=== PATIENT | female | born 1935 | race Caucasian/White ===

== ENCOUNTER 2017-10-12 09:51 | Emergency (ER) | payer MEDICARE ==
[2017-10-12 09:59] VITALS: O2SAT 95
--- NOTE | 2017-10-12 10:13 | ERPHSYRPT ---
- History of Present Illness Time Seen by Provider: 10/12/17 10:10 Source: patient Exam Limitations: no limitations Patient Subjective Stated Complaint: has been having kneck and back pain for some time but its gotten worse recently. Triage Nursing Assessment: patient alert and orientedx3, able to ambulate , gait is steady, lung sounds clear, pulses equal bialteral radius, skin warm dry and intact. Physician History: mild lower back and neck pain for one day, no injury, pt refused pain med, ache pain, nonrad, pt is ambulatory, hx htn and pacer Timing/Duration: today Quality: aching Back Pain Location: C-spine, lumbar spine Allergies/Adverse Reactions: Penicillins Allergy (Severe, Verified 10/04/14 05:16) Hives Home Medications: Atenolol 25 mg PO DAILY 10/04/14 [History] Estradiol 1 mg [Estrace 1 mg] 0.5 mg PO DAILY 10/04/14 [History] Ferrous Sulfate 5 gm MC DAILY 10/04/14 [History] Hydrochlorothiazide 25 mg [hydroDIURIL 25 MG] 25 mg PO DAILY 10/04/14 [ History] Lisinopril 40 mg PO DAILY 10/04/14 [History] Magnesium Oxide 400 mg [Mag-Ox 400] 400 mg PO DAILY 10/04/14 [History] PANTOPRAZOLE 40 mg Tablet [Protonix 40MG Tablet] 40 mg PO BID 10/04/14 [ History] Simvastatin 40 mg [Zocor 40 mg] 20 mg PO DAILY 10/04/14 [History] Verapamil HCl 80 mg [Calan 80 mg] 80 mg PO BID 10/04/14 [History] Spironolactone 10 mg PO DAILY 10/12/17 [History] Hx Tetanus, Diphtheria Vaccination/Date Given: Yes Hx Influenza Vaccination/Date Given: Yes Hx Pneumococcal Vaccination/Date Given: Yes Immunizations Up to Date: Yes - Review of Systems Constitutional: No Symptoms Eyes: No Symptoms Ears, Nose, & Throat: No Symptoms Respiratory: No Symptoms Cardiac: No Symptoms Abdominal/Gastrointestinal: No Symptoms Musculoskeletal: Back Pain, Neck Pain Skin: No Symptoms Neurological: No Dizziness, No Focal Weakness, No Headache, No Lethargy Psychological: No Symptoms - Past Medical History Pertinent Past Medical History: Yes Neurological History: No Pertinent History ENT History: Cataracts, Other Cardiac History: Arrhythmia, Hypertension Respiratory History: CHF Endocrine Medical History: No Pertinent History Musculoskeletal History: No Pertinent History GI Medical History: Ulcer History: No Pertinent History Psycho-Social History: No Pertinent History Female Reproductive Disorders: No Pertinent History Other Medical History: ANEMIA - Past Surgical History Past Surgical History: Yes Neuro Surgical History: No Pertinent History Cardiac: Pacemaker Respiratory: No Pertinent History Genitourinary: No Pertinent History Musculoskeletal: Orthopedic Surgery Female Surgical History: Hysterectomy Other Surgical History: Inner ear sx - Social History Smoking Status: Former smoker Exposure to second hand smoke: No Drug Use: none Patient Lives Alone: No - Female History Hx Now: No - Nursing Vital Signs Nursing Vital Signs: Initial Vital Signs Temperature 97.5 F 10/12/17 09:51 Pulse Rate 72 10/12/17 09:51 Respiratory Rate 20 10/12/17 09:51 Blood Pressure 135/82 10/12/17 09:51 O2 Sat by Pulse Oximetry 95 10/12/17 09:51 Pain Scale Pain Intensity [] 9 Pain Intensity 3 - Physical Exam General Appearance: no apparent distress Eye Exam: PERRL/EOMI Ears, Nose, Throat Exam: normal ENT inspection Neck Exam: other (tender paracervical, nontender midline) Respiratory Exam: normal breath sounds Cardiovascular Exam: regular rate/rhythm Gastrointestinal Exam: soft, No tenderness Back Exam: No vertebral tenderness Extremity Exam: normal inspection Neurologic Exam: alert, oriented x 3, cooperative Skin Exam: normal color SpO2 Interpretation: normal SpO2: 95 Oxygen Delivery: Room Air - Course Nursing assessment & vital signs reviewed: Yes - CT Exams Cervical Spine CT Interpretation: Discussed w/radiologist, Other (degen dis, no fx) Lumbar Spine CT Interpretation: Discussed w/radiologist (degen dis, no fx) Lab/Rad Data: Laboratory Result Diagrams 10/12/17 10:20 10/12/17 10:20 Laboratory Results 10/12/17 10/12/17 10/12/17 Range/Units 10:20 10:20 10:20 WBC (4.0-10.5) K/mm3 RBC (4.1-5.4) M/mm3 Hgb (12.0-16.0) gm/dl Hct (35-47) % MCV (78-100) fl MCH (26-32) pg MCHC (32-36) g/dl RDW (11.5-14.0) % Plt Count (150-450) K/mm3 MPV (6-9.5) fl Gran % (36.0-66.0) % Lymphocytes % (24.0-44.0) % Monocytes % (0.0-12.0) % Eosinophils % (0.00-5.0) % Basophils % (0.0-0.4) % Basophils # (0-0.4) INR 1.59 (0.8-3.0) Sodium 141 (136-145) mEq/L Potassium 4.3 (3.5-5.1) mEq/L Chloride 103 (98-107) mEq/L Carbon Dioxide 27.6 (21-32) mEq/L Anion Gap 14.3 (5-15) MEQ/L BUN 24 H (9-20) mg/dL Creatinine 1.41 H (0.55-1.30) mg/dl Estimated GFR 38 ML/MIN Glucose 114 H (70-110) MG/DL Calcium 9.5 (8.5-10.1) mg/dL Total Bilirubin 0.40 (0.2-1.0) mg/dL AST 18 (15-37) U/L ALT 22 (12-78) U/L Alkaline Phosphatase 77 (46-116) U/L Troponin I < 0.017 (0.000-0.056) ng/ml Serum Total Protein 7.6 (6.4-8.2) gm/dL Albumin 3.7 (3.4-5.0) g/dL 10/12/ Range/Units 10:20 WBC 7.6 (4.0-10.5) K/mm3 RBC 3.91 L (4.1-5.4) M/mm3 Hgb 11.9 L (12.0-16.0) gm/dl Hct 38.3 (35-47) % MCV 98.0 (78-100) fl MCH 30.4 (26-32) pg MCHC 31.1 L (32-36) g/dl RDW 14.9 H (11.5-14.0) % Plt Count 234 (150-450) K/mm3 MPV 10.3 H (6-9.5) fl Gran % 67.2 H (36.0-66.0) % Lymphocytes % 17.9 L (24.0-44.0) % Monocytes % 11.9 (0.0-12.0) % Eosinophils % 2.2 (0.00-5.0) % Basophils % 0.8 (0.0-0.4) % Basophils # 0.06 (0-0.4) INR (0.8-3.0) Sodium (136-145) mEq/L Potassium (3.5-5.1) mEq/L Chloride (98-107) mEq/L Carbon Dioxide (21-32) mEq/L Anion Gap (5-15) MEQ/L BUN (9-20) mg/dL Creatinine (0.55-1.30) mg/dl Estimated GFR ML/MIN Glucose (70-110) MG/DL Calcium (8.5-10.1) mg/dL Total Bilirubin (0.2-1.0) mg/dL AST (15-37) U/L ALT (12-78) U/L Alkaline Phosphatase (46-116) U/L Troponin I (0.000-0.056) ng/ml Serum Total Protein (6.4-8.2) gm/dL Albumin (3.4-5.0) g/dL - Progress Progress: unchanged Progress Note: 10/12/17 12:16 ice and tylenol, see your doctor, return if worse Discussed with : Delvin Will see patient in: office Counseled pt/family regarding: lab results, diagnosis, need for follow-up, rad results - Departure Time of Disposition: 12:17 Departure Disposition: Home Clinical Impression: Back pain Qualifiers: Back pain location: low back pain Chronicity: chronic Back pain laterality: unspecified Sciatica presence: without sciatica Qualified Code(s): M54.5 - Low back pain Condition: Stable Critical Care Time: No Referrals: CHERYL GARIBAY [Primary Care Provider] - Instructions: Low Back Pain
[2017-10-12 10:34] LABS: BASOPHIL % 0.8 % (0.0-0.4); Eosinophil % 2.2 % (0.00-5.0); Granulocytes % 67.2 % (36.0-66.0); Lymphocytes % 17.9 % (24.0-44.0); Mean Corpuscular Hemoglobin 30.4 pg (26-32); Mean Platelet Volume 10.3 fl (6-9.5); Monocytes % 11.9 % (0.0-12.0); Platelet Count 234 K/mm3 (150-450); Red Blood Count 3.91 M/mm3 (4.1-5.4); Red Cell Distribution Width 14.9 % (11.5-14.0); White Blood Count 7.6 K/mm3 (4.0-10.5)
[2017-10-12 10:40] LABS: INR 1.59 (0.8-3.0); PROTIME 17.8 SECONDS (9.95-12.35)
[2017-10-12 10:44] LABS: ALBUMIN 3.7 g/dL (3.4-5.0); ANION GAP 14.3 MEQ/L (5-15); BILIRUBIN,TOTAL 0.4 mg/dL (0.2-1.0); Carbon Dioxide 27.6 mEq/L (21-32); Potassium 4.3 mEq/L (3.5-5.1); Total Protein 7.6 gm/dL (6.4-8.2)
[2017-10-12 11:49] VITALS: BP 124/61; PULSE 56
--- NOTE | 2017-10-12 16:26 | XRAY ---
Indication: Neck and back pain. Comparison: May 01, 2017. Portable chest remains clear again with left-sided pacemaker. Heart is not enlarged for AP portable technique. Bony thorax intact. No new/acute findings. Impression: Stable nonacute chest.
--- NOTE | 2017-10-12 16:30 | XRAY ---
Indication: Neck pain. No known injury. Multiple contiguous axial images obtained through the cervical spine. Sagittal and coronal reformatted images obtained. Comparison: None Several images are slightly degraded by motion artifact. No acute fracture, suspicious bony lesions, or spinal canal stenosis. Mild C5-C6 degenerative endplate spurring and mild/moderate multilevel bilateral degenerative facet hypertrophy. Sagittal and coronal reformatted images demonstrate cervical lordotic straightening, positional versus paraspinal spasm. Minimal C5-C6 disc space narrowing. No acute compression fracture, subluxation, or jumped facet. Normal-appearing craniocervical junction. Visualized noncontrasted soft tissues demonstrate moderate carotid calcifications bilaterally. Base of the brain and lung apices unremarkable. Impression: 1. Cervical lordotic straightening, positional versus paraspinal spasm. Negative acute fracture/subluxation. 2. Multilevel degenerative changes. Comment: Preliminary interpretation was made by [facility]. No discrepancy. CTDI 96.78
--- NOTE | 2017-10-12 16:32 | XRAY ---
Indication: Back pain. No known injury. Multiple contiguous axial images obtained through the lumbar spine. Sagittal and coronal reformatted images obtained. Comparison: None Axial images negative for acute fracture or suspicious bony lesions. Minimal broad-based L3-L5 disc bulge. There is bilateral L5 spondylolysis with 15 mm spondylolisthesis and subsequent bilateral foraminal stenosis. Also L5-S1 disc space loss. Visualized noncontrasted soft tissues demonstrates atrophic right kidney and mild aortoiliac calcifications. Impression: 1. Bilateral L5 spondylolysis with grade 2 spondylolisthesis. Subsequent bilateral foraminal stenosis. 2. Mild L3-L5 broad-based disc bulge. Comment: Preliminary interpretation was made by [facility]. No discrepancy. CTDI 74.21
== END 2017-10-12 12:31 | disposition home or self-care (01) ==
LOC: ED 09:51
DX: M54.5 Low back pain (principal); G89.29 Other chronic pain; M54.2 Cervicalgia; I10 Essential (primary) hypertension; I50.9 Heart failure, unspecified; D64.9 Anemia, unspecified; Z79.899 Other long term (current) drug therapy
CPT/HCPCS: 36000; 36415; 71010; 72125; 72131; 80053; 84484; 85025; 85610; 93005; 93041; 99283; 99284

== ENCOUNTER 2018-01-17 08:54 | Emergency (ER) | payer MEDICARE ==
[2018-01-17] MEDS ORDERED: MORPHINE SULFATE 2 MG INJ IM ONE (09:13)
--- NOTE | 2018-01-17 09:17 | ERPHSYRPT ---
- History of Present Illness Time Seen by Provider: 01/17/18 09:10 Source: patient Exam Limitations: no limitations Patient Subjective Stated Complaint: pt co low back pain x2 months; states pain intermittent but recently causing difficulty breathing; seen by family dr but states pain is not getting any better. Triage Nursing Assessment: pt ambulated to room per self with minimal assist; skin p, w, d; pain with palpation above left posterior ribs; denies any other pain; no other distress noted. Physician History: 83 y/o female comes to the ER with a 2 month history of right sided upper back pain. Pt describes the pain as sharp, constant, 8/10, with radiation to chest and not relieved on tramadol. Pt admits to now having difficulty breathing from the pain. Pt denies any injury to the back. Pt was seen in Sep of last year and had negative x rays. Timing/Duration: week(s) Method of Injury: unknown Quality: sharp Back Pain Location: T-spine, paraspinous muscles Severity of Pain-Max: severe Severity of Pain-Current: severe Modifying Factors: Improves With: nothing Allergies/Adverse Reactions: Penicillins Allergy (Severe, Verified 10/04/14 05:16) Hives Home Medications: Atenolol 25 mg PO DAILY 10/04/14 [History] Estradiol 1 mg [Estrace 1 mg] 0.5 mg PO DAILY 10/04/14 [History] Ferrous Sulfate 5 gm MC DAILY 10/04/14 [History] Hydrochlorothiazide 25 mg [hydroDIURIL 25 MG] 25 mg PO DAILY 10/04/14 [ History] Lisinopril 40 mg PO DAILY 10/04/14 [History] Magnesium Oxide 400 mg [Mag-Ox 400] 400 mg PO DAILY 10/04/14 [History] PANTOPRAZOLE 40 mg Tablet [Protonix 40MG Tablet] 40 mg PO BID 10/04/14 [ History] Simvastatin 40 mg [Zocor 40 mg] 20 mg PO DAILY 10/04/14 [History] Verapamil HCl 80 mg [Calan 80 mg] 80 mg PO BID 10/04/14 [History] Spironolactone 10 mg PO DAILY 10/12/17 [History] Tramadol HCl [Ultram 50 mg Tablet] 50 mg DAILY PRN PRN 01/17/18 [History] Hx Tetanus, Diphtheria Vaccination/Date Given: No Hx Influenza Vaccination/Date Given: Yes Hx Pneumococcal Vaccination/Date Given: Yes (2012) Immunizations Up to Date: No - Review of Systems Constitutional: No Fever, No Chills Eyes: No Symptoms Ears, Nose, & Throat: No Symptoms Respiratory: No Cough, No Dyspnea Cardiac: Chest Pain, No Edema, No Syncope Abdominal/Gastrointestinal: No Abdominal Pain, No Nausea, No Vomiting, No Diarrhea Genitourinary Symptoms: No Dysuria, No Frequency, No Urinary Retention Musculoskeletal: Back Pain, No Neck Pain Skin: No Rash Neurological: No Dizziness, No Focal Weakness, No Sensory Changes Psychological: No Symptoms Endocrine: No Symptoms All Other Systems: Reviewed and Negative - Past Medical History Pertinent Past Medical History: Yes Neurological History: No Pertinent History ENT History: Cataracts, Other Cardiac History: Arrhythmia, Hypertension Respiratory History: CHF Endocrine Medical History: No Pertinent History Musculoskeletal History: No Pertinent History GI Medical History: Ulcer History: No Pertinent History Psycho-Social History: No Pertinent History Female Reproductive Disorders: No Pertinent History Other Medical History: ANEMIA - Past Surgical History Past Surgical History: Yes Neuro Surgical History: No Pertinent History Cardiac: Pacemaker Respiratory: No Pertinent History Genitourinary: No Pertinent History Musculoskeletal: Orthopedic Surgery Female Surgical History: Hysterectomy Other Surgical History: Inner ear sx - Social History Smoking Status: Former smoker Exposure to second hand smoke: No Drug Use: none Patient Lives Alone: No - Female History Hx Last Menstrual Period: hysterectomy - Nursing Vital Signs Nursing Vital Signs: Initial Vital Signs Temperature 97.5 F 01/17/18 09:13 Pulse Rate 62 01/17/18 09:13 Respiratory Rate 16 01/17/18 09:13 Blood Pressure 157/75 01/17/18 09:13 O2 Sat by Pulse Oximetry 96 01/17/18 09:13 Pain Scale Pain Intensity 6 - Physical Exam General Appearance: no apparent distress, alert Eye Exam: PERRL/EOMI, eyes nml inspection Neck Exam: normal inspection, non-tender, supple, full range of motion, No meningismus, No midline tenderness Respiratory Exam: normal breath sounds, lungs clear, No respiratory distress Cardiovascular Exam: regular rate/rhythm, normal heart sounds Gastrointestinal Exam: soft, No tenderness, No mass Back Exam: point tenderness, No CVA tenderness Extremity Exam: normal inspection, normal range of motion, No calf tenderness, No pedal edema Neurologic Exam: alert, oriented x 3, 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, 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, normal mood/affect, nml station & gait, sensation nml, No motor deficits Skin Exam: normal color, warm, dry, No rash - Course Nursing assessment & vital signs reviewed: Yes Ordered Tests: Active Orders 24 hr Category Date Time Status CHEST WITHOUT CONTRAST [CT] Stat Exams 01/17/18 09:12 Completed RECONSTRUCTION [CT] Stat Exams 01/17/18 09:13 Completed CBC W DIFF Stat Lab 01/17/18 09:39 Completed CMP Stat Lab 01/17/18 09:39 Completed Medication Summary Discontinued Medications Generic Name Dose Route Start Last Admin Trade Name Rin PRN Reason Stop Dose Admin Morphine Sulfate 2 mg 01/17/18 09:13 01/17/18 09:36 Morphine Sulfate 2 Mg Inj IM 01/17/18 09:14 2 mg STAT ONE Administration Morphine Sulfate Confirm 01/17/18 09:33 Morphine Sulfate 2 Mg Inj Administered 01/17/18 09:34 Dose 2 mg .ROUTE .[employer] ONE Lab/Rad Data: Laboratory Result Diagrams 01/17/18 09:39 01/17/18 09:39 Laboratory Results 01/17/18 01/17/18 Range/Units 09:39 09:39 WBC 9.7 (4.0-10.5) K/mm3 RBC 4.41 (4.1-5.4) M/mm3 Hgb 13.5 (12.0-16.0) gm/dl Hct 42.5 (35-47) % MCV 96.4 (78-100) fl MCH 30.6 (26-32) pg MCHC 31.8 L (32-36) g/dl RDW 14.9 H (11.5-14.0) % Plt Count 275 (150-450) K/mm3 MPV 9.9 H (6-9.5) fl Gran % 73.5 H (36.0-66.0) % Lymphocytes % 12.3 L (24.0-44.0) % Monocytes % 11.4 (0.0-12.0) % Eosinophils % 2.2 (0.00-5.0) % Basophils % 0.6 (0.0-0.4) % Basophils # 0.06 (0-0.4) Sodium 138 (136-145) mEq/L Potassium 3.7 (3.5-5.1) mEq/L Chloride 100 (98-107) mEq/L Carbon Dioxide 27.2 (21-32) mEq/L Anion Gap 14.8 (5-15) MEQ/L BUN 13 (9-20) mg/dL Creatinine 1.17 (0.55-1.30) mg/dl Estimated GFR 47 ML/MIN Glucose 117 H (70-110) MG/DL Calcium 9.5 (8.5-10.1) mg/dL Total Bilirubin 0.50 (0.2-1.0) mg/dL AST 18 (15-37) U/L ALT 19 (12-78) U/L Alkaline Phosphatase 95 (46-116) U/L Serum Total Protein 7.7 (6.4-8.2) gm/dL Albumin 3.7 (3.4-5.0) g/dL - Progress Progress: improved Progress Note: 01/17/18 10:20 The patient feels better after receiving morphine 2mg IM X 1 dose. The labs are within normal limits. The CT thoracic spine shows a burst compression fracture at T9. As per neurosurgery, patient will F/U as an outpatient. The patient will be d/c home on [place] for pain. 01/17/18 11:51 - Departure Time of Disposition: 12:15 Departure Disposition: Home Clinical Impression: Compression fracture Condition: Stable Critical Care Time: No Referrals: CHERYL GARIBAY [Primary Care Provider] - Instructions: Vertebral Compression Fracture (DC) Additional Instructions: Follow up with your primary care doctor in the next couple of days for evaluation with a spine surgeon for kyphoplasty for a T9 compression fracture Prescriptions: Hydrocodone Bit/Acetaminophen [[place] 5-325 Tablet] 1 each PO QID #14 tablet MDD 4
[2018-01-17] MEDS ORDERED: MORPHINE SULFATE 2 MG INJ ONE (09:33)
[2018-01-17 09:42] LABS: BASOPHIL % 0.6 % (0.0-0.4); Basophil (Absolute #) 0.06 (0-0.4); Eosinophil % 2.2 % (0.00-5.0); Eosinophil (Absolute #) 0.21 (0-0.5); Granulocytes % 73.5 % (36.0-66.0); Hematocrit 42.5 % (35-47); Hemoglobin 13.5 gm/dl (12.0-16.0); Lymphocyte (Absolute #) 1.19 (1.0-4.6); Lymphocytes % 12.3 % (24.0-44.0); Mean Cell Volume 96.4 fl (78-100); Mean Corpuscular Hemoglobin 30.6 pg (26-32); Mean Corpuscular Hgb Concent. 31.8 g/dl (32-36); Mean Platelet Volume 9.9 fl (6-9.5); Monocytes % 11.4 % (0.0-12.0); Platelet Count 275 K/mm3 (150-450); Red Blood Count 4.41 M/mm3 (4.1-5.4); Red Cell Distribution Width 14.9 % (11.5-14.0); White Blood Count 9.7 K/mm3 (4.0-10.5)
[2018-01-17 10:06] LABS: ALBUMIN 3.7 g/dL (3.4-5.0); ANION GAP 14.8 MEQ/L (5-15); BILIRUBIN,TOTAL 0.5 mg/dL (0.2-1.0); Calcium 9.5 mg/dL (8.5-10.1); Carbon Dioxide 27.2 mEq/L (21-32); Creatinine 1 1.17 mg/dl (0.55-1.30); Potassium 3.7 mEq/L (3.5-5.1); Total Protein 7.7 gm/dL (6.4-8.2)
--- NOTE | 2018-01-17 11:21 | XRAY ---
Exam: CT of the chest without IV contrast from 01/17/2018. CTDI: 13.67 Comparison: Two-view chest from 12/11/2017. Indication: Mid right-sided back pain for 2 weeks, hurt while moving furniture around. Technique: Non-IV contrast axial images were obtained through the chest. Reconstructed coronal and sagittal images were created and reviewed. Findings: There is mild cardiomegaly. Both moderate left ventricular and left atrial enlargement is seen. A left-sided cardiac pacemaker is noted with a single transverse lead emanating from it and extending to the apex of the right ventricle. No pericardial effusion is seen. Moderate atherosclerotic vascular calcification is seen within the thoracic aorta. There is mild dilation seen near the junction of the distal ascending aorta and proximal aortic arch, which measures a maximum of 3.5 cm in diameter on axial image #20. No other significant thoracic aortic dilation is seen. The main pulmonary arteries are mildly prominent, measuring 2.8 cm in diameter on the right on axial image #26 and 3.0 cm in diameter within the left main pulmonary artery segment on axial image #23. These measurements are borderline enlarged. Mild coronary artery vascular calcification overlies the left side of the heart. Some calcification is seen within the [place] of the trachea and central bronchi. The thyroid gland appears grossly unremarkable. No abnormal bulky mediastinal or perihilar soft tissue lymphadenopathy is seen. A few scattered bilateral small calcified granulomas are seen. I also note some minimal scattered bilateral curvilinear scarring/atelectasis. No air space infiltrates, pneumothorax, or pleural fluid is seen. There is some mild pleural thickening at the posterior lateral right lower lung field. Within the upper abdomen, I see pronounced atrophy of the right kidney as well as at least 4 small nonobstructing right renal calcifications. The adrenal glands appear unremarkable. Atherosclerotic vascular calcification is seen within the upper to mid abdominal aorta. Abundant stool is seen within the visualized right hemicolon. There is some mild diffuse atrophy of the pancreas. No other acute abnormality is seen within the upper abdomen. The skeleton reveals a burst fracture involving the superior aspect of the T9 vertebral body with mild circumferential displacement on the axial images. This does not appear to involve the posterior elements. The T9 fracture is new from the chest film from 12/11/2017. There is approximately 50% loss of the mid vertebral body height of T9 on the sagittal images. There is about 40% loss of the anterior vertebral body height of T9 and 20-25% loss of the posterior vertebral body height of T9. There is minimal posterior bone cortex bulge of the fractured T9 vertebral body on the sagittal images. I see no significant spinal stenosis. No other fracture is seen within the visualized thoracolumbar spine. Impression: 1. There is a new moderate compression burst fracture involving the superior aspect of the T9 vertebral body with mild circumferential displacement of the fractured element's and minimal posterior cortical buckling. This does not significantly compromise the thoracic spinal canal at this level. I see no definite fracture involving the posterior elements of T9. See above. 2. Mild cardiomegaly with both left ventricular and left atrial enlargement. No pericardial effusion is seen. Minimal left coronary artery vascular calcification is seen. 3. There is mild aneurysmal distention of the thoracic aorta near the junction of the distal ascending aorta and proximal aortic arch. This measures a maximum of 3.5 cm in diameter. I also note prominence of both main pulmonary artery segments. An element of pulmonary artery hypertension is not excluded. 4. No active lung disease is seen. Several scattered small calcified granulomas and some mild scattered linear scarring/atelectasis within both lungs are seen. I also note mild pleural thickening posterolaterally within the right lower lung field. 5. Left-sided cardiac pacemaker and marked atrophy of the right kidney. I also note at least several nonobstructing punctate calculi within the small right kidney.
--- NOTE | 2018-01-17 11:25 | XRAY ---
Exam: Reconstructed thoracic spine CT images from the CT of the chest performed on 01/17/2018. Indication: Known T9 fracture. Findings: Coned-down axial images were obtained through the thoracic spine. Reconstructed coronal and sagittal images were created and reviewed. I again note a moderate generalized compression burst fracture of the superior aspect of the T9 vertebral body. This is new from the chest films from 12/11/2017. This fracture appears acute to subacute. I see no additional fracture involving the posterior elements of T9. No central canal spinal stenosis is seen at T9. There is minimal circumferential displacement of the upper T9 compression fracture with minimal cortical buckling posteriorly. Dorsal kyphosis and bone demineralization are seen. I see no other thoracic spine fracture or AP subluxation. Mild generalized thoracic vertebral endplate spurring is evident. Impression: 1. I again see a moderate, acute to subacute compression burst fracture involving the superior aspect of the T9 vertebral body. There is at least 50% loss of the mid T9 vertebral body height, although the anterior and posterior vertebral body height losses are somewhat less than this. See CT chest report.
[2018-01-17 12:35] VITALS: BP 127/44; PULSE 66; O2SAT 96
== END 2018-01-17 12:33 | disposition home or self-care (01) ==
LOC: ED 08:54
DX: M48.54XA Collapsed vertebra, not elsewhere classified, thoracic region, initial encounter for fracture (principal); Z79.899 Other long term (current) drug therapy
CPT/HCPCS: 36415; 71250; 76376; 80053; 85025; 96372; 99284; J2270

== ENCOUNTER 2018-02-01 14:06 | Emergency (ER) | payer MEDICARE ==
[2018-02-01] MEDS ORDERED: SUBLIMAZE 100 MCG/2 ML IV ONE ×2 (14:26→16:50)
[2018-02-01] MEDS ORDERED: SUBLIMAZE 100 MCG/2 ML ONE ×2 (14:38→16:52)
[2018-02-01 14:51] LABS: BASOPHIL % 0.5 % (0.0-0.4); Basophil (Absolute #) 0.05 (0-0.4); Eosinophil (Absolute #) 0.11 (0-0.5); Granulocyte Absolute (ANC) 7.73 (1.4-6.9); Hematocrit 43.6 % (35-47); Hemoglobin 14.1 gm/dl (12.0-16.0); Lymphocyte (Absolute #) 1.54 (1.0-4.6); Lymphocytes % 14.6 % (24.0-44.0); Mean Cell Volume 94.6 fl (78-100); Mean Corpuscular Hemoglobin 30.6 pg (26-32); Mean Corpuscular Hgb Concent. 32.3 g/dl (32-36); Mean Platelet Volume 10.4 fl (6-9.5); Monocyte (Absolute #) 1.15 (0.0-1.3); Monocytes % 10.9 % (0.0-12.0); Platelet Count 287 K/mm3 (150-450); Red Blood Count 4.61 M/mm3 (4.1-5.4); Red Cell Distribution Width 14.4 % (11.5-14.0); White Blood Count 10.6 K/mm3 (4.0-10.5)
[2018-02-01 15:10] LABS: INR 2.8 (0.8-3.0)
[2018-02-01 15:16] LABS: ANION GAP 15.9 MEQ/L (5-15); Calcium 9.8 mg/dL (8.4-10.2); Creatinine 1 0.99 mg/dL (0.52-1.04); Potassium 3.6 mmol/L (3.5-5.1)
[2018-02-01 16:48] VITALS: BP 157/68; PULSE 64; O2SAT 95
--- NOTE | 2018-02-01 17:09 | ERPHSYRPT ---
- History of Present Illness Time Seen by Provider: 02/01/18 14:22 Source: patient, family () Patient Subjective Stated Complaint: pt reports waking up this morning with neck pain radiating up into head-states pain is severe enough to cause nausea- denies fall-denies injury Triage Nursing Assessment: pt pink warm and [id number] bruising or abrasions ntoed-moving all extremtiies with ease Physician History: CC: neck pain HX: 83 y/o on coumadin thinks she slept on her neck wrong and awoke this AM with neck pain. Feels like spasm. No fever or chills. Some headache. No fall or specific injury. No N/T/W. She took her ultram without relief. Timing/Duration: today Severity: moderate, severe Allergies/Adverse Reactions: Penicillins Allergy (Severe, Verified 02/01/18 14:16) Hives Home Medications: Atenolol 25 mg PO DAILY 10/04/14 [History] Estradiol 1 mg [Estrace 1 mg] 0.5 mg PO DAILY 10/04/14 [History] Ferrous Sulfate 5 gm MC DAILY 10/04/14 [History] Hydrochlorothiazide 25 mg [hydroDIURIL 25 MG] 25 mg PO DAILY 10/04/14 [ History] Lisinopril 40 mg PO DAILY 10/04/14 [History] Magnesium Oxide 400 mg [Mag-Ox 400] 400 mg PO DAILY 10/04/14 [History] PANTOPRAZOLE 40 mg Tablet [Protonix 40MG Tablet] 40 mg PO BID 10/04/14 [ History] Simvastatin 40 mg [Zocor 40 mg] 20 mg PO DAILY 10/04/14 [History] Verapamil HCl 80 mg [Calan 80 mg] 80 mg PO BID 10/04/14 [History] Spironolactone 10 mg PO DAILY 10/12/17 [History] Tramadol HCl [Ultram 50 mg Tablet] 50 mg DAILY PRN PRN 01/17/18 [History] Hx Tetanus, Diphtheria Vaccination/Date Given: No Hx Influenza Vaccination/Date Given: Yes Hx Pneumococcal Vaccination/Date Given: Yes Immunizations Up to Date: Yes - Review of Systems Constitutional: No Fever, No Chills Eyes: No Vision Changes Ears, Nose, & Throat: No Symptoms Respiratory: No Symptoms Cardiac: No Chest Pain Abdominal/Gastrointestinal: No Abdominal Pain, No Nausea, No Vomiting Musculoskeletal: Neck Pain, No Fall, No Injury Skin: No Rash Neurological: Headache All Other Systems: Reviewed and Negative - Past Medical History Pertinent Past Medical History: Yes Neurological History: No Pertinent History ENT History: Cataracts, Other Cardiac History: Arrhythmia, Hypertension Respiratory History: CHF Endocrine Medical History: No Pertinent History Musculoskeletal History: No Pertinent History GI Medical History: Ulcer History: No Pertinent History Psycho-Social History: No Pertinent History Female Reproductive Disorders: No Pertinent History Other Medical History: ANEMIA - Past Surgical History Past Surgical History: Yes Neuro Surgical History: No Pertinent History Cardiac: Pacemaker Respiratory: No Pertinent History Gastrointestinal: No Pertinent History Genitourinary: No Pertinent History Musculoskeletal: Orthopedic Surgery Female Surgical History: Hysterectomy Other Surgical History: Inner ear sx - Social History Smoking Status: Former smoker Exposure to second hand smoke: No Drug Use: none Patient Lives Alone: No - Female History Hx Now: No - Nursing Vital Signs Nursing Vital Signs: Initial Vital Signs Temperature 98.3 F 02/01/18 14:11 Pulse Rate 70 02/01/18 14:11 Respiratory Rate 16 02/01/18 14:11 Blood Pressure 180/75 02/01/18 14:11 O2 Sat by Pulse Oximetry 96 02/01/18 14:11 Pain Scale Pain Intensity 8 - Physical Exam General Appearance: alert, other (pleasant elderly lady) Eye Exam: PERRL/EOMI Ears, Nose, Throat Exam: moist mucous membranes Neck Exam: normal inspection, other (tender all neck, worse paraspinous muscles) Respiratory Exam: normal breath sounds Cardiovascular Exam: regular rate/rhythm Gastrointestinal/Abdomen Exam: soft, No tenderness, No distention Neurologic Exam: alert, oriented x 3, cooperative, 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 nml as tested, sensation nml, No motor deficits Skin Exam: warm, dry SpO2 Interpretation: normal SpO2: 95 Oxygen Delivery: Room Air - Course Nursing assessment & vital signs reviewed: Yes - CT Exams brain,cervical CT Interpretation: Tele-radiologist Report (no acute) Ordered Tests: Active Orders 24 hr Category Date Time Status IV Insertion STAT Care 02/01/18 14:26 Active NPO (ED) STAT Care 02/01/18 14:26 Active CERVICAL SPINE WO CONTRAST [CT] Stat Exams 02/01/18 14:27 Taken HEAD WITHOUT CONTRAST [CT] Stat Exams 02/01/18 14:27 Taken BMP Stat Lab 02/01/18 14:35 Completed CBC W DIFF Stat Lab 02/01/18 14:35 Completed PROTIME WITH INR Stat Lab 02/01/18 14:35 Completed Medication Summary Discontinued Medications Generic Name Dose Route Start Last Admin Trade Name Rin PRN Reason Stop Dose Admin Fentanyl Citrate 50 mcg 02/01/18 14:26 02/01/18 15:25 Sublimaze 100 Mcg/2 Ml IV 02/01/18 14:27 50 mcg STAT ONE Administration Fentanyl Citrate Confirm 02/01/18 14:38 Sublimaze 100 Mcg/2 Ml Administered 02/01/18 14:39 Dose 100 mcg .ROUTE .STK-MED ONE Fentanyl Citrate 50 mcg 02/01/18 16:50 02/01/18 16:53 Sublimaze 100 Mcg/2 Ml IV 02/01/18 16:51 50 mcg STAT ONE Administration Fentanyl Citrate Confirm 02/01/18 16:52 Sublimaze 100 Mcg/2 Ml Administered 02/01/18 16:53 Dose 100 mcg .ROUTE .STK-MED ONE Lab/Rad Data: Laboratory Result Diagrams 02/01/18 14:35 02/01/18 14:35 Laboratory Results 02/01/18 02/01/18 02/01/18 Range/Units 14:35 14:35 14:35 WBC 10.6 H (4.0-10.5) K/mm3 RBC 4.61 (4.1-5.4) M/mm3 Hgb 14.1 (12.0-16.0) gm/dl Hct 43.6 (35-47) % MCV 94.6 (78-100) fl MCH 30.6 (26-32) pg MCHC 32.3 (32-36) g/dl RDW 14.4 H (11.5-14.0) % Plt Count 287 (150-450) K/mm3 MPV 10.4 H (6-9.5) fl Gran % 73.0 H (36.0-66.0) % Lymphocytes % 14.6 L (24.0-44.0) % Monocytes % 10.9 (0.0-12.0) % Eosinophils % 1.0 (0.00-5.0) % Basophils % 0.5 (0.0-0.4) % Basophils # 0.05 (0-0.4) INR 2.80 (0.8-3.0) Sodium 137 (137-145) mmol/L Potassium 3.6 (3.5-5.1) mmol/L Chloride 99 (98-107) mmol/L Carbon Dioxide 26 (22-30) mmol/L Anion Gap 15.9 H (5-15) MEQ/L BUN 9 (7-17) mg/dL Creatinine 0.99 (0.52-1.04) mg/dL Estimated GFR 57 ML/MIN Glucose 120 H (74-106) mg/dL Calcium 9.8 (8.4-10.2) mg/dL - Progress Progress Note: 02/01/18 17:07 She feels better after fentanyl and wants to go home. Advised warm compresses in addition to her ultram and to follow up with Dr Hargrove for possible PT. INR ok. Counseled pt/family regarding: lab results, diagnosis, need for follow-up, rad results - Departure Time of Disposition: 17:08 Departure Disposition: Home Clinical Impression: Cervical muscle strain, Warfarin anticoagulation Condition: Stable Critical Care Time: No Referrals: CHERYL HARGROVE [Primary Care Provider] - Instructions: Generalized Neck Pain (DC) Additional Instructions: Warm compresses off and on. Take your ultram as already prescribed. No driving and stay with family. Return for problems or concerns. Call Dr Hargrove Saturday for follow up.
--- NOTE | 2018-02-01 20:57 | XRAY ---
Indication: Neck pain. No known injury. Multiple contiguous axial images obtained through the head without contrast. Comparison: None Age-appropriate global atrophy, minimal periventricular degenerative micro-ischemia, and large focus old right parietal infarct. No acute intracranial hemorrhage, hydrocephalus, or mass effect. Bony calvarium intact. Previous right mastoidectomy. Remaining visualized paranasal sinuses and left mastoid air cells are clear. Impression: 1. No acute intracranial abnormalities. 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 3. Normal aging brain including atrophy and gentle micro-ischemia. Comment: Preliminary interpretation was made by [facility]. No discrepancy. CTDI 68.15
--- NOTE | 2018-02-01 21:01 | XRAY ---
Indication: Neck pain. No known injury. Multiple contiguous axial images obtained through the cervical spine. Sagittal and coronal reformatted images obtained. Comparison: October 12, 2017. Axial images again negative for acute fracture, suspicious bony lesions, or spinal canal stenosis. Stable C5-C6 degenerative endplate spurring and multilevel bilateral degenerative facet hypertrophy. Sagittal and coronal reformatted images demonstrates normal alignment. Stable C5-C6 disc space narrowing. No acute compression fracture, subluxation, or jumped facet. Visualized noncontrasted soft tissues again demonstrate scattered carotid calcifications bilaterally and partially visualized left-sided pacemaker. CT head reported separately. Impression: 1. Again negative acute fracture/subluxation. 2. Stable multilevel degenerative changes. Comment: Preliminary interpretation was made by [facility]. No discrepancy. CTDI 110.54
== END 2018-02-01 17:15 | disposition home or self-care (01) ==
LOC: ED 14:06
DX: S16.1XXA Strain of muscle, fascia and tendon at neck level, initial encounter (principal); M54.2 Cervicalgia; Z79.01 Long term (current) use of anticoagulants; Z79.899 Other long term (current) drug therapy
CPT/HCPCS: 36000; 36415; 70450; 72125; 80048; 85025; 85610; 96374; 96376; 99284; J3010

== ENCOUNTER 2018-03-19 13:18 | Inpatient (IN) | payer MEDICARE ==
[2018-03-19] MEDS ORDERED: SUBLIMAZE 100 MCG/2 ML IV ONE (13:47)
[2018-03-19] MEDS ORDERED: Zofran 4 MG/2 ML VIAL IV ONE (13:47)
[2018-03-19] MEDS ORDERED: solu-MEDROL 125 MG IV ONE (13:49)
[2018-03-19] MEDS ORDERED: DUONEB 0.5-3 MG/3 ml Neb IH PRN ×3 (13:50→22:01)
[2018-03-19 13:53] LABS: BASOPHIL % 0.2 % (0.0-0.4); Basophil (Absolute #) 0.03 (0-0.4); Eosinophil % 0.1 % (0.00-5.0); Eosinophil (Absolute #) 0.02 (0-0.5); Granulocyte Absolute (ANC) 12.11 (1.4-6.9); Granulocytes % 79.8 % (36.0-66.0); Hemoglobin 12.5 gm/dl (12.0-16.0); Lymphocyte (Absolute #) 1.55 (1.0-4.6); Lymphocytes % 10.2 % (24.0-44.0); Mean Cell Volume 94.2 fl (78-100); Mean Corpuscular Hemoglobin 30.2 pg (26-32); Mean Corpuscular Hgb Concent. 32.1 g/dl (32-36); Mean Platelet Volume 10.9 fl (6-9.5); Monocyte (Absolute #) 1.48 (0.0-1.3); Monocytes % 9.7 % (0.0-12.0); Platelet Count 250 K/mm3 (150-450); Red Blood Count 4.14 M/mm3 (4.1-5.4); Red Cell Distribution Width 14.7 % (11.5-14.0); White Blood Count 15.2 K/mm3 (4.0-10.5)
--- NOTE | 2018-03-19 13:59 | ERPHSYRPT ---
- History of Present Illness Time Seen by Provider: 03/19/18 13:46 Source: patient Exam Limitations: clinical condition Patient Subjective Stated Complaint: SOB after falling Saturday. Triage Nursing Assessment: Pt presents to the ED with complaints of SOB after falling Saturday. Pt states hx of falls. Pt states she fell from approximately 3 ft step stool onto her back. Pt states pain accross shoulder blades. No distress noted, skin PWD. Physician History: PATIENT WITH A HISTORY OF COPD FELL 2 NIGHT AGO LANDING ONTO LEFT POSTERIOR CHEST AND COMPLAINS OF DYSPNEA , PRODUCTIVE COUGH AND PAIN UPON COUGHING. DENIES ASSOCIATED HEAD INJURY, LOSS OF CONSCIOUSNESS, NECK PAIN, NUMBNESS, TINGLING OR WEAKNESS IN EXTREMITIES. Timing/Duration: day(s) Activities at Onset: activity Severity of Dyspnea-Max: moderate Severity of Dyspnea-Current: moderate Possible Cause: occasional episodes Modifying Factors: Improves With: coughing Associated Symptoms: cough, chest pain/discomfort International travel in last 2 weeks: No Allergies/Adverse Reactions: Penicillins Allergy (Severe, Verified 02/01/18 14:16) Hives Home Medications: Atenolol 25 mg PO DAILY 10/04/14 [History] Estradiol 1 mg [Estrace 1 mg] 0.5 mg PO DAILY 10/04/14 [History] Ferrous Sulfate 5 gm MC DAILY 10/04/14 [History] Lisinopril 40 mg PO DAILY 10/04/14 [History] Magnesium Oxide 400 mg [Mag-Ox 400] 400 mg PO DAILY 10/04/14 [History] PANTOPRAZOLE 40 mg Tablet [Protonix 40MG Tablet] 40 mg PO BID 10/04/14 [ History] Simvastatin 40 mg [Zocor 40 mg] 20 mg PO DAILY 10/04/14 [History] Verapamil HCl 80 mg [Calan 80 mg] 80 mg PO BID 10/04/14 [History] Spironolactone 10 mg PO DAILY 10/12/17 [History] Tramadol HCl [Ultram 50 mg Tablet] 50 mg DAILY PRN PRN 01/17/18 [History] Hx Tetanus, Diphtheria Vaccination/Date Given: Yes Hx Influenza Vaccination/Date Given: Yes Hx Pneumococcal Vaccination/Date Given: Yes Immunizations Up to Date: Yes - Past Medical History Pertinent Past Medical History: Yes Neurological History: No Pertinent History ENT History: Cataracts, Other Cardiac History: Arrhythmia, Hypertension Respiratory History: CHF Endocrine Medical History: No Pertinent History Musculoskeletal History: No Pertinent History GI Medical History: Ulcer History: No Pertinent History Psycho-Social History: No Pertinent History Female Reproductive Disorders: No Pertinent History Other Medical History: ANEMIA - Past Surgical History Past Surgical History: Yes Neuro Surgical History: No Pertinent History Cardiac: Pacemaker Respiratory: No Pertinent History Gastrointestinal: No Pertinent History Genitourinary: No Pertinent History Musculoskeletal: Orthopedic Surgery Female Surgical History: Hysterectomy Other Surgical History: Inner ear sx - Social History Smoking Status: Former smoker Exposure to second hand smoke: No Drug Use: none Patient Lives Alone: No - Female History Hx Now: No - Nursing Vital Signs Nursing Vital Signs: Initial Vital Signs Temperature 98.6 F 03/19/18 13:22 Pulse Rate 64 03/19/18 13:22 Respiratory Rate 23 03/19/18 13:22 Blood Pressure 175/71 03/19/18 13:22 O2 Sat by Pulse Oximetry 93 L 03/19/18 13:22 Pain Scale Pain Intensity 6 - Physical Exam General Appearance: no apparent distress, mild distress, alert Eye Exam: PERRL/EOMI Neck Exam: normal inspection, supple Respiratory Exam: chest tenderness (LEFT POSTERIOR CHEST WALL TENDERNESS, NO CREPITUS OR ECCHYCMOSIS), diminished breath sounds Cardiovascular/Chest Exam: normal heart sounds, regular rate/rhythm Abdominal/Gastrointestinal Exam: soft, normal bowel sounds, No tenderness, No distention, No mass Extremity Exam: non-tender, normal range of motion, normal inspection, no calf tenderness, no pedal edema Neurologic Exam: alert, oriented x 3, cooperative, 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 II-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 nml as tested, sensation nml, No motor deficits Skin Exam: normal color, warm, No dry SpO2 Interpretation: normal SpO2: 94 Oxygen Delivery: Room Air Ordered Tests: Active Orders 24 hr Category Date Time Status Up With Assistance ROUTINE Activity 03/19/18 18:24 Active Clean Catch Urine Specimen STAT Care 03/19/18 13:47 Active Code Status Order ROUTINE Care 03/19/18 18:24 Active IV Care Q6H Care 03/19/18 18:24 Active IV Insertion STAT Care 03/19/18 13:47 Active Oxygen-ED Only NASAL CANNULA 2 lpm Care 03/19/18 13:[address] in Observation ROUTINE Care 03/19/18 18:24 Active Pulse Oximetry (ED) STAT Care 03/19/18 13:48 Active Bennett Meléndez, Apply ROUTINE Care 03/19/18 18:24 Active Vital Signs Q4H Care 03/19/18 18:24 Active Weight,Daily 0600 Care 03/19/18 18:24 Active Low Sodium Diet 03/19/18 Breakfast Active CHEST WITH CONTRAST [CT] Stat Exams 03/19/18 13:47 Completed BLOOD CULTURE Stat Lab 03/19/18 14:20 Received CBC W DIFF Stat Lab 03/19/18 13:47 Completed CMP Stat Lab 03/19/18 13:47 Completed MAGNESIUM Stat Lab 03/19/18 13:49 Completed TROPONIN Q3H Lab 03/19/18 14:00 Completed TROPONIN Q3H Lab 03/19/18 16:40 Completed TROPONIN Q3H Lab 03/19/18 20:00 Ordered TROPONIN Q3H Lab 03/19/18 23:00 Ordered TROPONIN Q3H Lab 03/20/18 02:00 Ordered UA W/RFX UR CULTURE Stat Lab 03/19/18 13:47 Ordered Oxygen NASAL CANNULA 2 lpm RT 03/19/18 18:24 Active Respiratory Nebulizer Q4H RT 03/19/18 18:24 Active Respiratory Nebulizer STAT RT 03/19/18 14:11 Completed Respiratory Nebulizer STAT RT 03/19/18 18:05 Completed Transfer Order Routine Transfer 03/19/18 Ordered Medication Summary Generic Name Dose Route Start Last Admin Trade Name Freq PRN Reason Stop Dose Admin Acetaminophen 650 mg 03/19/18 18:31 Tylenol 325 Mg PO 04/18/18 18:30 Q4H PRN PRN PAIN AND/OR FEVER Albuterol/Ipratropium 3 ml 03/19/18 19:00 Duoneb 0.5-3 Mg/3 Ml Neb IH 04/18/18 18:59 Q4HRT POORNIMA Atenolol 25 mg 03/20/18 10:00 Tenormin 50 Mg PO 04/19/18 09:59 DAILY POORNIMA Sodium Chloride 1,000 mls @ 100 mls/hr 03/19/18 14:00 03/19/18 15:02 Sodium Chloride 0.9% 1000 Ml IV 04/18/18 13:59 100 mls/hr .Q10H POORNIMA Administration Levofloxacin/Dextrose 500 mg in 100 mls @ 100 mls/hr 03/20/18 10:00 Levofloxacin 500mg/100ml D5w IV 04/19/18 09:59 Q24H10 POORNIMA Sodium Chloride 1,000 mls @ 0 mls/hr 03/19/18 18:30 Sodium Chloride 0.9% 1000 Ml IV 04/18/18 18:29 .Q0M POORNIMA KVO Levalbuterol HCl 1.25 mg 03/19/18 18:30 Xopenex 1.25 Mg/0.5 Ml Ud Nebule IH 04/18/18 18:29 Q2HPRN PRN DYSPNEA Lisinopril 40 mg 03/20/18 10:00 Zestril 20 Mg PO 04/19/18 09:59 DAILY [facility] Magnesium Oxide 400 mg 03/19/18 22:00 Mag-Ox 400 PO 04/18/18 21:59 BID [facility] Methylprednisolone Sodium Succinate 80 mg 03/20/18 00:00 Solu-Medrol 125 Mg IV 04/19/18 00:00 Q6HT [facility] Pantoprazole Sodium 40 mg 03/19/18 22:00 Protonix 40mg Tablet PO 04/18/18 21:59 BID [facility] Tramadol HCl 50 mg 03/19/18 18:27 Ultram 50 Mg PO 04/18/18 18:26 QID PRN PRN PAIN Verapamil HCl 80 mg 03/19/18 22:00 Calan 80 Mg PO 04/18/18 21:59 BID [facility] Discontinued Medications Generic Name Dose Route Start Last Admin Trade Name Freq PRN Reason Stop Dose Admin Albuterol/Ipratropium 3 ml 03/19/18 13:50 03/19/18 14:09 Duoneb 0.5-3 Mg/3 Ml Neb IH 04/18/18 13:49 3 ml Q4HPRN PRN Administration SHORTNESS OF BREATH/WHEEZING Albuterol/Ipratropium 3 ml 03/19/18 17:46 Duoneb 0.5-3 Mg/3 Ml Neb IH 04/18/18 17:45 Q4HPRN PRN SHORTNESS OF BREATH/WHEEZING Albuterol/Ipratropium Confirm 03/19/18 14:04 Duoneb 0.5-3 Mg/3 Ml Neb Administered 03/19/18 14:05 Dose 3 ml IH .STK-MED ONE Albuterol/Ipratropium Confirm 03/19/18 17:51 Duoneb 0.5-3 Mg/3 Ml Neb Administered 03/19/18 17:52 Dose 3 ml IH .STK-MED ONE Albuterol/Ipratropium 3 ml 03/19/18 18:05 Duoneb 0.5-3 Mg/3 Ml Neb IH 03/19/18 18:06 STAT ONE Fentanyl Citrate 50 mcg 03/19/18 13:47 03/19/18 14:15 Sublimaze 100 Mcg/2 Ml IV 03/19/18 13:48 50 mcg STAT ONE Administration Fentanyl Citrate Confirm 03/19/18 14:13 Sublimaze 100 Mcg/2 Ml Administered 03/19/18 14:14 Dose 100 mcg .ROUTE .STK-MED ONE Levofloxacin/Dextrose 500 mg in 100 mls @ 100 mls/hr 03/19/18 16:24 03/19/18 16:29 Levofloxacin 500mg/100ml D5w IV 03/19/18 17:23 100 ml/hr STAT STA 100 mls/hr Administration Levofloxacin/Dextrose Confirm 03/19/18 16:27 Levofloxacin 500mg/100ml D5w Administered 03/19/18 16:28 Dose 500 mg in 100 mls @ ud IV .STK-MED ONE Methylprednisolone Sodium Succinate 125 mg 03/19/18 13:49 03/19/18 14:14 Solu-Medrol 125 Mg IV 03/19/18 13:50 125 mg STAT ONE Administration Methylprednisolone Sodium Succinate Confirm 03/19/18 14:13 Solu-Medrol 125 Mg Administered 03/19/18 14:14 Dose 125 mg .ROUTE .STK-MED ONE Ondansetron HCl 4 mg 03/19/18 13:47 03/19/18 14:15 Zofran 4 Mg/2 Ml Vial IV 03/19/18 13:48 4 mg STAT ONE Administration Ondansetron HCl Confirm 03/19/18 14:13 Zofran 4 Mg/2 Ml Vial Administered 03/19/18 14:14 Dose 4 mg .ROUTE .STK-MED ONE Lab/Rad Data: Laboratory Result Diagrams 03/19/18 13:47 03/19/18 13:47 Laboratory Results 03/19/18 03/19/18 03/19/18 Range/Units 16:40 14:00 13:49 WBC (4.0-10.5) K/mm3 RBC (4.1-5.4) M/mm3 Hgb (12.0-16.0) gm/dl Hct (35-47) % MCV (78-100) fl MCH (26-32) pg MCHC (32-36) g/dl RDW (11.5-14.0) % Plt Count (150-450) K/mm3 MPV (6-9.5) fl Gran % (36.0-66.0) % Eos # (Auto) (0-0.5) Absolute Lymphs (auto) (1.0-4.6) Absolute Monos (auto) (0.0-1.3) Lymphocytes % (24.0-44.0) % Monocytes % (0.0-12.0) % Eosinophils % (0.00-5.0) % Basophils % (0.0-0.4) % Absolute Granulocytes (1.4-6.9) Basophils # (0-0.4) Sodium (137-145) mmol/L Potassium (3.5-5.1) mmol/L Chloride (98-107) mmol/L Carbon Dioxide (22-30) mmol/L Anion Gap (5-15) MEQ/L BUN (7-17) mg/dL Creatinine (0.52-1.04) mg/dL Estimated GFR ML/MIN Glucose (74-106) mg/dL Calcium (8.4-10.2) mg/dL Magnesium 2.2 (1.6-2.3) mg/dL Total Bilirubin (0.2-1.3) mg/dL AST (14-36) U/L ALT (0-35) U/L Alkaline Phosphatase (38-126) U/L Troponin I 0.031 0.034 (0.000-0.034) ng/mL Serum Total Protein (6.3-8.2) g/dL Albumin (3.5-5.0) g/dL 03/19/18 03/19/18 Range/Units 13:47 13:47 WBC 15.2 H (4.0-10.5) K/mm3 RBC 4.14 (4.1-5.4) M/mm3 Hgb 12.5 (12.0-16.0) gm/dl Hct 39.0 (35-47) % MCV 94.2 (78-100) fl MCH 30.2 (26-32) pg MCHC 32.1 (32-36) g/dl RDW 14.7 H (11.5-14.0) % Plt Count 250 (150-450) K/mm3 MPV 10.9 H (6-9.5) fl Gran % 79.8 H (36.0-66.0) % Eos # (Auto) 0.02 (0-0.5) Absolute Lymphs (auto) 1.55 (1.0-4.6) Absolute Monos (auto) 1.48 H (0.0-1.3) Lymphocytes % 10.2 L (24.0-44.0) % Monocytes % 9.7 (0.0-12.0) % Eosinophils % 0.1 (0.00-5.0) % Basophils % 0.2 (0.0-0.4) % Absolute Granulocytes 12.11 H (1.4-6.9) Basophils # 0.03 (0-0.4) Sodium 140 (137-145) mmol/L Potassium 4.0 (3.5-5.1) mmol/L Chloride 100 (98-107) mmol/L Carbon Dioxide 28 (22-30) mmol/L Anion Gap 16.9 H (5-15) MEQ/L BUN 13 (7-17) mg/dL Creatinine 0.94 (0.52-1.04) mg/dL Estimated GFR > 60.0 ML/MIN Glucose 122 H (74-106) mg/dL Calcium 9.7 (8.4-10.2) mg/dL Magnesium (1.6-2.3) mg/dL Total Bilirubin 0.80 (0.2-1.3) mg/dL AST 30 (14-36) U/L ALT 19 (0-35) U/L Alkaline Phosphatase 92 (38-126) U/L Troponin I (0.000-0.034) ng/mL Serum Total Protein 7.8 (6.3-8.2) g/dL Albumin 4.5 (3.5-5.0) g/dL - Progress Progress Note: 03/19/18 16:35 IV NORMAL SALINE 50ML/HR, SOLUMEDROL 125 IV, FENTANYL 50MCG IV. AFTER 2 SETS OF BLOOD CULTURES LEVAQUIN 500 MG IVPB Blood Culture(s) Obtained: Yes Antibiotics given: Yes Discussed with : Ramo (DISCUSSED WITH DR GONSALEZ AT 1810 FOR OBSERVATION) - Departure Time of Disposition: 18:20 Departure Disposition: Observation Clinical Impression: EXACERBATION COPD, LEFT POSTERIOR CHEST WALL PAIN Condition: Stable Critical Care Time: No Referrals: CHERYL GARIBAY [Primary Care Provider] -
[2018-03-19] MEDS ORDERED: Sodium Chloride 0.9% 1000 ML 1,000 ML IV SCH ×2 (14:00→18:30)
[2018-03-19] MEDS ORDERED: DUONEB 0.5-3 MG/3 ml Neb IH ONE ×3 (14:04→18:05)
[2018-03-19] MEDS ORDERED: solu-MEDROL 125 MG ONE (14:13)
[2018-03-19] MEDS ORDERED: Zofran 4 MG/2 ML VIAL ONE (14:13)
[2018-03-19] MEDS ORDERED: SUBLIMAZE 100 MCG/2 ML ONE (14:13)
[2018-03-19 14:49] LABS: ALBUMIN 4.5 g/dL (3.5-5.0); ALKALINE PHOSPHATASE 92 U/L (38-126); ANION GAP 16.9 MEQ/L (5-15); BLOOD UREA NITROGEN 13 mg/dL (7-17); CHLORIDE 100 mmol/L (98-107); Calcium 9.7 mg/dL (8.4-10.2); Carbon Dioxide 28 mmol/L (22-30); Creatinine 1 0.94 mg/dL (0.52-1.04); Glucose 122 mg/dL (74-106); SGOT/AST 30 U/L (14-36); SGPT/ALT 19 U/L (0-35); SODIUM 140 mmol/L (137-145); Total Protein 7.8 g/dL (6.3-8.2)
[2018-03-19] MEDS ORDERED: Levofloxacin 500MG/100ML D5W 500 MG/100 ML BAG IV STA (16:24)
[2018-03-19] MEDS ORDERED: Levofloxacin 500MG/100ML D5W 500 MG/100 ML BAG IV ONE (16:27)
--- NOTE | 2018-03-19 17:03 | XRAY ---
Indication: Dyspnea. Shoulder pain following fall 2 days ago. Multiple contiguous axial images obtained through the chest using 80 cc of Isovue-370 contrast and PE protocol. Comparison: January 17, 2018. There is satisfactory opacification of the pulmonary arteries to include the lobar and segmental branches. No filling defect or pulmonary embolus. Heart remains enlarged. Aorta remains mildly arteriosclerotic without aneurysm/dissection. Stable left-sided single lead pacemaker. No pathologic mediastinal/hilar lymphadenopathy. Examination of the lung parenchyma demonstrates worsening moderate bibasilar dependent atelectasis. Also new small bilateral effusions, left greater than right. Stable scattered bilateral fibrosis/scarring and right midlung calcified granuloma. Bony thorax demonstrates progressive worsening T9 fracture with 50-75% height loss. New T3 compression fracture with approximately 50% height loss with minimal encroachment on the spinal canal and neural foramina. Limited upper abdomen again demonstrates fatty liver and atrophic right kidney. Impression: 1. Negative pulmonary embolus. 2. Again cardiomegaly with new small bilateral effusions. Rule out mild/early cardiac decompensation. 3. Worsening T9 compression fracture and new T3 compression fracture as detailed. 4. Stable fatty liver and atrophic right kidney. CTDI 13.33
[2018-03-19] MEDS ORDERED: ULTRAM 50 MG PO PRN (18:27)
[2018-03-19] MEDS ORDERED: Xopenex 1.25 MG/0.5 ML UD NEBULE IH PRN (18:30)
[2018-03-19] MEDS ORDERED: DUONEB 0.5-3 MG/3 ml Neb IH SCH (19:00)
[2018-03-19 19:19] LABS: Appearance SLIGHTLY CLOUDY (CLEAR); Leukocyte Esterase 1+ (NEGATIVE); Nitrite NEGATIVE (NEGATIVE); Protein,Urine Dip 30 (Negative); Specific Gravity 1.015 (1.005-1.025)
[2018-03-19 19:20] LABS: Bacteria RARE /HPF (NEGATIVE); Bilirubin NEGATIVE (NEGATIVE); Blood 50 Ery/ul (0-5); Epithelial Cells MODERATE /HPF (FEW); Glucose NEGATIVE (NEGATIVE); Ketones MODERATE (NEGATIVE); RBC 0-2 /HPF (0-2); Urobilinogen NORMAL mg/dL (0-1)
[2018-03-19] MEDS ORDERED: MAG-OX 400 PO SCH (22:00)
[2018-03-19] MEDS ORDERED: Toprol-Xl 25MG Tablets PO SCH (22:00)
[2018-03-19] MEDS ORDERED: Protonix 40MG Tablet PO SCH (22:00)
[2018-03-19] MEDS ORDERED: CALAN 80 MG PO SCH (22:00)
[2018-03-19] MEDS: solu-MEDROL 125 MG IV SCH (23:27)
[2018-03-19] MEDS: Lopressor 25MG Tab PO SCH (23:27)
[2018-03-19] MEDS: NORCO 5/325 MG PO PRN (23:34)
[2018-03-20 00:16] LABS: INR 5.04 (0.8-3.0)
[2018-03-20] MEDS: solu-MEDROL 125 MG IV SCH ×4 (05:37→23:52)
[2018-03-20] MEDS ORDERED: PROVENTIL 2.5 MG/3 ML NEB IH ONE (06:47)
[2018-03-20] MEDS ORDERED: DUONEB 0.5-3 MG/3 ml Neb IH SCH (07:00)
[2018-03-20] MEDS: PROVENTIL 2.5 MG/3 ML NEB IH SCH ×2 (07:23→19:22)
--- NOTE | 2018-03-20 09:13 | PCM.HP ---
History of Present Illness - Chief Complaint Chief Complaint: Exacerbation COPD History of Present Illness: is a 83 year old female who fell 2d ago while getting up on a step stool to change the battery in her smoke detector. She doesn't remember the fall but thinks she tripped. She was having mid back pain which brought her to the ER yesterday, 08/27. She was also having increased cough and SOB; it's better this morning but recurs if she takes her O2 off. Initially she had 3 elevated troponins, but the last 2 were negative. She denies having had any chest pain. Her back pain currently is 03/27. - Review of Systems Respiratory: Cough, Short Of Breath Musculoskeletal: Arthralgias (polyarthralgias), Back Pain, Fall, Injury All Other Systems: Reviewed and Negative Medications & Allergies Home Medications: Home Medication List Simvastatin 40 mg [Zocor 40 mg] 20 mg PO DAILY 10/04/14 [History Confirmed 03/19] Spironolactone 10 mg PO DAILY 10/12/17 [History Confirmed 03/19/18] Albuterol 2.5 mg/3 ml Neb [Proventil 2.5 mg/3 ml Neb] 3 ml NEB TIDPRN 02/02 [History Confirmed 03/20/18] Albuterol Sulfate [Albuterol Sulfate Hfa] 2 puff IH QID 03/20/18 [History Confirmed 03/20/18] Allergies/Adverse Reactions: Allergies Allergy/AdvReac Type Severity Reaction Status Date / Time Penicillins Allergy Severe Hives Verified 03/19/18 19:08 - Past Medical History Past Medical History: Yes Neurological History: Stroke ENT History: Cataracts Cardiac History: Arrhythmia, Hypertension Respiratory History: Bronchitis, CHF, COPD Endocrine Medical History: No Pertinent History Musculoskelatal History: No Pertinent History GI Medical History: Ulcer History: Other Pyscho-Social History: Anxiety Reproductive Disorders: No Pertinent History Comment: ANEMIA. pt states she has a kidney dr, doesnt know what the diagnosis is - Female History Are you now?: No - Past Surgical History Past Surgical History: Yes Neuro Surgical History: No Pertinent History Cardiac History: Pacemaker Respiratory Surgery: No Pertinent History GI Surgical History: No Pertinent History Genitourinary Surgical Hx: No Pertinent History Musculskeletal Surgical Hx: Orthopedic Surgery Female Surgical History: Hysterectomy Other Surgical History: Inner ear sx - Social History Smoking Status: Former smoker Exposure to second hand smoke: No Alcohol: None Drug Use: none - Physical Exam Vital Signs: Vital Signs - 24 hr Temp Pulse Resp BP Pulse Ox 03/20/18 07:38 98.5 F 67 18 135/65 94 L 03/20/18 07:27 92 H 18 94 L 03/20/18 04:00 98.1 F 59 L 20 141/66 90 L 03/20/18 00:00 99.1 F 59 L 20 137/60 91 L 03/19/18 23:00 61 18 90 L 03/19/18 22:06 64 22 90 L 03/19/18 21:01 98.7 F 64 20 150/67 90 L 03/19/18 18:32 94 L 03/19/18 18:05 60 22 91 L 03/19/18 17:38 60 16 162/66 92 L 03/19/18 16:31 59 L 22 169/58 92 L 03/19/18 15:31 58 L 16 168/58 91 L 03/19/18 14:11 58 L 24 94 L 03/19/18 13:26 23 94 L 03/19/18 13:22 98.6 F 64 23 175/71 93 L Oxygen-Last 24 hours O2 Percentage 3 Liters = 32% O2 Percentage 3 Liters = 32% O2 Percentage 2 Liters = 28% O2 Percentage 2 Liters = 28% O2 Percentage 2 Liters = 28% O2 Percentage 2 Liters = 28% Oxygen Flowrate (L/min)-RT 2 General Appearance: no apparent distress, alert Neurologic Exam: oriented x 3, cooperative, normal mood/affect Eye Exam: eyes nml inspection Ears, Nose, Throat Exam: moist mucous membranes Neck Exam: normal inspection, non-tender, No lymphadenopathy Respiratory Exam: lungs clear, diminished breath sounds, prolonged expirations, No crackles/rales, No rhonchi, No wheezing Cardiovascular Exam: regular rate/rhythm, normal heart sounds, No murmur Gastrointestinal/Abdomen Exam: soft, normal bowel sounds, No tenderness, No distention, No mass, No guarding, No rebound Back Exam: normal inspection, No rash Extremity Exam: normal inspection, No pedal edema, No swelling Skin Exam: normal color, warm, dry, No rash Results - Labs Lab/Micro Results: Lab Results-Last 24 Hours 03/19/18 03/19/18 03/19/18 Range/Units 20:39 23:30 23:30 PT 59.4 H (9.95-12.35) SECONDS INR 5.04 H* (0.8-3.0) Troponin I 0.042 H* 0.051 H* (0.000-0.034) ng/mL Ur Collection Type Urine Color (YELLOW) Urine Appearance (CLEAR) Urine pH (5-6) Ur Specific [place] (1.005-1.025) Urine Protein (Negative) Urine Ketones (NEGATIVE) Urine Blood (0-5) Jeff/ul Urine Nitrite (NEGATIVE) Urine Bilirubin (NEGATIVE) Urine Urobilinogen (0-1) mg/dL Ur Leukocyte Esterase (NEGATIVE) Urine Microscopic RBC (0-2) /HPF Urine Microscopic WBC (0-5) /HPF Ur Epithelial Cells (FEW) /HPF Urine Bacteria (NEGATIVE) /HPF Urine Culture Reflexed (NO) Urine Glucose (NEGATIVE) mg/dL Specimen Received 03/19/18 03/20/18 Range/Units Unknown 02:30 PT (9.95-12.35) SECONDS INR (0.8-3.0) Troponin I 0.045 H* (0.000-0.034) ng/mL Ur Collection Type CCMS Urine Color YELLOW (YELLOW) Urine Appearance SLIGHTLY CLOUDY (CLEAR) Urine pH 5.0 (5-6) Ur Specific [place] 1.015 (1.005-1.025) Urine Protein 30 (Negative) Urine Ketones MODERATE (NEGATIVE) Urine Blood 50 (0-5) Jeff/ul Urine Nitrite NEGATIVE (NEGATIVE) Urine Bilirubin NEGATIVE (NEGATIVE) Urine Urobilinogen NORMAL (0-1) mg/dL Ur Leukocyte Esterase 1+ (NEGATIVE) Urine Microscopic RBC 0-2 (0-2) /HPF Urine Microscopic WBC 5-10 (0-5) /HPF Ur Epithelial Cells MODERATE (FEW) /HPF Urine Bacteria RARE (NEGATIVE) /HPF Urine Culture Reflexed YES (NO) Urine Glucose NEGATIVE (NEGATIVE) mg/dL Specimen Received 03-19-18 1900 Microbiology 03/19/18 Unknown Urine Culture - Preliminary Clean Catch Midstream NO GROWTH TO DATE - Other Procedures and Tests Respiratory Therapy 03/19/18 18:24 Oxygen NASAL CANNULA 2 lpm Respiratory Nebulizer UD 03/19/18 22:05 Respiratory Nebulizer PRN Assessment/Plan (1) Traumatic compression fracture of T3 thoracic vertebra Current Visit: Yes Status: Acute Qualifiers: Encounter type: initial encounter Fracture type: closed Qualified Code(s) : S22.030A - Wedge compression fracture of third thoracic vertebra, initial encounter for closed fracture Assessment & Plan: Will discuss with pt whether she would like to be referred for a possible kyphoplasty. Code(s): S22.030A - WEDGE COMPRESSION FRACTURE OF THIRD THORACIC VERTEBRA, INIT (2) COPD exacerbation Current Visit: Yes Status: Acute Assessment & Plan: on IV levaquin and solumedrol. requiring O2. Code(s): J44.1 - CHRONIC OBSTRUCTIVE PULMONARY DISEASE W (ACUTE) EXACERBATION (3) Back pain Current Visit: No Status: Acute Code(s): M54.9 - DORSALGIA, UNSPECIFIED
[2018-03-20] MEDS: NORCO 5/325 MG PO PRN ×2 (09:27→22:04)
[2018-03-20] MEDS ORDERED: TENORMIN 50 MG PO SCH (10:00)
[2018-03-20] MEDS ORDERED: Zestril 20 MG PO SCH (10:00)
[2018-03-20] MEDS: Levofloxacin 500MG/100ML D5W 500 MG/100 ML BAG IV SCH (10:24)
[2018-03-20] MEDS ORDERED: PROVENTIL 2.5 MG/3 ML NEB IH PRN (10:26)
[2018-03-20] MEDS: Klor Con 10 MEQ PO SCH (11:16)
[2018-03-20] MEDS: ceLEXa 20 MG PO SCH (11:16)
[2018-03-20] MEDS: ZOCOR 20MG PO SCH (11:16)
[2018-03-20] MEDS: Aldactone 25 MG PO SCH (11:16)
[2018-03-20] MEDS: NORVASC 5 MG PO SCH (11:17)
[2018-03-20] MEDS: Lopressor 25MG Tab PO SCH ×2 (11:20→21:07)
[2018-03-20] MEDS: Carafate 1 GM PO SCH ×2 (11:21→20:38)
[2018-03-20] MEDS: TYLENOL 325 MG PO PRN (16:00)
[2018-03-21 05:35] LABS: Granulocyte Absolute (ANC) 21.76 (1.4-6.9); Hematocrit 36.3 % (35-47); Hemoglobin 11.4 gm/dl (12.0-16.0); Mean Cell Volume 95.5 fl (78-100); Mean Corpuscular Hgb Concent. 31.4 g/dl (32-36); Platelet Count 250 K/mm3 (150-450); Red Cell Distribution Width 14.8 % (11.5-14.0); White Blood Count 24.5 K/mm3 (4.0-10.5)
[2018-03-21 05:48] LABS: ANION GAP 16.7 MEQ/L (5-15); Calcium 9.7 mg/dL (8.4-10.2); Creatinine 1 0.98 mg/dL (0.52-1.04); Potassium 4.8 mmol/L (3.5-5.1)
[2018-03-21] MEDS: solu-MEDROL 125 MG IV SCH (05:53)
[2018-03-21 05:57] LABS: INR 5.63 (0.8-3.0)
[2018-03-21] MEDS: NORCO 5/325 MG PO PRN ×2 (06:31→14:48)
[2018-03-21] MEDS: PROVENTIL 2.5 MG/3 ML NEB IH SCH ×2 (07:16→19:30)
[2018-03-21] MEDS: Aldactone 25 MG PO SCH (08:08)
[2018-03-21] MEDS: Lopressor 25MG Tab PO SCH ×2 (08:08→21:11)
[2018-03-21] MEDS: Carafate 1 GM PO SCH ×2 (08:08→21:10)
[2018-03-21] MEDS: NORVASC 5 MG PO SCH (08:08)
[2018-03-21] MEDS: ceLEXa 20 MG PO SCH (08:08)
[2018-03-21] MEDS: ZOCOR 20MG PO SCH (08:08)
[2018-03-21] MEDS: Klor Con 10 MEQ PO SCH (08:08)
[2018-03-21] MEDS: Levofloxacin 500MG/100ML D5W 500 MG/100 ML BAG IV SCH (08:09)
--- NOTE | 2018-03-21 09:38 | PCM.DS ---
Discharge Summary Date of Admission: 03/19/18 18:43 Admitting Physician: HANG GONSALEZ Primary Care Provider: CHERYL GARIBAY Allergies Allergies Penicillins Allergy (Severe, Verified 03/19/18 19:08) [facility] Summary - Hospital Course Hospital Course: Pt admitted through ER with 2d of back pain s/p fall, also c/o cough. She was found to have a new T3 compression fracture and was started on antibiotics and steroids IV for COPD exacerbation. She has been tolerating her back pain fairly well with norco 5/325. She has been on 3L NC until this morning, when she is on 1L NC (at baseline is not on O2 at home). Initially she had 3 elevated troponins but the final 2 were in the normal range. She has been on telemetry for hx afib. Her initial INR was just over 5, and this morning is a bit increased to 5.6. I discussed possible kyphoplasty with pt yesterday and she did not want to do it. However this morning she would like to try, so will discuss with Dr. Lind. It's possible he will want to do the procedure at outside hospital. If pt ends up staying here, she will need 1-2 more days on IV antibiotics and steroids for her COPD exacerbation/pneumonia. - Vitals & Intake/Output Vital Signs: Vital Signs Temperature 97.5 F 03/21/18 07:47 Pulse Rate 59 L 03/21/18 07:47 Respiratory Rate 20 03/21/18 07:47 Blood Pressure 163/71 03/21/18 07:47 O2 Sat by Pulse Oximetry 94 L 03/21/18 07:16 Oxygen-Last Documented O2 Percentage 1 Liter = 24% Intake & Output: Intake & Output 03/18/18 03/19/18 03/20/18 03/21/18 11:59 11:59 11:59 11:59 Intake Total 1051 1462 Output Total 600 Balance 451 1462 Weight 67.3 kg - Lab Result Diagrams: 03/21/18 05:18 03/21/18 05:18 Lab Results-Last 24 Hrs: Lab Results-Last 24 Hours 03/21/18 03/21/18 03/21/18 Range/Units 05:18 05:18 05:18 WBC 24.5 H (4.0-10.5) K/mm3 RBC 3.80 L (4.1-5.4) M/mm3 Hgb 11.4 L (12.0-16.0) gm/dl Hct 36.3 (35-47) % MCV 95.5 (78-100) fl MCH 30.0 (26-32) pg MCHC 31.4 L (32-36) g/dl RDW 14.8 H (11.5-14.0) % Plt Count 250 (150-450) K/mm3 MPV 11.0 H (6-9.5) fl Absolute Granulocytes 21.76 H (1.4-6.9) PT 66.8 H (9.95-12.35) SECONDS INR 5.63 H* (0.8-3.0) Sodium 137 (137-145) mmol/L Potassium 4.8 (3.5-5.1) mmol/L Chloride 100 (98-107) mmol/L Carbon Dioxide 26 (22-30) mmol/L Anion Gap 16.7 H (5-15) MEQ/L BUN 24 H (7-17) mg/dL Creatinine 0.98 (0.52-1.04) mg/dL Estimated GFR 57.7 ML/MIN Glucose 163 H (74-106) mg/dL Calcium 9.7 (8.4-10.2) mg/dL Micro Results-Entire Visit: Microbiology 03/19/18 Unknown Urine Culture - Final Clean Catch Midstream MIXED ERICH; 3 OR MORE TYPES. NO PREDOMINANT ORGANISM. NO FURTHER WORKUP. PLEASE RESUBMIT IF CLINICALLY INDICATED. - Procedures and Test Procedures and Tests throughout Hospitalization: Therapy Orders & Screens 03/19/18 18:24 Oxygen NASAL CANNULA 2 lpm Comment: Diagnosis: Shortness of Breath Respiratory Nebulizer UD Comment: Diagnosis: Shortness of Breath 03/19/18 21:31 RT Screen per Nursing Assess ONCE Comment: Protocol Order Physician Instructions: Greater than 3 points order RT Admission Screen Reason For Exam: Triggered on Admission Diagnosis: Exacerbation COPD Diagnosis: Exacerbation COPD Pneumonia: No Home O2: No Asthma: No CHF: Yes Home CPAP/BIPAP: No Home Nebs/MDI: Yes Total Points: 8 03/19/18 22:05 Respiratory Nebulizer PRN Comment: Diagnosis: Exacerbation COPD Discharge Exam General Appearance: no apparent distress, alert Neurologic Exam: oriented x 3, cooperative Skin Exam: normal color, warm, dry, No rash Respiratory Exam: prolonged expirations, crackles/rales (faint, L), No rhonchi, No wheezing Cardiovascular Exam: regular rate/rhythm, normal heart sounds, No murmur Gastrointestinal/Abdomen Exam: soft, normal bowel sounds, No tenderness, No distention, No mass, No guarding, No rebound Extremity Exam: normal inspection, No pedal edema, No swelling Back Exam: normal inspection, No rash Final Diagnosis/Problem List - Final Discharge Diagnosis/Problem (1) Traumatic compression fracture of T3 thoracic vertebra Current Visit: Yes Status: Acute Onset Date: ~03/20/18 Assessment & Plan: Will discuss with Dr. Lind re: possible kyphoplasty. (2) Pneumonia Current Visit: Yes Status: Acute Onset Date: ~03/21/18 Assessment & Plan: She's on IV levaquin day #3 and IV solumedrol - decreased dose today from 80mg IV q6h to 40mg IV q6h. (3) COPD exacerbation Current Visit: Yes Status: Acute Onset Date: ~03/20/18 (4) Back pain Current Visit: No Status: Acute Onset Date: ~03/20/18 (5) Atrial fibrillation Current Visit: Yes Status: Chronic Assessment & Plan: stable rate. (6) Warfarin anticoagulation Current Visit: No Status: Chronic Assessment & Plan: Have held her warfarin. Will make sure Dr. Lind is aware. Daily INRs. No active bleeding. - Discharge Disposition: Home, Self-Care Condition: Stable Prescriptions: No Action Simvastatin 40 mg [Zocor 40 mg] 40 mg PO DAILY Spironolactone 25 mg PO DAILY Albuterol 2.5 mg/3 ml Neb [Proventil 2.5 mg/3 ml Neb] 3 ml NEB TIDPRN Albuterol Sulfate [Albuterol Sulfate Hfa] 2 puff IH QID Sucralfate 1 gm [Carafate 1 GM] 2 g PO QPM Sucralfate 1 gm [Carafate 1 GM] 2 g PO QAM Metoprolol Tartrate 25 mg [Lopressor 25MG Tab] 25 mg PO BID Potassium Chloride [K-Dur] 10 meq PO DAILY Citalopram Hydrobromide [Celexa] 10 mg PO DAILY Amlodipine Besylate 10 mg [Norvasc 10 MG] 10 mg PO DAILY Warfarin Sodium 1 mg PO QPM Follow up with: CHERYL GARIBAY [Primary Care Provider] - 1 Week
[2018-03-21 09:51] LABS: Lymphocytes 7 % (24-44); Monocyte 2 % (0.0-12.0); Neutrophils 91 % (36.0-66.0); Total Cells Counted 100
[2018-03-21 09:52] LABS: Platelet Estimate NORMAL (NORMAL); Toxic Granulation 1+
[2018-03-21] MEDS ORDERED: NON-FORMULARY ITEM (Simvastatin 40 Mg [Zocor 40 Mg] 40 MG) PO SCH (10:00)
[2018-03-21] MEDS ORDERED: NON-FORMULARY ITEM (Potassium Chloride [K-Dur] 10 MEQ) PO SCH (10:00)
[2018-03-21] MEDS ORDERED: NON-FORMULARY ITEM (Citalopram Hydrobromide [Celexa] 10 MG) PO SCH (10:00)
[2018-03-21] MEDS ORDERED: NON-FORMULARY ITEM (Amlodipine Besylate 10 Mg [Norvasc 10 Mg] 10 MG) PO SCH (10:00)
[2018-03-21] MEDS: Sodium Chloride 0.9% 1000 ML 1,000 ML IV SCH ×2 (10:16→22:24)
[2018-03-21] MEDS: solu-MEDROL 40 MG IV SCH ×2 (13:06→19:26)
[2018-03-22] MEDS: solu-MEDROL 40 MG IV SCH ×5 (00:26→23:47)
[2018-03-22] MEDS ORDERED: Dulcolax 10 MG SUPP PR PRN ×2 (02:17→07:30)
[2018-03-22] MEDS: Zofran 4 MG/2 ML VIAL IV PRN (02:24)
[2018-03-22] MEDS: NORCO 5/325 MG PO PRN ×3 (05:22→16:29)
[2018-03-22 06:49] LABS: INR 4.45 (0.8-3.0)
[2018-03-22] MEDS: PROVENTIL 2.5 MG/3 ML NEB IH SCH ×2 (07:10→19:33)
[2018-03-22] MEDS: Carafate 1 GM PO SCH ×2 (07:13→19:45)
[2018-03-22] MEDS: Levofloxacin 500MG/100ML D5W 500 MG/100 ML BAG IV SCH (09:38)
[2018-03-22] MEDS: Sodium Chloride 0.9% 1000 ML 1,000 ML IV SCH (09:38)
[2018-03-22] MEDS: NORVASC 5 MG PO SCH (09:39)
[2018-03-22] MEDS: Lopressor 25MG Tab PO SCH ×2 (09:39→21:55)
[2018-03-22] MEDS: Klor Con 10 MEQ PO SCH (09:39)
[2018-03-22] MEDS: ZOCOR 20MG PO SCH (09:39)
[2018-03-22] MEDS: Aldactone 25 MG PO SCH (09:39)
[2018-03-22] MEDS: ceLEXa 20 MG PO SCH (09:40)
--- NOTE | 2018-03-22 11:54 | PCM.NOTE ---
Date and Time: 03/22/18 1149 Subjective Assessment: Pt had nausea last night. Breathing is "OK" but her O2 requirement has increased since yesterday. Radha liquids well but her appetite is still low and she does not want much food to eat. - Review of Systems Constitutional: No Fever Respiratory: Cough, Short Of Breath Objective Exam General Appearance: no apparent distress, alert Neurologic Exam: oriented x 3, cooperative Skin Exam: normal color, warm, dry, No rash Ears, Nose, Throat Exam: moist mucous membranes Neck Exam: normal inspection Respiratory Exam: diminished breath sounds (good air exchange), prolonged expirations, No crackles/rales, No rhonchi, No wheezing Cardiovascular Exam: regular rate/rhythm, normal heart sounds, No murmur Extremity Exam: normal inspection, No pedal edema, No swelling OBJECTIVE DATA Vital Signs: Vital Signs - 24 hr Temp Pulse Resp BP Pulse Ox 03/22/18 11:35 97.7 F 65 16 151/66 93 L 03/22/18 07:39 18 03/22/18 07:00 65 18 92 L 03/22/18 06:59 97.7 F 60 16 142/67 93 L 03/22/18 04:00 98.1 F 72 20 139/91 90 L 03/22/18 00:00 98.0 F 59 L 20 161/69 94 L 03/21/18 20:00 98.3 F 67 19 163/81 90 L 03/21/18 19:33 89 22 86 L 03/21/18 16:36 97.8 F 80 20 130/65 91 L 03/21/18 16:00 20 Oxygen-Last 24 hours O2 Percentage 3 Liters = 32% O2 Percentage 3 Liters = 32% O2 Percentage 3 Liters = 32% O2 Percentage 3 Liters = 32% O2 Percentage 3 Liters = 32% O2 Percentage 1 Liter = 24% Pain Assessment - Last Documented Pain Intensity 7 Pain Scale Used 0-10 Pain Scale Intake and Output: Intake & Output 03/19/18 03/20/18 03/21/18 03/22/18 11:59 11:59 11:59 11:59 Intake Total 2895 Output Total 850 Balance 2045 Weight 70.7 kg Lab Results: Lab Results-Last 24 Hours 03/22/18 Range/Units 05:15 PT 52.5 H (9.95-12.35) SECONDS INR 4.45 H (0.8-3.0) Assessment/Plan (1) Traumatic compression fracture of T3 thoracic vertebra Current Visit: Yes Status: Acute Onset Date: ~03/20/18 Qualifiers: Encounter type: initial encounter Fracture type: closed Qualified Code(s) : S22.030A - Wedge compression fracture of third thoracic vertebra, initial encounter for closed fracture Assessment & Plan: I discussed with Dr. Lind yesterday, he will be out of town all weekend so would not be able to do a kyphoplasty until Saturday. Currently she still needs inpatient care, so if she is still here on Saturday she will transfer to [facility] but if she gets discharged before then she will go see him outpatient. Code(s): S22.030A - WEDGE COMPRESSION FRACTURE OF THIRD THORACIC VERTEBRA, INIT (2) Pneumonia Current Visit: Yes Status: Acute Onset Date: ~03/21/18 Qualifiers: Pneumonia type: due to unspecified organism Laterality: bilateral Lung location: unspecified part of lung Qualified Code(s): J18.9 - Pneumonia, unspecified organism Assessment & Plan: On levaquin day #4. Code(s): J18.9 - PNEUMONIA, UNSPECIFIED ORGANISM (3) COPD exacerbation Current Visit: Yes Status: Acute Onset Date: ~03/20/18 Assessment & Plan: Levaquin and solumedrol 40mg IV q6h. Will leave IV steroid at this dose; if her O2 requirement were to increase further I would increase it, but my hope is with her lung exam that she would have a decrease in O2 requirement between now and tomorrow. Code(s): J44.1 - CHRONIC OBSTRUCTIVE PULMONARY DISEASE W (ACUTE) EXACERBATION (4) Back pain Current Visit: No Status: Acute Onset Date: ~03/20/18 Qualifiers: Back pain location: thoracic back pain Chronicity: acute Back pain laterality: midline Qualified Code(s): M54.6 - Pain in thoracic spine Code(s): M54.9 - DORSALGIA, UNSPECIFIED (5) Atrial fibrillation Current Visit: Yes Status: Chronic Code(s): I48.91 - UNSPECIFIED ATRIAL FIBRILLATION (6) Warfarin anticoagulation Current Visit: No Status: Chronic Assessment & Plan: INR has dropped today to 4.45 - will continue to hold coumadin. Dr. Lind is aware pt on coumadin. Code(s): Z79.01 - LONG-TERM (CURRENT) USE OF ANTICOAGULANTS
[2018-03-23] MEDS: TYLENOL 325 MG PO PRN (01:49)
[2018-03-23 05:49] LABS: Granulocyte Absolute (ANC) 9.95 (1.4-6.9); Hematocrit 33.7 % (35-47); Hemoglobin 10.7 gm/dl (12.0-16.0); Mean Cell Volume 94.1 fl (78-100); Mean Corpuscular Hgb Concent. 31.8 g/dl (32-36); Mean Platelet Volume 10.7 fl (6-9.5); Platelet Count 240 K/mm3 (150-450); Red Blood Count 3.58 M/mm3 (4.1-5.4); Red Cell Distribution Width 14.8 % (11.5-14.0); White Blood Count 11.6 K/mm3 (4.0-10.5)
[2018-03-23 05:59] LABS: INR 4.14 (0.8-3.0)
[2018-03-23 06:04] LABS: ANION GAP 13.5 MEQ/L (5-15); BLOOD UREA NITROGEN 28 mg/dL (7-17); CHLORIDE 104 mmol/L (98-107); Calcium 9.3 mg/dL (8.4-10.2); Carbon Dioxide 24 mmol/L (22-30); Glucose 156 mg/dL (74-106); Potassium 4.6 mmol/L (3.5-5.1); SODIUM 136 mmol/L (137-145)
[2018-03-23 06:05] LABS: Mean Corpuscular Hemoglobin 29.8 pg (26-32)
[2018-03-23] MEDS: solu-MEDROL 40 MG IV SCH (06:23)
[2018-03-23 06:24] LABS: BAND 5 % (0.0-2.0); Lymphocytes 3 % (24-44); Monocyte 4 % (0.0-12.0); Neutrophils 88 % (36.0-66.0); Total Cells Counted 100
[2018-03-23 06:25] LABS: Platelet Estimate NORMAL (NORMAL)
[2018-03-23] MEDS: PROVENTIL 2.5 MG/3 ML NEB IH SCH (06:50)
[2018-03-23 07:24] VITALS: O2SAT 93
[2018-03-23] MEDS: ceLEXa 20 MG PO SCH (08:50)
[2018-03-23] MEDS: Carafate 1 GM PO SCH (08:50)
[2018-03-23] MEDS: NORVASC 5 MG PO SCH (08:51)
[2018-03-23] MEDS: ZOCOR 20MG PO SCH (08:51)
[2018-03-23] MEDS: Klor Con 10 MEQ PO SCH (08:51)
[2018-03-23] MEDS: Lopressor 25MG Tab PO SCH (08:52)
[2018-03-23] MEDS: Levofloxacin 500MG/100ML D5W 500 MG/100 ML BAG IV SCH (08:52)
[2018-03-23] MEDS: Aldactone 25 MG PO SCH (08:52)
[2018-03-23] MEDS: NORCO 5/325 MG PO PRN (09:09)
[2018-03-23] MEDS: Zofran 4 MG/2 ML VIAL IV PRN (09:09)
--- NOTE | 2018-03-23 09:50 | PCM.DS ---
Discharge Summary Date of Admission: 03/21/18 09:33 Admitting Physician: HANG GONSALEZ Primary Care Provider: CHERYL GARIBAY Allergies Allergies Penicillins Allergy (Severe, Verified 03/19/18 19:08) [facility] Summary - Hospital Course Hospital Course: Pt admitted from home 3d after a fall with back pain and SOB - found to have T3 fx and COPD exacerbation. Not on home O2, but requiring 3L NC here (on levaquin and IV steroids). We discussed possible kyphoplasty with Dr. Lind - he is willing to tx the pt but needs to do so at [facility]. He was out of town until today so the pt will be transferred there today. She has had an elevated INR and her coumadin has been held since admission - the INR is down today to 4.14. This morning she got choked on a pill and vomited. She has been having some nausea but was no nauseated last night. She has complained of decrease in appetite since about 1 week ago. - Vitals & Intake/Output Vital Signs: Vital Signs Temperature 98.0 F 03/23/18 07:23 Pulse Rate 64 03/23/18 07:23 Respiratory Rate 18 03/23/18 08:00 Blood Pressure 173/76 03/23/18 07:23 O2 Sat by Pulse Oximetry 93 L 03/23/18 07:23 Oxygen-Last Documented O2 Percentage 3 Liters = 32% Intake & Output: Intake & Output 03/20/18 03/21/18 03/22/18 03/23/18 11:59 11:59 11:59 11:59 Intake Total 2895 2499 Output Total 850 1100 Balance 2045 1399 Weight 70.7 kg 70.6 kg - Lab Result Diagrams: 03/23/18 05:10 03/23/18 05:10 Lab Results-Last 24 Hrs: Lab Results-Last 24 Hours 03/23/18 03/23/18 03/23/18 Range/Units 05:10 05:10 05:10 WBC 11.6 H (4.0-10.5) K/mm3 RBC 3.58 L (4.1-5.4) M/mm3 Hgb 10.7 L (12.0-16.0) gm/dl Hct 33.7 L (35-47) % MCV 94.1 (78-100) fl MCH 29.8 (26-32) pg MCHC 31.8 L (32-36) g/dl RDW 14.8 H (11.5-14.0) % Plt Count 240 (150-450) K/mm3 MPV 10.7 H (6-9.5) fl Absolute Granulocytes 9.95 H (1.4-6.9) Segmented Neutrophils 88 H (36.0-66.0) % Band Neutrophils 5 H (0.0-2.0) % Lymphocytes (Manual) 3 L (24-44) % Monocytes (Manual) 4 (0.0-12.0) % Platelet Estimate NORMAL (NORMAL) RBC Morphology NORMAL PT 48.9 H (9.95-12.35) SECONDS INR 4.14 H (0.8-3.0) Sodium 136 L (137-145) mmol/L Potassium 4.6 (3.5-5.1) mmol/L Chloride 104 (98-107) mmol/L Carbon Dioxide 24 (22-30) mmol/L Anion Gap 13.5 (5-15) MEQ/L BUN 28 H (7-17) mg/dL Creatinine 0.90 (0.52-1.04) mg/dL Estimated GFR > 60.0 ML/MIN Glucose 156 H (74-106) mg/dL Calcium 9.3 (8.4-10.2) mg/dL Discharge Exam General Appearance: mild distress (immediately s/p vomiting), alert Neurologic Exam: oriented x 3, cooperative Skin Exam: normal color, warm, dry, No rash Ears, Nose, Throat Exam: moist mucous membranes Respiratory Exam: diminished breath sounds, prolonged expirations, rhonchi (LLL) , No crackles/rales, No wheezing Cardiovascular Exam: regular rate/rhythm, normal heart sounds, No murmur Gastrointestinal/Abdomen Exam: soft, normal bowel sounds, No tenderness Extremity Exam: normal inspection, No pedal edema, No swelling Back Exam: normal inspection, No rash Final Diagnosis/Problem List - Final Discharge Diagnosis/Problem (1) Traumatic compression fracture of T3 thoracic vertebra Current Visit: Yes Status: Acute Onset Date: ~03/20/18 Assessment & Plan: Transfer to [facility] for further tx by Dr. Lind, thank you. (2) Pneumonia Current Visit: Yes Status: Acute Onset Date: ~03/21/18 Assessment & Plan: on levaquin day #4. (3) COPD exacerbation Current Visit: Yes Status: Acute Onset Date: ~03/20/18 Assessment & Plan: on solumedrol 40mg IV q6h. Her O2 is at 3L NC. (4) Back pain Current Visit: No Status: Acute Onset Date: ~03/20/18 (5) Atrial fibrillation Current Visit: Yes Status: Chronic Assessment & Plan: rate is stable. on coumadin at home, held here. (6) Warfarin anticoagulation Current Visit: No Status: Chronic Assessment & Plan: INR 4.14 today, coumadin still being held. (7) HTN (hypertension) Current Visit: Yes Status: Chronic Assessment & Plan: on amlodipine 10mg/d. Some elevated BP here, may be related to pain. - [facility]charge [facility] Condition: Stable Prescriptions: No Action Simvastatin 40 mg [Zocor 40 mg] 40 mg PO DAILY Spironolactone 25 mg PO DAILY Albuterol 2.5 mg/3 ml Neb [Proventil 2.5 mg/3 ml Neb] 3 ml NEB TIDPRN Albuterol Sulfate [Albuterol Sulfate Hfa] 2 puff IH QID Sucralfate 1 gm [Carafate 1 GM] 2 g PO QPM Sucralfate 1 gm [Carafate 1 GM] 2 g PO QAM Metoprolol Tartrate 25 mg [Lopressor 25MG Tab] 25 mg PO BID Potassium Chloride [K-Dur] 10 meq PO DAILY Citalopram Hydrobromide [Celexa] 10 mg PO DAILY Amlodipine Besylate 10 mg [Norvasc 10 MG] 10 mg PO DAILY Warfarin Sodium 1 mg PO QPM Follow up with: CHERYL GARIBAY [Primary Care Provider] - 1 Week
[2018-03-23 11:51] VITALS: BP 153/70; PULSE 67
== END 2018-03-23 12:50 | disposition short-term general hospital (02) | DRG 551 ==
LOC: ED 13:18 → MED SURG 18:43 → OBSVTOIN 03-21 09:33
PROVIDERS: ADMIT Family Medicine; ATTEND Family Medicine
DX: S22.030A Wedge compression fracture of third thoracic vertebra, initial encounter for closed fracture (principal); J18.9 Pneumonia, unspecified organism; J44.1 Chronic obstructive pulmonary disease with (acute) exacerbation; R07.89 Other chest pain; I48.91 Unspecified atrial fibrillation; Z79.01 Long term (current) use of anticoagulants; W19.XXXS Unspecified fall, sequela; I10 Essential (primary) hypertension; F41.9 Anxiety disorder, unspecified; M25.50 Pain in unspecified joint; I50.9 Heart failure, unspecified; Z86.73 Personal history of transient ischemic attack (TIA), and cerebral infarction without residual deficits; Z87.891 Personal history of nicotine dependence; Z79.899 Other long term (current) drug therapy
CPT/HCPCS: 36000; 36415; 71260; 80048; 80053; 81000; 83735; 84484; 85025; 85610; 87040; 87086; 93268; 94150; 94640; 94760; 96360; 96361; 96365; 96374; 96375; 99285; G0378; J7609; J1956; J2405; J2920; J2930; J3010; A9270-GY

== ENCOUNTER 2018-10-18 06:04 | Inpatient (IN) | payer MEDICARE ==
[2018-10-18] MEDS ORDERED: Sodium Chloride 0.9% 1000 ML 1,000 ML IV STA (06:27)
[2018-10-18] MEDS ORDERED: LEVOFLOXACIN 750MG/150ML D5W 750 MG/150 ML BAG IV STA (06:27)
[2018-10-18] MEDS ORDERED: solu-MEDROL 125 MG IV ONE (06:27)
[2018-10-18] MEDS ORDERED: PROVENTIL 2.5 MG/3 ML NEB IH ONE ×2 (06:27→06:31)
[2018-10-18] MEDS ORDERED: TYLENOL 325 MG PO STA (06:35)
--- NOTE | 2018-10-18 06:35 | ERPHSYRPT ---
- History of Present Illness Source: patient Exam Limitations: clinical condition Patient Subjective Stated Complaint: pt is alert and oriented. pt is ambulatory with a steady gait. pt states she has been SOB for 2 days. pt began having an acute SOB at 2200 10/17/18. pt lung sounds wheezy bilat a-p throughout. pt o2 87 % on RA placed on 2L NC o2 increased to 94%. pt states she has a temp of 100 degrees yesterday. pt denies chest pain. pt states she vomited after a coughing , has had diarrhea, felt lightheaded and dizzy. Triage Nursing Assessment: see above Timing/Duration: yesterday Activities at Onset: activity Severity of Dyspnea-Max: severe Severity of Dyspnea-Current: severe Possible Cause: occasional episodes Modifying Factors: Improves With: coughing, exertion Associated Symptoms: cough, wheezing (FEVER) International travel in last 2 weeks: No Hx Tetanus, Diphtheria Vaccination/Date Given: Yes Hx Influenza Vaccination/Date Given: Yes (Sep 2018) Hx Pneumococcal Vaccination/Date Given: Yes (Sep 2018) <GOOD LEDBETTER - Last Filed: 10/18/18 07:07> <LAVONNE FRAGA - Last Filed: 10/18/18 19:46> - History of Present Illness Time Seen by Provider: 10/18/18 06:15 Physician History: PATIENT WITH A HISTORY OF COPD, CHRONIC ATRIAL FIBRILLATION, COAGULATION WITH COUMADIN, HAS PACEMAKER INSERTION AND COMPLAINS OF DIFFICULTY BREATHING, PRODUCTIVE COUGH ASSOCIATED WITH FEVER SINCE LAST NIGHT. DENIES DIAPHORESIS OR CHEST PAIN. (GOOD LEDBETTER) Allergies/Adverse Reactions: Penicillins Allergy (Severe, Verified 03/19/18 19:08) Hannah Home Medications: Simvastatin 40 mg [Zocor 40 mg] 40 mg PO HS 10/04/14 [History] Spironolactone 25 mg PO DAILY 10/12/17 [History] Albuterol 2.5 mg/3 ml Neb [Proventil 2.5 mg/3 ml Neb] 3 ml NEB TIDPRN 02/02 [History] Albuterol Sulfate [Albuterol Sulfate Hfa] 2 puff IH QID 03/20/18 [History] Amlodipine Besylate 10 mg [Norvasc 10 MG] 10 mg PO DAILY 03/20/18 [History] Citalopram Hydrobromide [Celexa] 10 mg PO DAILY 03/20/18 [History] Metoprolol Tartrate 25 mg [Lopressor 25MG Tab] 25 mg PO BID 03/20/18 [ History] Warfarin Sodium 1 mg PO QPM 03/20/18 [History] Prednisone 20 mg [Deltasone 20 mg] 20 mg PO DAILY 10/18/18 [History] - Review of Systems Constitutional: Fever Eyes: No Symptoms Ears, Nose, & Throat: No Symptoms Respiratory: Cough, Dyspnea, Dyspnea on Exertion (MORRISON), Wheezing Cardiac: No Symptoms Abdominal/Gastrointestinal: No Symptoms Genitourinary Symptoms: No Symptoms Musculoskeletal: No Symptoms Neurological: No Symptoms Psychological: No Symptoms Endocrine: Excessive Sweating Immunological/Allergic: No Symptoms <GOOD LEDBETTER - Filed: 10/18/18 07:07> - Past Medical History Pertinent Past Medical History: Yes Neurological History: Stroke ENT History: Cataracts Cardiac History: Arrhythmia, Hypertension Respiratory History: Bronchitis, CHF, COPD Endocrine Medical History: No Pertinent History Musculoskeletal History: No Pertinent History GI Medical History: Ulcer History: Other Psycho-Social History: Anxiety Female Reproductive Disorders: No Pertinent History Other Medical History: ANEMIA. pt states she has a kidney dr, doesnt know what the diagnosis is, Steven is enologist - Past Surgical History Past Surgical History: Yes Neuro Surgical History: No Pertinent History Cardiac: Pacemaker Respiratory: No Pertinent History Gastrointestinal: No Pertinent History Genitourinary: No Pertinent History Musculoskeletal: Orthopedic Surgery Female Surgical History: Hysterectomy Other Surgical History: Inner ear sx - Social History Smoking Status: Former smoker Exposure to second hand smoke: No Drug Use: none Patient Lives Alone: No - Female History Hx Now: No <GOOD LEDBETTER German Filed: 10/18/18 07:07> - Physical Exam General Appearance: moderate distress Eye Exam: PERRL/EOMI Ears, Nose, Throat Exam: hearing grossly normal Neck Exam: normal inspection Respiratory Exam: diminished breath sounds (AT BASES WITH DIFFUSE INSPIRATORY WHEEZES AND PROLONGED EXPIRATORY WHEEZES) Abdominal/Gastrointestinal Exam: soft, normal bowel sounds Extremity Exam: non-tender, normal range of motion Peripheral Pulses Exam: carotid (R): 2+, carotid (L): 2+, femoral (R): 2+, femoral (L): 2+, dorsalis-pedis (R): 2+, dorsalis-pedis (L): 2+ Neurologic Exam: alert, oriented x 3, cooperative, publisher assistant II-XII nml as tested Skin Exam: normal color SpO2 Interpretation: borderline oxygenation SpO2: 93 Oxygen Delivery: Room Air <GOOD LEDBETTER - Last Filed: 10/18/18 07:07> - Nursing Vital Signs Nursing Vital Signs: Initial Vital Signs Pulse Rate 63 10/18/18 06:05 Respiratory Rate 24 10/18/18 06:05 Blood Pressure 172/68 10/18/18 06:05 O2 Sat by Pulse Oximetry 87 L 10/18/18 06:05 Pain Scale Pain Intensity 0 - Course EKG Interpreted by Me: RATE, Sinus Rhythm, NORMAL AXIS (VENTRICULAR PACED RHYTHM RATE OF 67) <GOOD LEDBETTER - Last Filed: 10/18/18 07:07> Ordered Tests: Active Orders 24 hr Category Date Time Status Bedrest with BRP/BSC ROUTINE Activity 10/18/18 09:14 Active Call Admit Doctor for Orders ON ADMISSION Care 10/18/18 09:14 Active Heading Up Machine Operator STAT Care 10/18/18 06:28 Completed Clean Catch Urine Specimen STAT Care 10/18/18 07:45 Completed Code Status Order ROUTINE Care 10/18/18 09:14 Active EKG-ER Only STAT Care 10/18/18 06:27 Completed IV Care Q6H Care 10/18/18 09:14 Active IV Insertion STAT Care 10/18/18 06:27 Completed Oxygen-ED Only NASAL CANNULA 2 lpm Care 10/18/18 06:[address] in Observation ROUTINE Care 10/18/18 09:14 Completed Telemetry q6h Care 10/18/18 09:14 Active Weight,Daily 0600 Care 10/18/18 09:14 Active Surgical Product Sales Consultant/Discharge Plan ROUTINE Cons 10/18/18 09:48 Active Cardiac Diet Diet 10/18/18 Lunch Active CHEST 1 VIEW (PORTABLE) Stat Exams 10/18/18 06:28 Completed BLOOD CULTURE Stat Lab 10/18/18 06:45 Received CBC W DIFF AM.LAB Lab 10/19/18 04:00 Ordered CBC W DIFF Stat Lab 10/18/18 06:30 Completed CMP AM.LAB Lab 10/19/18 04:00 Ordered CMP Stat Lab 10/18/18 06:30 Completed CULTURE,URINE Stat Lab 10/18/18 07:47 Received Lactic Acid Stat Lab 10/18/18 06:27 Completed MAGNESIUM Stat Lab 10/18/18 06:30 Completed NT PRO BNP Stat Lab 10/18/18 06:30 Completed PROTIME WITH INR Stat Lab 10/18/18 06:30 Completed PT INR [PROTIME WITH INR] DAILY Lab 10/19/18 04:00 Ordered PT INR [PROTIME WITH INR] DAILY Lab 10/20/18 04:00 Ordered PT INR [PROTIME WITH INR] DAILY Lab 10/21/18 04:00 Ordered PT INR [PROTIME WITH INR] DAILY Lab 10/22/18 04:00 Ordered PT INR [PROTIME WITH INR] DAILY Lab 10/23/18 04:00 Ordered PT INR [PROTIME WITH INR] DAILY Lab 10/24/18 04:00 Ordered TROPONIN Q3H Lab 10/18/18 06:30 Completed TROPONIN Q3H Lab 10/18/18 09:30 Completed TROPONIN Q3H Lab 10/18/18 12:35 Completed TROPONIN Q3H Lab 10/18/18 15:30 Completed TROPONIN Q3H Lab 10/18/18 18:37 Completed UA W/RFX UR CULTURE Stat Lab 10/18/18 07:47 Completed VENOUS BLOOD GAS Stat Lab 10/18/18 06:27 Completed Oxygen NASAL CANNULA 2 lpm RT 10/18/18 09:14 Active Peak Expiratory Flow Rate ONCE RT 10/18/18 07:01 Completed Peak Expiratory Flow Rate ONCE RT 10/18/18 10:07 Active Pulse Oximetry CONTINUOUS RT 10/18/18 09:14 Active RT Screen per Nursing Assess ONCE RT 10/18/18 09:48 Completed Respiratory Nebulizer STAT RT 10/18/18 06:29 Completed Respiratory Therapy Assessment DAILY RT 10/18/18 07:00 Completed Respiratory Therapy Assessment DAILY RT 10/18/18 10:03 Active Respiratory Therapy Consult ROUTINE RT 10/18/18 09:14 Completed Transfer Order Routine Transfer 10/18/18 Completed Medication Summary Generic Name Dose Route Start Last Admin Trade Name Freq PRN Reason Stop Dose Admin Acetaminophen 650 mg 10/18/18 09:14 Tylenol 325 Mg PO 11/17/18 09:13 Q4H PRN PRN PAIN AND/OR FEVER Albuterol/Ipratropium 3 ml 10/18/18 09:14 Duoneb 0.5-3 Mg/3 Ml Neb IH 11/17/18 09:13 Q4HPRN PRN SHORTNESS OF BREATH/WHEEZING Albuterol/Ipratropium 3 ml 10/18/18 11:00 10/18/18 15:34 Duoneb 0.5-3 Mg/3 Ml Neb IH 11/17/18 10:59 3 ml Q4HRT POORNIMA Administration Amlodipine Besylate 10 mg 10/18/18 12:00 10/18/18 12:20 Norvasc 5 Mg PO 11/17/18 11:59 10 mg DAILY POORNIMA Administration Citalopram Hydrobromide 10 mg 10/18/18 12:00 10/18/18 12:20 Celexa 20 Mg PO 11/17/18 11:59 10 mg DAILY POORNIMA Administration Levofloxacin/Dextrose 250 mg in 50 mls @ 100 mls/hr 10/19/18 10:00 Levaquin 250mg/50ml D5w IV 11/18/18 09:59 Q24H10 POORNIMA Methylprednisolone Sodium Succinate 80 mg 10/18/18 12:00 10/18/18 12:20 Solu-Medrol 125 Mg IV 11/17/18 11:59 80 mg Q6HT POORNIMA Administration Metoprolol Tartrate 25 mg 10/18/18 12:00 10/18/18 12:20 Lopressor 25mg Tab PO 11/17/18 11:59 25 mg BID POORNIMA Administration Simvastatin 40 mg 10/18/18 22:00 Zocor 20mg PO 11/17/18 21:59 HS POORNIMA Spironolactone 25 mg 10/18/18 12:00 10/18/18 12:20 Aldactone 25 Mg PO 11/17/18 11:59 25 mg DAILY POORNIMA Administration Discontinued Medications Generic Name Dose Route Start Last Admin Trade Name Freq PRN Reason Stop Dose Admin Acetaminophen 650 mg 10/18/18 06:35 10/18/18 06:52 Tylenol 325 Mg PO 10/18/18 06:36 650 mg STAT STA Administration Acetaminophen Confirm 10/18/18 06:41 Tylenol 325 Mg Administered 10/18/18 06:42 Dose 650 mg .ROUTE .STK-MED ONE Albuterol Sulfate 10 mg 10/18/18 06:27 10/18/18 06:59 Proventil 2.5 Mg/3 Ml Neb IH 10/18/18 06:28 10 mg STAT ONE Administration Albuterol Sulfate Confirm 10/18/18 06:31 Proventil 2.5 Mg/3 Ml Neb Administered 10/18/18 06:32 Dose 10 mg IH .STK-MED ONE Levofloxacin/Dextrose 750 mg in 150 mls @ 100 mls/hr 10/18/18 06:27 10/18/18 08:23 Levofloxacin 750mg/150ml D5w IV 10/18/18 07:56 Infused STAT STA Infusion Sodium Chloride 1,000 mls @ 999 mls/hr 10/18/18 06:27 10/18/18 08:26 Sodium Chloride 0.9% 1000 Ml IV 10/18/18 07:27 Infused .Q1H1M STA Infusion Sodium Chloride 1,000 mls @ 999 mls/hr 10/18/18 06:30 10/18/18 08:03 Sodium Chloride 0.9% 1000 Ml IV 10/18/18 08:30 Not Given .Q1H1M POORNIMA Levofloxacin/Dextrose Confirm 10/18/18 06:42 Levofloxacin 750mg/150ml D5w Administered 10/18/18 06:43 Dose 750 mg in 150 mls @ ud IV .STK-MED ONE Sodium Chloride Confirm 10/18/18 06:41 Sodium Chloride 0.9% 1000 Ml Administered 10/18/18 06:42 Dose 1,000 mls @ ud .ROUTE .STK-MED ONE Methylprednisolone Sodium Succinate 125 mg 10/18/18 06:27 10/18/18 06:48 Solu-Medrol 125 Mg IV 10/18/18 06:28 125 mg STAT ONE Administration Methylprednisolone Sodium Succinate Confirm 10/18/18 06:41 Solu-Medrol 125 Mg Administered 10/18/18 06:42 Dose 125 mg .ROUTE .STK-MED ONE Lab/Rad Data: Laboratory Result Diagrams 10/18/18 06:30 10/18/18 06:30 Laboratory Results 10/18/18 10/18/18 10/18/18 Range/Units 15:30 12:35 09:30 WBC (4.0-10.5) K/mm3 RBC (4.1-5.4) M/mm3 Hgb (12.0-16.0) gm/dl Hct (35-47) % MCV (78-100) fl MCH (26-32) pg MCHC (32-36) g/dl RDW (11.5-14.0) % Plt Count (150-450) K/mm3 MPV (6-9.5) fl Gran % (36.0-66.0) % Eos # (Auto) (0-0.5) Absolute Lymphs (auto) (1.0-4.6) Absolute Monos (auto) (0.0-1.3) Lymphocytes % (24.0-44.0) % Monocytes % (0.0-12.0) % Eosinophils % (0.00-5.0) % Basophils % (0.0-0.4) % Absolute Granulocytes (1.4-6.9) Basophils # (0-0.4) PT (9.95-12.35) SECONDS INR (0.8-3.0) pO2/FiO2 Ratio % VBG pH (7.32-7.42) VBG pCO2 at Pat Temp (42-55) mm/Hg VBG pO2 at Pat Temp (25-40) mm/Hg VBG HCO3 (22-28) meq/L VBG O2 Sat (Marie) (95-100) VBG Base Excess (-2.0-2.0) VBG Hemoglobin VBG Carboxyhemoglobin (0.0-6.9) % T HGB POC Potassium (3.5-5.1) Sodium (137-145) mmol/L Potassium (3.5-5.1) mmol/L Chloride (98-107) mmol/L Carbon Dioxide (22-30) mmol/L Anion Gap (5-15) MEQ/L BUN (7-17) mg/dL Creatinine (0.52-1.04) mg/dL Estimated GFR ML/MIN Glucose (74-106) mg/dL Lactic Acid (0.4-2.0) Calcium (8.4-10.2) mg/dL Magnesium (1.6-2.3) mg/dL Total Bilirubin (0.2-1.3) mg/dL AST (14-36) U/L ALT (0-35) U/L Alkaline Phosphatase (38-126) U/L Troponin I 0.027 0.031 0.025 (0.000-0.034) ng/mL NT-Pro-B Natriuret Pep (0-1800) pg/mL Serum Total Protein (6.3-8.2) g/dL Albumin (3.5-5.0) g/dL Urine Color (YELLOW) Urine Appearance (CLEAR) Urine pH (5-6) Ur Specific [place] (1.005-1.025) Urine Protein (Negative) Urine Ketones (NEGATIVE) Urine Blood (0-5) Jeff/ul Urine Nitrite (NEGATIVE) Urine Bilirubin (NEGATIVE) Urine Urobilinogen (0-1) mg/dL Ur Leukocyte Esterase (NEGATIVE) Urine WBC (Auto) (0-5) /HPF Urine RBC (Auto) (0-2) /HPF U Epithel Cells (Auto) (FEW) /HPF Urine Bacteria (Auto) (NEGATIVE) /HPF Urine Mucus (Auto) (NEGATIVE) /HPF Urine Culture Reflexed (NO) Urine Glucose (NEGATIVE) mg/dL Influenza Type A Ag (NEGATIVE) Influenza Type B Ag (NEGATIVE) RSV (PCR) (Negative) 10/18/18 10/18/18 10/18/18 Range/Units 07:47 06:45 06:30 WBC (4.0-10.5) K/mm3 RBC (4.1-5.4) M/mm3 Hgb (12.0-16.0) gm/dl Hct (35-47) % MCV (78-100) fl MCH (26-32) pg MCHC (32-36) g/dl RDW (11.5-14.0) % Plt Count (150-450) K/mm3 MPV (6-9.5) fl Gran % (36.0-66.0) % Eos # (Auto) (0-0.5) Absolute Lymphs (auto) (1.0-4.6) Absolute Monos (auto) (0.0-1.3) Lymphocytes % (24.0-44.0) % Monocytes % (0.0-12.0) % Eosinophils % (0.00-5.0) % Basophils % (0.0-0.4) % Absolute Granulocytes (1.4-6.9) Basophils # (0-0.4) PT (9.95-12.35) SECONDS INR (0.8-3.0) pO2/FiO2 Ratio % VBG pH (7.32-7.42) VBG pCO2 at Pat Temp (42-55) mm/Hg VBG pO2 at Pat Temp (25-40) mm/Hg VBG HCO3 (22-28) meq/L VBG O2 Sat (Marie) (95-100) VBG Base Excess (-2.0-2.0) VBG Hemoglobin VBG Carboxyhemoglobin (0.0-6.9) % T HGB POC Potassium (3.5-5.1) Sodium (137-145) mmol/L Potassium (3.5-5.1) mmol/L Chloride (98-107) mmol/L Carbon Dioxide (22-30) mmol/L Anion Gap (5-15) MEQ/L BUN (7-17) mg/dL Creatinine (0.52-1.04) mg/dL Estimated GFR ML/MIN Glucose (74-106) mg/dL Lactic Acid (0.4-2.0) Calcium (8.4-10.2) mg/dL Magnesium (1.6-2.3) mg/dL Total Bilirubin (0.2-1.3) mg/dL AST (14-36) U/L ALT (0-35) U/L Alkaline Phosphatase (38-126) U/L Troponin I 0.015 (0.000-0.034) ng/mL NT-Pro-B Natriuret Pep (0-1800) pg/mL Serum Total Protein (6.3-8.2) g/dL Albumin (3.5-5.0) g/dL Urine Color YELLOW (YELLOW) Urine Appearance SLIGHTLY CLOUDY (CLEAR) Urine pH 5.0 (5-6) Ur Specific [place] 1.023 (1.005-1.025) Urine Protein 100 (Negative) Urine Ketones TRACE (NEGATIVE) Urine Blood SMALL (0-5) Jeff/ul Urine Nitrite POSITIVE (NEGATIVE) Urine Bilirubin NEGATIVE (NEGATIVE) Urine Urobilinogen 2 (0-1) mg/dL Ur Leukocyte Esterase MODERATE (NEGATIVE) Urine WBC (Auto) >100 (0-5) /HPF Urine RBC (Auto) NONE (0-2) /HPF U Epithel Cells (Auto) NONE (FEW) /HPF Urine Bacteria (Auto) PACKED (NEGATIVE) /HPF Urine Mucus (Auto) SLIGHT (NEGATIVE) /HPF Urine Culture Reflexed YES (NO) Urine Glucose NEGATIVE (NEGATIVE) mg/dL Influenza Type A Ag NEGATIVE (NEGATIVE) Influenza Type B Ag NEGATIVE (NEGATIVE) RSV (PCR) NEGATIVE (Negative) 10/18/18 10/18/18 10/18/18 Range/Units 06:30 06:30 06:30 WBC 15.2 H (4.0-10.5) K/mm3 RBC 3.91 L (4.1-5.4) M/mm3 Hgb 12.1 (12.0-16.0) gm/dl Hct 38.5 (35-47) % MCV 98.5 (78-100) fl MCH 30.9 (26-32) pg MCHC 31.4 L (32-36) g/dl RDW 15.4 H (11.5-14.0) % Plt Count 199 (150-450) K/mm3 MPV 10.9 H (6-9.5) fl Gran % 84.1 H (36.0-66.0) % Eos # (Auto) 0.04 (0-0.5) Absolute Lymphs (auto) 0.97 L (1.0-4.6) Absolute Monos (auto) 1.38 H (0.0-1.3) Lymphocytes % 6.4 L (24.0-44.0) % Monocytes % 9.1 (0.0-12.0) % Eosinophils % 0.3 (0.00-5.0) % Basophils % 0.1 (0.0-0.4) % Absolute Granulocytes 12.79 H (1.4-6.9) Basophils # 0.02 (0-0.4) PT 45.8 H (9.95-12.35) SECONDS INR 3.88 H (0.8-3.0) pO2/FiO2 Ratio % VBG pH (7.32-7.42) VBG pCO2 at Pat Temp (42-55) mm/Hg VBG pO2 at Pat Temp (25-40) mm/Hg VBG HCO3 (22-28) meq/L VBG O2 Sat (Marie) (95-100) VBG Base Excess (-2.0-2.0) VBG Hemoglobin VBG Carboxyhemoglobin (0.0-6.9) % T HGB POC Potassium (3.5-5.1) Sodium 140 (137-145) mmol/L Potassium 3.9 (3.5-5.1) mmol/L Chloride 104 (98-107) mmol/L Carbon Dioxide 25 (22-30) mmol/L Anion Gap 14.5 (5-15) MEQ/L BUN 20 H (7-17) mg/dL Creatinine 0.91 (0.52-1.04) mg/dL Estimated GFR > 60.0 ML/MIN Glucose 140 H (74-106) mg/dL Lactic Acid (0.4-2.0) Calcium 9.5 (8.4-10.2) mg/dL Magnesium 1.9 (1.6-2.3) mg/dL Total Bilirubin 0.80 (0.2-1.3) mg/dL AST 49 H (14-36) U/L ALT 37 H (0-35) U/L Alkaline Phosphatase 97 (38-126) U/L Troponin I (0.000-0.034) ng/mL NT-Pro-B Natriuret Pep 3870 H (0-1800) pg/mL Serum Total Protein 7.6 (6.3-8.2) g/dL Albumin 4.7 (3.5-5.0) g/dL Urine Color (YELLOW) Urine Appearance (CLEAR) Urine pH (5-6) Ur Specific [place] (1.005-1.025) Urine Protein (Negative) Urine Ketones (NEGATIVE) Urine Blood (0-5) Jeff/ul Urine Nitrite (NEGATIVE) Urine Bilirubin (NEGATIVE) Urine Urobilinogen (0-1) mg/dL Ur Leukocyte Esterase (NEGATIVE) Urine WBC (Auto) (0-5) /HPF Urine RBC (Auto) (0-2) /HPF U Epithel Cells (Auto) (FEW) /HPF Urine Bacteria (Auto) (NEGATIVE) /HPF Urine Mucus (Auto) (NEGATIVE) /HPF Urine Culture Reflexed (NO) Urine Glucose (NEGATIVE) mg/dL Influenza Type A Ag (NEGATIVE) Influenza Type B Ag (NEGATIVE) RSV (PCR) (Negative) 10/18/18 Range/Units 06:27 WBC (4.0-10.5) K/mm3 RBC (4.1-5.4) M/mm3 Hgb (12.0-16.0) gm/dl Hct (35-47) % MCV (78-100) fl MCH (26-32) pg MCHC (32-36) g/dl RDW (11.5-14.0) % Plt Count (150-450) K/mm3 MPV (6-9.5) fl Gran % (36.0-66.0) % Eos # (Auto) (0-0.5) Absolute Lymphs (auto) (1.0-4.6) Absolute Monos (auto) (0.0-1.3) Lymphocytes % (24.0-44.0) % Monocytes % (0.0-12.0) % Eosinophils % (0.00-5.0) % Basophils % (0.0-0.4) % Absolute Granulocytes (1.4-6.9) Basophils # (0-0.4) PT (9.95-12.35) SECONDS INR (0.8-3.0) pO2/FiO2 Ratio 28.0 % VBG pH 7.39 (7.32-7.42) VBG pCO2 at Pat Temp 39 L (42-55) mm/Hg VBG pO2 at Pat Temp 51 H (25-40) mm/Hg VBG HCO3 23.6 (22-28) meq/L VBG O2 Sat (Marie) 90.4 L (95-100) VBG Base Excess -1.2 (-2.0-2.0) VBG Hemoglobin 12.8 VBG Carboxyhemoglobin 2.2 (0.0-6.9) % T HGB POC Potassium 3.6 (3.5-5.1) Sodium (137-145) mmol/L Potassium (3.5-5.1) mmol/L Chloride (98-107) mmol/L Carbon Dioxide (22-30) mmol/L Anion Gap (5-15) MEQ/L BUN (7-17) mg/dL Creatinine (0.52-1.04) mg/dL Estimated GFR ML/MIN Glucose (74-106) mg/dL Lactic Acid 1.5 (0.4-2.0) Calcium (8.4-10.2) mg/dL Magnesium (1.6-2.3) mg/dL Total Bilirubin (0.2-1.3) mg/dL AST (14-36) U/L ALT (0-35) U/L Alkaline Phosphatase (38-126) U/L Troponin I (0.000-0.034) ng/mL NT-Pro-B Natriuret Pep (0-1800) pg/mL Serum Total Protein (6.3-8.2) g/dL Albumin (3.5-5.0) g/dL Urine Color (YELLOW) Urine Appearance (CLEAR) Urine pH (5-6) Ur Specific [place] (1.005-1.025) Urine Protein (Negative) Urine Ketones (NEGATIVE) Urine Blood (0-5) Jeff/ul Urine Nitrite (NEGATIVE) Urine Bilirubin (NEGATIVE) Urine Urobilinogen (0-1) mg/dL Ur Leukocyte Esterase (NEGATIVE) Urine WBC (Auto) (0-5) /HPF Urine RBC (Auto) (0-2) /HPF U Epithel Cells (Auto) (FEW) /HPF Urine Bacteria (Auto) (NEGATIVE) /HPF Urine Mucus (Auto) (NEGATIVE) /HPF Urine Culture Reflexed (NO) Urine Glucose (NEGATIVE) mg/dL Influenza Type A Ag (NEGATIVE) Influenza Type B Ag (NEGATIVE) RSV (PCR) (Negative) <GOOD LEDBETTER - Last Filed: 10/18/18 07:07> - Progress Progress: improved Air Movement: fair <LAVONNE FRAGA - Last Filed: 10/18/18 19:46> - Progress Progress Note: 10/18/18 06:37 ADMINISTERED IV NORMAL SALINE 1 LITER/HR X 2, PLACED ONTO SEPSIS PROTOCOL, SOLUMEDROL 125MG, PLACED ONTO BIPAP UPON ARRIVAL TO EMERGENCY. AFTER 2 SETS OF BLOOD CULTURES ADMINISTERED LEVAQUIN 750MG IVPB (GOOD LEDBETTER) 10/18/18 07:53 83-year-old white female initially seen by Dr. Ledbetter arrives with complaints of shortness of breath 2 days states she's had a fever at home to 100 she is a thin having wheezing states she's had a headache Patient arrives with bilateral wheezes on arrival pulse ox of 87%. She denies chest pain she had some vomiting after coughing. Past medical history includes CVA, cataracts, bronchitis, congestive heart failure, COPD, arrhythmia, high blood pressure, ulcers, anxiety, anemia, kidney disease. Past surgical history includes cataracts, pacer, hysterectomy, orthopedic surgery, ear surgery. Physical examination well-developed well-nourished white female she is alert oriented 3. Head is atraumatic normocephalic. Eyes PERRLA EOMI fundi are unremarkable. Ears TMs are zabala intact bilaterally. Nose is clear. Throat is clear. Neck is supple full range of motion. Lungs bilateral wheezes. Heart regular rate and rhythm without murmur. Abdomen soft nontender nondistended positive bowel sounds. Extremities full range of motion pulse equal symmetrical 2 over 4. Neuro cranial nerves II through XII are intact DTRs symmetrical 2 over 4 Carolin Coma Scale is 15. Labs: CBC white blood cell 15.2 hemoglobin 12.1 hematocrit 38.5 platelets 199 Chemistry sodium 140 potassium 3.9 chloride 104 bicarbonate 25 BUN 20 creatinine 0.91 glucose 140 BNP 3870 Influenza is negative RSV is negative INR 3.88 Venous gases pH 7.39 PCO2 39 PO2 51 bicarbonate 23.6 O2 saturation 90.4 Lactate 1.5 EKG paced rhythm 67 bpm No acute changes noted Chest x-ray:: Mild cardiomegaly, bibasilar infiltrates Impression 1. COPD with exacerbation 2. Pneumonia Plan patient has already been given IV normal saline, IV Levaquin, IV Solu- Medrol, and continuous nebulizer treatment She still has wheezing however does not appear to be in acute distress at this time. Will await urine results. Will discuss case with patient's family physician. 10/18/18 08:38 Patient feeling better still a few wheezes but improved. Patient with UTI showing greater than 100 white cells per high-power field. Case is discussed with Dr. Ralph will place patient on observation telemetry continue IV steroids, IV antibiotics, DuoNeb treatments. Diagnosis 1 shortness of breath to COPD with exacerbation 3 pneumonia 4. UTI ( LAVONNE FRAGA) <GOOD LEDBETTER - Last Filed: 10/18/18 07:07> - Departure Time of Disposition: 08:39 Departure Disposition: Observation Critical Care Time: No <LAVONNE FRAGA - Last Filed: 10/18/18 19:46> - Departure Clinical Impression: Shortness of breath, COPD with exacerbation Pneumonia Qualifiers: Pneumonia type: due to unspecified organism Laterality: bilateral Lung location : lower lobe of lung Qualified Code(s): J18.1 - Lobar pneumonia, unspecified organism UTI (urinary tract infection) Qualifiers: Urinary tract infection type: site unspecified Hematuria presence: without hematuria Qualified Code(s): N39.0 - Urinary tract infection, site not specified Condition: Fair
[2018-10-18 06:41] LABS: Lactic Acid 1.5 (0.4-2.0); VBG BASE EXCESS -1.2 (-2.0-2.0); VBG CARBOXYHEMOGLOBIN 2.2 % T HGB (0.0-6.9); VBG HCO3- 23.6 meq/L (22-28); VBG HEMOGLOBIN 12.8; VBG O2 SATURATION 90.4 (95-100); VBG POTASSIUM 3.6 (3.5-5.1); VBG pH 7.39 (7.32-7.42)
[2018-10-18] MEDS ORDERED: TYLENOL 325 MG ONE (06:41)
[2018-10-18] MEDS ORDERED: Sodium Chloride 0.9% 1000 ML 1,000 ML ONE (06:41)
[2018-10-18] MEDS ORDERED: solu-MEDROL 125 MG ONE (06:41)
[2018-10-18] MEDS ORDERED: LEVOFLOXACIN 750MG/150ML D5W 750 MG/150 ML BAG IV ONE (06:42)
[2018-10-18 07:07] LABS: BASOPHIL % 0.1 % (0.0-0.4); Basophil (Absolute #) 0.02 (0-0.4); Eosinophil % 0.3 % (0.00-5.0); Eosinophil (Absolute #) 0.04 (0-0.5); Granulocyte Absolute (ANC) 12.79 (1.4-6.9); Granulocytes % 84.1 % (36.0-66.0); Hematocrit 38.5 % (35-47); Hemoglobin 12.1 gm/dl (12.0-16.0); Lymphocyte (Absolute #) 0.97 (1.0-4.6); Lymphocytes % 6.4 % (24.0-44.0); Mean Cell Volume 98.5 fl (78-100); Mean Corpuscular Hemoglobin 30.9 pg (26-32); Mean Corpuscular Hgb Concent. 31.4 g/dl (32-36); Mean Platelet Volume 10.9 fl (6-9.5); Monocyte (Absolute #) 1.38 (0.0-1.3); Monocytes % 9.1 % (0.0-12.0); Platelet Count 199 K/mm3 (150-450); Red Blood Count 3.91 M/mm3 (4.1-5.4); Red Cell Distribution Width 15.4 % (11.5-14.0); White Blood Count 15.2 K/mm3 (4.0-10.5)
[2018-10-18 07:09] LABS: INR 3.88 (0.8-3.0)
[2018-10-18 07:27] LABS: INFLUENZA A NEGATIVE (NEGATIVE); INFLUENZA B NEGATIVE (NEGATIVE); RESPIRATORY SYNCTIAL VIRUS NEGATIVE (Negative)
[2018-10-18 07:28] LABS: ALBUMIN 4.7 g/dL (3.5-5.0); ALKALINE PHOSPHATASE 97 U/L (38-126); ANION GAP 14.5 MEQ/L (5-15); BLOOD UREA NITROGEN 20 mg/dL (7-17); CHLORIDE 104 mmol/L (98-107); Calcium 9.5 mg/dL (8.4-10.2); Carbon Dioxide 25 mmol/L (22-30); Creatinine 1 0.91 mg/dL (0.52-1.04); Glucose 140 mg/dL (74-106); NT PRO BNP 3870 pg/mL (0-1800); Potassium 3.9 mmol/L (3.5-5.1); SGOT/AST 49 U/L (14-36); SGPT/ALT 37 U/L (0-35); SODIUM 140 mmol/L (137-145); Total Protein 7.6 g/dL (6.3-8.2)
[2018-10-18] MEDS: Sodium Chloride 0.9% 1000 ML 1,000 ML IV SCH ×2 (08:02→08:03)
[2018-10-18 08:25] LABS: Appearance SLIGHTLY CLOUDY (CLEAR); Bilirubin NEGATIVE (NEGATIVE); Blood SMALL Ery/ul (0-5); Glucose NEGATIVE (NEGATIVE); Ketones TRACE (NEGATIVE); Leukocyte Esterase MODERATE (NEGATIVE); Nitrite POSITIVE (NEGATIVE); Protein,Urine Dip 100 (Negative); Specific Gravity 1.023 (1.005-1.025); Urobilinogen 2 mg/dL (0-1)
[2018-10-18] MEDS ORDERED: DUONEB 0.5-3 MG/3 ml Neb IH PRN (09:14)
[2018-10-18] MEDS ORDERED: TYLENOL 325 MG PO PRN (09:14)
--- NOTE | 2018-10-18 09:41 | XRAY ---
Indication: Cough and dyspnea. Comparison: December 11, 2017. Portable chest less inflated today with new bibasilar infiltrates versus atelectasis. Upper lungs clear. Heart is borderline enlarged again with left-sided single lead pacemaker. Bony thorax intact again with mild osteopenia and degenerative changes. Impression: New bibasilar infiltrates/atelectasis. Correlate clinically.
--- NOTE | 2018-10-18 10:10 | PCM.HP ---
History of Present Illness - Chief Complaint Chief Complaint: Shortness of Breath, COPD, UTI History of Present Illness: is a 83 year old female who has had cough and shortness of breath for the last 2 days, has had some sputum but unable to get it up. Has had fever as well, states every time she gets a cold she can't breathe. she had some burning with urination last week but states that it resolved with over the counter treatment. - Review of Systems Constitutional: Fever Respiratory: Cough, Short Of Breath Cardiac: No Chest Pain, No Edema, No Syncope Abdominal/Gastrointestinal: No Abdominal Pain, No Nausea, No Vomiting, No Diarrhea Genitourinary Symptoms: Dysuria Skin: No Rash All Other Systems: Reviewed and Negative Medications & Allergies Home Medications: Home Medication List Simvastatin 40 mg [Zocor 40 mg] 40 mg PO HS 10/04/14 [History Confirmed 10/18/18 ] Spironolactone 25 mg PO DAILY 10/12/17 [History Confirmed 10/18/18] Albuterol 2.5 mg/3 ml Neb [Proventil 2.5 mg/3 ml Neb] 3 ml NEB TIDPRN 02/02 [History Confirmed 10/18/18] Albuterol Sulfate [Albuterol Sulfate Hfa] 2 puff IH QID 03/20/18 [History Confirmed 10/18/18] Amlodipine Besylate 10 mg [Norvasc 10 MG] 10 mg PO DAILY 03/20/18 [History Confirmed 10/18/18] Citalopram Hydrobromide [Celexa] 10 mg PO DAILY 03/20/18 [History Confirmed 12/05] Metoprolol Tartrate 25 mg [Lopressor 25MG Tab] 25 mg PO BID 03/20/18 [ History Confirmed 10/18/18] Warfarin Sodium 1 mg PO QPM 03/20/18 [History Confirmed 10/18/18] Prednisone 20 mg [Deltasone 20 mg] 20 mg PO DAILY 10/18/18 [History Confirmed 10/18/18] Allergies/Adverse Reactions: Allergies Allergy/AdvReac Type Severity Reaction Status Date / Time Penicillins Allergy Severe Hives Verified 03/19/18 19:08 - Past Medical History Past Medical History: Yes Neurological History: Stroke ENT History: Cataracts Cardiac History: Arrhythmia, Hypertension Respiratory History: Bronchitis, CHF, COPD Endocrine Medical History: No Pertinent History Musculoskelatal History: No Pertinent History GI Medical History: Ulcer History: Other Pyscho-Social History: Anxiety Reproductive Disorders: No Pertinent History Comment: ANEMIA. 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 - Female History Are you now?: No - Past Surgical History Past Surgical History: Yes Neuro Surgical History: No Pertinent History Cardiac History: Pacemaker Respiratory Surgery: No Pertinent History GI Surgical History: No Pertinent History Genitourinary Surgical Hx: No Pertinent History Musculskeletal Surgical Hx: Orthopedic Surgery Female Surgical History: Hysterectomy Other Surgical History: Inner ear sx, surgery to L1 & L7 - Social History Smoking Status: Former smoker Exposure to second hand smoke: No Alcohol: Rarely Drug Use: none - Physical Exam Vital Signs: Vital Signs - 24 hr Temp Pulse Resp BP Pulse Ox 10/18/18 09:27 98.5 F 63 22 136/63 93 L 10/18/18 09:05 98.5 F 63 16 136/63 93 L 10/18/18 08:22 98.9 F 63 24 142/55 92 L 10/18/18 07:50 64 20 147/55 95 10/18/18 07:45 67 20 158/64 94 L 10/18/18 07:07 93 L 10/18/18 07:01 60 20 95 10/18/18 06:05 63 24 172/68 93 L Oxygen-Last 24 hours O2 Percentage 2 Liters = 28% O2 Percentage 2 Liters = 28% O2 Percentage 2 Liters = 28% O2 Percentage 2 Liters = 28% O2 Percentage 2 Liters = 28% O2 Percentage 2 Liters = 28% General Appearance: no apparent distress, alert Neurologic Exam: alert, oriented x 3 Eye Exam: PERRL/EOMI, eyes nml inspection Respiratory Exam: rhonchi, wheezing Cardiovascular Exam: regular rate/rhythm, normal heart sounds, normal peripheral pulses Gastrointestinal/Abdomen Exam: soft, normal bowel sounds, No tenderness, No mass Extremity Exam: normal inspection, normal range of motion, pelvis stable Skin Exam: normal color, warm, dry, No rash Results - Labs Lab/Micro Results: Lab Results-Last 24 Hours 10/18/18 10/18/18 10/18/18 Range/Units 06:27 06:30 06:30 WBC 15.2 H (4.0-10.5) K/mm3 RBC 3.91 L (4.1-5.4) M/mm3 Hgb 12.1 (12.0-16.0) gm/dl Hct 38.5 (35-47) % MCV 98.5 (78-100) fl MCH 30.9 (26-32) pg MCHC 31.4 L (32-36) g/dl RDW 15.4 H (11.5-14.0) % Plt Count 199 (150-450) K/mm3 MPV 10.9 H (6-9.5) fl Gran % 84.1 H (36.0-66.0) % Eos # (Auto) 0.04 (0-0.5) Absolute Lymphs (auto) 0.97 L (1.0-4.6) Absolute Monos (auto) 1.38 H (0.0-1.3) Lymphocytes % 6.4 L (24.0-44.0) % Monocytes % 9.1 (0.0-12.0) % Eosinophils % 0.3 (0.00-5.0) % Basophils % 0.1 (0.0-0.4) % Absolute Granulocytes 12.79 H (1.4-6.9) Basophils # 0.02 (0-0.4) PT (9.95-12.35) SECONDS INR (0.8-3.0) pO2/FiO2 Ratio 28.0 % VBG pH 7.39 (7.32-7.42) VBG pCO2 at Pat Temp 39 L (42-55) mm/Hg VBG pO2 at Pat Temp 51 H (25-40) mm/Hg VBG HCO3 23.6 (22-28) meq/L VBG O2 Sat (Marie) 90.4 L (95-100) VBG Base Excess -1.2 (-2.0-2.0) VBG Hemoglobin 12.8 VBG Carboxyhemoglobin 2.2 (0.0-6.9) % T HGB POC Potassium 3.6 (3.5-5.1) Sodium 140 (137-145) mmol/L Potassium 3.9 (3.5-5.1) mmol/L Chloride 104 (98-107) mmol/L Carbon Dioxide 25 (22-30) mmol/L Anion Gap 14.5 (5-15) MEQ/L BUN 20 H (7-17) mg/dL Creatinine 0.91 (0.52-1.04) mg/dL Estimated GFR > 60.0 ML/MIN Glucose 140 H (74-106) mg/dL Lactic Acid 1.5 (0.4-2.0) Calcium 9.5 (8.4-10.2) mg/dL Magnesium 1.9 (1.6-2.3) mg/dL Total Bilirubin 0.80 (0.2-1.3) mg/dL AST 49 H (14-36) U/L ALT 37 H (0-35) U/L Alkaline Phosphatase 97 (38-126) U/L Troponin I (0.000-0.034) ng/mL NT-Pro-B Natriuret Pep 3870 H (0-1800) pg/mL Serum Total Protein 7.6 (6.3-8.2) g/dL Albumin 4.7 (3.5-5.0) g/dL Urine Color (YELLOW) Urine Appearance (CLEAR) Urine pH (5-6) Ur Specific [place] (1.005-1.025) Urine Protein (Negative) Urine Ketones (NEGATIVE) Urine Blood (0-5) Jeff/ul Urine Nitrite (NEGATIVE) Urine Bilirubin (NEGATIVE) Urine Urobilinogen (0-1) mg/dL Ur Leukocyte Esterase (NEGATIVE) Urine WBC (Auto) (0-5) /HPF Urine RBC (Auto) (0-2) /HPF U Epithel Cells (Auto) (FEW) /HPF Urine Bacteria (Auto) (NEGATIVE) /HPF Urine Mucus (Auto) (NEGATIVE) /HPF Urine Culture Reflexed (NO) Urine Glucose (NEGATIVE) mg/dL Influenza Type A Ag (NEGATIVE) Influenza Type B Ag (NEGATIVE) RSV (PCR) (Negative) 10/18/18 10/18/18 10/18/18 Range/Units 06:30 06:30 06:45 WBC (4.0-10.5) K/mm3 RBC (4.1-5.4) M/mm3 Hgb (12.0-16.0) gm/dl Hct (35-47) % MCV (78-100) fl MCH (26-32) pg MCHC (32-36) g/dl RDW (11.5-14.0) % Plt Count (150-450) K/mm3 MPV (6-9.5) fl Gran % (36.0-66.0) % Eos # (Auto) (0-0.5) Absolute Lymphs (auto) (1.0-4.6) Absolute Monos (auto) (0.0-1.3) Lymphocytes % (24.0-44.0) % Monocytes % (0.0-12.0) % Eosinophils % (0.00-5.0) % Basophils % (0.0-0.4) % Absolute Granulocytes (1.4-6.9) Basophils # (0-0.4) PT 45.8 H (9.95-12.35) SECONDS INR 3.88 H (0.8-3.0) pO2/FiO2 Ratio % VBG pH (7.32-7.42) VBG pCO2 at Pat Temp (42-55) mm/Hg VBG pO2 at Pat Temp (25-40) mm/Hg VBG HCO3 (22-28) meq/L VBG O2 Sat (Marie) (95-100) VBG Base Excess (-2.0-2.0) VBG Hemoglobin VBG Carboxyhemoglobin (0.0-6.9) % T HGB POC Potassium (3.5-5.1) Sodium (137-145) mmol/L Potassium (3.5-5.1) mmol/L Chloride (98-107) mmol/L Carbon Dioxide (22-30) mmol/L Anion Gap (5-15) MEQ/L BUN (7-17) mg/dL Creatinine (0.52-1.04) mg/dL Estimated GFR ML/MIN Glucose (74-106) mg/dL Lactic Acid (0.4-2.0) Calcium (8.4-10.2) mg/dL Magnesium (1.6-2.3) mg/dL Total Bilirubin (0.2-1.3) mg/dL AST (14-36) U/L ALT (0-35) U/L Alkaline Phosphatase (38-126) U/L Troponin I 0.015 (0.000-0.034) ng/mL NT-Pro-B Natriuret Pep (0-1800) pg/mL Serum Total Protein (6.3-8.2) g/dL Albumin (3.5-5.0) g/dL Urine Color (YELLOW) Urine Appearance (CLEAR) Urine pH (5-6) Ur Specific [place] (1.005-1.025) Urine Protein (Negative) Urine Ketones (NEGATIVE) Urine Blood (0-5) Jeff/ul Urine Nitrite (NEGATIVE) Urine Bilirubin (NEGATIVE) Urine Urobilinogen (0-1) mg/dL Ur Leukocyte Esterase (NEGATIVE) Urine WBC (Auto) (0-5) /HPF Urine RBC (Auto) (0-2) /HPF U Epithel Cells (Auto) (FEW) /HPF Urine Bacteria (Auto) (NEGATIVE) /HPF Urine Mucus (Auto) (NEGATIVE) /HPF Urine Culture Reflexed (NO) Urine Glucose (NEGATIVE) mg/dL Influenza Type A Ag NEGATIVE (NEGATIVE) Influenza Type B Ag NEGATIVE (NEGATIVE) RSV (PCR) NEGATIVE (Negative) 10/18/18 Range/Units 07:47 WBC (4.0-10.5) K/mm3 RBC (4.1-5.4) M/mm3 Hgb (12.0-16.0) gm/dl Hct (35-47) % MCV (78-100) fl MCH (26-32) pg MCHC (32-36) g/dl RDW (11.5-14.0) % Plt Count (150-450) K/mm3 MPV (6-9.5) fl Gran % (36.0-66.0) % Eos # (Auto) (0-0.5) Absolute Lymphs (auto) (1.0-4.6) Absolute Monos (auto) (0.0-1.3) Lymphocytes % (24.0-44.0) % Monocytes % (0.0-12.0) % Eosinophils % (0.00-5.0) % Basophils % (0.0-0.4) % Absolute Granulocytes (1.4-6.9) Basophils # (0-0.4) PT (9.95-12.35) SECONDS INR (0.8-3.0) pO2/FiO2 Ratio % VBG pH (7.32-7.42) VBG pCO2 at Pat Temp (42-55) mm/Hg VBG pO2 at Pat Temp (25-40) mm/Hg VBG HCO3 (22-28) meq/L VBG O2 Sat (Marie) (95-100) VBG Base Excess (-2.0-2.0) VBG Hemoglobin VBG Carboxyhemoglobin (0.0-6.9) % T HGB POC Potassium (3.5-5.1) Sodium (137-145) mmol/L Potassium (3.5-5.1) mmol/L Chloride (98-107) mmol/L Carbon Dioxide (22-30) mmol/L Anion Gap (5-15) MEQ/L BUN (7-17) mg/dL Creatinine (0.52-1.04) mg/dL Estimated GFR ML/MIN Glucose (74-106) mg/dL Lactic Acid (0.4-2.0) Calcium (8.4-10.2) mg/dL Magnesium (1.6-2.3) mg/dL Total Bilirubin (0.2-1.3) mg/dL AST (14-36) U/L ALT (0-35) U/L Alkaline Phosphatase (38-126) U/L Troponin I (0.000-0.034) ng/mL NT-Pro-B Natriuret Pep (0-1800) pg/mL Serum Total Protein (6.3-8.2) g/dL Albumin (3.5-5.0) g/dL Urine Color YELLOW (YELLOW) Urine Appearance SLIGHTLY CLOUDY (CLEAR) Urine pH 5.0 (5-6) Ur Specific [place] 1.023 (1.005-1.025) Urine Protein 100 (Negative) Urine Ketones TRACE (NEGATIVE) Urine Blood SMALL (0-5) Jeff/ul Urine Nitrite POSITIVE (NEGATIVE) Urine Bilirubin NEGATIVE (NEGATIVE) Urine Urobilinogen 2 (0-1) mg/dL Ur Leukocyte Esterase MODERATE (NEGATIVE) Urine WBC (Auto) >100 (0-5) /HPF Urine RBC (Auto) NONE (0-2) /HPF U Epithel Cells (Auto) NONE (FEW) /HPF Urine Bacteria (Auto) PACKED (NEGATIVE) /HPF Urine Mucus (Auto) SLIGHT (NEGATIVE) /HPF Urine Culture Reflexed YES (NO) Urine Glucose NEGATIVE (NEGATIVE) mg/dL Influenza Type A Ag (NEGATIVE) Influenza Type B Ag (NEGATIVE) RSV (PCR) (Negative) - Radiology Impressions Radiology Exams & Impressions: Radiology Procedures Category Date Time Status CHEST 1 VIEW (PORTABLE) Stat Exams 10/18/18 06:28 Completed - Other Procedures and Tests Respiratory Therapy 10/18/18 09:14 Oxygen NASAL CANNULA 2 lpm 10/18/18 10:03 Respiratory Therapy Assessment DAILY Assessment/Plan (1) COPD with exacerbation Current Visit: Yes Status: Acute Assessment & Plan: levaquin, nebs and iv steroids Code(s): J44.1 - CHRONIC OBSTRUCTIVE PULMONARY DISEASE W (ACUTE) EXACERBATION (2) Pneumonia Current Visit: Yes Status: Acute Onset Date: ~03/21/18 Qualifiers: Pneumonia type: due to unspecified organism Laterality: bilateral Lung location: lower lobe of lung Qualified Code(s): J18.1 - Lobar pneumonia, unspecified organism Assessment & Plan: levaquin given in ER, will continue Code(s): J18.9 - PNEUMONIA, UNSPECIFIED ORGANISM (3) UTI (urinary tract infection) Current Visit: Yes Status: Acute Qualifiers: Urinary tract infection type: site unspecified Hematuria presence: without hematuria Qualified Code(s): N39.0 - Urinary tract infection, site not specified Assessment & Plan: on levaquin, culture pending. Code(s): N39.0 - URINARY TRACT INFECTION, SITE NOT SPECIFIED (4) Atrial fibrillation Current Visit: No Status: Chronic Assessment & Plan: INR supratherapeutic, will hold coumadin and follow INR Code(s): I48.91 - UNSPECIFIED ATRIAL FIBRILLATION
[2018-10-18] MEDS: DUONEB 0.5-3 MG/3 ml Neb IH SCH ×4 (11:30→23:52)
[2018-10-18] MEDS: Lopressor 25MG Tab PO SCH ×2 (12:20→21:50)
[2018-10-18] MEDS: ceLEXa 20 MG PO SCH (12:20)
[2018-10-18] MEDS: NORVASC 5 MG PO SCH (12:20)
[2018-10-18] MEDS: Aldactone 25 MG PO SCH (12:20)
[2018-10-18] MEDS: solu-MEDROL 125 MG IV SCH ×3 (12:20→21:50)
[2018-10-18] MEDS: ZOCOR 20MG PO SCH (21:50)
[2018-10-18] MEDS ORDERED: NON-FORMULARY ITEM (Simvastatin 40 Mg [Zocor 40 Mg] 40 MG) PO SCH (22:00)
[2018-10-19] MEDS: DUONEB 0.5-3 MG/3 ml Neb IH SCH ×2 (03:52→07:04)
[2018-10-19] MEDS: solu-MEDROL 125 MG IV SCH ×4 (05:33→23:37)
[2018-10-19 05:57] LABS: BASOPHIL % 0.1 % (0.0-0.4); Basophil (Absolute #) 0.01 (0-0.4); Eosinophil (Absolute #) 0 (0-0.5); Granulocyte Absolute (ANC) 14.73 (1.4-6.9); Granulocytes % 87.8 % (36.0-66.0); Hematocrit 35.2 % (35-47); Lymphocytes % 6.6 % (24.0-44.0); Mean Cell Volume 98.6 fl (78-100); Mean Corpuscular Hemoglobin 30.8 pg (26-32); Mean Corpuscular Hgb Concent. 31.3 g/dl (32-36); Monocyte (Absolute #) 0.92 (0.0-1.3); Monocytes % 5.5 % (0.0-12.0); Platelet Count 179 K/mm3 (150-450); Red Blood Count 3.57 M/mm3 (4.1-5.4); Red Cell Distribution Width 15.9 % (11.5-14.0); White Blood Count 16.8 K/mm3 (4.0-10.5)
[2018-10-19 06:13] LABS: INR 4.18 (0.8-3.0)
[2018-10-19 06:22] LABS: ALBUMIN 3.9 g/dL (3.5-5.0); ALKALINE PHOSPHATASE 75 U/L (38-126); ANION GAP 11.9 MEQ/L (5-15); BLOOD UREA NITROGEN 20 mg/dL (7-17); CHLORIDE 107 mmol/L (98-107); Calcium 9.3 mg/dL (8.4-10.2); Carbon Dioxide 24 mmol/L (22-30); Creatinine 1 0.94 mg/dL (0.52-1.04); Glucose 158 mg/dL (74-106); Potassium 3.7 mmol/L (3.5-5.1); SGOT/AST 38 U/L (14-36); SGPT/ALT 36 U/L (0-35); SODIUM 139 mmol/L (137-145); Total Protein 6.6 g/dL (6.3-8.2)
--- NOTE | 2018-10-19 08:03 | PCM.NOTE ---
Date and Time: 10/19/18801 Subjective Assessment: patient states she is breathing some better, still requiring oxygen. short of breath with exertion and coughing still Objective Exam General Appearance: no apparent distress, alert Skin Exam: normal color, warm, dry Respiratory Exam: rhonchi, wheezing Cardiovascular Exam: regular rate/rhythm, normal heart sounds Gastrointestinal/Abdomen Exam: soft, No tenderness, No mass Extremity Exam: normal inspection, normal range of motion OBJECTIVE DATA Vital Signs: Vital Signs - 24 hr Temp Pulse Resp BP Pulse Ox 10/19/18 07:20 97.9 F 79 18 140/63 97 10/19/18 07:05 62 18 94 L 10/19/18 04:00 97.5 F 62 17 139/63 98 10/19/18 03:52 56 L 17 94 L 10/19/18 00:00 17 10/18/18 23:54 98.2 F 67 17 134/60 94 L 10/18/18 23:52 52 L 18 91 L 10/18/18 20:26 78 18 92 L 10/18/18 20:00 18 10/18/18 19:48 97.9 F 55 L 17 127/58 94 L 10/18/18 16:00 98.3 F 62 18 139/60 95 10/18/18 15:34 63 16 95 10/18/18 12:00 96.7 F 57 L 18 129/59 94 L 10/18/18 11:32 86 18 96 10/18/18 10:13 94 L 10/18/18 10:08 66 20 94 L 10/18/18 09:27 98.5 F 63 22 136/63 93 L 10/18/18 09:14 94 L 10/18/18 09:05 98.5 F 63 16 136/63 93 L 10/18/18 08:22 98.9 F 63 24 142/55 92 L Oxygen-Last 24 hours O2 Percentage 2 Liters = 28% O2 Percentage 2 Liters = 28% O2 Percentage 2 Liters = 28% O2 Percentage 2 Liters = 28% O2 Percentage 2 Liters = 28% O2 Percentage 2 Liters = 28% O2 Percentage 2 Liters = 28% O2 Percentage 2 Liters = 28% Oxygen Flowrate (L/min)-RT 2 Oxygen Flowrate (L/min)-RT 2 Pain Assessment - Last Documented Pain Intensity 7 Pain Scale Used FLACC Intake and Output: Intake & Output 10/16/18 10/17/18 10/18/18 10/19/18 11:59 11:59 11:59 11:59 Intake Total 980 Output Total 550 Balance 430 Weight 68.8 kg 68.8 kg Lab Results: Lab Results-Last 24 Hours 10/18/18 10/18/18 10/18/18 Range/Units 07:47 09:30 12:35 WBC (4.0-10.5) K/mm3 RBC (4.1-5.4) M/mm3 Hgb (12.0-16.0) gm/dl Hct (35-47) % MCV (78-100) fl MCH (26-32) pg MCHC (32-36) g/dl RDW (11.5-14.0) % Plt Count (150-450) K/mm3 MPV (6-9.5) fl Gran % (36.0-66.0) % Eos # (Auto) (0-0.5) Absolute Lymphs (auto) (1.0-4.6) Absolute Monos (auto) (0.0-1.3) Lymphocytes % (24.0-44.0) % Monocytes % (0.0-12.0) % Eosinophils % (0.00-5.0) % Basophils % (0.0-0.4) % Absolute Granulocytes (1.4-6.9) Basophils # (0-0.4) PT (9.95-12.35) SECONDS INR (0.8-3.0) Sodium (137-145) mmol/L Potassium (3.5-5.1) mmol/L Chloride (98-107) mmol/L Carbon Dioxide (22-30) mmol/L Anion Gap (5-15) MEQ/L BUN (7-17) mg/dL Creatinine (0.52-1.04) mg/dL Estimated GFR ML/MIN Glucose (74-106) mg/dL Calcium (8.4-10.2) mg/dL Total Bilirubin (0.2-1.3) mg/dL AST (14-36) U/L ALT (0-35) U/L Alkaline Phosphatase (38-126) U/L Troponin I 0.025 0.031 (0.000-0.034) ng/mL Serum Total Protein (6.3-8.2) g/dL Albumin (3.5-5.0) g/dL Urine Color YELLOW (YELLOW) Urine Appearance SLIGHTLY CLOUDY (CLEAR) Urine pH 5.0 (5-6) Ur Specific [place] 1.023 (1.005-1.025) Urine Protein 100 (Negative) Urine Ketones TRACE (NEGATIVE) Urine Blood SMALL (0-5) Jeff/ul Urine Nitrite POSITIVE (NEGATIVE) Urine Bilirubin NEGATIVE (NEGATIVE) Urine Urobilinogen 2 (0-1) mg/dL Ur Leukocyte Esterase MODERATE (NEGATIVE) Urine WBC (Auto) >100 (0-5) /HPF Urine RBC (Auto) NONE (0-2) /HPF U Epithel Cells (Auto) NONE (FEW) /HPF Urine Bacteria (Auto) PACKED (NEGATIVE) /HPF Urine Mucus (Auto) SLIGHT (NEGATIVE) /HPF Urine Culture Reflexed YES (NO) Urine Glucose NEGATIVE (NEGATIVE) mg/dL 10/18/18 10/18/18 10/19/18 Range/Units 15:30 18:37 05:35 WBC 16.8 H (4.0-10.5) K/mm3 RBC 3.57 L (4.1-5.4) M/mm3 Hgb 11.0 L (12.0-16.0) gm/dl Hct 35.2 (35-47) % MCV 98.6 (78-100) fl MCH 30.8 (26-32) pg MCHC 31.3 L (32-36) g/dl RDW 15.9 H (11.5-14.0) % Plt Count 179 (150-450) K/mm3 MPV 11.0 H (6-9.5) fl Gran % 87.8 H (36.0-66.0) % Eos # (Auto) 0 (0-0.5) Absolute Lymphs (auto) 1.10 (1.0-4.6) Absolute Monos (auto) 0.92 (0.0-1.3) Lymphocytes % 6.6 L (24.0-44.0) % Monocytes % 5.5 (0.0-12.0) % Eosinophils % 0.0 (0.00-5.0) % Basophils % 0.1 (0.0-0.4) % Absolute Granulocytes 14.73 H (1.4-6.9) Basophils # 0.01 (0-0.4) PT (9.95-12.35) SECONDS INR (0.8-3.0) Sodium (137-145) mmol/L Potassium (3.5-5.1) mmol/L Chloride (98-107) mmol/L Carbon Dioxide (22-30) mmol/L Anion Gap (5-15) MEQ/L BUN (7-17) mg/dL Creatinine (0.52-1.04) mg/dL Estimated GFR ML/MIN Glucose (74-106) mg/dL Calcium (8.4-10.2) mg/dL Total Bilirubin (0.2-1.3) mg/dL AST (14-36) U/L ALT (0-35) U/L Alkaline Phosphatase (38-126) U/L Troponin I 0.027 0.020 (0.000-0.034) ng/mL Serum Total Protein (6.3-8.2) g/dL Albumin (3.5-5.0) g/dL Urine Color (YELLOW) Urine Appearance (CLEAR) Urine pH (5-6) Ur Specific [place] (1.005-1.025) Urine Protein (Negative) Urine Ketones (NEGATIVE) Urine Blood (0-5) Jeff/ul Urine Nitrite (NEGATIVE) Urine Bilirubin (NEGATIVE) Urine Urobilinogen (0-1) mg/dL Ur Leukocyte Esterase (NEGATIVE) Urine WBC (Auto) (0-5) /HPF Urine RBC (Auto) (0-2) /HPF U Epithel Cells (Auto) (FEW) /HPF Urine Bacteria (Auto) (NEGATIVE) /HPF Urine Mucus (Auto) (NEGATIVE) /HPF Urine Culture Reflexed (NO) Urine Glucose (NEGATIVE) mg/dL 10/19/18 10/19/18 Range/Units 05:35 05:35 WBC (4.0-10.5) K/mm3 RBC (4.1-5.4) M/mm3 Hgb (12.0-16.0) gm/dl Hct (35-47) % MCV (78-100) fl MCH (26-32) pg MCHC (32-36) g/dl RDW (11.5-14.0) % Plt Count (150-450) K/mm3 MPV (6-9.5) fl Gran % (36.0-66.0) % Eos # (Auto) (0-0.5) Absolute Lymphs (auto) (1.0-4.6) Absolute Monos (auto) (0.0-1.3) Lymphocytes % (24.0-44.0) % Monocytes % (0.0-12.0) % Eosinophils % (0.00-5.0) % Basophils % (0.0-0.4) % Absolute Granulocytes (1.4-6.9) Basophils # (0-0.4) PT 49.3 H (9.95-12.35) SECONDS INR 4.18 H (0.8-3.0) Sodium 139 (137-145) mmol/L Potassium 3.7 (3.5-5.1) mmol/L Chloride 107 (98-107) mmol/L Carbon Dioxide 24 (22-30) mmol/L Anion Gap 11.9 (5-15) MEQ/L BUN 20 H (7-17) mg/dL Creatinine 0.94 (0.52-1.04) mg/dL Estimated GFR > 60.0 ML/MIN Glucose 158 H (74-106) mg/dL Calcium 9.3 (8.4-10.2) mg/dL Total Bilirubin 0.50 (0.2-1.3) mg/dL AST 38 H (14-36) U/L ALT 36 H (0-35) U/L Alkaline Phosphatase 75 (38-126) U/L Troponin I (0.000-0.034) ng/mL Serum Total Protein 6.6 (6.3-8.2) g/dL Albumin 3.9 (3.5-5.0) g/dL Urine Color (YELLOW) Urine Appearance (CLEAR) Urine pH (5-6) Ur Specific [place] (1.005-1.025) Urine Protein (Negative) Urine Ketones (NEGATIVE) Urine Blood (0-5) Jeff/ul Urine Nitrite (NEGATIVE) Urine Bilirubin (NEGATIVE) Urine Urobilinogen (0-1) mg/dL Ur Leukocyte Esterase (NEGATIVE) Urine WBC (Auto) (0-5) /HPF Urine RBC (Auto) (0-2) /HPF U Epithel Cells (Auto) (FEW) /HPF Urine Bacteria (Auto) (NEGATIVE) /HPF Urine Mucus (Auto) (NEGATIVE) /HPF Urine Culture Reflexed (NO) Urine Glucose (NEGATIVE) mg/dL Radiology Exams: Radiology Procedures Category Date Time Status CHEST 1 VIEW (PORTABLE) Stat Exams 10/18/18 06:28 Completed Assessment/Plan (1) COPD with exacerbation Current Visit: Yes Status: Acute Assessment & Plan: continue abx, steorids and nebs at this time. currently on levaquin 750mg daily (day #2) and solu medrol 80mg IV q6 hrs Code(s): J44.1 - CHRONIC OBSTRUCTIVE PULMONARY DISEASE W (ACUTE) EXACERBATION (2) Pneumonia Current Visit: Yes Status: Acute Onset Date: ~03/21/18 Qualifiers: Pneumonia type: due to unspecified organism Laterality: bilateral Lung location: lower lobe of lung Qualified Code(s): J18.1 - Lobar pneumonia, unspecified organism Assessment & Plan: on levaquin Code(s): J18.9 - PNEUMONIA, UNSPECIFIED ORGANISM (3) UTI (urinary tract infection) Current Visit: Yes Status: Acute Qualifiers: Urinary tract infection type: site unspecified Hematuria presence: without hematuria Qualified Code(s): N39.0 - Urinary tract infection, site not specified Assessment & Plan: culture results pending, currently on levaquin Code(s): N39.0 - URINARY TRACT INFECTION, SITE NOT SPECIFIED (4) Atrial fibrillation Current Visit: No Status: Chronic Code(s): I48.91 - UNSPECIFIED ATRIAL FIBRILLATION
[2018-10-19] MEDS: ceLEXa 20 MG PO SCH (09:20)
[2018-10-19] MEDS: Lopressor 25MG Tab PO SCH ×2 (09:20→21:38)
[2018-10-19] MEDS: Aldactone 25 MG PO SCH (09:20)
[2018-10-19] MEDS: NORVASC 5 MG PO SCH (09:20)
[2018-10-19] MEDS: Levaquin 250MG/50ML D5W 250 MG/50 ML BAG IV SCH (09:20)
[2018-10-19] MEDS ORDERED: NON-FORMULARY ITEM (Amlodipine Besylate 10 Mg [Norvasc 10 Mg] 10 MG) PO SCH (10:00)
[2018-10-19] MEDS ORDERED: NON-FORMULARY ITEM (Citalopram Hydrobromide [Celexa] 10 MG) PO SCH (10:00)
[2018-10-19] MEDS ORDERED: Xopenex 1.25 MG/0.5 ML UD NEBULE IH ONE ×2 (10:47→22:58)
[2018-10-19] MEDS: Xopenex 1.25 MG/0.5 ML UD NEBULE IH SCH ×4 (11:05→23:19)
[2018-10-19] MEDS: Sodium Chloride 0.9% 10 ML FLUSH Syringe IV SCH ×2 (12:08→21:39)
[2018-10-19] MEDS ORDERED: Sodium Chloride 3 ML UD NEBULES IH ONE ×2 (18:42→22:58)
[2018-10-19] MEDS: ZOCOR 20MG PO SCH (21:38)
[2018-10-20] MEDS ORDERED: Xopenex 1.25 MG/0.5 ML UD NEBULE IH ONE ×2 (02:51→06:46)
[2018-10-20] MEDS ORDERED: Sodium Chloride 3 ML UD NEBULES IH ONE ×2 (02:51→06:46)
[2018-10-20] MEDS: Xopenex 1.25 MG/0.5 ML UD NEBULE IH SCH ×6 (03:10→22:38)
[2018-10-20 06:09] LABS: INR 3.83 (0.8-3.0)
[2018-10-20] MEDS: solu-MEDROL 125 MG IV SCH ×3 (06:42→21:40)
[2018-10-20] MEDS: Sodium Chloride 0.9% 10 ML FLUSH Syringe IV SCH ×3 (06:42→21:53)
[2018-10-20] MEDS: Sodium Chloride 3 ML UD NEBULES IH SCH ×5 (07:03→22:38)
--- NOTE | 2018-10-20 09:00 | PCM.NOTE ---
Date and Time: 10/20/18 0856 Subjective Assessment: Pt is feeling better. cortney po well. Objective Exam General Appearance: no apparent distress, alert Neurologic Exam: oriented x 3, cooperative Skin Exam: normal color, warm, dry, No rash Respiratory Exam: diminished breath sounds (but good air exchange), prolonged expirations, wheezing (mild-mod, throughout), No crackles/rales, No rhonchi Cardiovascular Exam: regular rate/rhythm, normal heart sounds, No murmur Gastrointestinal/Abdomen Exam: soft, normal bowel sounds, No tenderness, No distention, No mass, No guarding, No rebound Extremity Exam: No pedal edema, No swelling OBJECTIVE DATA Vital Signs: Vital Signs - 24 hr Temp Pulse Resp BP Pulse Ox 10/20/18 07:22 98.3 F 60 18 150/67 97 10/20/18 07:08 60 20 96 10/20/18 04:00 98.3 F 61 22 152/69 96 10/20/18 03:10 61 22 96 10/20/18 00:00 98.3 F 70 24 145/66 95 10/19/18 23:19 70 24 95 10/19/18 20:00 98.3 F 71 18 126/60 94 L 10/19/18 19:01 69 21 94 L 10/19/18 16:00 97.6 F 62 18 133/59 94 L 10/19/18 14:45 65 16 98 10/19/18 12:00 20 10/19/18 11:16 98.1 F 59 L 18 115/55 99 10/19/18 11:05 82 18 94 L Oxygen-Last 24 hours O2 Percentage 2 Liters = 28% O2 Percentage 3 Liters = 32% O2 Percentage 2 Liters = 28% O2 Percentage 2 Liters = 28% Oxygen Flowrate (L/min)-RT 2 Pain Assessment - Last Documented Pain Intensity 0 Pain Scale Used 0-10 Pain Scale Intake and Output: Intake & Output 10/17/18 10/18/18 10/19/18 10/20/18 11:59 11:59 11:59 11:59 Intake Total 1460 1640 Output Total 550 750 Balance 910 890 Weight 68.8 kg 68.8 kg 68.4 kg Lab Results: Lab Results-Last 24 Hours 10/20/18 Range/Units 05:18 PT 45.1 H (9.95-12.35) SECONDS INR 3.83 H (0.8-3.0) Assessment/Plan (1) COPD with exacerbation Current Visit: Yes Status: Acute Assessment & Plan: Some improvement, but still wheezing. On Levaquin 750 IV, day #3. Will start decreasing steroids, slowly. Likely will need to stay a few more days. Code(s): J44.1 - CHRONIC OBSTRUCTIVE PULMONARY DISEASE W (ACUTE) EXACERBATION (2) UTI (urinary tract infection) Current Visit: Yes Status: Acute Qualifiers: Urinary tract infection type: site unspecified Hematuria presence: without hematuria Qualified Code(s): N39.0 - Urinary tract infection, site not specified Assessment & Plan: On Levaquin - susceptible. Code(s): N39.0 - URINARY TRACT INFECTION, SITE NOT SPECIFIED (3) Atrial fibrillation Current Visit: No Status: Chronic Qualifiers: Atrial fibrillation type: chronic Qualified Code(s): I48.2 - Chronic atrial fibrillation Code(s): I48.91 - UNSPECIFIED ATRIAL FIBRILLATION (4) Warfarin anticoagulation Current Visit: No Status: Chronic Assessment & Plan: INR still elevated over 3. She does have a hx bleeidng peptic ulcer in the past , and she states her [facility] administrator usually likes her INR around 2. She has already held the coumadin x 1 week prior to admission. Likely the levaquin will now start elevating the INR. Will continue holding coumadin and check INR daily. Code(s): Z79.01 - [employer] (CURRENT) USE OF ANTICOAGULANTS
[2018-10-20] MEDS: Levaquin 250MG/50ML D5W 250 MG/50 ML BAG IV SCH (09:55)
[2018-10-20] MEDS: NORVASC 5 MG PO SCH (10:01)
[2018-10-20] MEDS: Lopressor 25MG Tab PO SCH ×2 (10:01→21:39)
[2018-10-20] MEDS: ceLEXa 20 MG PO SCH (10:03)
[2018-10-20] MEDS: Aldactone 25 MG PO SCH (10:03)
[2018-10-20] MEDS: ZOCOR 20MG PO SCH (21:40)
[2018-10-21] MEDS: Xopenex 1.25 MG/0.5 ML UD NEBULE IH SCH ×6 (02:57→23:29)
[2018-10-21] MEDS: Sodium Chloride 3 ML UD NEBULES IH SCH ×6 (02:58→23:30)
[2018-10-21 05:55] LABS: INR 3.29 (0.8-3.0)
[2018-10-21] MEDS: solu-MEDROL 125 MG IV SCH (05:59)
[2018-10-21] MEDS: Sodium Chloride 0.9% 10 ML FLUSH Syringe IV SCH ×3 (06:05→21:36)
[2018-10-21] MEDS ORDERED: MILK OF MAGNESIA 30 ML PO PRN (09:13)
--- NOTE | 2018-10-21 09:17 | PCM.NOTE ---
Date and Time: 10/21/18913 Subjective Assessment: Pt is feeling better. Still on 2L O2 here; at home does not use O2. States when she had a hospital stay before she had a hard time weaning off the oxygen. Radha po. - Review of Systems Constitutional: No Fever Respiratory: Cough, Short Of Breath Objective Exam General Appearance: no apparent distress, alert Neurologic Exam: oriented x 3, cooperative Skin Exam: normal color, warm, dry, No rash Neck Exam: normal inspection, non-tender, No lymphadenopathy Respiratory Exam: diminished breath sounds (fair to good air exchange), prolonged expirations, wheezing (scattered throughout), No crackles/rales, No rhonchi Cardiovascular Exam: regular rate/rhythm, normal heart sounds, No murmur Extremity Exam: normal inspection, No pedal edema, No swelling OBJECTIVE DATA Vital Signs: Vital Signs - 24 hr Temp Pulse Resp BP Pulse Ox 10/21/18 08:00 18 10/21/18 07:34 76 18 92 L 10/21/18 03:11 98.3 F 72 18 160/67 95 10/21/18 03:01 87 20 97 10/21/18 02:03 138/60 10/21/18 00:00 98 F 66 14 180/72 96 10/20/18 22:41 61 18 97 10/20/18 19:29 97.9 F 63 22 134/86 94 L 10/20/18 18:39 60 20 94 L 10/20/18 16:00 20 10/20/18 15:49 97.6 F 60 18 117/58 97 10/20/18 15:04 71 18 96 10/20/18 12:00 98.3 F 60 20 140/65 97 10/20/18 10:58 73 20 98 Oxygen-Last 24 hours O2 Percentage 2 Liters = 28% O2 Percentage 2 Liters = 28% O2 Percentage 2 Liters = 28% O2 Percentage 2 Liters = 28% O2 Percentage 2 Liters = 28% Pain Assessment - Last Documented Pain Intensity 0 Pain Scale Used 0-10 Pain Scale Intake and Output: Intake & Output 10/18/18 10/19/18 10/20/18 10/21/18 11:59 11:59 11:59 11:59 Intake Total 1460 1640 1520 Output Total 566 741 1986 Balance 910 890 520 Weight 68.8 kg 68.8 kg 68.4 kg 69 kg Lab Results: Lab Results-Last 24 Hours 10/21/18 Range/Units 05:16 PT 38.7 H (9.95-12.35) SECONDS INR 3.29 H (0.8-3.0) Multi-Disciplinary Progress Notes: Multi-Disciplinary Progress Notes 10/20/18 15:18 Case Management Note by Elly Waite D/C PLAN REVIEWED W/ PT. SHE STATED THAT THE MAIN NEED SHE HAS AT D/C IS HOME O2. PT QUALIFIED FOR HOME O2 YESTERDAY, BUT MD WANTS PT TO STAY A FEW MORE DAYS SO MAY NEED TO BE RE-ASSESSED FOR HOME O2. (DISCUSSED THIS W/ PT AND SHE VERBALIZED UNDERSTANDING) DENIES NEED FOR OTHER SERVICES AT THIS TIME. PT PLANS TO RETURN HOME TO HER PRE-ADMISSION ENVIRONMENT. Initialized on 10/20/18 15:18 - END OF NOTE Assessment/Plan (1) COPD with exacerbation Current Visit: Yes Status: Acute Onset Date: ~10/18/18 Assessment & Plan: Doing better. Will decrease steroid again today and recheck on pt tomorrow. Continues to have some wheezes, but about the same as yesterday on less steroid. Continue trying to wean O2 as tolerated. On Levaquin day #4 750 mg IV daily. Code(s): J44.1 - CHRONIC OBSTRUCTIVE PULMONARY DISEASE W (ACUTE) EXACERBATION (2) UTI (urinary tract infection) Current Visit: Yes Status: Acute Onset Date: ~10/18/18 Qualifiers: Urinary tract infection type: site unspecified Hematuria presence: without hematuria Qualified Code(s): N39.0 - Urinary tract infection, site not specified Assessment & Plan: susceptible to levaquin. Code(s): N39.0 - URINARY TRACT INFECTION, SITE NOT SPECIFIED (3) Atrial fibrillation Current Visit: No Status: Chronic Qualifiers: Atrial fibrillation type: chronic Qualified Code(s): I48.2 - Chronic atrial fibrillation Code(s): I48.91 - UNSPECIFIED ATRIAL FIBRILLATION (4) Warfarin anticoagulation Current Visit: No Status: Chronic Assessment & Plan: INR now 3.29 - will restart coumadin. Code(s): Z79.01 - SENIOR LIVING (CURRENT) USE OF ANTICOAGULANTS
[2018-10-21] MEDS: NORVASC 5 MG PO SCH (09:50)
[2018-10-21] MEDS: Lopressor 25MG Tab PO SCH ×2 (09:50→21:36)
[2018-10-21] MEDS: Aldactone 25 MG PO SCH (09:50)
[2018-10-21] MEDS: Levaquin 250MG/50ML D5W 250 MG/50 ML BAG IV SCH (09:51)
[2018-10-21] MEDS: ceLEXa 20 MG PO SCH (09:51)
[2018-10-21] MEDS ORDERED: Coumadin 1 MG PO SCH (18:00)
[2018-10-21] MEDS: solu-MEDROL 40 MG IV SCH (21:36)
[2018-10-21] MEDS: ZOCOR 20MG PO SCH (21:36)
[2018-10-22] MEDS: Sodium Chloride 3 ML UD NEBULES IH SCH ×3 (03:32→10:39)
[2018-10-22] MEDS: Xopenex 1.25 MG/0.5 ML UD NEBULE IH SCH ×3 (03:32→10:39)
[2018-10-22 06:32] LABS: INR 2.99 (0.8-3.0)
[2018-10-22] MEDS: Sodium Chloride 0.9% 10 ML FLUSH Syringe IV SCH (06:45)
--- NOTE | 2018-10-22 08:52 | PCM.DS ---
Discharge Summary Date of Admission: 10/18/18 16:39 Admitting Physician: HANG GONSALEZ Primary Care Provider: CHERYL GARIBAY Allergies Allergies Penicillins Allergy (Severe, Verified 03/19/18 19:08) [facility] Summary - Hospital Course Hospital Course: Pt is feeling better, breathing is better. still on O2. Has been up walking while pushing wheelchair/O2 in front of her. - Vitals & Intake/Output Vital Signs: Vital Signs Temperature 98.5 F 10/22/18 08:00 Pulse Rate 59 L 10/22/18 08:00 Respiratory Rate 18 10/22/18 08:00 Blood Pressure 131/63 10/22/18 08:00 O2 Sat by Pulse Oximetry 95 10/22/18 08:00 Oxygen-Last Documented O2 Percentage 2 Liters = 28% Intake & Output: Intake & Output 10/19/18 10/20/18 10/21/18 10/22/18 11:59 11:59 11:59 11:59 Intake Total 1460 1640 1520 1240 Output Total 914 543 0153 1850 Balance 910 890 520 -610 Weight 68.8 kg 68.4 kg 69 kg 70.2 kg - Lab Result Diagrams: 10/19/18 05:35 10/19/18 05:35 Lab Results-Last 24 Hrs: Lab Results-Last 24 Hours 10/22/18 Range/Units 05:45 PT 35.2 H (9.95-12.35) SECONDS INR 2.99 (0.8-3.0) Micro Results-Entire Visit: Microbiology 10/18/18 06:45 Blood Culture Gram Stain - Final Blood Not Reportable Blood Culture - Final NO GROWTH 10/18/18 06:30 Blood Culture Gram Stain - Final Blood Not Reportable Blood Culture - Final NO GROWTH 10/18/18 07:47 Urine Culture - Final Clean Catch Midstream Enterobacter Aerogenes Strep Agalactiae Group B - Procedures and Test Procedures and Tests throughout Hospitalization: Therapy Orders & Screens 10/18/18 06:29 Respiratory Nebulizer STAT Comment: Diagnosis: Shortness of Breath 10/18/18 07:00 Respiratory Therapy Assessment DAILY Comment: Diagnosis: Shortness of Breath 10/18/18 07:01 Peak Expiratory Flow Rate ONCE Comment: Reason For Exam: Diagnosis: Shortness of Breath 10/18/18 09:14 Oxygen NASAL CANNULA 2 lpm Comment: Diagnosis: Shortness of Breath Respiratory Therapy Consult ROUTINE Comment: Reason For Exam: Diagnosis: Shortness of Breath 10/18/18 09:48 RT Screen per Nursing Assess ONCE Comment: Protocol Order Physician Instructions: Greater than 3 points order RT Admission Screen Reason For Exam: Triggered on Admission Diagnosis: Shortness of Breath, COPD, UTI Diagnosis: Shortness of Breath, COPD, UTI Pneumonia: No Home O2: No Asthma: No CHF: Yes Home CPAP/BIPAP: Yes Home Nebs/MDI: Yes Total Points: 13 10/18/18 10:03 Respiratory Therapy Assessment DAILY Comment: Diagnosis: Shortness of Breath, COPD, UTI 10/18/18 10:07 Peak Expiratory Flow Rate ONCE Comment: Reason For Exam: Diagnosis: Shortness of Breath, COPD, UTI 10/19/18 08:36 Qualify for Home Oxygen ROUTINE Comment: PER PATIENT REQUEST FOR OXYGEN AT HS Diagnosis: COPD, PNEUMONIA, UTI 10/22/18 07:38 PT Eval & Treat (MD Order) ROUTINE Reason for Eval:: deconditioning Diagnosis: COPD, PNEUMONIA, UTI Discharge Exam General Appearance: no apparent distress, alert Neurologic Exam: oriented x 3, cooperative Skin Exam: normal color, warm, dry, No rash Respiratory Exam: diminished breath sounds (fair to good), wheezing (RLL), No crackles/rales, No rhonchi Cardiovascular Exam: regular rate/rhythm, normal heart sounds, No murmur Extremity Exam: normal inspection, No pedal edema, No swelling Final Diagnosis/Problem List - Final Discharge Diagnosis/Problem (1) COPD with exacerbation Current Visit: Yes Status: Acute Onset Date: ~10/18/18 Assessment & Plan: Much better. Will discharge to home on O2 and antibiotics. I noted, in error, previously that she was on 750mg levaquin -she has been on 250mg daily. (2) UTI (urinary tract infection) Current Visit: Yes Status: Acute Onset Date: ~10/18/18 Assessment & Plan: Treated fully with levaquin. (3) Atrial fibrillation Current Visit: No Status: Chronic (4) Warfarin anticoagulation Current Visit: No Status: Chronic Assessment & Plan: INR is 2.99. She restarted her home dose yesterday. Would advise check INR every 2 days outpatient for the next 2 weeks; on antibiotics it may be labile. - Discharge Disposition: Home, Self-Care Condition: Good Prescriptions: New Levofloxacin [Levaquin] 250 mg PO DAILY #8 tablet Continue Simvastatin 40 mg [Zocor 40 mg] 40 mg PO HS Spironolactone 25 mg PO DAILY Albuterol 2.5 mg/3 ml Neb [Proventil 2.5 mg/3 ml Neb] 3 ml NEB TIDPRN Albuterol Sulfate [Albuterol Sulfate Hfa] 2 puff IH QID Metoprolol Tartrate 25 mg [Lopressor 25MG Tab] 25 mg PO BID Citalopram Hydrobromide [Celexa] 10 mg PO DAILY Amlodipine Besylate 10 mg [Norvasc 10 MG] 10 mg PO DAILY Warfarin Sodium 1 mg PO QPM Prednisone 20 mg [Deltasone 20 mg] 20 mg PO DAILY #17 tablet Additional Instructions: Check INR every at least every 2 days for the next 2 weeks as antibiotics may affect the INR. Follow up with: CEHRYL GARIBAY [Primary Care Provider] - 1 Week
[2018-10-22] MEDS: NORVASC 5 MG PO SCH (09:57)
[2018-10-22] MEDS: Lopressor 25MG Tab PO SCH (09:57)
[2018-10-22] MEDS: Aldactone 25 MG PO SCH (09:57)
[2018-10-22] MEDS: ceLEXa 20 MG PO SCH (09:58)
[2018-10-22] MEDS: solu-MEDROL 40 MG IV SCH (09:58)
[2018-10-22] MEDS: Levaquin 250MG/50ML D5W 250 MG/50 ML BAG IV SCH (10:16)
[2018-10-22 10:44] VITALS: O2SAT 93
[2018-10-22 12:05] VITALS: BP 156/70; PULSE 68
== END 2018-10-22 13:20 | disposition home or self-care (01) | DRG 190 ==
LOC: ED 06:04 → MED SURG 09:10 → OBSVTOIN 16:39
PROVIDERS: ADMIT Family Medicine; ATTEND Family Medicine
DX: J44.1 Chronic obstructive pulmonary disease with (acute) exacerbation (principal); J18.9 Pneumonia, unspecified organism; N39.0 Urinary tract infection, site not specified; I51.7 Cardiomegaly; Z86.73 Personal history of transient ischemic attack (TIA), and cerebral infarction without residual deficits; I50.9 Heart failure, unspecified; F41.9 Anxiety disorder, unspecified; N28.9 Disorder of kidney and ureter, unspecified; I10 Essential (primary) hypertension; I48.91 Unspecified atrial fibrillation; Z95.0 Presence of cardiac pacemaker; Z79.01 Long term (current) use of anticoagulants; Z79.899 Other long term (current) drug therapy
CPT/HCPCS: 36415; 71045; 80053; 81001; 82805; 83605; 83735; 83880; 84484; 85025; 85610; 87040; 87077; 87086; 87186; 87631; 93005; 93041; 93268; 94150; 94640; 94760; 94762; 96360; 96365; 96374; 99285; J1956; J2920; J2930; J7609; A9270-GY

== ENCOUNTER 2019-09-04 13:43 | Emergency (ER) | payer MEDICARE ==
--- NOTE | 2019-09-04 14:16 | ERPHSYRPT ---
- History of Present Illness Time Seen by Provider: 09/04/19 14:10 Source: patient Exam Limitations: no limitations Physician History: 84 y/o white female with sig cardiac hx of atrial fibrillation on coumadin, htn and copd presents with one week h/o abd pain and distension. pt is experiencing soa today. feels as though her abd distension is pushing on her diaphragm. pt denies primary cp. pt underwent a gallbladder ultrasound earlier this week. pt has pacemaker in place. ultrasound of gallbladder atrophic right kidney, gallbladder sonogram negative. Timing/Duration: week(s) (1) Activities at Onset: none Quality: cramping, fullness, pressure Location: abdomen Chest Pain Radiation: no radiation Severity of Pain-Max: mild Severity of Pain-Current: mild Modifying Factors: Improves With: nothing Nitro Today/Relief: no nitro taken today Aspirin Treatment Today: no aspirin today Associated Symptoms: shortness of breath Prior Chest Pain/Cardiac Workup: cardiac cath, echocardiography Allergies/Adverse Reactions: Penicillins Allergy (Severe, Verified 09/04/19 14:01) Hives Home Medications: Simvastatin 40 mg [Zocor 40 mg] 40 mg PO HS 10/04/14 [History] Spironolactone 25 mg PO DAILY 10/12/17 [History] Albuterol 2.5 mg/3 ml Neb [Proventil 2.5 mg/3 ml Neb] 3 ml NEB TIDPRN PRN 03/20/18 [History] Albuterol Sulfate [Albuterol Sulfate Hfa] 2 puff IH QIDPRN PRN 03/20/18 [History ] Amlodipine Besylate 10 mg [Norvasc 10 MG] 10 mg PO DAILY 03/20/18 [History] Citalopram Hydrobromide [Celexa] 10 mg PO DAILY 03/20/18 [History] Metoprolol Tartrate 25 mg [Lopressor 25MG Tab] 25 mg PO DAILY 03/20/18 [ History] Folic Acid/Vit B Complex and C [Super B-Complex Folic-Vit C Tb] 400 mcg PO DAILY 04/09/19 [History] Multivit-Min/Iron/Folic/Lutein [Multivitamin Women 50 Plus Tab] 1 tab PO DAILY 04/09/19 [History] Ubidecarenone [Co Q-10] 75 mg PO QAM 04/09/19 [History] Warfarin Sodium 2 mg PO SUTUTHSA 04/22/19 [History] Warfarin Sodium 2.5 mg PO MOWEFR 04/22/19 [History] Hx Tetanus, Diphtheria Vaccination/Date Given: Yes Hx Influenza Vaccination/Date Given: Yes (Sep 2018) Hx Pneumococcal Vaccination/Date Given: Yes (Sep 2018) - Review of Systems Constitutional: No Symptoms Eyes: No Symptoms Ears, Nose, & Throat: No Symptoms Respiratory: No Symptoms Cardiac: No Symptoms Abdominal/Gastrointestinal: Abdominal Pain Genitourinary Symptoms: No Symptoms Musculoskeletal: No Symptoms Skin: No Symptoms Neurological: No Symptoms Psychological: No Symptoms Endocrine: No Symptoms Hematologic/Lymphatic: No Symptoms Immunological/Allergic: No Symptoms All Other Systems: Reviewed and Negative - Past Medical History Pertinent Past Medical History: Yes Neurological History: Stroke ENT History: Cataracts Cardiac History: Arrhythmia, Hypertension Respiratory History: Bronchitis, CHF, COPD Endocrine Medical History: No Pertinent History Musculoskeletal History: No Pertinent History GI Medical History: Ulcer History: Other Psycho-Social History: Anxiety Female Reproductive Disorders: No Pertinent History Other Medical History: ANEMIA. 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 - Past Surgical History Past Surgical History: Yes Neuro Surgical History: No Pertinent History Cardiac: Pacemaker Respiratory: No Pertinent History Gastrointestinal: No Pertinent History Genitourinary: No Pertinent History Musculoskeletal: Orthopedic Surgery Female Surgical History: Hysterectomy Other Surgical History: Inner ear sx, surgery to L1 & L7 - Social History Smoking Status: Former smoker Exposure to second hand smoke: No Drug Use: none Patient Lives Alone: No - Nursing Vital Signs Nursing Vital Signs: Initial Vital Signs Temperature 98.1 F 09/04/19 13:54 Pulse Rate 52 L 09/04/19 13:54 Respiratory Rate 16 09/04/19 13:54 Blood Pressure 141/69 09/04/19 13:54 O2 Sat by Pulse Oximetry 96 09/04/19 13:54 Pain Scale Pain Intensity 0 - Physical Exam General Appearance: mild distress, alert, anxiety Eye Exam: PERRL/EOMI, eyes nml inspection Ears, Nose, Throat Exam: normal ENT inspection, moist mucous membranes Neck Exam: normal inspection, non-tender, supple, full range of motion Respiratory Exam: normal breath sounds, lungs clear, airway intact, No chest tenderness, No respiratory distress Cardiovascular Exam: regular rate/rhythm, normal heart sounds, normal peripheral pulses Gastrointestinal/Abdomen Exam: tenderness (mild diffuse), distention (mild diffuse), guarding, No pulsatile mass, No rebound Pelvic Exam: not done Rectal Exam: not done Back Exam: normal inspection, normal range of motion, No CVA tenderness, No vertebral tenderness Extremity Exam: normal inspection, normal range of motion, pelvis stable Neurologic Exam: alert, oriented x 3, cooperative, facility engineer II-XII nml as tested Skin Exam: normal color, warm, dry Lymphatic Exam: No adenopathy SpO2 Interpretation: normal O2 Delivery: Room Air - Course Nursing assessment & vital signs reviewed: Yes EKG Interpreted by Me: RATE (57), Other (pacemaker rhythm; comparison ekg no change. no acute findings. ) Ordered Tests: Active Orders 24 hr Category Date Time Status EKG-ER Only STAT Care 09/04/19 14:30 Active IV Insertion STAT Care 09/04/19 14:30 Active ABDOMEN AND PELVIS W/0 CONTRAS [CT] Stat Exams 09/04/19 14:29 Completed CHEST 1 VIEW (PORTABLE) Stat Exams 09/04/19 14:29 Completed AMYLASE Stat Lab 09/04/19 14:15 Completed CBC W DIFF Stat Lab 09/04/19 14:15 Completed CMP Stat Lab 09/04/19 14:15 Completed LIPASE Stat Lab 09/04/19 14:15 Completed Lactic Acid Stat Lab 09/04/19 14:50 Completed PT INR [PROTIME WITH INR] Stat Lab 09/04/19 14:55 Completed TROPONIN Q3H Lab 09/04/19 14:15 Completed TROPONIN Q3H Lab 09/04/19 17:30 Ordered TROPONIN Q3H Lab 09/04/19 20:30 Ordered TROPONIN Q3H Lab 09/04/19 23:30 Ordered TROPONIN Q3H Lab 09/05/19 02:30 Ordered UA W/RFX UR CULTURE Stat Lab 09/04/19 16:03 Completed Lab/Rad Data: Laboratory Result Diagrams 09/04/19 14:15 09/04/19 14:15 Laboratory Results 09/04/19 09/04/19 09/04/19 Range/Units 16:03 14:55 14:50 WBC (4.0-10.5) K/mm3 RBC (4.1-5.4) M/mm3 Hgb (12.0-16.0) gm/dl Hct (35-47) % MCV (78-100) fl MCH (26-32) pg MCHC (32-36) g/dl RDW (11.5-14.0) % Plt Count (150-450) K/mm3 MPV (6-9.5) fl Gran % (36.0-66.0) % Eos # (Auto) (0-0.5) Absolute Lymphs (auto) (1.0-4.6) Absolute Monos (auto) (0.0-1.3) Lymphocytes % (24.0-44.0) % Monocytes % (0.0-12.0) % Eosinophils % (0.00-5.0) % Basophils % (0.0-0.4) % Absolute Granulocytes (1.4-6.9) Basophils # (0-0.4) PT 41.9 H (9.95-12.35) SECONDS INR 3.61 H (0.8-3.0) Sodium (137-145) mmol/L Potassium (3.5-5.1) mmol/L Chloride (98-107) mmol/L Carbon Dioxide (22-30) mmol/L Anion Gap (5-15) MEQ/L BUN (7-17) mg/dL Creatinine (0.52-1.04) mg/dL Estimated GFR ML/MIN Glucose (74-106) mg/dL Lactic Acid 1.4 (0.4-2.0) Calcium (8.4-10.2) mg/dL Total Bilirubin (0.2-1.3) mg/dL AST (14-36) U/L ALT (0-35) U/L Alkaline Phosphatase (38-126) U/L Troponin I (0.000-0.034) ng/mL Serum Total Protein (6.3-8.2) g/dL Albumin (3.5-5.0) g/dL Amylase (30-110) U/L Lipase (23-300) U/L Urine Color STRAW (YELLOW) Urine Appearance CLEAR (CLEAR) Urine pH 7.0 (5-6) Ur Specific [place] 1.005 (1.005-1.025) Urine Protein NEGATIVE (Negative) Urine Ketones NEGATIVE (NEGATIVE) Urine Blood SMALL (0-5) Jeff/ul Urine Nitrite NEGATIVE (NEGATIVE) Urine Bilirubin NEGATIVE (NEGATIVE) Urine Urobilinogen NEGATIVE (0-1) mg/dL Ur Leukocyte Esterase NEGATIVE (NEGATIVE) Urine WBC (Auto) 0-2 (0-5) /HPF Urine RBC (Auto) NONE (0-2) /HPF U Epithel Cells (Auto) NONE (FEW) /HPF Urine Bacteria (Auto) NONE (NEGATIVE) /HPF Urine Culture Reflexed NO (NO) Urine Glucose NEGATIVE (NEGATIVE) mg/dL 09/04/19 09/04/19 09/04/19 Range/Units 14:15 14:15 14:15 WBC 8.6 (4.0-10.5) K/mm3 RBC 4.33 (4.1-5.4) M/mm3 Hgb 13.6 (12.0-16.0) gm/dl Hct 42.3 (35-47) % MCV 97.7 (78-100) fl MCH 31.4 (26-32) pg MCHC 32.2 (32-36) g/dl RDW 14.8 H (11.5-14.0) % Plt Count 205 (150-450) K/mm3 MPV 10.6 H (6-9.5) fl Gran % 60.1 (36.0-66.0) % Eos # (Auto) 0.19 (0-0.5) Absolute Lymphs (auto) 1.91 (1.0-4.6) Absolute Monos (auto) 1.31 H (0.0-1.3) Lymphocytes % 22.2 L (24.0-44.0) % Monocytes % 15.2 H (0.0-12.0) % Eosinophils % 2.2 (0.00-5.0) % Basophils % 0.3 (0.0-0.4) % Absolute Granulocytes 5.18 (1.4-6.9) Basophils # 0.03 (0-0.4) PT (9.95-12.35) SECONDS INR (0.8-3.0) Sodium 140 (137-145) mmol/L Potassium 4.6 (3.5-5.1) mmol/L Chloride 102 (98-107) mmol/L Carbon Dioxide 30 (22-30) mmol/L Anion Gap 12.1 (5-15) MEQ/L BUN 20 H (7-17) mg/dL Creatinine 1.00 (0.52-1.04) mg/dL Estimated GFR 56.3 ML/MIN Glucose 92 (74-106) mg/dL Lactic Acid (0.4-2.0) Calcium 9.7 (8.4-10.2) mg/dL Total Bilirubin 0.40 (0.2-1.3) mg/dL AST 26 (14-36) U/L ALT 17 (0-35) U/L Alkaline Phosphatase 56 (38-126) U/L Troponin I < 0.012 (0.000-0.034) ng/mL Serum Total Protein 7.0 (6.3-8.2) g/dL Albumin 4.2 (3.5-5.0) g/dL Amylase 61 (30-110) U/L Lipase 94 (23-300) U/L Urine Color (YELLOW) Urine Appearance (CLEAR) Urine pH (5-6) Ur Specific [place] (1.005-1.025) Urine Protein (Negative) Urine Ketones (NEGATIVE) Urine Blood (0-5) Jeff/ul Urine Nitrite (NEGATIVE) Urine Bilirubin (NEGATIVE) Urine Urobilinogen (0-1) mg/dL Ur Leukocyte Esterase (NEGATIVE) Urine WBC (Auto) (0-5) /HPF Urine RBC (Auto) (0-2) /HPF U Epithel Cells (Auto) (FEW) /HPF Urine Bacteria (Auto) (NEGATIVE) /HPF Urine Culture Reflexed (NO) Urine Glucose (NEGATIVE) mg/dL - Progress Progress: unchanged Air Movement: good Progress Note: 09/04/19 16:42 ct abd/pelvis-right renal atrophy, fecal stasis 09/04/19 16:43 cxr-stable cardiomegaly. negative acute pneumonic process or chf Blood Culture(s) Obtained: No Antibiotics given: No Counseled pt/family regarding: lab results, diagnosis, need for follow-up, rad results - Departure Departure Disposition: Home Clinical Impression: Abdominal pain, Constipation Condition: Stable Critical Care Time: No Referrals: CHERYL GARIBAY [Primary Care Provider] - Additional Instructions: obtain one bottle of magnesium citrate and drink rapidly. one hour later, use fleets enema rectally. drink plenty of fluids. follow up with primary doctor next week for further management.
[2019-09-04 14:28] VITALS: PULSE 52; O2SAT 97
[2019-09-04 14:43] LABS: Absolute Neutrophil Ct (ANC) 5.18 (1.4-6.9); BASOPHIL % 0.3 % (0.0-0.4); Basophil (Absolute #) 0.03 (0-0.4); Eosinophil % 2.2 % (0.00-5.0); Eosinophil (Absolute #) 0.19 (0-0.5); Hematocrit 42.3 % (35-47); Hemoglobin 13.6 gm/dl (12.0-16.0); Lymphocyte (Absolute #) 1.91 (1.0-4.6); Lymphocytes % 22.2 % (24.0-44.0); Mean Cell Volume 97.7 fl (78-100); Mean Corpuscular Hemoglobin 31.4 pg (26-32); Mean Corpuscular Hgb Concent. 32.2 g/dl (32-36); Mean Platelet Volume 10.6 fl (6-9.5); Monocyte (Absolute #) 1.31 (0.0-1.3); Monocytes % 15.2 % (0.0-12.0); Neutrophil % 60.1 % (36.0-66.0); Platelet Count 205 K/mm3 (150-450); Red Blood Count 4.33 M/mm3 (4.1-5.4); Red Cell Distribution Width 14.8 % (11.5-14.0); White Blood Count 8.6 K/mm3 (4.0-10.5)
[2019-09-04 14:54] LABS: ALBUMIN 4.2 g/dL (3.5-5.0); ANION GAP 12.1 MEQ/L (5-15); BILIRUBIN,TOTAL 0.4 mg/dL (0.2-1.3); Calcium 9.7 mg/dL (8.4-10.2); Potassium 4.6 mmol/L (3.5-5.1)
[2019-09-04 15:01] LABS: INR 3.61 (0.8-3.0); PROTIME 41.9 SECONDS (9.95-12.35)
--- NOTE | 2019-09-04 15:15 | XRAY ---
Indication: Short of breath. Comparison: October 18, 2018. Portable chest again demonstrates cardiomegaly with left-sided single lead pacemaker. No focal infiltrate, consolidation, or large effusion. Bony thorax again demonstrates mild osteopenia, degenerative changes, and T3 kyphoplasty. Impression: Stable cardiomegaly. Negative for acute pneumonic process or CHF.
--- NOTE | 2019-09-04 15:35 | XRAY ---
Indication: Abdomen pain and bloating. Nausea. Diarrhea and constipation. Multiple contiguous axial images obtained through the abdomen and pelvis without contrast as ordered. Comparison: October 04, 2014. Lung bases again demonstrates scattered fibrosis/scarring. No infiltrate or effusion. Heart remains enlarged. Noncontrasted stomach and bowel loops appear nonobstructed. Again there is mild diffuse scattered colonic fecal debris predominantly in the ascending and transverse colon. Stable minimal sigmoid diverticulosis. No free fluid/air. Stable tiny hepatic/splenic calcified granulomas, 1 cm left adrenal adenoma, and hysterectomy. Right kidney is now atrophic. Remaining liver, gallbladder, pancreas, spleen, right adrenal gland, left kidney, left ureter, and bladder appear unremarkable for noncontrast exam. Again moderate scattered aortoiliac calcifications without AAA. 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 Interval T9 kyphoplasty. Impression: 1. New right renal atrophy and interval T9 kyphoplasty. 2. Again cardiomegaly, mild fecal stasis, colonic diverticulosis, left adrenal adenoma, evidence for old granulomatous disease, and chronic bony findings. 3. Remaining CT abdomen/pelvis without contrast exam is negative. CT DI 19.09
[2019-09-04 16:14] LABS: Appearance CLEAR (CLEAR); Bilirubin NEGATIVE (NEGATIVE); Blood SMALL Ery/ul (0-5); Glucose NEGATIVE (NEGATIVE); Ketones NEGATIVE (NEGATIVE); Leukocyte Esterase NEGATIVE (NEGATIVE); Nitrite NEGATIVE (NEGATIVE); Protein,Urine Dip NEGATIVE (Negative); Specific Gravity 1.005 (1.005-1.025); Urobilinogen NEGATIVE mg/dL (0-1); WBC 0-2 /HPF (0-5)
[2019-09-04 16:22] VITALS: BP 147/88
== END 2019-09-04 17:00 | disposition home or self-care (01) ==
LOC: ED 13:43
DX: R10.9 Unspecified abdominal pain (principal); K59.00 Constipation, unspecified; N26.1 Atrophy of kidney (terminal); I48.91 Unspecified atrial fibrillation; Z79.01 Long term (current) use of anticoagulants; I10 Essential (primary) hypertension; I50.9 Heart failure, unspecified; J44.9 Chronic obstructive pulmonary disease, unspecified; Z79.899 Other long term (current) drug therapy; Z86.73 Personal history of transient ischemic attack (TIA), and cerebral infarction without residual deficits
CPT/HCPCS: 36000; 36415; 71045; 74176; 80053; 81001; 82150; 83605; 83690; 84484; 85025; 85610; 93005; 99284

== ENCOUNTER 2020-07-07 07:33 | Emergency (ER) | payer MEDICARE ==
[2020-07-07] MEDS ORDERED: Sodium Chloride 0.9% 1000 ML 1,000 ML IV SCH (08:00)
[2020-07-07] MEDS ORDERED: Sodium Chloride 0.9% 1000 ML 1,000 ML ONE (08:06)
--- NOTE | 2020-07-07 08:10 | ERPHSYRPT ---
- History of Present Illness Time Seen by Provider: 07/07/20 08:00 Source: patient Exam Limitations: no limitations Patient Subjective Stated Complaint: Dizziness and neck pain Triage Nursing Assessment: Patient ambulated back to ED and transferred to bed per self. Patient A+O X3. Patient's skin pink, warm and dry. Patient complains of dizziness and neck pain. Patient states she was dx with shingles to left side of chest, shoulder and neck 2 weeks ago and is receiving treatment. Patient complains of neck pain 8/10 constant aching pain and is unable to sleep. Lungs clear a/p estefanía. Heart tones audible. No edema noted. shingles to back of neck, left side of shoulder and chest noted to be dried. Physician History: Patient is a 85-year-old female who presents to our ED for evaluation of post herpetic neuralgia and dizziness. Patient was diagnosed with shingles 2 weeks ago. The outbreak was localized to her posterior neck around the left side into the left upper chest. Patient was diagnosed and treated with prednisone and valacyclovir. The rash has significantly improved however patient is experiencing residual pain. Pain is rated 8 out of 10. Pain described as a ache occasionally burning sensation rated 8 out of 10. Patient has been taken Tylenol for discomfort. However patient states she is still uncomfortable. Patient has not been eating well due to her pain. She has also been experiencing some mild dizziness. No nausea or vomiting. No diarrhea. No headache. No fever. No cough. Symptoms are mild to moderate in intensity. No specific worsening or improving factors. Patient voices no other planes at this time. Timing/Duration: week(s) Severity: moderate (2 weeks) Modifying Factors: Improves With: nothing Associated Symptoms: nausea, other (Dizziness), No vomiting, No abdominal pain, No shortness of breath, No heartburn, No chills, No chest pain, No headaches, No malaise, No rash, No syncope, No seizure, No weakness Allergies/Adverse Reactions: Penicillins Allergy (Severe, Verified 07/07/20 07:43) Hives Home Medications: Simvastatin 40 mg [Zocor 40 mg] 40 mg PO HS 10/04/14 [History] Spironolactone 25 mg PO DAILY 10/12/17 [History] Albuterol 2.5 mg/3 ml Neb [Proventil 2.5 mg/3 ml Neb] 3 ml NEB TIDPRN PRN 03/20/18 [History] Albuterol Sulfate [Albuterol Sulfate Hfa] 2 puff IH QIDPRN PRN 03/20/18 [History] Amlodipine Besylate 10 mg [Norvasc 10 MG] 10 mg PO BID 03/20/18 [History] Citalopram Hydrobromide [Celexa] 10 mg PO DAILY 03/20/18 [History] Metoprolol Tartrate 25 mg [Lopressor 25MG Tab] 25 mg PO DAILY 03/20/18 [History] Ubidecarenone [Co Q-10] 75 mg PO QAM 04/09/19 [History] Hx Tetanus, Diphtheria Vaccination/Date Given: Yes Hx Influenza Vaccination/Date Given: Yes (Sep 2018) Hx Pneumococcal Vaccination/Date Given: Yes (Sep 2018) Immunizations Up to Date: Yes Travel Risk - International Travel Have you traveled outside of the country in past 3 weeks: No - Coronavirus Screening Are you exhibiting any of the following symptoms?: No Close contact with a COVID-19 positive Pt in past 14-21 Days: No - Review of Systems Constitutional: No Symptoms, No Fever, No Chills Eyes: No Symptoms Ears, Nose, & Throat: No Symptoms Respiratory: No Symptoms, No Cough, No Dyspnea Cardiac: No Symptoms, No Chest Pain, No Edema, No Syncope Abdominal/Gastrointestinal: No Symptoms, No Abdominal Pain, No Nausea, No Vomiting, No Diarrhea Genitourinary Symptoms: No Symptoms, No Dysuria Musculoskeletal: No Symptoms, No Back Pain, No Neck Pain Skin: No Symptoms, No Rash Neurological: No Symptoms, No Dizziness, No Focal Weakness, No Sensory Changes Psychological: No Symptoms Endocrine: No Symptoms Hematologic/Lymphatic: No Symptoms Immunological/Allergic: No Symptoms All Other Systems: Reviewed and Negative - Past Medical History Pertinent Past Medical History: Yes Neurological History: Stroke ENT History: Cataracts Cardiac History: Arrhythmia, Hypertension Respiratory History: Bronchitis, CHF, COPD Endocrine Medical History: No Pertinent History Musculoskeletal History: No Pertinent History GI Medical History: Ulcer History: Other Psycho-Social History: Anxiety Female Reproductive Disorders: No Pertinent History Other Medical History: ANEMIA. pt states she has a kidney dr, doesnt know what the diagnosis is, Steven is family sociologist - Past Surgical History Past Surgical History: Yes Neuro Surgical History: No Pertinent History Cardiac: Pacemaker Respiratory: No Pertinent History Gastrointestinal: No Pertinent History Genitourinary: No Pertinent History Musculoskeletal: Orthopedic Surgery Female Surgical History: Hysterectomy Other Surgical History: Inner ear sx, surgery to L1 & L7 - Social History Smoking Status: Former smoker Exposure to second hand smoke: No Drug Use: none Patient Lives Alone: No - Nursing Vital Signs Nursing Vital Signs: Initial Vital Signs Temperature 98.0 F 07/07/20 07:44 Pulse Rate 83 07/07/20 07:44 Respiratory Rate 18 07/07/20 07:44 Blood Pressure 173/98 07/07/20 07:44 O2 Sat by Pulse Oximetry 95 07/07/20 07:44 Pain Scale Pain Intensity 4 - Physical Exam General Appearance: no apparent distress, alert Eye Exam: PERRL/EOMI, eyes nml inspection Ears, Nose, Throat Exam: normal ENT inspection, TMs normal, pharynx normal, moist mucous membranes Neck Exam: normal inspection, non-tender, supple, full range of motion Respiratory Exam: normal breath sounds, lungs clear, No respiratory distress Cardiovascular Exam: regular rate/rhythm, normal heart sounds, normal peripheral pulses Gastrointestinal/Abdomen Exam: soft, normal bowel sounds, No tenderness, No mass Back Exam: normal inspection, normal range of motion, No CVA tenderness, No vertebral tenderness Extremity Exam: normal inspection, normal range of motion, pelvis stable Neurologic Exam: alert, oriented x 3, cooperative, normal mood/affect, nml cerebellar function, nml station & gait, sensation nml, No motor deficits Skin Exam: normal color, warm, dry, No rash Lymphatic Exam: No adenopathy SpO2 Interpretation: normal SpO2: 98 O2 Delivery: Room Air - Course Nursing assessment & vital signs reviewed: Yes EKG Interpreted by Me: RATE (61), Other (Ventricular paced rhythm, ) - Radiology Exams Chest X-ray Interpretation: Teleradiologist Report (Stable cardiomegaly. Left pacemaker observed. Osteopenia and degenerative changes.) Ordered Tests: Active Orders 24 hr Category Date Time Status Single Stayer Operator STAT Care 07/07/20 07:51 Active EKG-ER Only STAT Care 07/07/20 07:49 Active IV Insertion STAT Care 07/07/20 07:49 Active Pulse Oximetry (ED) STAT Care 07/07/20 07:49 Active CHEST 1 VIEW (PORTABLE) Stat Exams 07/07/20 07:51 Completed CBC W DIFF Stat Lab 07/07/20 07:49 Completed CMP Stat Lab 07/07/20 08:10 Completed CULTURE,URINE Stat Lab 07/07/20 08:51 Received MAGNESIUM Stat Lab 07/07/20 08:10 Completed Manual Differential NC Stat Lab 07/07/20 07:49 Completed NT PRO BNP Stat Lab 07/07/20 08:10 Completed TROPONIN Q3H Lab 07/07/20 08:10 Completed TROPONIN Q3H Lab 07/07/20 11:00 Ordered TROPONIN Q3H Lab 07/07/20 14:00 Ordered TROPONIN Q3H Lab 07/07/20 17:00 Ordered TROPONIN Q3H Lab 07/07/20 20:00 Ordered UA W/RFX UR CULTURE Stat Lab 07/07/20 08:51 Completed Medication Summary Generic Name Dose Route Start Last Admin Trade Name Freq PRN Reason Stop Dose Admin Sodium Chloride 1,000 mls @ 100 mls/hr 07/07/20 08:00 07/07/20 08:07 Sodium Chloride 0.9% 1000 Ml IV 08/06/20 07:59 100 mls/hr .Q10H POORNIMA Administration Discontinued Medications Generic Name Dose Route Start Last Admin Trade Name Freq PRN Reason Stop Dose Admin Morphine Sulfate 2 mg 07/07/20 08:19 07/07/20 08:42 Morphine Sulfate 2 Mg Inj IV 07/07/20 08:20 2 mg STAT ONE Administration Morphine Sulfate Confirm 07/07/20 08:41 Morphine Sulfate 2 Mg Inj Administered 07/07/20 08:42 Dose 2 mg .ROUTE .STK-MED ONE Nitrofurantoin Macrocrystals 100 mg 07/07/20 10:07 Macrobid 100mg Capsule PO 07/07/20 10:08 STAT ONE Ondansetron HCl 4 mg 07/07/20 08:53 07/07/20 08:57 Zofran 4 Mg/2 Ml Vial IV 07/07/20 08:54 4 mg STAT ONE Administration Ondansetron HCl Confirm 07/07/20 08:55 Zofran 4 Mg/2 Ml Vial Administered 07/07/20 08:56 Dose 4 mg .ROUTE .STK-MED ONE Lab/Rad Data: Laboratory Result Diagrams 07/07/20 07:49 07/07/20 08:10 Laboratory Results 07/07/20 07/07/20 07/07/20 Range/Units 08:51 08:10 08:10 WBC (4.0-10.5) K/mm3 RBC (4.1-5.4) M/mm3 Hgb (12.0-16.0) gm/dl Hct (35-47) % MCV (78-100) fl MCH (26-32) pg MCHC (32-36) g/dl RDW (11.5-14.0) % Plt Count (150-450) K/mm3 MPV (7.5-11.0) fl Segmented Neutrophils (36.0-66.0) % Lymphocytes (Manual) (24-44) % Monocytes (Manual) (0.0-12.0) % Eosinophils (Manual) (0.00-3.0) % Platelet Estimate (NORMAL) RBC Morphology Sodium 139 (137-145) mmol/L Potassium 4.1 (3.5-5.1) mmol/L Chloride 104 (98-107) mmol/L Carbon Dioxide 26 (22-30) mmol/L Anion Gap 13.4 (5-15) MEQ/L BUN 16 (7-17) mg/dL Creatinine 0.89 (0.52-1.04) mg/dL Estimated GFR > 60.0 ML/MIN Glucose 113 H (74-106) mg/dL Calcium 9.4 (8.4-10.2) mg/dL Magnesium 2.0 (1.6-2.3) mg/dL Total Bilirubin 0.50 (0.2-1.3) mg/dL AST 30 (14-36) U/L ALT 24 (0-35) U/L Alkaline Phosphatase 85 (38-126) U/L Troponin I < 0.012 (0.000-0.034) ng/mL NT-Pro-B Natriuret Pep 751 (0-1800) pg/mL Serum Total Protein 7.0 (6.3-8.2) g/dL Albumin 4.2 (3.5-5.0) g/dL Urine Color YELLOW (YELLOW) Urine Appearance CLOUDY (CLEAR) Urine pH 6.0 (5-6) Ur Specific [place] 1.015 (1.005-1.025) Urine Protein 100 (Negative) Urine Ketones NEGATIVE (NEGATIVE) Urine Blood MODERATE (0-5) Jeff/ul Urine Nitrite NEGATIVE (NEGATIVE) Urine Bilirubin NEGATIVE (NEGATIVE) Urine Urobilinogen NEGATIVE (0-1) mg/dL Ur Leukocyte Esterase LARGE (NEGATIVE) Urine WBC (Auto) 16-25 (0-5) /HPF Urine RBC (Auto) 11-15 (0-2) /HPF U Epithel Cells (Auto) RARE (FEW) /HPF Urine Bacteria (Auto) MODERATE (NEGATIVE) /HPF Urine Mucus (Auto) SLIGHT (NEGATIVE) /HPF Urine Culture Reflexed YES (NO) Urine Glucose NEGATIVE (NEGATIVE) mg/dL 07/07/20 Range/Units 07:49 WBC 9.8 (4.0-10.5) K/mm3 RBC 4.34 (4.1-5.4) M/mm3 Hgb 13.3 (12.0-16.0) gm/dl Hct 41.8 (35-47) % MCV 96.3 (78-100) fl MCH 30.6 (26-32) pg MCHC 31.8 L (32-36) g/dl RDW 14.8 H (11.5-14.0) % Plt Count 273 (150-450) K/mm3 MPV 10.1 (7.5-11.0) fl Segmented Neutrophils 64 (36.0-66.0) % Lymphocytes (Manual) 30 (24-44) % Monocytes (Manual) 5 (0.0-12.0) % Eosinophils (Manual) 1 (0.00-3.0) % Platelet Estimate NORMAL (NORMAL) RBC Morphology NORMAL Sodium (137-145) mmol/L Potassium (3.5-5.1) mmol/L Chloride (98-107) mmol/L Carbon Dioxide (22-30) mmol/L Anion Gap (5-15) MEQ/L BUN (7-17) mg/dL Creatinine (0.52-1.04) mg/dL Estimated GFR ML/MIN Glucose (74-106) mg/dL Calcium (8.4-10.2) mg/dL Magnesium (1.6-2.3) mg/dL Total Bilirubin (0.2-1.3) mg/dL AST (14-36) U/L ALT (0-35) U/L Alkaline Phosphatase (38-126) U/L Troponin I (0.000-0.034) ng/mL NT-Pro-B Natriuret Pep (0-1800) pg/mL Serum Total Protein (6.3-8.2) g/dL Albumin (3.5-5.0) g/dL Urine Color (YELLOW) Urine Appearance (CLEAR) Urine pH (5-6) Ur Specific [place] (1.005-1.025) Urine Protein (Negative) Urine Ketones (NEGATIVE) Urine Blood (0-5) Jeff/ul Urine Nitrite (NEGATIVE) Urine Bilirubin (NEGATIVE) Urine Urobilinogen (0-1) mg/dL Ur Leukocyte Esterase (NEGATIVE) Urine WBC (Auto) (0-5) /HPF Urine RBC (Auto) (0-2) /HPF U Epithel Cells (Auto) (FEW) /HPF Urine Bacteria (Auto) (NEGATIVE) /HPF Urine Mucus (Auto) (NEGATIVE) /HPF Urine Culture Reflexed (NO) Urine Glucose (NEGATIVE) mg/dL - Progress Progress: improved Progress Note: 07/07/20 10:11 Patient reassessed. Repeat neuro exam within normal limits. She feels much better after IV fluid administration. Dizziness resolved. Work-up reveals a urinary tract infection. Patient received a dose of Macrobid in our ED. A prescription for the same will be forwarded to patient's pharmacy. Chest x-ray negative for acute pathology. Patient ambulated in our ED and felt well. No weakness numbness tingling or dizziness. Patient requesting discharge. Luis anders's herpetic pain essentially resolved with a dose of morphine 2 mg. Patient may benefit from Neurontin however will defer this to patient's primary care doctor. Patient agrees to follow-up with her primary care doctor within 48 hours for reevaluation. 07/07/20 10:15 Counseled pt/family regarding: lab results, diagnosis, need for follow-up, rad results - Departure Departure Disposition: Home Clinical Impression: UTI (urinary tract infection), Post herpetic neuralgia, Decreased oral intake, Dizziness Condition: Stable Critical Care Time: No Referrals: CHERYL GARIBAY [Primary Care Provider] - Instructions: Dizziness, Nonvertigo, (DC) Additional Instructions: Discharge/Care Plan CHERYL DAVIDART RICHMONDU was seen on 07/07/20 in the Emergency Room. The patient was counseled regarding Diagnosis,Lab results, Imaging studies, need for follow up and when to return to the Emergency Room. Prescriptions given: Discharge Note I have spoken with the patient and/or caregivers. I have explained the patient's condition, diagnosis and treatment plan based on the information available to me at this time. I have answered the patient's and/or caregiver's questions and addressed any concerns. The patient and/or caregivers have as good understanding of the patient's diagnosis, condition and treatment plan as can be expected at this point. The vital signs have been stable. The patient's condition is stable and appropriate for discharge from the emergency department. The patient will pursue further outpatient evaluation with the primary care physician or other designated or consulting physician as outlined in the discharge instructions. The patient and/or caregivers are agreeable to this plan of care and follow-up instructions have been explained in detail. The patient and/or caregivers have received these instruction. The patient/and or caregivers are aware that any significant change in condition or worsening of symptoms should prompt an immediate return to this or the closest emergency department or call 911. Prescriptions: Nitrofurantoin Macro 100 mg [Macrobid 100MG Capsule] 100 mg PO BID 7 Days #14 capsule
[2020-07-07 08:15] LABS: Hematocrit 41.8 % (35-47); Hemoglobin 13.3 gm/dl (12.0-16.0); Mean Cell Volume 96.3 fl (78-100); Mean Corpuscular Hemoglobin 30.6 pg (26-32); Mean Corpuscular Hgb Concent. 31.8 g/dl (32-36); Mean Platelet Volume 10.1 fl (7.5-11.0); Platelet Count 273 K/mm3 (150-450); Red Blood Count 4.34 M/mm3 (4.1-5.4); Red Cell Distribution Width 14.8 % (11.5-14.0); White Blood Count 9.8 K/mm3 (4.0-10.5)
[2020-07-07] MEDS ORDERED: MORPHINE SULFATE 2 MG INJ IV ONE (08:19)
[2020-07-07] MEDS ORDERED: MORPHINE SULFATE 2 MG INJ ONE (08:41)
[2020-07-07 08:42] LABS: ALBUMIN 4.2 g/dL (3.5-5.0); ALKALINE PHOSPHATASE 85 U/L (38-126); ANION GAP 13.4 MEQ/L (5-15); BLOOD UREA NITROGEN 16 mg/dL (7-17); CHLORIDE 104 mmol/L (98-107); Calcium 9.4 mg/dL (8.4-10.2); Carbon Dioxide 26 mmol/L (22-30); Creatinine 1 0.89 mg/dL (0.52-1.04); Glucose 113 mg/dL (74-106); NT PRO BNP 751 pg/mL (0-1800); Potassium 4.1 mmol/L (3.5-5.1); SGOT/AST 30 U/L (14-36); SGPT/ALT 24 U/L (0-35); SODIUM 139 mmol/L (137-145)
[2020-07-07] MEDS ORDERED: Zofran 4 MG/2 ML VIAL IV ONE (08:53)
[2020-07-07] MEDS ORDERED: Zofran 4 MG/2 ML VIAL ONE (08:55)
--- NOTE | 2020-07-07 09:02 | XRAY ---
Indication: Pneumonia. Comparison: September 04, 2019. Portable chest rotated and remains clear. Heart remains enlarged again with left pacemaker. Bony thorax intact again with mild osteopenia, degenerative changes, and T4 kyphoplasty. Impression: Stable cardiomegaly. Again negative for acute pneumonic process or CHF.
[2020-07-07 09:09] LABS: Appearance CLOUDY (CLEAR); Bacteria MODERATE /HPF (NEGATIVE); Bilirubin NEGATIVE (NEGATIVE); Blood MODERATE Ery/ul (0-5); Epithelial Cells RARE /HPF (FEW); Glucose NEGATIVE (NEGATIVE); Ketones NEGATIVE (NEGATIVE); Leukocyte Esterase LARGE (NEGATIVE); Mucus SLIGHT /HPF (NEGATIVE); Nitrite NEGATIVE (NEGATIVE); Protein,Urine Dip 100 (Negative); Specific Gravity 1.015 (1.005-1.025); Urobilinogen NEGATIVE mg/dL (0-1)
[2020-07-07 09:29] LABS: Eosinophil 1 % (0.00-3.0); Lymphocytes 30 % (24-44); Monocyte 5 % (0.0-12.0); Neutrophils 64 % (36.0-66.0); Platelet Estimate NORMAL (NORMAL); Total Cells Counted 100
[2020-07-07] MEDS ORDERED: Macrobid 100MG Capsule PO ONE (10:07)
[2020-07-07] MEDS ORDERED: Macrobid 100MG Capsule ONE (10:37)
[2020-07-07 10:50] VITALS: BP 165/78; PULSE 62; O2SAT 97
== END 2020-07-07 10:50 | disposition home or self-care (01) ==
LOC: ED 07:33
DX: N39.0 Urinary tract infection, site not specified (principal); G58.8 Other specified mononeuropathies; R42 Dizziness and giddiness; R63.8 Other symptoms and signs concerning food and fluid intake; M54.2 Cervicalgia; Z79.899 Other long term (current) drug therapy; I10 Essential (primary) hypertension; I50.9 Heart failure, unspecified; J44.9 Chronic obstructive pulmonary disease, unspecified
CPT/HCPCS: 36000; 36415; 71045; 80053; 81001; 83735; 83880; 84484; 85025; 87077; 87086; 87186; 93005; 93041; 94760; 96360; 96361; 96374; 96375; 99284; J2270; J2405; A9270-GY

== ENCOUNTER 2022-05-24 07:32 | Day surgery (SDC) | payer MEDICARE ==
--- NOTE | 2022-05-23 12:59 | HP ---
DATE OF SURGERY: 05/24/2022 HISTORY OF PRESENT ILLNESS: The patient is an 87-year-old with some reflux, problems with food getting stuck upper esophagus. Last upper endoscopy a while back. Family history of esophageal cancer. She has dysphagia upper esophagus. She is in need for upper endoscopy and possible biopsy, possible dilatation. PAST MEDICAL HISTORY: Heart disease, atrial fibrillation, pacemaker, chronic bronchitis. PAST SURGICAL HISTORY: Pacemaker. Back surgery. Hysterectomy. MEDICATIONS: Albuterol Sulfate, budesonide, citalopram, Detrol LA, estradiol vaginal cream, hydroxyzine, meclizine, metoprolol, pantoprazole, Pepcid, tramadol, simvastatin, spironolactone. She had been on warfarin in the past. ALLERGIES: PENICILLIN. FAMILY HISTORY: Esophageal cancer. Heart disease. SOCIAL HISTORY: No smoking or alcohol abuse. REVIEW OF SYSTEMS: Fourteen systems reviewed. No chest pain or palpitations. Other systems negative or noncontributory as above and per preadmission questionnaire. PHYSICAL EXAMINATION: GENERAL: No acute distress. HEENT: Sclerae nonicteric. NECK: No JVD. CHEST: Equal excursion, nonlabored breathing. CVS: Regular rate and rhythm. ABDOMEN: Soft. No peritoneal signs. EXTREMITIES: No significant edema. NEURO: Alert, oriented, moving extremities symmetrically. PSYCH: Appropriate mood and affect. IMPRESSION: Dysphagia upper esophagus. She is in need of upper endoscopy possible biopsy possible dilatation. Risks and benefits explained in detail including but not limited to bleeding or infection, risk of bowel injury or perforation possibly requiring open procedure, risk of missed or nondiagnosis or incomplete exam possibly requiring other studies or procedures. General risk of anesthesia or sedation, risk of aspiration, risk of perforation possibly requiring transfer or major open procedure, risk of mortality, possibility of dilatation or this may be more of a functional neurologic problem and not a narrowing problem and dilatation may not improve her swallowing or if she has a narrowing dilatation does improve her swallowing may need to be repeated down the road. She understands and agrees to the planned procedure, will proceed with EGD possible biopsy possible dilatation as an outpatient.
[~2022-05-24 07:32] MED LIST: Lactated Ringers 1,000 ML IV ONE; Lactated Ringers 1,000 ML IV SCH
[2022-05-24 08:26] LABS: INR 1.14 (0.8-3.0); PROTIME 11.9 SECONDS (9.4-12.5)
[2022-05-24] MEDS ORDERED: DIPRIVAN 200 MG/20 ML IV ONE ×2 (09:04→09:59)
[2022-05-24 11:10] VITALS: BP 148/82; PULSE 71
[2022-05-24] MEDS ORDERED: DUONEB 0.5-3 MG/3 ml Neb IH ONE (11:13)
[2022-05-24 11:20] VITALS: O2SAT 91
--- NOTE | 2022-05-24 13:57 | OP ---
SURGERY DATE/TIME: 05/24/2022 0901 PREOPERATIVE DIAGNOSIS: Dysphagia. POSTOPERATIVE DIAGNOSES: 1) Retained food bolus esophagus with patulous distal esophagus with esophageal narrowing and spasm distal esophagus and proximal esophagus. 2) Small gastric polyps. 3) Mild gastritis. 4) ASA Class III. PROCEDURES: 1) EGD with cold biopsy of antrum for Helicobacter pylori. 2) Cold biopsy polypectomy gastric polyp. 3) Proximal esophageal balloon dilatation with symptomatic proximal esophageal narrowing (size 20 balloon). 4) Distal esophageal balloon dilatation symptomatic distal esophageal narrowing (size 20 balloon). 5) Removal and dislodgement of retained large amount of food bolus esophagus. SURGEON: Dr. Stephen Wheeler. ANESTHESIA: MAC. ESTIMATED BLOOD LOSS: Minimal. INDICATIONS: As noted above. Risks and benefits explained in detail and not limited to and consent obtained. DESCRIPTION OF PROCEDURE AND FINDINGS: The patient is taken to the endoscopy room. MAC anesthesia introduced. After official time out and no disagreement with planned procedure, bite block positioned. Video gastroscope passed in the oropharynx. There was proximal esophageal narrowing and spasm. The scope was able to be just passed through here, this is where the patient is complaining of the most amount of her symptoms. There is no obvious mass or lesion to biopsy but it was felt that it would benefit from dilatation. Further down in the esophagus, she had a moderate amount of retained food bolus in the more distal esophagus just above the gastroesophageal junction. There was a narrowed esophagus. Just proximal to this there was kind of a patulous esophagus with a pouch area. It was felt this had a lot to do with dysfunctional esophagus not pushing this food through. It was felt that this area needed to be dilated as well. The scope passed through the patent pylorus to the third portion of the duodenum. Third, second, first portion of duodenum grossly unremarkable. Stomach had some mild gastritis and cold biopsy taken to evaluate for Helicobacter pylori. On retroflex no signs of any significant hiatal hernia. The scope was straightened and pulled back. There was small gastric polyp removed with cold biopsy polypectomy. Good hemostasis noted. At this point attention is then turned to the retained food bolus. It could not be removed from area and it was elected to go ahead and dilate the patient first. Distal esophagus then carefully dilated. Sequential first stage, second stage, third stage for about 2 minutes ballooning up to size 20 dilator. The balloon was then pulled back to make sure there was no debris on it to proximal esophagus. Proximal esophagus then dilated first stage, second stage and final stage for 1.5 to 2 minutes size 20 balloon dilator. The balloon catheter is removed. The scope much more easily passed through the dilated proximal esophagus. There were no signs of any full thickness issues or injury. Down distally, a large amount of retained food bolus was able to be pushed down into the stomach and carefully irrigated out. The patient tolerated the procedure well. The was initially gone but he later showed up to discuss the finding with. She needs to be started on room temperature liquids x4 hours and then advanced to full liquids. She should stay away from any meat or solid food as this felt to be dysfunctional esophagus even with the dilatation and poor functioning esophagus. They might need to consider other enteral feeding supplementation down the road. I will see her back in the office in a week or two.
== END 2022-05-24 11:00 | disposition home or self-care (01) ==
LOC: SDC 07:32
PROVIDERS: ATTEND Surgery
DX: T18.128A Food in esophagus causing other injury, initial encounter (principal); R13.10 Dysphagia, unspecified; K31.7 Polyp of stomach and duodenum; K29.70 Gastritis, unspecified, without bleeding; K22.2 Esophageal obstruction; Z79.01 Long term (current) use of anticoagulants; Z80.0 Family history of malignant neoplasm of digestive organs
CPT/HCPCS: 36415; 85610; 88305; 94640; 99100; C1726; J2704; A9270-GY

== ENCOUNTER 2023-03-24 08:53 | Emergency (ER) | payer MEDICARE ==
[2023-03-24] MEDS ORDERED: DUONEB 0.5-3 MG/3 ml Neb IH ONE ×4 (08:57→10:01)
[2023-03-24] MEDS ORDERED: solu-MEDROL 125 MG, Sterile H2O 10 ml 2 ML IV ONE ×2 (08:57)
[2023-03-24] MEDS ORDERED: BABY ASPIRIN 81 MG CHEW PO ONE (09:02)
[2023-03-24] MEDS ORDERED: Sterile H2O 10 ml IJ ONE (09:10)
[2023-03-24] MEDS ORDERED: solu-MEDROL ONE (09:10)
[2023-03-24] MEDS ORDERED: BABY ASPIRIN 81 MG CHEW ONE (09:11)
[2023-03-24 09:14] LABS: BASOPHIL % 0.5 % (0.0-0.4); Basophil (Absolute #) 0.05 x10^3/uL (0-0.4); Eosinophil % 1.6 % (0.00-5.0); Eosinophil (Absolute #) 0.15 x10^3/uL (0-0.5); Hemoglobin 12.7 g/dL (12.0-16.0); IMMATURE GRAN # 0.02 x10^3u/L (0.00-0.03); IMMATURE GRAN % 0.2 % (0.00-0.4); Lymphocyte (Absolute #) 1.31 x10^3/uL (1.0-4.6); Mean Cell Volume 97.4 fL (78-100); Mean Corpuscular Hemoglobin 30.2 pg (26-32); Mean Platelet Volume 9.9 fL (7.5-11.0); Monocytes % 9.6 % (0.0-12.0); Neutrophil % 74.1 % (36.0-66.0); Platelet Count 208 x10^3/uL (150-450); Red Blood Count 4.21 x10^6/uL (4.1-5.4); White Blood Count 9.3 x10^3/uL (4.0-10.5)
--- NOTE | 2023-03-24 09:25 | ERPHSYRPT ---
- History of Present Illness Source: patient Exam Limitations: no limitations Patient Subjective Stated Complaint: C/O SOB for approx one week; is worse during the night and became worse this am Triage Nursing Assessment: Patient ambulated back to ER without difficulties; refused a w/c. Some SOB noted with exertion with quick recovery once at rest. 02 2ats 92% on room air after ambulated and increased to 96% at rest. No cough present. Physician History: Patient is here with shortness of breath. Patient states has been going on 1 week. History of COPD. No falls no trauma. Patient states she has no active chest pain. No fever or chills. She has been doing her home breathing treatments. Patient does have a legend maker. Allergies/Adverse Reactions: Penicillins Allergy (Severe, Verified 03/24/23 08:56) Hives Home Medications: Simvastatin 40 mg [Zocor 40 mg] 40 mg PO HS 10/04/14 [History] Spironolactone 25 mg PO DAILY 10/12/17 [History] Albuterol 2.5 mg/3 ml Neb [Proventil 2.5 mg/3 ml Neb] 3 ml NEB TIDPRN PRN 03/20/18 [History] Albuterol Sulfate [Albuterol Sulfate Hfa] 2 puff IH QIDPRN PRN 03/20/18 [History] Citalopram Hydrobromide [Celexa] 10 mg PO DAILY 03/20/18 [History] Metoprolol Tartrate 25 mg [Lopressor 25MG Tab] 50 mg PO BID 03/20/18 [H istory] Budesonide 0.5 mg/2 ml [Pulmicort 0.5 mg/2 ml Respules] 2 ml IH QID 05/18/22 [History] Hydroxyzine HCl 25 mg [Atarax 25 mg] 25 mg PO TID PRN 05/18/22 [History] Omeprazole 1 cap PO DAILY 03/24/23 [History] Hx Tetanus, Diphtheria Vaccination/Date Given: Yes Hx Influenza Vaccination/Date Given: No Hx Pneumococcal Vaccination/Date Given: Yes (2017) Immunizations Up to Date: Yes Travel Risk - International Travel Have you traveled outside of the country in past 3 weeks: No - Coronavirus Screening Are you exhibiting any of the following symptoms?: Yes Symptoms: Shortness of Breath - Vaccine Status Have you recieved a Covid-19 vaccination: Yes 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 - Review of Systems Constitutional: No Fever, No Chills Eyes: No Symptoms Ears, Nose, & Throat: No Symptoms Respiratory: Cough, Dyspnea, Wheezing Cardiac: No Chest Pain, No Edema, No Syncope Abdominal/Gastrointestinal: No Abdominal Pain, No Nausea, No Vomiting, No Diarrhea Genitourinary Symptoms: No Dysuria Musculoskeletal: No Back Pain, No Neck Pain Skin: No Rash Neurological: No Dizziness, No Focal Weakness, No Sensory Changes Psychological: No Symptoms Endocrine: No Symptoms All Other Systems: Reviewed and Negative - Past Medical History Pertinent Past Medical History: Yes Neurological History: Stroke ENT History: Cataracts Cardiac History: Arrhythmia, High Cholesterol, Hypertension, Other Respiratory History: Bronchitis, COPD Endocrine Medical History: No Pertinent History Musculoskeletal History: No Pertinent History GI Medical History: GERD, Ulcer History: Renal Disease, Other Psycho-Social History: Anxiety Female Reproductive Disorders: No Pertinent History, Other Other Medical History: skin cancer face, [place]. - Past Surgical History Past Surgical History: Yes Neuro Surgical History: No Pertinent History Cardiac: Angioplasty, Pacemaker Respiratory: No Pertinent History Gastrointestinal: No Pertinent History Genitourinary: No Pertinent History Musculoskeletal: Orthopedic Surgery Female Surgical History: Hysterectomy Other Surgical History: Inner ear sx, surgery to L1 & L7, Heart surgery 2020 - Social History Smoking Status: Never smoker Exposure to second hand smoke: No Drug Use: none Patient Lives Alone: No - Nursing Vital Signs Nursing Vital Signs: Initial Vital Signs Temperature 96.9 F 03/24/23 08:53 Pulse Rate 72 03/24/23 08:53 Respiratory Rate 23 03/24/23 08:53 Blood Pressure 194/71 03/24/23 08:53 O2 Sat by Pulse Oximetry 96 03/24/23 08:53 Pain Scale Pain Intensity 0 - Physical Exam General Appearance: no apparent distress, alert Eye Exam: PERRL/EOMI, eyes nml inspection Ears, Nose, Throat Exam: normal ENT inspection, pharynx normal, moist mucous membranes Neck Exam: normal inspection, non-tender, supple, full range of motion Respiratory Exam: normal breath sounds, lungs clear, No respiratory distress Cardiovascular Exam: regular rate/rhythm, normal heart sounds, normal peripheral pulses Gastrointestinal/Abdomen Exam: soft, normal bowel sounds, No tenderness, No mass Back Exam: normal inspection, normal range of motion, No CVA tenderness, No vertebral tenderness Extremity Exam: normal inspection, normal range of motion, pelvis stable Neurologic Exam: alert, oriented x 3, cooperative, nml station & gait, sensation nml, No motor deficits Skin Exam: normal color, warm, dry, No rash Lymphatic Exam: No adenopathy SpO2: 96 - Course Nursing assessment & vital signs reviewed: Yes EKG Interpreted by Me: Sinus Rhythm Ordered Tests: Active Orders 24 hr Category Date Time Status Manager Compensation STAT Care 03/24/23 08:58 Active EKG-ER Only STAT Care 03/24/23 08:57 Active IV Insertion STAT Care 03/24/23 08:57 Active CHEST 2 VIEWS (PA AND LAT) Stat Exams 03/24/23 08:57 Taken CBC W DIFF Stat Lab 03/24/23 09:08 Completed CMP Stat Lab 03/24/23 09:08 Completed D-DIMER QUANTITATIVE Stat Lab 03/24/23 09:08 Completed NT PRO BNPII Stat Lab 03/24/23 09:08 Completed TROPONIN Q4H Lab 03/24/23 09:08 Completed TROPONIN Q4H Lab 03/24/23 13:00 Ordered TROPONIN Q4H Lab 03/24/23 17:00 Ordered Respiratory Therapy Assessment DAILY RT 03/24/23 09:12 Active Medication Summary Discontinued Medications Generic Name Dose Route Start Last Admin Trade Name Freq PRN Reason Stop Dose Admin Albuterol/Ipratropium 3 ml 03/24/23 08:57 03/24/23 09:08 Ipratropium/Albuterol Sulfate 3 Ml Ampul.Neb 03/24/23 08:58 3 ml STAT ONE Administration Albuterol/Ipratropium Confirm 03/24/23 09:07 Ipratropium/Albuterol Sulfate 3 Ml Ampul.Neb Administered 03/24/23 09:08 Dose 3 ml IH .STK-MED ONE Albuterol/Ipratropium 3 ml 03/24/23 09:59 03/24/23 10:02 Ipratropium/Albuterol Sulfate 3 Ml Ampul.Neb IH 03/24/23 10:00 3 ml STAT ONE Administration Albuterol/Ipratropium Confirm 03/24/23 10:01 Ipratropium/Albuterol Sulfate 3 Ml Ampul.Neb Administered 03/24/23 10:02 Dose 3 ml IH .STK-MED ONE Aspirin 324 mg 03/24/23 09:02 03/24/23 09:13 Aspirin 81 Mg Tab.Chew PO 03/24/23 09:03 324 mg STAT ONE Administration Aspirin Confirm 03/24/23 09:11 Aspirin 81 Mg Tab.Chew Administered 03/24/23 09:12 Dose 324 mg .ROUTE .STK-MED ONE Methylprednisolone Sodium 0 mg 03/24/23 08:57 03/24/23 09:14 Succinate 125 mg/ Sterile IV 03/24/23 08:58 125 mg Water 2 ml STAT ONE Administration Methylprednisolone Sodium Succinate Confirm 03/24/23 09:10 Methylprednis Sod Succ 125 Mg/2 Ml Vial Administered 03/24/23 09:11 Dose 125 mg .ROUTE .STK-MED ONE Sterile Water Confirm 03/24/23 09:10 Water For Injection,Sterile 10 Ml Vial Administered 03/24/23 09:11 Dose 10 ml IJ .STK-MED ONE Lab/Rad Data: Laboratory Result Diagrams 03/24/23 09:08 03/24/23 09:08 Laboratory Results 03/24/23 03/24/23 03/24/23 Range/Units 09:08 09:08 09:08 WBC (4.0-10.5) x10^3/uL RBC (4.1-5.4) x10^6/uL Hgb (12.0-16.0) g/dL Hct (35-47) % MCV (78-100) fL MCH (26-32) pg MCHC (32-36) g/dL RDW (11.5-14.0) % Plt Count (150-450) x10^3/uL MPV (7.5-11.0) fL Gran % (36.0-66.0) % Immature Gran % (Auto) (0.00-0.4) % Nucleat RBC Rel Count (0.00-0.1) % Eos # (Auto) (0-0.5) x10^3/uL Immature Gran # (Auto) (0.00-0.03) x10^3u/L Absolute Lymphs (auto) (1.0-4.6) x10^3/uL Absolute Monos (auto) (0.0-1.3) x10^3/uL Absolute Nucleated RBC (0.00-0.01) x10^3u/L Lymphocytes % (24.0-44.0) % Monocytes % (0.0-12.0) % Eosinophils % (0.00-5.0) % Basophils % (0.0-0.4) % Absolute Granulocytes (1.4-6.9) x10^3/uL Basophils # (0-0.4) x10^3/uL D-Dimer 0.21 (0.0-0.50) mg/L Sodium (137-145) mmol/L Potassium (3.5-5.1) mmol/L Chloride (98-107) mmol/L Carbon Dioxide (22-30) mmol/L Anion Gap (5-15) MEQ/L BUN (7-17) mg/dL Creatinine (0.52-1.04) mg/dL Estimated GFR ML/MIN Glucose (74-106) mg/dL Calcium (8.4-10.2) mg/dL Total Bilirubin (0.2-1.3) mg/dL AST (14-36) U/L ALT (0-35) U/L Alkaline Phosphatase (38-126) U/L Troponin I < 0.012 (0.000-0.034) ng/mL NT-Pro-B Natriuret Pep (<300) pg/mL Serum Total Protein (6.3-8.2) g/dL Albumin (3.5-5.0) g/dL Influenza Type A Ag NEGATIVE (NEGATIVE) Influenza Type B Ag NEGATIVE (NEGATIVE) RSV (PCR) NEGATIVE (NEGATIVE) SARS-CoV-2 (PCR) NEGATIVE (NEGATIVE) 03/24/23 03/24/23 Range/Units 09:08 09:08 WBC 9.3 (4.0-10.5) x10^3/uL RBC 4.21 (4.1-5.4) x10^6/uL Hgb 12.7 (12.0-16.0) g/dL Hct 41.0 (35-47) % MCV 97.4 (78-100) fL MCH 30.2 (26-32) pg MCHC 31.0 L (32-36) g/dL RDW 15.0 H (11.5-14.0) % Plt Count 208 (150-450) x10^3/uL MPV 9.9 (7.5-11.0) fL Gran % 74.1 H (36.0-66.0) % Immature Gran % (Auto) 0.2 (0.00-0.4) % Nucleat RBC Rel Count 0.0 (0.00-0.1) % Eos # (Auto) 0.15 (0-0.5) x10^3/uL Immature Gran # (Auto) 0.02 (0.00-0.03) x10^3u/L Absolute Lymphs (auto) 1.31 (1.0-4.6) x10^3/uL Absolute Monos (auto) 0.90 (0.0-1.3) x10^3/uL Absolute Nucleated RBC 0.00 (0.00-0.01) x10^3u/L Lymphocytes % 14.0 L (24.0-44.0) % Monocytes % 9.6 (0.0-12.0) % Eosinophils % 1.6 (0.00-5.0) % Basophils % 0.5 (0.0-0.4) % Absolute Granulocytes 6.90 (1.4-6.9) x10^3/uL Basophils # 0.05 (0-0.4) x10^3/uL D-Dimer (0.0-0.50) mg/L Sodium 141 (137-145) mmol/L Potassium 3.9 (3.5-5.1) mmol/L Chloride 99 (98-107) mmol/L Carbon Dioxide 29 (22-30) mmol/L Anion Gap 15.9 H (5-15) MEQ/L BUN 19 H (7-17) mg/dL Creatinine 0.89 (0.52-1.04) mg/dL Estimated GFR > 60.0 ML/MIN Glucose 145 H (74-106) mg/dL Calcium 9.1 (8.4-10.2) mg/dL Total Bilirubin 0.80 (0.2-1.3) mg/dL AST 38 H (14-36) U/L ALT 30 (0-35) U/L Alkaline Phosphatase 97 (38-126) U/L Troponin I (0.000-0.034) ng/mL NT-Pro-B Natriuret Pep 3540 (<300) pg/mL Serum Total Protein 7.7 (6.3-8.2) g/dL Albumin 4.3 (3.5-5.0) g/dL Influenza Type A Ag (NEGATIVE) Influenza Type B Ag (NEGATIVE) RSV (PCR) (NEGATIVE) SARS-CoV-2 (PCR) (NEGATIVE) - Progress Progress: improved Progress Note: 03/24/23 09:26 differential diagnosis includes: PNA, STEMI, NSTEMI, other infection, musculoskeletal pain, pneumothorax - We'll obtain basic labs, fluids, EKG, troponin, chest x-ray - I feel comfortable with one time negative troponin given symptoms have improved and started greater then 6 hours ago. - EKG shows no ST changes - my read. See full read below. - O2 saturations consistently greater than 95%. - CXR shows no pneumonia, pneumothorax - my read 03/24/23 10:20 Patient does have a slightly elevated CHF peptide. However appears to have been similar to previous visits. Chest x-ray shows no overwhelming pulmonary edema. Patient is on room air. We will have her call her legend maker tomorrow for close follow-up. Most likely COPD exacerbation. Improved after 2 breathing treatments. Patient was able to ambulate throughout the emergency department without dropping her oxygen saturations. Plan for short course of steroids going home. May return here sooner for new or changing symptoms. Counseled pt/family regarding: lab results, diagnosis, need for follow-up, rad results Medical Desision Making - Independent Historian Additional History obtained from: Spouse - Diagnostic Testing Diagnostic test were ordered, analyzed, and reviewed by me: Yes Radiological Interpretation: Interpreted by me - Risk of complications Minimal Risk: Minimal risk of morbidity - Departure Departure Disposition: Home Clinical Impression: COPD exacerbation Condition: Stable Critical Care Time: No Referrals: [facility] [Primary Care Provider] - Follow up/PCP as directed Instructions: Chronic Obstructive Pulmonary Disease, Exacerbation of COPD (DC) Prescriptions: Prednisone 10 mg [Deltasone 10 mg] 40 mg PO DAILY 5 Days #100 tablet
[2023-03-24 09:37] LABS: ALBUMIN 4.3 g/dL (3.5-5.0); ALKALINE PHOSPHATASE 97 U/L (38-126); ANION GAP 15.9 MEQ/L (5-15); BLOOD UREA NITROGEN 19 mg/dL (7-17); CHLORIDE 99 mmol/L (98-107); Calcium 9.1 mg/dL (8.4-10.2); Carbon Dioxide 29 mmol/L (22-30); Creatinine 1 0.89 mg/dL (0.52-1.04); EST GLOMERULAR FILTRATION RATE > 60.0 ML/MIN; Glucose 145 mg/dL (74-106); NT PRO BNPII 3540 pg/mL (<300); Potassium 3.9 mmol/L (3.5-5.1); SGOT/AST 38 U/L (14-36); SGPT/ALT 30 U/L (0-35); SODIUM 141 mmol/L (137-145); Total Protein 7.7 g/dL (6.3-8.2)
[2023-03-24 09:54] LABS: INFLUENZA A NEGATIVE (NEGATIVE); INFLUENZA B NEGATIVE (NEGATIVE); RESPIRATORY SYNCTIAL VIRUS NEGATIVE (NEGATIVE); SARS-CoV-2 Xpert Express NEGATIVE (NEGATIVE)
[2023-03-24 10:20] VITALS: BP 174/98; PULSE 78
[2023-03-24 10:21] VITALS: O2SAT 96
--- NOTE | 2023-03-24 18:43 | XRAY ---
Indication: Pneumonia. Comparison: January 01, 2023 PA/lateral chest again hyperinflated with cardiomegaly and left pacemaker. New small bibasilar effusions/atelectasis concerning for cardiac decompensation/CHF. Superimposed pneumonia not completely excluded. Bony thorax intact again with osteopenia, degenerative changes, and T4/T10 kyphoplasty. Comment: Cardiomegaly and bibasilar effusions/atelectasis not reported by interpreting ER clinician. Telephone report was given to Dr. Suero at 1838 hrs. on March 24, 2023
== END 2023-03-24 10:25 | disposition home or self-care (01) ==
LOC: ED 08:53
DX: J44.1 Chronic obstructive pulmonary disease with (acute) exacerbation (principal); Z79.899 Other long term (current) drug therapy; E78.5 Hyperlipidemia, unspecified; I10 Essential (primary) hypertension
CPT/HCPCS: 0241U; 36000; 36415; 71046; 80053; 83880; 84484; 85025; 85379; 93005; 93041; 94640; 96374; 99284; J2930; A9270-GY

== ENCOUNTER 2023-03-28 14:31 | Observation (INO) | payer MEDICARE ==
[2023-03-28] MEDS ORDERED: Lasix 40 MG/4 ML IV ONE (15:36)
[2023-03-28] MEDS ORDERED: APRESOLINE 20 MG/ML INJ IV ONE (15:37)
[2023-03-28 15:41] LABS: Absolute Neutrophil Ct (ANC) 9.55 x10^3/uL (1.4-6.9); BASOPHIL % 0.2 % (0.0-0.4); Basophil (Absolute #) 0.02 x10^3/uL (0-0.4); Eosinophil % 0.1 % (0.00-5.0); Eosinophil (Absolute #) 0.01 x10^3/uL (0-0.5); Hemoglobin 12.7 g/dL (12.0-16.0); IMMATURE GRAN # 0.06 x10^3u/L (0.00-0.03); IMMATURE GRAN % 0.5 % (0.00-0.4); Lymphocyte (Absolute #) 0.86 x10^3/uL (1.0-4.6); Lymphocytes % 7.6 % (24.0-44.0); Mean Cell Volume 95.3 fL (78-100); Mean Corpuscular Hemoglobin 29.5 pg (26-32); Mean Platelet Volume 10.7 fL (7.5-11.0); Monocyte (Absolute #) 0.76 x10^3/uL (0.0-1.3); Monocytes % 6.7 % (0.0-12.0); Neutrophil % 84.9 % (36.0-66.0); Platelet Count 217 x10^3/uL (150-450); Red Cell Distribution Width 15.6 % (11.5-14.0); White Blood Count 11.3 x10^3/uL (4.0-10.5)
[2023-03-28 15:47] LABS: ALBUMIN 4.4 g/dL (3.5-5.0); ALKALINE PHOSPHATASE 102 U/L (38-126); BLOOD UREA NITROGEN 20 mg/dL (7-17); CHLORIDE 99 mmol/L (98-107); Calcium 9.3 mg/dL (8.4-10.2); Carbon Dioxide 32 mmol/L (22-30); Creatinine 1 0.79 mg/dL (0.52-1.04); EST GLOMERULAR FILTRATION RATE > 60.0 ML/MIN; Glucose 143 mg/dL (74-106); MAGNESIUM 2.1 mg/dL (1.6-2.3); Potassium 4.2 mmol/L (3.5-5.1); SGOT/AST 50 U/L (14-36); SGPT/ALT 53 U/L (0-35); SODIUM 139 mmol/L (137-145); Total Protein 7.6 g/dL (6.3-8.2)
[2023-03-28] MEDS ORDERED: APRESOLINE 20 MG/ML INJ ONE (15:54)
[2023-03-28] MEDS ORDERED: Lasix 40 MG/4 ML ONE (15:55)
--- NOTE | 2023-03-28 16:25 | ERPHSYRPT ---
- History of Present Illness Time Seen by Provider: 03/28/23 14:37 Source: patient, family Exam Limitations: no limitations Patient Subjective Stated Complaint: Pt states "I was here the other day and the dr told me if I got any worse to come back and I am still having a hard time breathing." Triage Nursing Assessment: Pt presented aelrt and oriented X 3, skin pwd. Pt ambulates with an uprigth steady gait, able to speak in clear full sentences. Pt slightly tachypneic. Physician History: 88-year-old female with history of hypertension, hyperlipidemia, GERD, atrial fibrillation on Coumadin, recently diagnosed with congestive heart failure presented to the ER with elevated blood pressure and some shortness of breath. Patient reports she was at primary care office and her blood pressure was in 190s, was given clonidine which did not help much with improvement in blood pressure. She denies any headache or visual disturbance, does feel shortness of breath with activity although she has been taking Lasix for the last few days since her last visit in the ER where she was found to be in congestive heart failure. Denies any chest pain, abdominal pain nausea or vomiting. No focal numbness tingling or weakness although does have history of CVA in the past with no residual. Patient blood pressure is in the 200s on presentation and here. Allergies/Adverse Reactions: Penicillins Allergy (Severe, Verified 03/24/23 08:56) Hives Home Medications: Simvastatin 40 mg [Zocor 40 mg] 40 mg PO HS 10/04/14 [History] Spironolactone 25 mg PO DAILY 10/12/17 [History] Albuterol 2.5 mg/3 ml Neb [Proventil 2.5 mg/3 ml Neb] 3 ml NEB TIDPRN PRN 03/20/18 [History] Albuterol Sulfate [Albuterol Sulfate Hfa] 2 puff IH QIDPRN PRN 03/20/18 [History] Citalopram Hydrobromide [Celexa] 10 mg PO DAILY 03/20/18 [History] Metoprolol Tartrate 25 mg [Lopressor 25MG Tab] 50 mg PO BID 03/20/18 [History] Budesonide 0.5 mg/2 ml [Pulmicort 0.5 mg/2 ml Respules] 2 ml IH QID 05/18/22 [History] Hydroxyzine HCl 25 mg [Atarax 25 mg] 25 mg PO TID PRN 05/18/22 [History] Omeprazole 1 cap PO DAILY 03/24/23 [History] Hx Tetanus, Diphtheria Vaccination/Date Given: Yes Hx Influenza Vaccination/Date Given: No Hx Pneumococcal Vaccination/Date Given: Yes (2017) Immunizations Up to Date: Yes Travel Risk - International Travel Have you traveled outside of the country in past 3 weeks: No - Coronavirus Screening Are you exhibiting any of the following symptoms?: Yes Symptoms: Shortness of Breath Close contact with a COVID-19 positive Pt in past 14-21 Days: No - Vaccine Status Have you recieved a Covid-19 vaccination: Yes 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 - Review of Systems Constitutional: No Symptoms Eyes: No Symptoms Ears, Nose, & Throat: No Symptoms Respiratory: Dyspnea Cardiac: No Symptoms Abdominal/Gastrointestinal: No Symptoms Genitourinary Symptoms: No Symptoms Musculoskeletal: No Symptoms Neurological: No Symptoms Psychological: No Symptoms Endocrine: No Symptoms Hematologic/Lymphatic: Easy Bleeding Immunological/Allergic: No Symptoms - Past Medical History Pertinent Past Medical History: Yes Neurological History: Stroke ENT History: Cataracts Cardiac History: Arrhythmia, High Cholesterol, Hypertension, Other Respiratory History: Bronchitis, COPD Endocrine Medical History: No Pertinent History Musculoskeletal History: No Pertinent History GI Medical History: GERD, Ulcer History: Renal Disease, Other Psycho-Social History: Anxiety Female Reproductive Disorders: No Pertinent History, Other Other Medical History: skin cancer face, [place]. - Past Surgical History Past Surgical History: Yes Neuro Surgical History: No Pertinent History Cardiac: Angioplasty, Pacemaker Respiratory: No Pertinent History Gastrointestinal: No Pertinent History Genitourinary: No Pertinent History Musculoskeletal: Orthopedic Surgery Female Surgical History: Hysterectomy Other Surgical History: Inner ear sx, surgery to L1 & L7, Heart surgery 2020 - Social History Smoking Status: Never smoker Exposure to second hand smoke: No Drug Use: none Patient Lives Alone: No - Nursing Vital Signs Nursing Vital Signs: Initial Vital Signs Temperature 98.7 F 03/28/23 14:38 Pulse Rate 80 03/28/23 14:38 Respiratory Rate 24 03/28/23 14:38 Blood Pressure 218/100 03/28/23 14:38 O2 Sat by Pulse Oximetry 92 L 03/28/23 14:38 Pain Scale Pain Intensity 0 - Physical Exam General Appearance: no apparent distress, alert Eye Exam: PERRL/EOMI Ears, Nose, Throat Exam: normal ENT inspection Neck Exam: normal inspection, non-tender, supple, full range of motion Respiratory Exam: normal breath sounds, rhonchi Cardiovascular Exam: regular rate/rhythm, normal heart sounds Gastrointestinal/Abdomen Exam: soft, normal bowel sounds, No tenderness Back Exam: normal inspection, normal range of motion Extremity Exam: normal inspection, normal range of motion Neurologic Exam: alert, oriented x 3, cooperative Skin Exam: normal color SpO2 Interpretation: normal SpO2: 98 O2 Delivery: Nasal Cannula - Course EKG Interpreted by Me: RATE (64., Paced), Left [place] Deviation, prolonged QT interval, Non-specific ST Changes Ordered Tests: Active Orders 24 hr Category Date Time Status Material Handling Crew Supervisor STAT Care 03/28/23 15:36 Active EKG-ER Only STAT Care 03/28/23 15:36 Active IV Insertion STAT Care 03/28/23 15:36 Active CHEST 1 VIEW (PORTABLE) Stat Exams 03/28/23 15:36 Completed CBC W DIFF Stat Lab 03/28/23 14:27 Completed CMP Stat Lab 03/28/23 14:27 Completed MAGNESIUM Stat Lab 03/28/23 14:27 Completed NT PRO BNPII Stat Lab 03/28/23 14:27 Completed PT INR [PROTIME WITH INR] Stat Lab 03/28/23 16:21 Completed TROPONIN Q4H Lab 03/28/23 14:27 Completed TROPONIN Q4H Lab 03/28/23 19:45 Completed TROPONIN Q4H Lab 03/28/23 23:45 Ordered Transfer Order Routine Transfer 03/28/23 Ordered Medication Summary Generic Name Dose Route Start Last Admin Trade Name Freq PRN Reason Stop Dose Admin Nitroglycerin/Dextrose 250 mls @ 1.5 mls/hr 03/28/23 16:37 Ntg 0.2mg/Ml In D5w Glass IV 04/27/23 16:36 .Q24H PRN CHEST PAIN Protocol 5 MCG/MIN Discontinued Medications Generic Name Dose Route Start Last Admin Trade Name Freq PRN Reason Stop Dose Admin Furosemide 40 mg 03/28/23 15:36 03/28/23 15:56 Furosemide 40 Mg/4 Ml Vial IV 03/28/23 15:37 40 mg STAT ONE Administration Furosemide Confirm 03/28/23 15:55 Furosemide 40 Mg/4 Ml Vial Administered 03/28/23 15:56 Dose 40 mg .ROUTE .STK-MED ONE Hydralazine HCl 10 mg 03/28/23 15:37 03/28/23 15:57 Hydralazine Hcl 20 Mg/Ml Vial IV 03/28/23 15:38 10 mg STAT ONE Administration Hydralazine HCl Confirm 03/28/23 15:54 Hydralazine Hcl 20 Mg/Ml Vial Administered 03/28/23 15:55 Dose 20 mg .ROUTE .[facility] ONE Lab/Rad Data: Laboratory Result Diagrams 03/28/23 14:27 03/28/23 14:27 Laboratory Results 03/28/23 03/28/23 03/28/23 Range/Units 19:45 16:21 14:27 WBC (4.0-10.5) x10^3/uL RBC (4.1-5.4) x10^6/uL Hgb (12.0-16.0) g/dL Hct (35-47) % MCV (78-100) fL MCH (26-32) pg MCHC (32-36) g/dL RDW (11.5-14.0) % Plt Count (150-450) x10^3/uL MPV (7.5-11.0) fL Gran % (36.0-66.0) % Immature Gran % (Auto) (0.00-0.4) % Nucleat RBC Rel Count (0.00-0.1) % Eos # (Auto) (0-0.5) x10^3/uL Immature Gran # (Auto) (0.00-0.03) x10^3u/L Absolute Lymphs (auto) (1.0-4.6) x10^3/uL Absolute Monos (auto) (0.0-1.3) x10^3/uL Absolute Nucleated RBC (0.00-0.01) x10^3u/L Lymphocytes % (24.0-44.0) % Monocytes % (0.0-12.0) % Eosinophils % (0.00-5.0) % Basophils % (0.0-0.4) % Absolute Granulocytes (1.4-6.9) x10^3/uL Basophils # (0-0.4) x10^3/uL PT 47.3 H (9.4-12.5) SECONDS INR 4.88 H (0.8-3.0) Sodium (137-145) mmol/L Potassium (3.5-5.1) mmol/L Chloride (98-107) mmol/L Carbon Dioxide (22-30) mmol/L Anion Gap (5-15) MEQ/L BUN (7-17) mg/dL Creatinine (0.52-1.04) mg/dL Estimated GFR ML/MIN Glucose (74-106) mg/dL Calcium (8.4-10.2) mg/dL Magnesium (1.6-2.3) mg/dL Total Bilirubin (0.2-1.3) mg/dL AST (14-36) U/L ALT (0-35) U/L Alkaline Phosphatase (38-126) U/L Troponin I 0.020 (0.000-0.034) ng/mL NT-Pro-B Natriuret Pep 5770 (<300) pg/mL Serum Total Protein (6.3-8.2) g/dL Albumin (3.5-5.0) g/dL 03/28/23 03/28/23 03/28/23 Range/Units 14:27 14:27 14:27 WBC 11.3 H (4.0-10.5) x10^3/uL RBC 4.30 (4.1-5.4) x10^6/uL Hgb 12.7 (12.0-16.0) g/dL Hct 41.0 (35-47) % MCV 95.3 (78-100) fL MCH 29.5 (26-32) pg MCHC 31.0 L (32-36) g/dL RDW 15.6 H (11.5-14.0) % Plt Count 217 (150-450) x10^3/uL MPV 10.7 (7.5-11.0) fL Gran % 84.9 H (36.0-66.0) % Immature Gran % (Auto) 0.5 H (0.00-0.4) % Nucleat RBC Rel Count 0.0 (0.00-0.1) % Eos # (Auto) 0.01 (0-0.5) x10^3/uL Immature Gran # (Auto) 0.06 H (0.00-0.03) x10^3u/L Absolute Lymphs (auto) 0.86 L (1.0-4.6) x10^3/uL Absolute Monos (auto) 0.76 (0.0-1.3) x10^3/uL Absolute Nucleated RBC 0.00 (0.00-0.01) x10^3u/L Lymphocytes % 7.6 L (24.0-44.0) % Monocytes % 6.7 (0.0-12.0) % Eosinophils % 0.1 (0.00-5.0) % Basophils % 0.2 (0.0-0.4) % Absolute Granulocytes 9.55 H (1.4-6.9) x10^3/uL Basophils # 0.02 (0-0.4) x10^3/uL PT (9.4-12.5) SECONDS INR (0.8-3.0) Sodium 139 (137-145) mmol/L Potassium 4.2 (3.5-5.1) mmol/L Chloride 99 (98-107) mmol/L Carbon Dioxide 32 H (22-30) mmol/L Anion Gap 12.0 (5-15) MEQ/L BUN 20 H (7-17) mg/dL Creatinine 0.79 (0.52-1.04) mg/dL Estimated GFR > 60.0 ML/MIN Glucose 143 H (74-106) mg/dL Calcium 9.3 (8.4-10.2) mg/dL Magnesium 2.1 (1.6-2.3) mg/dL Total Bilirubin 1.30 (0.2-1.3) mg/dL AST 50 H (14-36) U/L ALT 53 H (0-35) U/L Alkaline Phosphatase 102 (38-126) U/L Troponin I 0.024 (0.000-0.034) ng/mL NT-Pro-B Natriuret Pep (<300) pg/mL Serum Total Protein 7.6 (6.3-8.2) g/dL Albumin 4.4 (3.5-5.0) g/dL - Progress Progress: improved, re-examined Progress Note: 03/28/23 17:29 88-year-old is evaluated for elevated blood pressure found at the clinic and having some shortness of breath. Patient is recently diagnosed with CHF and started on diuretics. Patient oxygen saturation was 92% and placed on 1 L oxygen, feeling much better. Lungs sound mildly wet, given Lasix and also hydralazine which improved the blood pressure. Patient feeling much better on reevaluation. Chest x-ray showed finding consistent with congestive heart failure and also has increasing BNP from 3002 closer to 6000 and last few days. EKG showed paced rhythm and has negative initial troponins. I believe patient w ould benefit with IV diuretics. Has an INR of 4.8 with no active signs of bleeding. I believe patient symptomatology is consistent with CHF exacerbation I have discussed with Dr. Carbajal, reviewed history, work-up and patient is being admitted. Discussed with : Doni Will see patient in: hospital (observation) Counseled pt/family regarding: lab results, diagnosis, rad results Medical Desision Making - Independent Historian Additional History obtained from: Spouse - Discussion of managment Care discussed with:: on-call "doc" Reviewed:: Test results, Need for additional workup Agreed on:: Treatment plan, place in obs Will see patient: in hospital - Diagnostic Testing Diagnostic test were ordered, analyzed, and reviewed by me: Yes Radiological Interpretation: Reviewed by me - Risk of complications The pt has a high risk of morbidity or mortality based on: Decision regarding hospitilization or escalation of hosp level of care - Departure Departure Disposition: Observation Clinical Impression: CHF exacerbation, HTN (hypertension), Elevated INR Condition: Stable Critical Care Time: No Referrals: [facility] [Primary Care Provider] - Follow up/PCP as directed Instructions: Heart Failure
--- NOTE | 2023-03-28 16:26 | XRAY ---
Indication: Hypertension. Comparison: March 24, 2023 Portable chest again demonstrates cardiomegaly with increasing central vascular congestion and worsening small bibasilar effusions again favoring cardiac decompensation/CHF. Superimposed pneumonia not completely excluded.
[2023-03-28 16:32] LABS: INR 4.88 (0.8-3.0); PROTIME 47.3 SECONDS (9.4-12.5)
[2023-03-28] MEDS ORDERED: Ntg 0.2MG/Ml in D5W GLASS*** 250 ML IV PRN (16:37)
[2023-03-28] MEDS ORDERED: TYLENOL 325 MG PO PRN (21:14)
[2023-03-28] MEDS ORDERED: DUONEB 0.5-3 MG/3 ml Neb IH SCH (21:14)
[2023-03-28] MEDS ORDERED: PROVENTIL 2.5 MG/3 ML NEB IH PRN (23:11)
[2023-03-28] MEDS ORDERED: VENTOLIN COMMON CANISTER IH PRN (23:12)
[2023-03-28] MEDS ORDERED: Apresoline 25 MG TABLET PO ONE (23:15)
[2023-03-29] MEDS: Pepcid 20 MG VIAL IV SCH ×3 (00:11→21:57)
[2023-03-29] MEDS ORDERED: PHENERGAN 25 MG PO PRN (00:38)
[2023-03-29] MEDS ORDERED: Docusate Sodium 100 MG PO PRN (00:38)
--- NOTE | 2023-03-29 00:55 | PCM.HP ---
History of Present Illness - Chief Complaint Chief Complaint: CHF exacerbation History of Present Illness: is a 88-year-old female with history of hypertension, hyperlipidemia, GERD, atrial fibrillation on Coumadin, recently diagnosed with congestive heart failure (2 years ago per patient) who presented to the ER with elevated blood pressure and some shortness of breath for about 1 week. She states that she ran out of her "water pill" (she was referring to spironolactone) about a week ago. Since then, she has had dyspnea, occasionally with rest and reliably with exertion. Also about a week ago she also developed a dry cough and self diagnosed herself with a bronchitis, so she took Coricidin and Mucinex, and her cough resolved. She usually sleeps with 2 pillows without any change recently. She denied any leg edema. She weighs herself frequently and in fact reports a weight loss. Patient reports she was at primary care office and her blood pressure was in 190s, was given clonidine which did not help much with improvement in blood pressure. She denies any headache or visual disturbance, does feel shortness of breath with activity although she has been taking Lasix for the last few days since her last visit in the ER where she was found to be in congestive heart failure. Denies any chest pain, abdominal pain nausea or vomiting. No focal numbness tingling or weakness although does have history of CVA in the past with no residual. Patient blood pressure is in the 200s on presentation to the ED. She received Lasix IV and there was an improvement in her blood pressure. The entirety of this encounter was performed via telemedicine. The patient verbally consented to this telemedicine encounter. - Review of Systems Constitutional: Fatigue Eyes: No Symptoms Ears, Nose, & Throat: No Symptoms Respiratory: Short Of Breath Cardiac: No Symptoms Abdominal/Gastrointestinal: No Symptoms Genitourinary Symptoms: No Symptoms Musculoskeletal: No Symptoms Skin: No Symptoms Neurological: No Symptoms Psychological: No Symptoms Endocrine: No Symptoms Medications & Allergies Home Medications: Home Medication List Simvastatin 40 mg [Zocor 40 mg] 40 mg PO HS 10/04/14 [History Confirmed 03/28/23] Spironolactone 25 mg PO DAILY 10/12/17 [History Confirmed 03/28/23] Albuterol 2.5 mg/3 ml Neb [Proventil 2.5 mg/3 ml Neb] 3 ml NEB TIDPRN PRN 03/20/18 [History Confirmed 03/28/23] Albuterol Sulfate [Albuterol Sulfate Hfa] 2 puff IH QIDPRN PRN 03/20/18 [History Confirmed 03/28/23] Citalopram Hydrobromide [Celexa] 10 mg PO DAILY 03/20/18 [History Confirmed 03/28/23] Metoprolol Tartrate 25 mg [Lopressor 25MG Tab] 25 mg PO BID 03/20/18 [History Confirmed 03/28/23] Budesonide 0.5 mg/2 ml [Pulmicort 0.5 mg/2 ml Respules] 2 ml IH QID 05/18/22 [History Confirmed 03/28/23] Warfarin Sodium 1 mg [Jantoven] 1 mg PO UD 90 Days #103 tablet 09/07/22 [Rx Confirmed 03/28/23] Omeprazole 1 cap PO DAILY 03/24/23 [History Confirmed 03/28/23] Prednisone 10 mg [Deltasone 10 mg] 40 mg PO DAILY 5 Days #100 tablet 03/24/23 [Rx Confirmed 03/28/23] Allergies/Adverse Reactions: Allergies Allergy/AdvReac Type Severity Reaction Status Date / Time Penicillins Allergy Severe Hives Verified 03/24/23 08:56 - Past Medical History Past Medical History: Yes Neurological History: Stroke ENT History: Cataracts Cardiac History: Arrhythmia, High Cholesterol, Hypertension, Other (No history of CAD, [place], PCI or CABG) Respiratory History: Bronchitis, COPD Endocrine Medical History: No Pertinent History Musculoskelatal History: No Pertinent History GI Medical History: GERD, Ulcer History: Renal Disease, Other Pyscho-Social History: Anxiety Reproductive Disorders: No Pertinent History, Other Comment: skin cancer face, [place]. - Female History Are you now?: No - Past Surgical History Past Surgical History: Yes Neuro Surgical History: No Pertinent History Cardiac History: Angioplasty, Pacemaker Respiratory Surgery: No Pertinent History GI Surgical History: No Pertinent History Genitourinary Surgical Hx: No Pertinent History Musculskeletal Surgical Hx: Orthopedic Surgery Female Surgical History: Hysterectomy Other Surgical History: Inner ear sx, surgery to L1 & L7, Heart surgery 2020 - Social History Smoking Status: Former smoker Exposure to second hand smoke: No Alcohol: Occasionally Drug Use: none - Physical Exam Vital Signs: Vital Signs - 24 hr Temp Pulse Resp BP BP Pulse Ox 03/29/23 00:00 97.1 F 56 L 18 151/66 97 03/28/23 23:58 59 L 20 94 L 03/28/23 21:33 97.3 F 65 21 209/85 97 03/28/23 20:51 98 03/28/23 19:15 62 19 180/75 98 03/28/23 19:03 57 L 22 178/62 98 03/28/23 18:24 72 24 163/91 96 03/28/23 18:20 55 L 17 97 03/28/23 18:16 57 L 25 H 97 03/28/23 18:00 55 L 21 160/60 97 03/28/23 17:45 55 L 25 H 183/80 98 03/28/23 17:35 78 23 162/55 97 03/28/23 17:30 64 24 98 03/28/23 17:23 67 26 H 98 03/28/23 17:02 173/88 03/28/23 16:45 160/65 03/28/23 16:37 55 L 25 H 167/69 96 03/28/23 16:20 79 26 H 98 03/28/23 16:18 98 03/28/23 16:00 215/98 03/28/23 15:45 58 L 24 200/116 98 03/28/23 15:30 71 23 222/102 98 03/28/23 15:18 68 22 202/87 98 03/28/23 15:16 63 17 125/102 98 03/28/23 15:00 64 20 238/92 96 03/28/23 14:38 98.7 F 80 24 218/100 92 L General Appearance: no apparent distress Neurologic Exam: alert, oriented x 3, cooperative, minister helper II-XII nml as tested, normal mood/affect, nml cerebellar function Eye Exam: PERRL/EOMI, eyes nml inspection Ears, Nose, Throat Exam: normal ENT inspection, moist mucous membranes Neck Exam: normal inspection, non-tender, supple, full range of motion Respiratory Exam: airway intact, diminished breath sounds Cardiovascular Exam: regular rate/rhythm, normal heart sounds, normal peripheral pulses Gastrointestinal/Abdomen Exam: soft, normal bowel sounds Pelvic Exam: not done Rectal Exam: deferred Extremity Exam: normal inspection, normal range of motion Skin Exam: normal color, warm Results - Labs Lab/Micro Results: Lab Results-Last 24 Hours 03/28/23 03/28/23 03/28/23 Range/Units 14:27 14:27 14:27 WBC 11.3 H (4.0-10.5) x10^3/uL RBC 4.30 (4.1-5.4) x10^6/uL Hgb 12.7 (12.0-16.0) g/dL Hct 41.0 (35-47) % MCV 95.3 (78-100) fL MCH 29.5 (26-32) pg MCHC 31.0 L (32-36) g/dL RDW 15.6 H (11.5-14.0) % Plt Count 217 (150-450) x10^3/uL MPV 10.7 (7.5-11.0) fL Gran % 84.9 H (36.0-66.0) % Immature Gran % (Auto) 0.5 H (0.00-0.4) % Nucleat RBC Rel Count 0.0 (0.00-0.1) % Eos # (Auto) 0.01 (0-0.5) x10^3/uL Immature Gran # (Auto) 0.06 H (0.00-0.03) x10^3u/L Absolute Lymphs (auto) 0.86 L (1.0-4.6) x10^3/uL Absolute Monos (auto) 0.76 (0.0-1.3) x10^3/uL Absolute Nucleated RBC 0.00 (0.00-0.01) x10^3u/L Lymphocytes % 7.6 L (24.0-44.0) % Monocytes % 6.7 (0.0-12.0) % Eosinophils % 0.1 (0.00-5.0) % Basophils % 0.2 (0.0-0.4) % Absolute Granulocytes 9.55 H (1.4-6.9) x10^3/uL Basophils # 0.02 (0-0.4) x10^3/uL PT (9.4-12.5) SECONDS INR (0.8-3.0) Sodium 139 (137-145) mmol/L Potassium 4.2 (3.5-5.1) mmol/L Chloride 99 (98-107) mmol/L Carbon Dioxide 32 H (22-30) mmol/L Anion Gap 12.0 (5-15) MEQ/L BUN 20 H (7-17) mg/dL Creatinine 0.79 (0.52-1.04) mg/dL Estimated GFR > 60.0 ML/MIN Glucose 143 H (74-106) mg/dL Calcium 9.3 (8.4-10.2) mg/dL Magnesium 2.1 (1.6-2.3) mg/dL Total Bilirubin 1.30 (0.2-1.3) mg/dL AST 50 H (14-36) U/L ALT 53 H (0-35) U/L Alkaline Phosphatase 102 (38-126) U/L Troponin I 0.024 (0.000-0.034) ng/mL NT-Pro-B Natriuret Pep (<300) pg/mL Serum Total Protein 7.6 (6.3-8.2) g/dL Albumin 4.4 (3.5-5.0) g/dL 03/28/23 03/28/23 03/28/23 Range/Units 14:27 16:21 19:45 WBC (4.0-10.5) x10^3/uL RBC (4.1-5.4) x10^6/uL Hgb (12.0-16.0) g/dL Hct (35-47) % MCV (78-100) fL MCH (26-32) pg MCHC (32-36) g/dL RDW (11.5-14.0) % Plt Count (150-450) x10^3/uL MPV (7.5-11.0) fL Gran % (36.0-66.0) % Immature Gran % (Auto) (0.00-0.4) % Nucleat RBC Rel Count (0.00-0.1) % Eos # (Auto) (0-0.5) x10^3/uL Immature Gran # (Auto) (0.00-0.03) x10^3u/L Absolute Lymphs (auto) (1.0-4.6) x10^3/uL Absolute Monos (auto) (0.0-1.3) x10^3/uL Absolute Nucleated RBC (0.00-0.01) x10^3u/L Lymphocytes % (24.0-44.0) % Monocytes % (0.0-12.0) % Eosinophils % (0.00-5.0) % Basophils % (0.0-0.4) % Absolute Granulocytes (1.4-6.9) x10^3/uL Basophils # (0-0.4) x10^3/uL PT 47.3 H (9.4-12.5) SECONDS INR 4.88 H (0.8-3.0) Sodium (137-145) mmol/L Potassium (3.5-5.1) mmol/L Chloride (98-107) mmol/L Carbon Dioxide (22-30) mmol/L Anion Gap (5-15) MEQ/L BUN (7-17) mg/dL Creatinine (0.52-1.04) mg/dL Estimated GFR ML/MIN Glucose (74-106) mg/dL Calcium (8.4-10.2) mg/dL Magnesium (1.6-2.3) mg/dL Total Bilirubin (0.2-1.3) mg/dL AST (14-36) U/L ALT (0-35) U/L Alkaline Phosphatase (38-126) U/L Troponin I 0.020 (0.000-0.034) ng/mL NT-Pro-B Natriuret Pep 5770 (<300) pg/mL Serum Total Protein (6.3-8.2) g/dL Albumin (3.5-5.0) g/dL 03/28/23 Range/Units 23:42 WBC (4.0-10.5) x10^3/uL RBC (4.1-5.4) x10^6/uL Hgb (12.0-16.0) g/dL Hct (35-47) % MCV (78-100) fL MCH (26-32) pg MCHC (32-36) g/dL RDW (11.5-14.0) % Plt Count (150-450) x10^3/uL MPV (7.5-11.0) fL Gran % (36.0-66.0) % Immature Gran % (Auto) (0.00-0.4) % Nucleat RBC Rel Count (0.00-0.1) % Eos # (Auto) (0-0.5) x10^3/uL Immature Gran # (Auto) (0.00-0.03) x10^3u/L Absolute Lymphs (auto) (1.0-4.6) x10^3/uL Absolute Monos (auto) (0.0-1.3) x10^3/uL Absolute Nucleated RBC (0.00-0.01) x10^3u/L Lymphocytes % (24.0-44.0) % Monocytes % (0.0-12.0) % Eosinophils % (0.00-5.0) % Basophils % (0.0-0.4) % Absolute Granulocytes (1.4-6.9) x10^3/uL Basophils # (0-0.4) x10^3/uL PT (9.4-12.5) SECONDS INR (0.8-3.0) Sodium (137-145) mmol/L Potassium (3.5-5.1) mmol/L Chloride (98-107) mmol/L Carbon Dioxide (22-30) mmol/L Anion Gap (5-15) MEQ/L BUN (7-17) mg/dL Creatinine (0.52-1.04) mg/dL Estimated GFR ML/MIN Glucose (74-106) mg/dL Calcium (8.4-10.2) mg/dL Magnesium (1.6-2.3) mg/dL Total Bilirubin (0.2-1.3) mg/dL AST (14-36) U/L ALT (0-35) U/L Alkaline Phosphatase (38-126) U/L Troponin I 0.020 (0.000-0.034) ng/mL NT-Pro-B Natriuret Pep (<300) pg/mL Serum Total Protein (6.3-8.2) g/dL Albumin (3.5-5.0) g/dL - Radiology Impressions Radiology Exams & Impressions: Radiology Procedures Category Date Time Status CHEST 1 VIEW (PORTABLE) Stat Exams 03/28/23 15:36 Completed - Other Procedures and Tests Respiratory Therapy 03/28/23 23:27 Oxygen NASAL CANNULA 2 lpm 03/28/23 23:30 Respiratory Therapy Assessment DAILY Assessment/Plan (1) CHF exacerbation Current Visit: Yes Status: Acute Assessment & Plan: Dr. Carbajal has placed the patient on Lasix 40 mg IV daily. Can monitor and possibly increase dose to BID. Resumed aldactone. Defer to daytime team regarding need for ECHO. Monitor on telemetry and repeat BNP in AM. CXR read cannot rule out underlying pneumonia. Very mild leukocytosis noted. Cough resolved and afebrile. UA pending and will need to be followed up. Can consider repeat CXR to assess for infiltrate after further diuresis. Code(s): I50.9 - HEART FAILURE, UNSPECIFIED (2) Elevated INR Current Visit: Yes Status: Acute Assessment & Plan: Resume coumadin with hold paramaters (hold if INR >3). Recheck INR in AM. No bleeding. Denies BRBPR or hematemesis Code(s): R79.1 - ABNORMAL COAGULATION PROFILE (3) HTN (hypertension) Current Visit: Yes Status: Chronic Assessment & Plan: Might be volume sensitive. On beta solomon chronically, which has been resumed. Defer to PCP about adding ACEI. Monitor BP trend. Code(s): I10 - ESSENTIAL (PRIMARY) HYPERTENSION (4) Atrial fibrillation Current Visit: No Status: Chronic Qualifiers: Atrial fibrillation type: chronic Assessment & Plan: Monitor on telemetry. On beta solomon. Code(s): I48.91 - UNSPECIFIED ATRIAL FIBRILLATION Telemedicine Encounter - Telemedicine Encounter Telemedicine Encounter: The entirety of this encounter was performed via Telemedicine"
[2023-03-29] MEDS ORDERED: PHARMACY DOSING REQUEST MC ONE (03:32)
[2023-03-29] MEDS: PROVENTIL 2.5 MG/3 ML NEB IH SCH ×2 (05:17→20:10)
[2023-03-29] MEDS: PULMICORT 0.5 MG/2 ML RESPULES IH SCH ×2 (05:17→20:10)
[2023-03-29 05:52] LABS: Absolute Neutrophil Ct (ANC) 7.85 x10^3/uL (1.4-6.9); BASOPHIL % 0.1 % (0.0-0.4); Basophil (Absolute #) 0.01 x10^3/uL (0-0.4); Eosinophil % 0.1 % (0.00-5.0); Eosinophil (Absolute #) 0.01 x10^3/uL (0-0.5); IMMATURE GRAN # 0.05 x10^3u/L (0.00-0.03); IMMATURE GRAN % 0.5 % (0.00-0.4); Lymphocyte (Absolute #) 1.73 x10^3/uL (1.0-4.6); Lymphocytes % 15.7 % (24.0-44.0); Mean Cell Volume 94.3 fL (78-100); Mean Corpuscular Hemoglobin 29.9 pg (26-32); Mean Corpuscular Hgb Concent. 31.7 g/dL (32-36); Mean Platelet Volume 10.7 fL (7.5-11.0); Monocytes % 12.7 % (0.0-12.0); Neutrophil % 70.9 % (36.0-66.0); Platelet Count 230 x10^3/uL (150-450); Red Blood Count 4.35 x10^6/uL (4.1-5.4); Red Cell Distribution Width 15.1 % (11.5-14.0); White Blood Count 11.1 x10^3/uL (4.0-10.5)
[2023-03-29 05:55] LABS: Appearance Clear (Clear); Bacteria Many /HPF (None Seen); Bilirubin Negative (Negative); Blood Negative (Negative); Epithelial Cells None Seen /HPF (None Seen); Glucose, Urine Negative (Negative); Hyaline Casts NONE SEEN /LPF (0-2); Ketones Negative (Negative); Leukocyte Esterase Trace (Negative); Nitrite Negative (Negative); Protein,Urine Dip Trace (Negative); Specific Gravity 1.015 (1.005-1.030)
[2023-03-29 06:02] LABS: ADD URINE CULTURE? NO (NO)
[2023-03-29 06:24] LABS: INR 3.9 (0.8-3.0); PROTIME 38.4 SECONDS (9.4-12.5)
[2023-03-29 06:26] LABS: ALKALINE PHOSPHATASE 97 U/L (38-126); ANION GAP 12.6 MEQ/L (5-15); BLOOD UREA NITROGEN 21 mg/dL (7-17); CHLORIDE 95 mmol/L (98-107); Calcium 9.1 mg/dL (8.4-10.2); Carbon Dioxide 35 mmol/L (22-30); Creatinine 1 0.89 mg/dL (0.52-1.04); EST GLOMERULAR FILTRATION RATE > 60.0 ML/MIN; Glucose 109 mg/dL (74-106); NT PRO BNPII 6300 pg/mL (<300); Potassium 3.7 mmol/L (3.5-5.1); SGOT/AST 43 U/L (14-36); SGPT/ALT 48 U/L (0-35); SODIUM 139 mmol/L (137-145); Total Protein 7.3 g/dL (6.3-8.2)
[2023-03-29] MEDS ORDERED: JANTOVEN PO SCH (07:30)
[2023-03-29] MEDS ORDERED: DELTASONE 10 MG PO SCH (10:00)
[2023-03-29] MEDS: Cozaar 50 MG PO SCH (10:20)
[2023-03-29] MEDS: Protonix 40MG Tablet PO SCH (10:20)
[2023-03-29] MEDS: DELTASONE 20 MG PO SCH (10:21)
[2023-03-29] MEDS: Lopressor 25MG Tab PO SCH ×2 (10:21→21:56)
[2023-03-29] MEDS: ceLEXa 20 MG PO SCH (10:22)
[2023-03-29] MEDS: Aldactone 25 MG PO SCH (10:22)
[2023-03-29] MEDS: Lasix 40 MG/4 ML IV SCH (10:23)
[2023-03-29] MEDS ORDERED: Lasix 40 MG/4 ML IV ONE (17:00)
[2023-03-29] MEDS ORDERED: APRESOLINE 20 MG/ML INJ IV PRN (19:00)
[2023-03-29] MEDS ORDERED: ZOCOR 20MG PO SCH (22:00)
[2023-03-30 05:50] LABS: Hematocrit 44.1 % (35-47); Hemoglobin 14.5 g/dL (12.0-16.0); Mean Cell Volume 91.5 fL (78-100); Mean Corpuscular Hemoglobin 30.1 pg (26-32); Mean Corpuscular Hgb Concent. 32.9 g/dL (32-36); Mean Platelet Volume 10.4 fL (7.5-11.0); Platelet Count 275 x10^3/uL (150-450); Red Blood Count 4.82 x10^6/uL (4.1-5.4); Red Cell Distribution Width 15.4 % (11.5-14.0); White Blood Count 13.4 x10^3/uL (4.0-10.5)
[2023-03-30 06:22] LABS: Calcium 9.3 mg/dL (8.4-10.2); Creatinine 1 1.16 mg/dL (0.52-1.04); Potassium 3.4 mmol/L (3.5-5.1)
[2023-03-30 07:39] LABS: INR 2.32 (0.8-3.0); PROTIME 23.8 SECONDS (9.4-12.5)
[2023-03-30] MEDS: PULMICORT 0.5 MG/2 ML RESPULES IH SCH (08:07)
[2023-03-30] MEDS: PROVENTIL 2.5 MG/3 ML NEB IH SCH (08:07)
[2023-03-30] MEDS: Lasix 40 MG/4 ML IV SCH (09:09)
[2023-03-30] MEDS: Pepcid 20 MG VIAL IV SCH (09:10)
[2023-03-30] MEDS: DELTASONE 20 MG PO SCH (09:10)
[2023-03-30] MEDS: Protonix 40MG Tablet PO SCH (09:10)
[2023-03-30] MEDS: ceLEXa 20 MG PO SCH (09:10)
[2023-03-30] MEDS: Cozaar 50 MG PO SCH (09:10)
[2023-03-30] MEDS: Aldactone 25 MG PO SCH (09:10)
[2023-03-30] MEDS: Lopressor 25MG Tab PO SCH (09:10)
[2023-03-30 11:38] VITALS: PULSE 85; O2SAT 94
[2023-03-30 13:03] VITALS: BP 163/70
--- NOTE | 2023-03-30 14:27 | PCM.DS ---
Discharge Summary Date of Admission: 03/28/23 20:56 Admitting Physician: APARNA PIERCE MD Primary Care Provider: TE CARBAJAL Allergies Allergies Penicillins Allergy (Severe, Verified 03/24/23 08:56) [facility] Summary - Hospital Course Hospital Course: Ms. Crump is an 88 yo female pt of Dr. Carbajal with afib, CKD, COPD, CAD, depression, HTN, hx PUD, hx TIA who was admitted through ER with CHF exacerbation and hypertensive urgency. CXR with bibasilar effusions favoring cardiac decompensation. At home, she had run out of spironolactone and hadn't taken it for several days. She had some to the office yesterday and had BP >190 systolic; was given 0.1mg clonidine po and it decreased to 174 systolic. She was sent home to resume her meds but had to return to ER instead. Pt's INR was 4.88 on admission so it was held for two days. Today it is normal. Our pharmacist discussed coumadin with her and came up with a dosing plan. She was started on lasix IV 40mg daily. Her BP were still elevated so she was started on losartan 25mg po daily yesterday. Her BP have been better; still having some elevated (was 174 systolic after her shower - but decreased to 163/70 after resting). She will be discharged to home on her home medications and f/u with DR. Carbajal in 1 week. - Vitals & Intake/Output Vital Signs: Vital Signs Temperature 97.8 F 03/30/23 11:37 Pulse Rate 85 03/30/23 11:37 Respiratory Rate 16 03/30/23 11:37 Blood Pressure 163/70 03/30/23 13:00 O2 Sat by Pulse Oximetry 94 L 03/30/23 11:37 Intake & Output: Intake & Output 03/28/23 03/29/23 03/30/23 03/31/23 11:59 11:59 11:59 11:59 Intake Total 200 600 Output Total 200 Balance 0 600 Weight 62.2 kg 62.3 kg - Lab Result Diagrams: 03/30/23 05:37 03/30/23 05:37 Lab Results-Last 24 Hrs: Lab Results-Last 24 Hours 03/30/23 03/30/23 03/30/23 Range/Units 05:37 05:37 05:37 WBC 13.4 H (4.0-10.5) x10^3/uL RBC 4.82 (4.1-5.4) x10^6/uL Hgb 14.5 (12.0-16.0) g/dL Hct 44.1 (35-47) % MCV 91.5 (78-100) fL MCH 30.1 (26-32) pg MCHC 32.9 (32-36) g/dL RDW 15.4 H (11.5-14.0) % Plt Count 275 (150-450) x10^3/uL MPV 10.4 (7.5-11.0) fL PT 23.8 H (9.4-12.5) SECONDS INR 2.32 D (0.8-3.0) Sodium 137 (137-145) mmol/L Potassium 3.4 L (3.5-5.1) mmol/L Chloride 91 L (98-107) mmol/L Carbon Dioxide 37 H (22-30) mmol/L Anion Gap 13.0 (5-15) MEQ/L BUN 35 H (7-17) mg/dL Creatinine 1.16 H (0.52-1.04) mg/dL Estimated GFR 47.0 ML/MIN Glucose 140 H (74-106) mg/dL Calcium 9.3 (8.4-10.2) mg/dL - Radiology Exams Ordered Rad Exams-Entire Visit: Radiology Procedures Category Date Time Status CHEST 1 VIEW (PORTABLE) Stat Exams 03/28/23 15:36 Completed - Procedures and Test Procedures and Tests throughout Hospitalization: Therapy Orders & Screens 03/28/23 23:27 Oxygen NASAL CANNULA 2 lpm Comment: Diagnosis: CHF exacerbation 03/28/23 23:30 Respiratory Therapy Assessment DAILY Comment: Diagnosis: CHF exacerbation 03/29/23 00:38 PT Eval & Treat ( Order) ONCE Reason for Eval:: DEBILITY, ASSESS FOR DESATURATION WITH AMBULATION Diagnosis: CHF exacerbation Discharge Exam General Appearance: no apparent distress, thin Neurologic Exam: alert, oriented x 3, cooperative Eye Exam: eyes nml inspection Ears, Nose, Throat Exam: moist mucous membranes Respiratory Exam: normal breath sounds, lungs clear, No crackles/rales, No rhonchi, No wheezing Cardiovascular Exam: regular rate/rhythm, normal heart sounds, No murmur Extremity Exam: normal inspection, No pedal edema, No swelling Skin Exam: normal color, warm, dry, No rash Final Diagnosis/Problem List - Final Discharge Diagnosis/Problem (1) Hypertensive urgency Current Visit: Yes Status: Resolved Code(s): I16.0 - HYPERTENSIVE URGENCY (2) CHF exacerbation Current Visit: Yes Status: Acute Assessment & Plan: much improved. Home on po spironolactone. Code(s): I50.9 - HEART FAILURE, UNSPECIFIED (3) Elevated INR Current Visit: Yes Status: Acute Assessment & Plan: Down to normal today after being held x 2d. I spoke with the pharmacist; it was felt that the prednisone made her INR increase. She will be going home on prednisone, so the dose has been decreased from total 12mg/d to 7mg/wk. F/u with PCP next week. Code(s): R79.1 - ABNORMAL COAGULATION PROFILE (4) HTN (hypertension) Current Visit: Yes Status: Chronic Assessment & Plan: Advised pt may take a week for losartan's full effects to be established. Code(s): I10 - ESSENTIAL (PRIMARY) HYPERTENSION - Discharge Disposition: Home, Self-Care Condition: Stable Prescriptions: New Spironolactone 25 mg [Aldactone 25 MG] 25 mg PO DAILY #90 tablet Losartan Potassium 50 mg [Cozaar 50 MG] 50 mg PO DAILY #90 tablet Warfarin Sodium 1 mg [Jantoven] 1 mg PO DAILY AT 1800 tablet Continue Simvastatin 40 mg [Zocor 40 mg] 40 mg PO HS Spironolactone 25 mg PO DAILY Albuterol 2.5 mg/3 ml Neb [Proventil 2.5 mg/3 ml Neb] 3 ml NEB TIDPRN PRN PRN Reason: Shortness Of Breath Albuterol Sulfate [Albuterol Sulfate Hfa] 2 puff IH QIDPRN PRN PRN Reason: Shortness Of Breath Metoprolol Tartrate 25 mg [Lopressor 25MG Tab] 25 mg PO BID Citalopram Hydrobromide [Celexa] 10 mg PO DAILY Budesonide 0.5 mg/2 ml [Pulmicort 0.5 mg/2 ml Respules] 2 ml IH QID Warfarin Sodium 1 mg [Jantoven] 1 mg PO UD 90 Days #103 tablet Omeprazole 1 cap PO DAILY Prednisone 10 mg [Deltasone 10 mg] 40 mg PO DAILY 5 Days #100 tablet Instructions: Heart Failure, Adult (DC), Preventing Falls in Older Adults Additional Instructions: HOME HEALTHCARE HAS BEEN SET UP WITH [facility]. THEY WILL CONTACT YOU TO ARRANGE A TIME TO COME SEE YOU. THEIR PHONE NUMBER IS [phone] Follow up with: TE CARBAJAL MD [Primary Care Provider] - Call for Appointment
[2023-03-30] MEDS ORDERED: JANTOVEN PO SCH (18:00)
== END 2023-03-30 15:00 | disposition home or self-care (01) ==
LOC: ED 14:31 → MED SURG 20:56
PROVIDERS: ADMIT Internal Medicine; ATTEND Family Medicine
DX: I16.0 Hypertensive urgency (principal); I13.0 Hypertensive heart and chronic kidney disease with heart failure and stage 1 through stage 4 chronic kidney disease, or unspecified chronic kidney disease; I50.9 Heart failure, unspecified; N18.9 Chronic kidney disease, unspecified; I48.91 Unspecified atrial fibrillation; R79.1 Abnormal coagulation profile; E78.5 Hyperlipidemia, unspecified; Z79.899 Other long term (current) drug therapy; Z20.828 Contact with and (suspected) exposure to other viral communicable diseases; Z79.01 Long term (current) use of anticoagulants; Z85.828 Personal history of other malignant neoplasm of skin
CPT/HCPCS: 36000; 36415; 71045; 80048; 80053; 81001; 83735; 83880; 84484; 85025; 85027; 85610; 93005; 93041; 93268; 94640; 94760; 94762; 96374; 96375; 99285; G0378; J0360; J1940; J7609; A9270-GY

== ENCOUNTER 2023-08-24 10:03 | Emergency (ER) | payer MEDICARE ==
[2023-08-24] MEDS ORDERED: ULTRAM 50 MG PO ONE (10:19)
[2023-08-24 10:24] VITALS: BP 169/80; PULSE 64; RESP 16; O2SAT 93
--- NOTE | 2023-08-24 10:27 | ERPHSYRPT ---
- History of Present Illness Time Seen by Provider: 08/24/23 10:20 Source: patient, family Exam Limitations: no limitations Physician History: Patient is 88-year-old female came to the emergency room with complaining of right ear pain for few weeks. Patient went to her primary care physician with she found to have a mass in her right ear which she is already has an appointment with vulnerability researcher in September. She was given pain medicine tramadol 50 mg twice a day which was helping her for pain but she ran out of. To 3 days ago and her pain got worse so she came to the emergency room. She denies any other symptoms. Timing/Duration: gradual onset Severity: moderate ENT Location: ear (R) Associated Symptoms: denies symptoms Allergies/Adverse Reactions: Penicillins Allergy (Severe, Verified 08/24/23 10:12) Hives Home Medications: Simvastatin 40 mg [Zocor 40 mg] 40 mg PO HS 10/04/14 [History] Spironolactone 25 mg PO DAILY 10/12/17 [History] Albuterol 2.5 mg/3 ml Neb [Proventil 2.5 mg/3 ml Neb] 3 ml NEB TIDPRN PRN 03/20/18 [History] Albuterol Sulfate [Albuterol Sulfate Hfa] 2 puff IH QIDPRN PRN 03/20/18 [History] Citalopram Hydrobromide [Celexa] 10 mg PO DAILY 03/20/18 [History] Metoprolol Tartrate 25 mg [Lopressor 25MG Tab] 25 mg PO BID 03/20/18 [History] Budesonide 0.5 mg/2 ml [Pulmicort 0.5 mg/2 ml Respules] 2 ml IH QID 05/18/22 [History] Omeprazole 1 cap PO DAILY 03/24/23 [History] Losartan Potassium 50 mg [Cozaar 50 MG] 25 mg PO DAILY 04/12/23 [History] Hx Tetanus, Diphtheria Vaccination/Date Given: Yes Hx Influenza Vaccination/Date Given: No Hx Pneumococcal Vaccination/Date Given: Yes (2017) Travel Risk - Vaccine Status Have you recieved a Covid-19 vaccination: Yes [employer] 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 Comment: both covid vac unsure of dates - Review of Systems Constitutional: No Fever, No Chills Eyes: No Symptoms Ears, Nose, & Throat: Ear Pain Respiratory: No Cough, No Dyspnea Cardiac: No Chest Pain, No Edema, No Syncope Abdominal/Gastrointestinal: No Abdominal Pain, No Nausea, No Vomiting, No Diarrhea Genitourinary Symptoms: No Dysuria Musculoskeletal: No Back Pain, No Neck Pain Skin: No Rash Neurological: No Dizziness, No Focal Weakness, No Sensory Changes Psychological: No Symptoms Endocrine: No Symptoms All Other Systems: Reviewed and Negative - Past Medical History Pertinent Past Medical History: Yes Neurological History: Stroke ENT History: Cataracts Cardiac History: Arrhythmia, High Cholesterol, Hypertension, Other Respiratory History: Bronchitis, COPD Endocrine Medical History: No Pertinent History Musculoskeletal History: No Pertinent History GI Medical History: GERD, Ulcer History: Renal Disease, Other Psycho-Social History: Anxiety Female Reproductive Disorders: Other Other Medical History: skin cancer face, [place] - Past Surgical History Past Surgical History: Yes Neuro Surgical History: No Pertinent History Cardiac: Angioplasty, Pacemaker, Valve Replacement Respiratory: No Pertinent History Gastrointestinal: No Pertinent History Genitourinary: No Pertinent History Musculoskeletal: Orthopedic Surgery Female Surgical History: Hysterectomy Other Surgical History: Inner ear sx, surgery to L1 & L7, Heart surgery 2020 - Social History Smoking Status: Former smoker Exposure to second hand smoke: No Drug Use: none Patient Lives Alone: No - Physical Exam General Appearance: no apparent distress, alert Eye Exam: bilateral eye: PERRL, EOMI Ear Exam: right ear: other (nodule in external ear) Nasal Exam: normal inspection Throat Exam: pharynx normal, moist mucus membranes, No tonsillar exudate Neck Exam: supple Cardiovascular/Respiratory Exam: normal breath sounds, regular rate/rhythm Abdominal Exam: non-tender, soft Neurologic Exam: alert, oriented x 3, sensation nml, No motor deficits Skin Exam: normal color, warm, dry - Course Nursing assessment & vital signs reviewed: Yes Ordered Tests: Medication Summary Generic Name Dose Route Start Last Admin Trade Name Freq PRN Reason Stop Dose Admin Tramadol HCl 50 mg 08/24/23 10:19 Tramadol Hcl 50 Mg Tablet PO 08/24/23 10:20 STAT ONE - Progress Progress: improved, pain not gone completely Counseled pt/family regarding: diagnosis, need for follow-up Medical Desision Making - Diagnostic Testing Diagnostic test were ordered, analyzed, and reviewed by me: No - Departure Departure Disposition: Home Clinical Impression: Right ear pain Condition: Stable Critical Care Time: No Referrals: RULA MCNEIL [Primary Care Provider] - Follow up/PCP as directed Additional Instructions: Discharge/Care Plan LEX DAVID was seen on 08/24/23 in the Emergency Room. The patient was counseled regarding Diagnosis,Lab results, Imaging studies, need for follow up and when to return to the Emergency Room. Prescriptions given: Discharge Note I have spoken with the patient and/or caregivers. I have explained the patient's condition, diagnosis and treatment plan based on the information available to me at this time. I have answered the patient's and/or caregiver's questions and addressed any concerns. The patient and/or caregivers have as good understanding of the patient's diagnosis, condition and treatment plan as can be expected at this point. The vital signs have been stable. The patient's condition is stable and appropriate for discharge from the emergency department. The patient will pursue further outpatient evaluation with the primary care physician or other designated or consulting physician as outlined in the discharge instructions. The patient and/or caregivers are agreeable to this plan of care and follow-up instructions have been explained in detail. The patient and/or caregivers have received these instruction. The patient/and or caregivers are aware that any significant change in condition or worsening of symptoms should prompt an immediate return to this or the closest emergency department or call 911. LEX DAVID was seen on 08/24/23 n the Emergency Room. At that time you were treated for an emergent condition, during your visit Laboratory, Radiology and/or other procedures may have been ordered. It is very important that you follow-up with your Primary Care Physician RULA MCNEIL within the next 24-48 hours to review your Emergency Room visit and the final results of testing that was ordered. Some test results such as Urine Cultures, Blood Cultures, and other cultures if ordered will not be finalized for 24-48 hours. If you do not have a Primary Care Provider please call the medical records department at [phone] ext [phone] to obtain a copy of your results or you may sign into our patient portal to obtain these results by visiting us @ [email or web address] and completing the following steps: 1. Click on the Patient Portal link 2. Click the Patient Self Enrollment Link to complete the enrollment form and entering your 3. Once the enrollment form is completed you will receive an email with a temporary ID and password at the email address you provided. 4. Next choose a user name and password. Your user name must be at least 4 characters long and your password must be at least 4 characters long. 5. Choose a security question from the list and provide your answer to the question. If you already have signed into the Health Portal you may access your Health Care Information 10/06 by the following steps: 1. Login to our website @ [email or web address] 2. Enter your original user name and password. FAQS The [facility] Health Portal is an online tool that contains your Lab Results, Radiology Reports, Visit History, Discharge Instructions and Health Summary Lab and Radiology Results will not be available for 72 hours on the portal. The Portal is a secure site, passwords are encryted and URLs are re-written so they cannot be copied and pasted. You and authorized family members are the only ones who can access your Portal. Also there is a timeout feature that protects your information if you leave the Portal page open. If you have technical difficulty please use the Contact Us link on the page this will allow you to submit any questions you have regarding the Portal or you may contact the Medical Record Department at [phone] ext [phone]. Prescriptions: Tramadol HCl 50 mg [Ultram 50 mg] 50 mg PO BID #10 tablet
[2023-08-24] MEDS ORDERED: ULTRAM 50 MG ONE (10:30)
== END 2023-08-24 11:05 ==
LOC: ED 10:03
DX: H92.01 Otalgia, right ear (principal); E78.5 Hyperlipidemia, unspecified; I10 Essential (primary) hypertension; Z79.891 Long term (current) use of opiate analgesic; Z79.899 Other long term (current) drug therapy
CPT/HCPCS: 99281; A9270-GY

== ENCOUNTER 2023-10-28 14:46 | Emergency (ER) | payer MEDICARE ==
[2023-10-28] MEDS ORDERED: Sodium Chloride 0.9% 1000 ML 1,000 ML IV SCH ×2 (15:00→19:00)
[2023-10-28 15:11] LABS: Absolute Neutrophil Ct (ANC) 3.53 x10^3/uL (1.4-6.9); BASOPHIL % 0.7 % (0.0-0.4); Basophil (Absolute #) 0.05 x10^3/uL (0-0.4); Eosinophil % 1.8 % (0.00-5.0); Eosinophil (Absolute #) 0.12 x10^3/uL (0-0.5); Hematocrit 45.5 % (35-47); Hemoglobin 14.1 g/dL (12.0-16.0); IMMATURE GRAN # 0.01 x10^3u/L (0.00-0.03); IMMATURE GRAN % 0.1 % (0.00-0.4); Lymphocyte (Absolute #) 2.23 x10^3/uL (1.0-4.6); Lymphocytes % 32.6 % (24.0-44.0); Mean Cell Volume 98.5 fL (78-100); Mean Corpuscular Hemoglobin 30.5 pg (26-32); Mean Platelet Volume 10.8 fL (7.5-11.0); Monocytes % 13.2 % (0.0-12.0); Neutrophil % 51.6 % (36.0-66.0); Platelet Count 214 x10^3/uL (150-450); Red Blood Count 4.62 x10^6/uL (4.1-5.4); Red Cell Distribution Width 14.6 % (11.5-14.0); White Blood Count 6.8 x10^3/uL (4.0-10.5)
--- NOTE | 2023-10-28 15:26 | XRAY ---
Indication: Altered mental status. Multiple contiguous axial images obtained through the head without contrast. 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 No acute intracranial hemorrhage, hydrocephalus, or mass effect. Fourth ventricle is midline. Bony calvarium intact. Visualized paranasal sinuses and mastoid air cells are clear. Impression: Stable atrophy and old right temporal lobe infarct. No new/acute intracranial abnormalities.
[2023-10-28] MEDS ORDERED: VERSED 5 MG/5 ML IV ONE ×2 (15:29→15:33)
[2023-10-28] MEDS ORDERED: SUBLIMAZE 100 MCG/2 ML ONE ×2 (15:30→18:34)
--- NOTE | 2023-10-28 15:30 | XRAY ---
Indication: Pain. No known injury. Multiple contiguous axial images obtained through the cervical spine. Sagittal and coronal reformatted images obtained. Comparison: None Osseous structures demineralized. Axial images negative for acute fracture, suspicious bony lesions, or spinal canal stenosis. Minimal/mild C4-C7 degenerative endplate spurring, mild multilevel bilateral degenerative facet hypertrophy, and mild atlantoaxial degenerative changes. Sagittal and coronal reformatted images demonstrates normal alignment with C5-C6 disc space narrowing. No acute compression fracture, subluxation, or jumped facet. Normal appearing craniocervical junction. Visualized noncontrasted soft tissues demonstrates mild bilateral carotid calcifications. Impression: 1. Negative acute fracture/subluxation. 2. Osteopenia, multilevel degenerative changes, and bilateral carotid calcifications.
[2023-10-28] MEDS ORDERED: Zemuron 100 MG/10 ML IJ ONE (15:31)
[2023-10-28 15:34] LABS: INR 1.83 (0.8-3.0); PROTIME 19.1 SECONDS (9.4-12.5); PTT 29.2 SECONDS (25.1-36.5)
[2023-10-28 15:35] LABS: ALBUMIN 4.4 g/dL (3.5-5.0); ANION GAP 13.7 MEQ/L (5-15); BILIRUBIN,TOTAL 0.5 mg/dL (0.2-1.3); Calcium 9.3 mg/dL (8.4-10.2); Creatinine 1 1.11 mg/dL (0.52-1.04); D-DIMER QUANTITATIVE 0.62 mg/L (0.0-0.50); EST GLOMERULAR FILTRATION RATE 48.1 ML/MIN; MAGNESIUM 1.9 mg/dL (1.6-2.3); Potassium 3.8 mmol/L (3.5-5.1); Total Protein 7.3 g/dL (6.3-8.2)
[2023-10-28] MEDS ORDERED: Versed 50 MG/ 10 Ml MDV*** 50 MG in Sodium Chloride 0.9% 250 ML 240 ML IV PRN (15:42)
[2023-10-28 15:50] LABS: INFLUENZA A NEGATIVE (NEGATIVE); INFLUENZA B NEGATIVE (NEGATIVE); RESPIRATORY SYNCTIAL VIRUS NEGATIVE (NEGATIVE); SARS-CoV-2 Xpert Express NEGATIVE (NEGATIVE)
--- NOTE | 2023-10-28 16:30 | XRAY ---
Indication: Short of breath. Intubation. Comparison: March 28, 2023 Portable chest demonstrates new endotracheal tube tip 3.5 cm above vimal and NGT tip at GE junction. Lungs inflated and now clear. Heart not enlarged again with left pacemaker. Bony thorax intact again with osteopenia, degenerative changes, and T4/T9 kyphoplasty.
[2023-10-28] MEDS ORDERED: APRESOLINE 20 MG/ML INJ IV ONE (16:47)
[2023-10-28] MEDS ORDERED: APRESOLINE 20 MG/ML INJ ONE (16:47)
--- NOTE | 2023-10-28 16:48 | ERPHSYRPT ---
- History of Present Illness Source: patient, family Exam Limitations: clinical condition Patient Subjective Stated Complaint: SOB Triage Nursing Assessment: patient was at home cleaning and had a sudden onset episode of SOB. 911 was called. per ems upon arrival pt was 90 on roomair with audible crackles. she is currently 92% on room 2L NC. Timing/Duration: today Severity: severe Associated Symptoms: nausea, diaphoresis, syncope Hx Tetanus, Diphtheria Vaccination/Date Given: Yes Hx Influenza Vaccination/Date Given: No Hx Pneumococcal Vaccination/Date Given: Yes (2018) <OLEG QUINTERO - Last Filed: 10/28/23 18:56> <TONI MCCLENDON - Last Filed: 10/28/23 20:45> - History of Present Illness Time Seen by Provider: 10/28/23 15:00 Physician History: Patient is an 88-year-old white female who presented by ambulance with a c omplaint of shortness of breath. The patient spoke to us and told us that it started 1 hour prior to her arrival with severe dizziness nausea and near syncope. Shortly after arrival and placement in the bed the patient had a cardiac arrest and was subsequently intubated. She was diaphoretic upon arrival. She does have a pacer. 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 (OLEG QUINTERO) Allergies/Adverse Reactions: Penicillins Allergy (Severe, Verified 08/24/23 10:12) Hives Home Medications: Simvastatin 40 mg [Zocor 40 mg] 40 mg PO HS 10/04/14 [History] Spironolactone 25 mg PO DAILY 10/12/17 [History] Albuterol 2.5 mg/3 ml Neb [Proventil 2.5 mg/3 ml Neb] 3 ml NEB TIDPRN PRN 03/20/18 [History] Albuterol Sulfate [Albuterol Sulfate Hfa] 2 puff IH QIDPRN PRN 03/20/18 [History ] Citalopram Hydrobromide [Celexa] 10 mg PO DAILY 03/20/18 [History] Metoprolol Tartrate 25 mg [Lopressor 25MG Tab] 25 mg PO BID 03/20/18 [History] Budesonide 0.5 mg/2 ml [Pulmicort 0.5 mg/2 ml Respules] 2 ml IH QID 05/18/22 [History] Omeprazole 1 cap PO DAILY 03/24/23 [History] Losartan Potassium 50 mg [Cozaar 50 MG] 25 mg PO DAILY 04/12/23 [History] Travel Risk - International Travel Have you traveled outside of the country in past 3 weeks: No - Coronavirus Screening Symptoms: Shortness of Breath Close contact with a COVID-19 positive Pt in past 14-21 Days: No - Vaccine Status Have you recieved a Covid-19 vaccination: Yes Nursing Service Director: Unknown - Vaccination Dates Dates if Unknown: unknown <OLEG QUINTERO - Last Filed: 10/28/23 18:56> - Review of Systems All Other Systems: Unable due to condition <OLEG QUINTERO - Last Filed: 10/28/23 18:56> - Past Medical History Pertinent Past Medical History: Yes Neurological History: Stroke ENT History: Cataracts Cardiac History: Arrhythmia, High Cholesterol, Hypertension, Other Respiratory History: Bronchitis, COPD Endocrine Medical History: No Pertinent History Musculoskeletal History: No Pertinent History GI Medical History: GERD, Ulcer History: Renal Disease, Other Psycho-Social History: Anxiety Female Reproductive Disorders: Other Other Medical History: skin cancer face, [place] - Past Surgical History Past Surgical History: Yes Neuro Surgical History: No Pertinent History Cardiac: Angioplasty, Pacemaker, Valve Replacement Respiratory: No Pertinent History Gastrointestinal: No Pertinent History Genitourinary: No Pertinent History Musculoskeletal: Orthopedic Surgery Female Surgical History: Hysterectomy Other Surgical History: Inner ear sx, surgery to L1 & L7, Heart surgery 2020 - Social History Smoking Status: Never smoker Exposure to second hand smoke: No Drug Use: none Patient Lives Alone: No <OLEG QUINTERO - Last Filed: 10/28/23 18:56> - Physical Exam General Appearance: no apparent distress, moderate distress, alert Eye Exam: PERRL/EOMI, eyes nml inspection Ears, Nose, Throat Exam: normal ENT inspection, TMs normal, pharynx normal, moist mucous membranes Neck Exam: normal inspection, non-tender, supple, full range of motion Respiratory Exam: normal breath sounds, lungs clear, other, No respiratory distress Cardiovascular Exam: regular rate/rhythm, normal heart sounds, normal peripheral pulses, other (Patient had an arrest both cardiopulmonary shortly after arrival) Gastrointestinal/Abdomen Exam: soft, normal bowel sounds, No tenderness, No mass Back Exam: normal inspection, normal range of motion, No CVA tenderness, No vertebral tenderness Extremity Exam: normal inspection, normal range of motion, pelvis stable Neurologic Exam: alert, oriented x 3, cooperative, normal mood/affect, nml cerebellar function, nml station & gait, sensation nml, other (Shortly after her examination neurologically she had a cardiopulmonary arrest), No motor deficits Skin Exam: normal color, warm, dry, No rash Lymphatic Exam: No adenopathy SpO2 Interpretation: O2 applied SpO2: 100 O2 Delivery: Ventilator <CHADWICKOLEG NICHOLAS Filed: 10/28/23 18:56> - Nursing Vital Signs Nursing Vital Signs: Initial Vital Signs Respiratory Rate 16 10/28/23 14:52 Pain Scale Pain Intensity 0 Procedures - Intubation Time of Intubation: 15:20 Intubation Indications: cardiac arrest, respiratory arrest Intubation Method: glidescope Tube Size (cm): 7.5 Medications: Fentanyl, Midazolam (Versed), Rocuronium C-Spine: maintained Endotracheal Tube Confirmation: bilateral breath sounds, positive end tidal CO2, good rise & fall of chest Intubation Complications: no complications Performed By: Respiratory Therapy <CHADWICKYUOLEG Filed: 10/28/23 18:56> - Course Nursing assessment & vital signs reviewed: Yes EKG Interpreted by Me: RATE (76), Other (Ventricular paced rhythm no other interpretation possible) - Radiology Exams Chest X-ray Interpretation: Interpreted by me, Negative - CT Exams Chest CT Interpretation: Tele-radiologist Report, Other (Reviewed by me) Head CT Interpretation: Other (Reviewed by me) Cervical Spine CT Interpretation: Other (Reviewed by me) <INGRIDOLEG Last Filed: 10/28/23 18:56> Ordered Tests: Active Orders 24 hr Category Date Time Status CO2 Monitoring STAT Care 10/28/23 16:19 Active EKG-ER Only STAT Care 10/28/23 14:50 Active IV Insertion STAT Care 10/28/23 14:50 Active IV Insertion-2nd Peripheral STAT Care 10/28/23 15:15 Active Pulse Oximetry (ED) STAT Care 10/28/23 14:50 Active CERVICAL SPINE WO CONTRAST [CT] Stat Exams 10/28/23 15:04 Completed CHEST 1 VIEW (PORTABLE) Stat Exams 10/28/23 14:51 Completed CHEST WITH CONTRAST [CT] Stat Exams 10/28/23 16:17 Completed HEAD WITHOUT CONTRAST [CT] Stat Exams 10/28/23 15:02 Completed ABG [ARTERIAL BLOOD GASES] Routine Lab 10/28/23 17:40 Completed BLOOD CULTURE Stat Lab 10/28/23 15:09 Ordered CBC W DIFF Stat Lab 10/28/23 15:00 Completed CMP Stat Lab 10/28/23 15:00 Completed CULTURE,URINE Stat Lab 10/28/23 16:05 Received D-DIMER QUANTITATIVE Stat Lab 10/28/23 15:00 Completed Lactic Acid Stat Lab 10/28/23 15:07 Completed MAGNESIUM Stat Lab 10/28/23 15:00 Completed NT PRO BNPII Stat Lab 10/28/23 15:00 Completed PROTIME WITH INR Stat Lab 10/28/23 15:00 Completed PTT Stat Lab 10/28/23 15:00 Completed TROPONIN Q4H Lab 10/28/23 15:00 Completed TROPONIN Q4H Lab 10/28/23 18:55 Completed TROPONIN Q4H Lab 10/28/23 23:00 Ordered UA W/RFX UR CULTURE Stat Lab 10/28/23 16:05 Completed Intubate Patient STAT RT 10/28/23 16:39 Active Vent Settings [Ventilator Management] STAT RT 10/28/23 16:11 Active Medication Summary Generic Name Dose Route Start Last Admin Trade Name Freq PRN Reason Stop Dose Admin Sodium Chloride 1,000 mls @ 50 mls/hr 10/28/23 15:00 10/28/23 16:08 Sodium Chloride 0.9% 1000 Ml IV 11/27/23 14:59 50 mls/hr .Q20H POORNIMA Administration Midazolam HCl 50 mg/ Sodium 250 mls @ 7.538 mls/hr 10/28/23 15:42 10/28/23 18:30 Chloride IV 11/27/23 15:41 0.04 mg/kg/hr .Q24H PRN 12.5 mls/hr SEDATION Titration Protocol 0.025 MG/KG/HR Sodium Chloride 1,000 mls @ 250 mls/hr 10/28/23 19:00 10/28/23 19:19 Sodium Chloride 0.9% 1000 Ml IV 11/27/23 18:59 100 mls/hr .Q4H POORNIMA Infusion Discontinued Medications Generic Name Dose Route Start Last Admin Trade Name Rin PRN Reason Stop Dose Admin Fentanyl Citrate Confirm 10/28/23 15:30 Fentanyl Citrate 100 Mcg/2 Ml* Vial Administered 10/28/23 15:31 Dose 100 mcg .ROUTE .STK-MED ONE Fentanyl Citrate 100 mcg 10/28/23 18:32 10/28/23 18:35 Fentanyl Citrate 100 Mcg/2 Ml* Vial IV 10/28/23 18:33 100 mcg STAT ONE Administration Fentanyl Citrate Confirm 10/28/23 18:34 Fentanyl Citrate 100 Mcg/2 Ml* Vial Administered 10/28/23 18:35 Dose 100 mcg .ROUTE .STK-MED ONE Hydralazine HCl 20 mg 10/28/23 16:47 10/28/23 16:51 Hydralazine Hcl 20 Mg/Ml Vial IV 10/28/23 16:48 20 mg STAT ONE Administration Hydralazine HCl Confirm 10/28/23 16:47 Hydralazine Hcl 20 Mg/Ml Vial Administered 10/28/23 16:48 Dose 20 mg .ROUTE .STK-MED ONE Lab/Rad Data: Laboratory Result Diagrams 10/28/23 15:00 10/28/23 15:00 Laboratory Results 10/28/23 10/28/23 10/28/23 Range/Units 18:55 17:40 16:05 WBC (4.0-10.5) x10^3/uL RBC (4.1-5.4) x10^6/uL Hgb (12.0-16.0) g/dL Hct (35-47) % MCV (78-100) fL MCH (26-32) pg MCHC (32-36) g/dL RDW (11.5-14.0) % Plt Count (150-450) x10^3/uL MPV (7.5-11.0) fL Gran % (36.0-66.0) % Immature Gran % (Auto) (0.00-0.4) % Nucleat RBC Rel Count (0.00-0.1) % Eos # (Auto) (0-0.5) x10^3/uL Immature Gran # (Auto) (0.00-0.03) x10^3u/L Absolute Lymphs (auto) (1.0-4.6) x10^3/uL Absolute Monos (auto) (0.0-1.3) x10^3/uL Absolute Nucleated RBC (0.00-0.01) x10^3u/L Lymphocytes % (24.0-44.0) % Monocytes % (0.0-12.0) % Eosinophils % (0.00-5.0) % Basophils % (0.0-0.4) % Absolute Granulocytes (1.4-6.9) x10^3/uL Basophils # (0-0.4) x10^3/uL PT (9.4-12.5) SECONDS INR (0.8-3.0) APTT (25.1-36.5) SECONDS D-Dimer (0.0-0.50) mg/L Puncture Site RIGHT RADIAL pCO2 27 L (35-45) mmHg pO2 262 H* (75-100) mmHg Base Excess -1.3 (-2.0-2.0) O2 Saturation 97.8 (94-100) g/dF ABG pH 7.49 H (7.35-7.45) ABG HCO3 20.6 L (22-28) ABG O2 Sat (Measured) 99.3 (95-100) % Pan Test NOT APPLICABLE A-a Gradient 417 a/A Ratio 0.39 Hemoglobin 14.7 Carboxyhemoglobin 0.5 (0.0-6.9) % THgb Methemoglobin 1.0 L (1.4-1.5) % Temperature 37.0 C POC O2 Flow Rate 100 % Vent Mode A/C Tidal Volume 500 cc PEEP 4.0 cmH2O Sodium (137-145) mmol/L Potassium 3.3 L (3.5-5.1) mmol/L Chloride (98-107) mmol/L Carbon Dioxide (22-30) mmol/L Anion Gap (5-15) MEQ/L BUN (7-17) mg/dL Creatinine (0.52-1.04) mg/dL Estimated GFR ML/MIN Glucose (74-106) mg/dL Lactic Acid (0.4-2.0) Calcium (8.4-10.2) mg/dL Magnesium (1.6-2.3) mg/dL Total Bilirubin (0.2-1.3) mg/dL AST (14-36) U/L ALT (0-35) U/L Alkaline Phosphatase (38-126) U/L Troponin I 32.200 H* (0.000-0.034) ng/mL NT-Pro-B Natriuret Pep (<300) pg/mL Serum Total Protein (6.3-8.2) g/dL Albumin (3.5-5.0) g/dL Urine Color Yellow (Yellow) Urine Appearance Clear (Clear) Urine pH 7.5 (4.6-8.0) Ur Specific [place] 1.020 (1.005-1.030) Urine Protein 30 (Negative) Urine Glucose (UA) Negative (Negative) mg/dL Urine Ketones Trace A (Negative) Urine Blood Trace (Negative) Urine Nitrite Negative (Negative) Urine Bilirubin Negative (Negative) Urine Urobilinogen 0.2 (0.2) mg/dL Ur Leukocyte Esterase Negative (Negative) U Hyaline Cast (Auto) 6-10 A (0-2) /LPF Urine Microscopic RBC 6-10 A (0-5) /HPF Urine Microscopic WBC 3-5 (0-5) /HPF Ur Epithelial Cells None Seen (None Seen) /HPF Urine Bacteria None Seen (None Seen) /HPF Urine Culture Reflexed YES (NO) Influenza Type A Ag (NEGATIVE) Influenza Type B Ag (NEGATIVE) RSV (PCR) (NEGATIVE) SARS-CoV-2 (PCR) (NEGATIVE) 10/28/23 10/28/23 10/28/23 Range/Units 15:07 15:05 15:00 WBC (4.0-10.5) x10^3/uL RBC (4.1-5.4) x10^6/uL Hgb (12.0-16.0) g/dL Hct (35-47) % MCV (78-100) fL MCH (26-32) pg MCHC (32-36) g/dL RDW (11.5-14.0) % Plt Count (150-450) x10^3/uL MPV (7.5-11.0) fL Gran % (36.0-66.0) % Immature Gran % (Auto) (0.00-0.4) % Nucleat RBC Rel Count (0.00-0.1) % Eos # (Auto) (0-0.5) x10^3/uL Immature Gran # (Auto) (0.00-0.03) x10^3u/L Absolute Lymphs (auto) (1.0-4.6) x10^3/uL Absolute Monos (auto) (0.0-1.3) x10^3/uL Absolute Nucleated RBC (0.00-0.01) x10^3u/L Lymphocytes % (24.0-44.0) % Monocytes % (0.0-12.0) % Eosinophils % (0.00-5.0) % Basophils % (0.0-0.4) % Absolute Granulocytes (1.4-6.9) x10^3/uL Basophils # (0-0.4) x10^3/uL PT (9.4-12.5) SECONDS INR (0.8-3.0) APTT (25.1-36.5) SECONDS D-Dimer (0.0-0.50) mg/L Puncture Site pCO2 (35-45) mmHg pO2 (75-100) mmHg Base Excess (-2.0-2.0) O2 Saturation (94-100) g/dF ABG pH (7.35-7.45) ABG HCO3 (22-28) ABG O2 Sat (Measured) (95-100) % Pan Test A-a Gradient a/A Ratio Hemoglobin Carboxyhemoglobin (0.0-6.9) % THgb Methemoglobin (1.4-1.5) % Temperature C POC O2 Flow Rate % Vent Mode Tidal Volume cc PEEP cmH2O Sodium (137-145) mmol/L Potassium (3.5-5.1) mmol/L Chloride (98-107) mmol/L Carbon Dioxide (22-30) mmol/L Anion Gap (5-15) MEQ/L BUN (7-17) mg/dL Creatinine (0.52-1.04) mg/dL Estimated GFR ML/MIN Glucose (74-106) mg/dL Lactic Acid 1.9 (0.4-2.0) Calcium (8.4-10.2) mg/dL Magnesium (1.6-2.3) mg/dL Total Bilirubin (0.2-1.3) mg/dL AST (14-36) U/L ALT (0-35) U/L Alkaline Phosphatase (38-126) U/L Troponin I < 0.012 (0.000-0.034) ng/mL NT-Pro-B Natriuret Pep (<300) pg/mL Serum Total Protein (6.3-8.2) g/dL Albumin (3.5-5.0) g/dL Urine Color (Yellow) Urine Appearance (Clear) Urine pH (4.6-8.0) Ur Specific [place] (1.005-1.030) Urine Protein (Negative) Urine Glucose (UA) (Negative) mg/dL Urine Ketones (Negative) Urine Blood (Negative) Urine Nitrite (Negative) Urine Bilirubin (Negative) Urine Urobilinogen (0.2) mg/dL Ur Leukocyte Esterase (Negative) U Hyaline Cast (Auto) (0-2) /LPF Urine Microscopic RBC (0-5) /HPF Urine Microscopic WBC (0-5) /HPF Ur Epithelial Cells (None Seen) /HPF Urine Bacteria (None Seen) /HPF Urine Culture Reflexed (NO) Influenza Type A Ag NEGATIVE (NEGATIVE) Influenza Type B Ag NEGATIVE (NEGATIVE) RSV (PCR) NEGATIVE (NEGATIVE) SARS-CoV-2 (PCR) NEGATIVE (NEGATIVE) 10/28/23 10/28/23 10/28/23 Range/Units 15:00 15:00 15:00 WBC 6.8 (4.0-10.5) x10^3/uL RBC 4.62 (4.1-5.4) x10^6/uL Hgb 14.1 (12.0-16.0) g/dL Hct 45.5 (35-47) % MCV 98.5 (78-100) fL MCH 30.5 (26-32) pg MCHC 31.0 L (32-36) g/dL RDW 14.6 H (11.5-14.0) % Plt Count 214 (150-450) x10^3/uL MPV 10.8 (7.5-11.0) fL Gran % 51.6 (36.0-66.0) % Immature Gran % (Auto) 0.1 (0.00-0.4) % Nucleat RBC Rel Count 0.0 (0.00-0.1) % Eos # (Auto) 0.12 (0-0.5) x10^3/uL Immature Gran # (Auto) 0.01 (0.00-0.03) x10^3u/L Absolute Lymphs (auto) 2.23 (1.0-4.6) x10^3/uL Absolute Monos (auto) 0.90 (0.0-1.3) x10^3/uL Absolute Nucleated RBC 0.00 (0.00-0.01) x10^3u/L Lymphocytes % 32.6 (24.0-44.0) % Monocytes % 13.2 H (0.0-12.0) % Eosinophils % 1.8 (0.00-5.0) % Basophils % 0.7 (0.0-0.4) % Absolute Granulocytes 3.53 (1.4-6.9) x10^3/uL Basophils # 0.05 (0-0.4) x10^3/uL PT 19.1 H (9.4-12.5) SECONDS INR 1.83 (0.8-3.0) APTT 29.2 (25.1-36.5) SECONDS D-Dimer 0.62 H* (0.0-0.50) mg/L Puncture Site pCO2 (35-45) mmHg pO2 (75-100) mmHg Base Excess (-2.0-2.0) O2 Saturation (94-100) g/dF ABG pH (7.35-7.45) ABG HCO3 (22-28) ABG O2 Sat (Measured) (95-100) % Pan Test A-a Gradient a/A Ratio Hemoglobin Carboxyhemoglobin (0.0-6.9) % THgb Methemoglobin (1.4-1.5) % Temperature C POC O2 Flow Rate % Vent Mode Tidal Volume cc PEEP cmH2O Sodium 137 (137-145) mmol/L Potassium 3.8 (3.5-5.1) mmol/L Chloride 101 (98-107) mmol/L Carbon Dioxide 26 (22-30) mmol/L Anion Gap 13.7 (5-15) MEQ/L BUN 20 H (7-17) mg/dL Creatinine 1.11 H (0.52-1.04) mg/dL Estimated GFR 48.1 ML/MIN Glucose 130 H (74-106) mg/dL Lactic Acid (0.4-2.0) Calcium 9.3 (8.4-10.2) mg/dL Magnesium 1.9 (1.6-2.3) mg/dL Total Bilirubin 0.50 (0.2-1.3) mg/dL AST 39 H (14-36) U/L ALT 23 (0-35) U/L Alkaline Phosphatase 69 (38-126) U/L Troponin I (0.000-0.034) ng/mL NT-Pro-B Natriuret Pep 2280 (<300) pg/mL Serum Total Protein 7.3 (6.3-8.2) g/dL Albumin 4.4 (3.5-5.0) g/dL Urine Color (Yellow) Urine Appearance (Clear) Urine pH (4.6-8.0) Ur Specific [place] (1.005-1.030) Urine Protein (Negative) Urine Glucose (UA) (Negative) mg/dL Urine Ketones (Negative) Urine Blood (Negative) Urine Nitrite (Negative) Urine Bilirubin (Negative) Urine Urobilinogen (0.2) mg/dL Ur Leukocyte Esterase (Negative) U Hyaline Cast (Auto) (0-2) /LPF Urine Microscopic RBC (0-5) /HPF Urine Microscopic WBC (0-5) /HPF Ur Epithelial Cells (None Seen) /HPF Urine Bacteria (None Seen) /HPF Urine Culture Reflexed (NO) Influenza Type A Ag (NEGATIVE) Influenza Type B Ag (NEGATIVE) RSV (PCR) (NEGATIVE) SARS-CoV-2 (PCR) (NEGATIVE) - Progress Progress: unchanged Counseled pt/family regarding: lab results, diagnosis, rad results <TONI MCCLENDON - Last Filed: 10/28/23 20:45> - Progress Progress Note: 10/28/23 20:03 Transfer of care of this patient occurred at 7 PM. I did speak with a Dr. Grady from neurology at [facility] in [place]. I reviewed the patient with him. At this point, we both agree that this patient needs intensive care unit where patient can be weaned from the ventilator and during the weaning and care process cardiology and pulmonology cannot be involved with the clay pigeon loader. Neurology may be required at some point but not acutely. I am awaiting a callback from intensive care physician. 10/28/23 20:41 I spoke with [facility] clay pigeon loader (ICU physician) Dr. Figueroa. I reviewed the patient history, presenting complaint, events during her emergency department stay and current status as well as the results of the laboratory and radiographic studies. He accepts the patient in transfer. (TONI MCCLENDON) Medical Desision Making - Discussion of managment Care discussed with:: specialist (ICU clay pigeon loader Dr. Figueroa at [facility]) Will see patient: in hospital - Diagnostic Testing Diagnostic test were ordered, analyzed, and reviewed by me: Yes Radiological Interpretation: Reviewed by me, Teleradiologist Report - Risk of complications The pt has a high risk of morbidity or mortality based on: Decision regarding hospitilization or escalation of hosp level of care <TONI MCCLENDON - Last Filed: 10/28/23 20:45> <OLEG QUINTERO - Last Filed: 10/28/23 18:56> - Departure Departure Disposition: Transfer Critical Care Time: Yes Critical Care Time(excluding separately billable procedures): Critical 30-74 mins (60 minutes) <TONI MCCLENDON - Last Filed: 10/28/23 20:45> - Departure Clinical Impression: Cardiac arrest, Respiratory failure Condition: Serious Referrals: DOCTOR,NO FAMILY [Primary Care Provider] - Follow up/PCP as directed
--- NOTE | 2023-10-28 17:06 | XRAY ---
Indication: Short of breath. Cardiac arrest. Elevated d-dimer. Multiple contiguous axial images obtained through the chest using 80 cc Isovue 370 contrast and PE protocol. Comparison: June 22, 2021 Good opacification of the pulmonary arteries. However respiration artifact limits evaluation of the more distal lobar and segmental branches. No central pulmonary embolus. Heart now enlarged with small right pericardial effusion/thickening. Stable left single lead pacemaker. Aorta is again moderately arteriosclerotic without aneurysm/dissection. No pathologic mediastinal/hilar lymphadenopathy. New endotracheal tube tip 2.6 cm above vimal and new NG tube tip at GE junction. New subcutaneous emphysema base of neck and right supraclavicular region of uncertain etiology. No pneumomediastinum. Lungs demonstrates moderate bilateral dependent atelectasis, greatest right lower lobe. No suspicious pulmonary mass/nodule, effusion, or pneumothorax. Bony thorax intact with osteopenia, mild degenerative changes throughout the spine, and T3/T9 kyphoplasty. New remote-appearing T5 superior endplate fracture with less than 25% height loss. Limited upper abdomen again demonstrates marked right renal atrophy. Impression: 1. Respiration artifact limits evaluation for pulmonary embolus. No obvious pulmonary embolus. 2. New cardiomegaly with small pericardial effusion/thickening. Negative for shayne CHF. 3. New subcutaneous emphysema base of neck and right supraclavicular region. Possibly related to CPR? 4. New endotracheal tube and NG tube in situ. 5. Again chronic bony findings and right renal atrophy.
[2023-10-28 17:44] LABS: A-aADO2 417; ABG HEMOGLOBIN 14.7; ABG POTASSIUM 3.3 (3.5-5.1); ABG SITE RIGHT RADIAL; ARTERIAL BLD GAS O2 SATURATION 99.3 % (95-100); ARTERIAL BLD GAS TIDAL VOLUME 500 cc; ARTERIAL BLOOD GAS BASE EXCESS -1.3 (-2.0-2.0); ARTERIAL BLOOD GAS FIO2 100 %; ARTERIAL BLOOD GAS PCO2 27 mmHg (35-45); ARTERIAL BLOOD GAS PO2 262 mmHg (75-100); ARTERIAL BLOOD GAS VENT MODE A/C; ARTERIAL BLOOD GAS pH 7.49 (7.35-7.45); CARBOXYHEMOGLOBIN 0.5 % THgb (0.0-6.9); HCO3- 20.6 (22-28); HGB O2 SAT 97.8 g/dF (94-100); paO2 pAO1 0.39
[2023-10-28] MEDS ORDERED: SUBLIMAZE 100 MCG/2 ML IV ONE (18:32)
[2023-10-28 19:20] LABS: ADD URINE CULTURE? YES (NO); Appearance Clear (Clear); Bacteria None Seen /HPF (None Seen); Bilirubin Negative (Negative); Blood Trace (Negative); Epithelial Cells None Seen /HPF (None Seen); Glucose, Urine Negative (Negative); Ketones Trace (Negative); Leukocyte Esterase Negative (Negative); Nitrite Negative (Negative); Ph 7.5 (4.6-8.0); Protein,Urine Dip 30 (Negative); Urobilinogen 0.2 mg/dL (0.2)
[2023-10-28 21:05] VITALS: PULSE 55
[2023-10-28 23:02] VITALS: O2SAT 99
[2023-10-29 00:13] VITALS: TEMP 99.3
[2023-10-29 01:02] VITALS: BP 117/55; RESP 16
== END 2023-10-29 01:00 | disposition short-term general hospital (02) ==
LOC: ED 14:46
DX: I46.9 Cardiac arrest, cause unspecified (principal); J96.90 Respiratory failure, unspecified, unspecified whether with hypoxia or hypercapnia; R77.8 Other specified abnormalities of plasma proteins; R42 Dizziness and giddiness; R11.0 Nausea; R55 Syncope and collapse; E78.5 Hyperlipidemia, unspecified; I10 Essential (primary) hypertension; Z79.899 Other long term (current) drug therapy; Z20.828 Contact with and (suspected) exposure to other viral communicable diseases; Z86.73 Personal history of transient ischemic attack (TIA), and cerebral infarction without residual deficits
CPT/HCPCS: 0241U; 31500; 36000; 36415; 36600; 51702; 70450; 71045; 71260; 72125; 80053; 81001; 82375; 82803; 83605; 83735; 83880; 84484; 85025; 85379; 85610; 85730; 87040; 87086; 93005; 93041; 94002; 94760; 96374; 96375; 96376; 99285; 99291; J0360; J2250; J3010

== ENCOUNTER 2024-02-16 07:40 | Emergency (ER) | payer MEDICARE ==
[2024-02-16 07:51] VITALS: TEMP 97.4
[2024-02-16] MEDS ORDERED: DUONEB 0.5-3 MG/3 ml Neb IH ONE (08:03)
[2024-02-16] MEDS: DUONEB 0.5-3 MG/3 ml Neb IH ONE (08:29)
--- NOTE | 2024-02-16 08:35 | ERPHSYRPT ---
- History of Present Illness Time Seen by Provider: 02/16/24 07:55 Source: patient Exam Limitations: no limitations Patient Subjective Stated Complaint: States becoming SOB over the past 3 days especially when trying to sleep. States she has sleep apnea and is in the proce ss of getting oxygen at home when she sleeps. Triage Nursing Assessment: Patient ambulated back to ER. She is alert and oriented. Occassional, non-productive cough present. SOB noted with exertion. No edema. YOLY WNCarlo. Physician History: 89 years old female with history of COPD, coronary artery disease status post stenting, atrial fibrillation on Coumadin/pacemaker placement presented in the ER with 3 days history of increasing shortness of breath and cough which is nonproductive. Patient reports increased wheezing and chest tightness. Shortn ess of breath gets worse with lying down and with exertion. Denies any fever or chills. Patient has no known sick contact. No lower extremity swellings. Allergies/Adverse Reactions: Penicillins Allergy (Severe, Verified 02/16/24 07:43) Hives Home Medications: Simvastatin 40 mg [Zocor 40 mg] 40 mg PO HS 10/04/14 [History] Spironolactone 25 mg PO DAILY 10/12/17 [History] Citalopram Hydrobromide [Celexa] 10 mg PO DAILY 03/20/18 [History] Hx Tetanus, Diphtheria Vaccination/Date Given: Yes Hx Influenza Vaccination/Date Given: Yes Hx Pneumococcal Vaccination/Date Given: Yes Immunizations Up to Date: Yes Travel Risk - International Travel Have you traveled outside of the country in past 3 weeks: No - Emerging Infectious Disease Are you exhibiting symptoms associated with any current EIDs: Yes Symptoms: Cough: New Onset, Shortness of Breath - Review of Systems Constitutional: No Symptoms Eyes: No Symptoms Ears, Nose, & Throat: No Symptoms Respiratory: Cough, Dyspnea, Dyspnea on Exertion ([place]) Cardiac: No Symptoms Abdominal/Gastrointestinal: No Symptoms Genitourinary Symptoms: No Symptoms Musculoskeletal: Arthralgias Skin: No Symptoms Neurological: No Symptoms Endocrine: No Symptoms Hematologic/Lymphatic: Easy Bleeding Immunological/Allergic: No Symptoms - Past Medical History Pertinent Past Medical History: Yes Neurological History: Stroke ENT History: Cataracts Cardiac History: Arrhythmia, High Cholesterol, Hypertension, Myocardial Infarc tion ([place]), Other Respiratory History: Bronchitis, COPD, Sleep Apnea Endocrine Medical History: No Pertinent History Musculoskeletal History: No Pertinent History GI Medical History: GERD, Ulcer History: Renal Disease, Other Psycho-Social History: Anxiety, Depression Female Reproductive Disorders: Other Other Medical History: skin cancer face, [place] - Past Surgical History Past Surgical History: Yes Neuro Surgical History: No Pertinent History Cardiac: Angioplasty, Cardiac Catheterization, Cardiac Stent, Pacemaker, Valve Replacement Respiratory: No Pertinent History Gastrointestinal: No Pertinent History Genitourinary: No Pertinent History Musculoskeletal: Orthopedic Surgery Female Surgical History: Hysterectomy Other Surgical History: Inner ear sx, surgery to L1 & L7, Heart surgery 2020 - Social History Smoking Status: Former smoker Exposure to second hand smoke: No Drug Use: none Patient Lives Alone: No - Nursing Vital Signs Nursing Vital Signs: Initial Vital Signs Temperature 97.4 F 02/16/24 07:45 Pulse Rate 75 02/16/24 07:45 Respiratory Rate 20 02/16/24 07:45 Blood Pressure 147/75 02/16/24 07:45 O2 Sat by Pulse Oximetry 99 02/16/24 07:45 Pain Scale Pain Intensity 0 - Physical Exam General Appearance: no apparent distress, alert, anxiety Eye Exam: PERRL/EOMI Ears, Nose, Throat Exam: hearing grossly normal, normal ENT inspection, normal pharynx Neck Exam: normal inspection, non-tender, supple, full range of motion Respiratory Exam: normal breath sounds, lungs clear, No chest tenderness Cardiovascular/Chest Exam: normal heart sounds, regular rate/rhythm Abdominal/Gastrointestinal Exam: soft, normal bowel sounds, No tenderness Extremity Exam: non-tender, normal range of motion Neurologic Exam: alert, oriented x 3, cooperative Skin Exam: normal color SpO2 Interpretation: normal SpO2: 97 O2 Delivery: Room Air - Course EKG Interpreted by Me: RATE (76, paced rhythm), Right [place]ell Deviation, Non- specific ST Changes Ordered Tests: Active Orders 24 hr Category Date Time Status Barrel Driller STAT Care 02/16/24 07:57 Active EKG-ER Only STAT Care 02/16/24 07:56 Active CHEST 1 VIEW (PORTABLE) Stat Exams 02/16/24 11:56 Taken BLOOD CULTURE Stat Lab 02/16/24 08:19 Received CBC W DIFF Stat Lab 02/16/24 08:03 Completed CMP Stat Lab 02/16/24 08:03 Completed Lactic Acid Stat Lab 02/16/24 07:56 Completed MAGNESIUM Stat Lab 02/16/24 08:03 Completed NT PRO BNPII Stat Lab 02/16/24 08:03 Completed PROTIME WITH INR Stat Lab 02/16/24 08:03 Completed TROPONIN Q4H Lab 02/16/24 08:03 Completed TROPONIN Q4H Lab 02/16/24 11:54 Completed TROPONIN Q4H Lab 02/16/24 16:00 Ordered Respiratory Therapy Assessment DAILY RT 02/16/24 08:32 Completed Medication Summary Discontinued Medications Generic Name Dose Route Start Last Admin Trade Name Rin PRN Reason Stop Dose Admin Albuterol/Ipratropium 3 ml 02/16/24 07:56 02/16/24 08:29 Ipratropium/Albuterol Sulfate 3 Ml Ampul.Neb IH 02/16/24 07:57 3 ml STAT ONE Administration Albuterol/Ipratropium Confirm 02/16/24 08:03 Ipratropium/Albuterol Sulfate 3 Ml Ampul.Neb Administered 02/16/24 08:04 Dose 3 ml IH .STK-MED ONE Lab/Rad Data: Laboratory Result Diagrams 02/16/24 08:03 02/16/24 08:03 Laboratory Results 02/16/24 02/16/24 02/16/24 Range/Units 11:54 08:03 08:03 WBC 7.7 (4.0-10.5) x10^3/uL RBC 3.85 L (4.1-5.4) x10^6/uL Hgb 11.7 L (12.0-16.0) g/dL Hct 37.6 (35-47) % MCV 97.7 (78-100) fL MCH 30.4 (26-32) pg MCHC 31.1 L (32-36) g/dL RDW 15.1 H (11.5-14.0) % Plt Count 213 (150-450) x10^3/uL MPV 10.4 (7.5-11.0) fL Gran % 57.8 (36.0-66.0) % Immature Gran % (Auto) 0.4 (0.00-0.4) % Nucleat RBC Rel Count 0.0 (0.00-0.1) % Eos # (Auto) 0.27 (0-0.5) x10^3/uL Immature Gran # (Auto) 0.03 (0.00-0.03) x10^3u/L Absolute Lymphs (auto) 1.61 (1.0-4.6) x10^3/uL Absolute Monos (auto) 1.26 (0.0-1.3) x10^3/uL Absolute Nucleated RBC 0.00 (0.00-0.01) x10^3u/L Lymphocytes % 21.0 L (24.0-44.0) % Monocytes % 16.5 H (0.0-12.0) % Eosinophils % 3.5 (0.00-5.0) % Basophils % 0.8 (0.0-0.4) % Absolute Granulocytes 4.42 (1.4-6.9) x10^3/uL Basophils # 0.06 (0-0.4) x10^3/uL PT (9.4-12.5) SECONDS INR (0.8-3.0) Sodium (135-145) mmol/L Potassium (3.5-5.1) mmol/L Chloride (98-107) mmol/L Carbon Dioxide (22-30) mmol/L Anion Gap (5-15) MEQ/L BUN (7-17) mg/dL Creatinine (0.52-1.04) mg/dL Estimated GFR ML/MIN Glucose (74-106) mg/dL Lactic Acid (0.4-2.0) Calcium (8.4-10.2) mg/dL Magnesium (1.6-2.3) mg/dL Total Bilirubin (0.2-1.3) mg/dL AST (14-36) U/L ALT (0-35) U/L Alkaline Phosphatase (38-126) U/L Troponin I 0.014 (0.000-0.034) ng/mL NT-Pro-B Natriuret Pep (<300) pg/mL Serum Total Protein (6.3-8.2) g/dL Albumin (3.5-5.0) g/dL Influenza Type A Ag NEGATIVE (NEGATIVE) Influenza Type B Ag NEGATIVE (NEGATIVE) RSV (PCR) NEGATIVE (NEGATIVE) SARS-CoV-2 (PCR) NEGATIVE (NEGATIVE) 02/16/24 02/16/24 02/16/24 Range/Units 08:03 08:03 08:03 WBC (4.0-10.5) x10^3/uL RBC (4.1-5.4) x10^6/uL Hgb (12.0-16.0) g/dL Hct (35-47) % MCV (78-100) fL MCH (26-32) pg MCHC (32-36) g/dL RDW (11.5-14.0) % Plt Count (150-450) x10^3/uL MPV (7.5-11.0) fL Gran % (36.0-66.0) % Immature Gran % (Auto) (0.00-0.4) % Nucleat RBC Rel Count (0.00-0.1) % Eos # (Auto) (0-0.5) x10^3/uL Immature Gran # (Auto) (0.00-0.03) x10^3u/L Absolute Lymphs (auto) (1.0-4.6) x10^3/uL Absolute Monos (auto) (0.0-1.3) x10^3/uL Absolute Nucleated RBC (0.00-0.01) x10^3u/L Lymphocytes % (24.0-44.0) % Monocytes % (0.0-12.0) % Eosinophils % (0.00-5.0) % Basophils % (0.0-0.4) % Absolute Granulocytes (1.4-6.9) x10^3/uL Basophils # (0-0.4) x10^3/uL PT 24.1 H (9.4-12.5) SECONDS INR 2.34 (0.8-3.0) Sodium (135-145) mmol/L Potassium (3.5-5.1) mmol/L Chloride (98-107) mmol/L Carbon Dioxide (22-30) mmol/L Anion Gap (5-15) MEQ/L BUN (7-17) mg/dL Creatinine (0.52-1.04) mg/dL Estimated GFR ML/MIN Glucose (74-106) mg/dL Lactic Acid (0.4-2.0) Calcium (8.4-10.2) mg/dL Magnesium (1.6-2.3) mg/dL Total Bilirubin (0.2-1.3) mg/dL AST (14-36) U/L ALT (0-35) U/L Alkaline Phosphatase (38-126) U/L Troponin I 0.014 (0.000-0.034) ng/mL NT-Pro-B Natriuret Pep 1690 (<300) pg/mL Serum Total Protein (6.3-8.2) g/dL Albumin (3.5-5.0) g/dL Influenza Type A Ag (NEGATIVE) Influenza Type B Ag (NEGATIVE) RSV (PCR) (NEGATIVE) SARS-CoV-2 (PCR) (NEGATIVE) 02/16/24 02/16/24 Range/Units 08:03 07:56 WBC (4.0-10.5) x10^3/uL RBC (4.1-5.4) x10^6/uL Hgb (12.0-16.0) g/dL Hct (35-47) % MCV (78-100) fL MCH (26-32) pg MCHC (32-36) g/dL RDW (11.5-14.0) % Plt Count (150-450) x10^3/uL MPV (7.5-11.0) fL Gran % (36.0-66.0) % Immature Gran % (Auto) (0.00-0.4) % Nucleat RBC Rel Count (0.00-0.1) % Eos # (Auto) (0-0.5) x10^3/uL Immature Gran # (Auto) (0.00-0.03) x10^3u/L Absolute Lymphs (auto) (1.0-4.6) x10^3/uL Absolute Monos (auto) (0.0-1.3) x10^3/uL Absolute Nucleated RBC (0.00-0.01) x10^3u/L Lymphocytes % (24.0-44.0) % Monocytes % (0.0-12.0) % Eosinophils % (0.00-5.0) % Basophils % (0.0-0.4) % Absolute Granulocytes (1.4-6.9) x10^3/uL Basophils # (0-0.4) x10^3/uL PT (9.4-12.5) SECONDS INR (0.8-3.0) Sodium 139 (135-145) mmol/L Potassium 4.2 (3.5-5.1) mmol/L Chloride 103 (98-107) mmol/L Carbon Dioxide 30 (22-30) mmol/L Anion Gap 10.5 (5-15) MEQ/L BUN 27 H (7-17) mg/dL Creatinine 1.22 H (0.52-1.04) mg/dL Estimated GFR 42.7 ML/MIN Glucose 89 (74-106) mg/dL Lactic Acid 1.4 (0.4-2.0) Calcium 9.2 (8.4-10.2) mg/dL Magnesium 1.8 (1.6-2.3) mg/dL Total Bilirubin 0.20 (0.2-1.3) mg/dL AST 30 (14-36) U/L ALT 20 (0-35) U/L Alkaline Phosphatase 72 (38-126) U/L Troponin I (0.000-0.034) ng/mL NT-Pro-B Natriuret Pep (<300) pg/mL Serum Total Protein 7.6 (6.3-8.2) g/dL Albumin 3.8 (3.5-5.0) g/dL Influenza Type A Ag (NEGATIVE) Influenza Type B Ag (NEGATIVE) RSV (PCR) (NEGATIVE) SARS-CoV-2 (PCR) (NEGATIVE) - Progress Progress: re-examined Air Movement: good Progress Note: 02/16/24 12:31 89 years old is evaluated for cough and shortness of breath. Patient is given DuoNeb, on reevaluation she is feeling much better. She is on room air in upper 90s. Not in any distress at all. EKG showed paced rhythm with negative troponins x 2. Normal white count, has a INR of 2.3. Chest x-ray negative for any acute cardiopulmonary findings reviewed by me, official report is pending. Patient has a mild elevation in creatinine, baseline around 1 and today 1.22 with improvement of BNP as well which I believe is secondary to diuretics use. Patient does not seems to be in congestive heart failure at all. I believe patient has viral bronchitis, because of her history of COPD I would give her a short course of steroid and recommended continue with inhaler and nebulizer, o utpatient follow-up. Discussed signs symptoms of worsening needing return to ER which she seems understanding. Stable for discharge. Blood Culture(s) Obtained: Yes Antibiotics given: No Counseled pt/family regarding: lab results, diagnosis, need for follow-up, rad results Medical Desision Making - Diagnostic Testing Diagnostic test were ordered, analyzed, and reviewed by me: Yes Radiological Interpretation: Interpreted by me, Reviewed by me - Risk of complications The pt has a mod risk of morbidity or mortality based on: Need for prescription drug management - Departure Departure Disposition: Home Clinical Impression: Bronchitis Condition: Stable Critical Care Time: No Referrals: [facility]] - Follow up with PCP 1 day Instructions: Cough, Adult (DC) Additional Instructions: Continue with your inhaler/nebulizer. Follow-up with primary care for reevaluation in 2 days. Return to ER for worsening cough/difficulty breathing or if having chest pain or palpitations/fever chills etc. Prescriptions: Prednisone 20 mg [Deltasone 20 mg] 40 mg PO DAILY 5 Days #10 tablet
[2024-02-16 08:48] LABS: INR 2.34 (0.8-3.0); PROTIME 24.1 SECONDS (9.4-12.5)
[2024-02-16 08:50] LABS: ALBUMIN 3.8 g/dL (3.5-5.0); ANION GAP 10.5 MEQ/L (5-15); BILIRUBIN,TOTAL 0.2 mg/dL (0.2-1.3); Calcium 9.2 mg/dL (8.4-10.2); Creatinine 1 1.22 mg/dL (0.52-1.04); EST GLOMERULAR FILTRATION RATE 42.7 ML/MIN; MAGNESIUM 1.8 mg/dL (1.6-2.3); Potassium 4.2 mmol/L (3.5-5.1); Total Protein 7.6 g/dL (6.3-8.2)
[2024-02-16 09:09] LABS: INFLUENZA A NEGATIVE (NEGATIVE); INFLUENZA B NEGATIVE (NEGATIVE); RESPIRATORY SYNCTIAL VIRUS NEGATIVE (NEGATIVE); SARS-CoV-2 Xpert Express NEGATIVE (NEGATIVE)
[2024-02-16 09:13] LABS: Absolute Neutrophil Ct (ANC) 4.42 x10^3/uL (1.4-6.9); BASOPHIL % 0.8 % (0.0-0.4); Basophil (Absolute #) 0.06 x10^3/uL (0-0.4); Eosinophil % 3.5 % (0.00-5.0); Eosinophil (Absolute #) 0.27 x10^3/uL (0-0.5); Hematocrit 37.6 % (35-47); Hemoglobin 11.7 g/dL (12.0-16.0); IMMATURE GRAN # 0.03 x10^3u/L (0.00-0.03); IMMATURE GRAN % 0.4 % (0.00-0.4); Lymphocyte (Absolute #) 1.61 x10^3/uL (1.0-4.6); Mean Cell Volume 97.7 fL (78-100); Mean Corpuscular Hemoglobin 30.4 pg (26-32); Mean Corpuscular Hgb Concent. 31.1 g/dL (32-36); Mean Platelet Volume 10.4 fL (7.5-11.0); Monocyte (Absolute #) 1.26 x10^3/uL (0.0-1.3); Monocytes % 16.5 % (0.0-12.0); Neutrophil % 57.8 % (36.0-66.0); Platelet Count 213 x10^3/uL (150-450); Red Blood Count 3.85 x10^6/uL (4.1-5.4); Red Cell Distribution Width 15.1 % (11.5-14.0); White Blood Count 7.7 x10^3/uL (4.0-10.5)
[2024-02-16 12:18] VITALS: BP 163/78
[2024-02-16 12:36] VITALS: O2SAT 97
[2024-02-16] MEDS ORDERED: DELTASONE 20 MG ONE (12:37)
[2024-02-16] MEDS: DELTASONE 20 MG PO ONE (12:39)
[2024-02-16 12:44] VITALS: PULSE 68; RESP 18
--- NOTE | 2024-02-16 19:49 | XRAY ---
Indication: Cough and short of breath. Comparison: January 29, 2024 Portable chest again demonstrates COPD with minimal right midlung subsegmental atelectasis/scarring. Heart remains enlarged again with left pacemaker. No new/acute abnormalities.
== END 2024-02-16 12:47 | disposition home or self-care (01) ==
LOC: ED 07:40
DX: J40 Bronchitis, not specified as acute or chronic (principal); R06.02 Shortness of breath; R05.1 Acute cough; E78.5 Hyperlipidemia, unspecified; I10 Essential (primary) hypertension; Z79.01 Long term (current) use of anticoagulants; Z79.899 Other long term (current) drug therapy
CPT/HCPCS: 0241U; 36415; 71045; 80053; 83605; 83735; 83880; 84484; 85025; 85610; 87040; 93005; 93041; 94640; 99284; A9270-GY

== ENCOUNTER 2024-03-21 09:18 | Emergency (ER) | payer MEDICARE, SELFPAY ==
[2024-03-21 09:42] VITALS: TEMP 97.8
--- NOTE | 2024-03-21 09:51 | ERPHSYRPT ---
- History of Present Illness Time Seen by Provider: 03/21/24 09:40 Source: patient Exam Limitations: no limitations Patient Subjective Stated Complaint: C/O low back pain after a fall on . Patient states she got tripped/tangled up in a plastic trash bag when picking up trash and fell. Denies hitting her head. Triage Nursing Assessment: Patient ambulated back to ER with a cane. She has a slow and steady gait with use of cane. She is alert and oriented. Skin tone normal with bruising noted to left upper back/left shoulder area. Patient denies pain to area of bruising and has full ROM of LUE. No SOB. Physician History: This is an 89-year-old white female patient who presents to the emergency department by private vehicle after falling 2 days ago. Patient states that she was taking out the trash and got tangled up with and tripped by a trash bag when picking up trash at her home. Patient fell onto her back. There is bruising in the area of the posterior shoulder on the left and pain in the back. The pain is in the middle and lower back regions. There is no complaints of chest pain, shortness of breath or extremity pain. Patient has no abdominal pain. Patient did not hit her head. She is on Coumadin. She has no complaints of headache or neck pain. Patient states that she would not have come in except she ran out of tramadol prescription. It was an old prescription of hers. It was helping quite a bit but she ran out of the medicine. Patient has a history of hyperlipidemia, hypertension, CVA, arrhythmia, COPD, gastroesophageal reflux disease, chronic renal disease and coronary artery disease. Occurred: days ago Reason for Fall: tripped, fell from standing pos Injuries/Pain Location: back, lower, middle Loss of Consciousness: no loss of consciousness Quality: aching Severity of Pain-Max: moderate Severity of Pain-Current: moderate Associated Symptoms (Fall): back pain, No abdominal pain, No confusion, No chest pain, No extremity injury, No headache, No shortness of breath Allergies/Adverse Reactions: Penicillins Allergy (Severe, Verified 03/21/24 09:32) Hives Home Medications: Simvastatin 40 mg [Zocor 40 mg] 40 mg PO HS 10/04/14 [History] Spironolactone 25 mg PO DAILY 10/12/17 [History] Citalopram Hydrobromide [Celexa] 10 mg PO DAILY 03/20/18 [History] Hx Tetanus, Diphtheria Vaccination/Date Given: Yes Hx Influenza Vaccination/Date Given: Yes Hx Pneumococcal Vaccination/Date Given: Yes Immunizations Up to Date: Yes Travel Risk - International Travel Have you traveled outside of the country in past 3 weeks: No - Emerging Infectious Disease Are you exhibiting symptoms associated with any current EIDs: No - Review of Systems Constitutional: No Symptoms Eyes: No Symptoms Ears, Nose, & Throat: No Symptoms Respiratory: No Symptoms Cardiac: No Symptoms Abdominal/Gastrointestinal: No Symptoms Genitourinary Symptoms: No Symptoms Musculoskeletal: Back Pain, Fall Skin: No Symptoms Neurological: No Symptoms Psychological: No Symptoms Endocrine: No Symptoms Hematologic/Lymphatic: No Symptoms Immunological/Allergic: No Symptoms All Other Systems: Reviewed and Negative - Past Medical History Pertinent Past Medical History: Yes Neurological History: Stroke ENT History: Cataracts Cardiac History: Arrhythmia, High Cholesterol, Hypertension, Myocardial Infarction ([place]), Other Respiratory History: Bronchitis, COPD, Sleep Apnea Endocrine Medical History: No Pertinent History Musculoskeletal History: No Pertinent History GI Medical History: GERD, Ulcer History: Renal Disease, Other Psycho-Social History: Anxiety, Depression Female Reproductive Disorders: Other Other Medical History: skin cancer face, [place] - Past Surgical History Past Surgical History: Yes Neuro Surgical History: No Pertinent History Cardiac: Angioplasty, Cardiac Catheterization, Cardiac Stent, Pacemaker, Valve Replacement Respiratory: No Pertinent History Gastrointestinal: No Pertinent History Genitourinary: No Pertinent History Musculoskeletal: Orthopedic Surgery Female Surgical History: Hysterectomy Other Surgical History: Inner ear sx, surgery to L1 & L7, Heart surgery 2020 - Social History Smoking Status: Former smoker Exposure to second hand smoke: No Drug Use: none Patient Lives Alone: No - Nursing Vital Signs Nursing Vital Signs: Initial Vital Signs Temperature 97.8 F 03/21/24 09:19 Pulse Rate 65 03/21/24 09:19 Respiratory Rate 17 03/21/24 09:19 Blood Pressure 193/77 03/21/24 09:19 O2 Sat by Pulse Oximetry 93 L 03/21/24 09:19 Pain Scale Pain Intensity 6 - [place] Coma Score Best Eye Response ([place]): (4) open spontaneously Best Verbal Response ([place]): (5) oriented Best Motor Response ([place]): (6) obeys commands [place] Total: 15 - Physical Exam General Appearance: no apparent distress, alert, anxiety, thin Head Injury: no evidence of injury Eye Exam: PERRL/EOMI, eyes nml inspection ENT Exam: airway nml, nml ext.inspection, No evidence of ENT injury, No dental injury Neck Exam: supple, trachea midline, full range of motion, normal alignment, normal inspection, No c-collar in place Respiratory/Chest Exam: normal breath sounds, No chest tenderness, No respiratory distress, No ecchymosis, No crepitus Cardiovascular Exam: normal heart sounds, regular rate/rhythm Gastrointestinal Exam: soft, normal bowel sounds, No tenderness Rectal Exam: not done Back Exam: normal range of motion, vertebral tenderness (Thoracic and lumbar levels without deformity or step-off. 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 tested, normal mood/affect, nml cerebellar function, nml station & gait (Walks with a cane normally), sensation nml Skin Exam: normal color, warm, dry, ecchymosis (Described above) SpO2 Interpretation: borderline oxygenation SpO2: 93 O2 Delivery: Room Air - Course Nursing assessment & vital signs reviewed: Yes Ordered Tests: Active Orders 24 hr Category Date Time Status LUMBAR SPINE W/O [CT] Stat Exams 03/21/24 09:51 Completed SHOULDER Stat Exams 03/21/24 09:52 Taken THORACIC SPINE W/O CONTRAST [CT] Stat Exams 03/21/24 09:51 Completed Medication Summary Discontinued Medications Generic Name Dose Route Start Last Admin Trade Name Rin PRN Reason Stop Dose Admin Tramadol HCl 50 mg 03/21/24 10:28 03/21/24 10:56 Tramadol Hcl 50 Mg Tablet PO 03/21/24 10:29 50 mg STAT ONE Administration Tramadol HCl Confirm 03/21/24 10:54 Tramadol Hcl 50 Mg Tablet Administered 03/21/24 10:55 Dose 50 mg .ROUTE .STK-MED ONE - Progress Progress: improved, pain not gone completely, re-examined Progress Note: 03/21/24 10:22 My medical decision making and the assignment of low to moderate complexity of this patient's medical issue today is based on review of the patient's past medical history, review the patient's medication list, review of patient drug allergy list, history of present illness and physical findings on examination. The workup in this patient includes left shoulder x-ray, CT scan of thoracic and lumbar spines without contrast. We will also provide the patient with tramadol 50 mg orally. 03/21/24 10:23 Differential diagnosis includes contusion, thoracic and lumbar spine fractures and/or subluxation, fracture and/or dislocation left shoulder 03/21/24 11:17 I interpreted the patient's x-ray of the left shoulder. I do not appreciate an acute fracture or dislocation. 03/21/24 12:23 I reviewed the radiologist interpretation of the CT scan of the lumbar spine. The impression states multiple chronic findings without canal stenosis. I reviewed the radiologist interpretation of the CT scan of the thoracic spine. The impression states multilevel degenerative changes. Multilevel thoracic disc height reduction. Multilevel compression fractures presumed chronic. I contacted radiology department. I asked them to contact the radiology reading group. I want to clarify whether they believe these findings are chronic and not acute or indeterminate because there are no comparison films. 03/21/24 13:01 And states that she is ready to go home. She primarily came to get a refill on her tramadol medication. She is aware that she has had chronic, multiple fractures in her spine. She does not have any loss of bowel function. She has no urinary incontinence. She chronically walks with a walker and she walked into the hospital emergency department in her room with her walker. I believe the findings on the radiologist report are chronic and not acute. I spoke with radiology department and they feel this is the case as well. Typically, the radiologist were reading the films either highlight acute emergent problems and/or contact the emergency physician directly. They have not done so. I will allow her to be discharged to home and if the radiologist contacts us to state that the findings, that I am interpreting as chronic, are in fact acute, we will contact the patient. Counseled pt/family regarding: diagnosis, need for follow-up, rad results Medical Desision Making - Diagnostic Testing Diagnostic test were ordered, analyzed, and reviewed by me: Yes Radiological Interpretation: Interpreted by me, Reviewed by me, Teleradiologist Report - Risk of complications The pt has a mod risk of morbidity or mortality based on: Need for prescription drug management - Departure Departure Disposition: Home Clinical Impression: Acute exacerbation of chronic low back pain Condition: Stable Critical Care Time: No Referrals: DO[facility],NO FAMILY [Primary Care Provider] - Follow up/PCP as directed Additional Instructions: Take your medications as prescribed. Call your primary care provider on 03/23/2024, to make arrangements for further evaluation and management and to be s een in the next 3 to 5 days. Prescriptions: Tramadol HCl 50 mg [Ultram 50 mg] 50 mg PO BID #14 tablet MDD 2
[2024-03-21] MEDS ORDERED: ULTRAM 50 MG ONE (10:54)
[2024-03-21] MEDS: ULTRAM 50 MG PO ONE (10:56)
--- NOTE | 2024-03-21 12:09 | XRAY ---
CLINICAL HISTORY: Fall injury COMPARISON: None. TECHNIQUE: Multiple axial images along with coronal and sagittal reformat of CT thoracic spine without contrast were submitted in bone and soft tissue windows. One of the following dose reduction techniques was utilized for this exam: Automated exposure control, adjustment of the mA and/or kV according to patient size, and use of iterative reconstruction. FINDINGS: Marked compression with a significantly decreased height of T3 and T9 vertebral bodies with bone marrow calcifications extending to disc space at T8-9 and paravertebral soft tissue at T3, there is subsequent dorsal kyphosis noted as well, There is a posterior cortical bulge at T3. T12 vertebral anterior and middle columns fractures with posterior cortical retropulsion indenting the anterior thecal sac. Thoracic spine degenerative changes with osteophyte formation. Mild decreased height of T5 and T12 vertebral bodies could be osteoporotic, with a small fracture noted at T5 anterosuperior corner. Multilevel thoracic disc height reduction is more evident at T2-3, T3-4, T8-9, and T9-10 levels. Thoracic aortic atherosclerotic calcifications. Marked left C5-C6 facet joint arthrosis. Stomach containing hiatus hernia. No paravertebral soft tissue swelling is seen. The other visualized part of the chest and abdomen shows no gross abnormality. IMPRESSION: 1. T3 and T9 compression fractures, with approximately up to 70% decreased height and bone marrow densities, (cement injection.) 2. T12 burst fracture. 3. Thoracic spine degenerative changes with osteophyte formation. 4. Mildly decreased height of T5 and T12 vertebral bodies could be osteoporotic, with a small fracture noted at T5 anterosuperior corner. 5. Multilevel thoracic disc height reduction is more evident at T2-3, T3-4, T8,-9, and T9-10 levels. 6. Marked left C5-C6 facet joint arthrosis. 7. Stomach containing hiatus hernia. Electronically Signed by: Quinton Pham MD. (03/21/2024 12:06:00 EDT)
--- NOTE | 2024-03-21 12:17 | XRAY ---
CLINICAL HISTORY: Fall injury COMPARISON: None. TECHNIQUE: CT scan of lumbar spine done without contrast. Axial images were obtained with reformatted coronal and sagittal images and submitted for interpretation. One of the following dose reduction techniques was utilized for this exam: Automated exposure control, adjustment of the mA and/or kV according to patient size, and use of iterative reconstruction. FINDINGS: Redemonstration of T12 vertebral corpus fracture. Sacralized L5 with a fusion of its transverse processes with sacrum on each side. Second-degree spondylolisthesis of L4 over L5 with fracture intervening pars interarticularis on each side. Marked degenerated L4-5 disc in the form of disc space narrowing, marginal sclerosis, and vacuum phenomena. L4 small sclerotic bony lesion noted in its left portion measures 8.2 x 11 mm and could be bone island. Marked L4-5 and L3-4 facet joint arthrosis with joint narrowing and bone hypertrophy along with marginal sclerosis. Segmental disc analysis level by level: L1- L2: There is a posterior bulge indenting the anterior thecal sac, and related nerve roots, the disc bulge measures 1.4 mm, The central canal is unremarkable. No sign of lateral recess stenosis. Nerve roots are normal. L2- L3: There is a bi-posterolateral bulge compressing the anterior thecal sac, and related nerve roots, the disc bulge measures 2.2 mm, The central canal is unremarkable. No sign of lateral recess stenosis. Nerve roots are normal. L3- L4: There is a posterior bulge indenting the anterior thecal sac, and related nerve roots, the disc bulge measures 1.3 mm, The central canal is unremarkable. No sign of lateral recess stenosis. Nerve roots are normal. L4- L5: There is no significant disc herniation or neural foraminal narrowing visualized. The central canal is unremarkable. Nerve roots are normal. L5- S1: There is no significant disc herniation or neural foraminal narrowing visualized. The central canal is unremarkable. Nerve roots are normal. No retro paraspinal soft tissue masses. No developmental canal stenosis. Atrophoic right kidney. Bilateral iliac marked atherosclerotic calcifications. IMPRESSION: 1. 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 2. Second-degree spondylolisthesis of L4 over L5 with fracture intervening pars interarticularis on each side. 3. Marked degenerated L4-5 disc. 4. L4 small sclerotic bony lesion noted in its left portion could be a bone island. 5. Marked L4-5 and L3-4 facet joint arthrosis. 6. L1-L2, L2-L3, and L3-L4 discs bulge as described. 7. Redemonstration of T12 vertebral corpus fracture: please refer to thoracic CT report. Electronically Signed by: Quinton Pham MD. (03/21/2024 12:12:54 EDT)
[2024-03-21 12:49] VITALS: PULSE 60
[2024-03-21 13:05] VITALS: O2SAT 93
[2024-03-21 13:10] VITALS: BP 174/72; RESP 17
--- NOTE | 2024-03-21 20:23 | XRAY ---
Indication: Pain following fall. Comparison: None 3 view left shoulder demonstrates osteopenia, high riding humeral head commonly seen with rotator cuff tear, mild/moderate multilevel degenerative spondylosis, T4 vertebroplasty, and partially visualized left AICD. No other bony, articular, or soft tissue abnormalities.
== END 2024-03-21 13:22 | disposition home or self-care (01) ==
LOC: ED 09:18
DX: G89.29 Other chronic pain (principal); M54.50 Low back pain, unspecified; M54.6 Pain in thoracic spine; M25.512 Pain in left shoulder; E78.5 Hyperlipidemia, unspecified; I12.9 Hypertensive chronic kidney disease with stage 1 through stage 4 chronic kidney disease, or unspecified chronic kidney disease; N18.9 Chronic kidney disease, unspecified; Z79.01 Long term (current) use of anticoagulants; Z79.891 Long term (current) use of opiate analgesic; Z79.899 Other long term (current) drug therapy
CPT/HCPCS: 72128; 72131; 73030; 99283; A9270-GY

== ENCOUNTER 2024-03-29 10:08 | Emergency (ER) | payer MEDICARE ==
[2024-03-29 10:34] VITALS: TEMP 97.1
--- NOTE | 2024-03-29 11:02 | ERPHSYRPT ---
- History of Present Illness Time Seen by Provider: 03/29/24 10:58 Source: patient, family Exam Limitations: no limitations Patient Subjective Stated Complaint: pt c/o of back pain from her fall and she hasn't really ate anything since Triage Nursing Assessment: Pt brought to the ER by her and her son in law and daughter in law, hypertensive, rates pain as 4/10, a-fib, old bruising to the upper left shoulder, and lateral medial right back, lost 8 pounds in the past week or so, no difficulty breathing, sleeps approx 20 hours/day per the , pt states that she just doesn't have an appetite, doesn't appear to be in any distress but she is weak Physician History: pt c/o of back pain from her fall and she hasn't really ate anything since Pt brought to the ER by her and her son in law and daughter in law, hypertensive, rates pain as 4/10, a-fib, old bruising to the upper left shoulder, and lateral medial right back, lost 8 pounds in the past week or so, no difficulty breathing, sleeps approx 20 hours/day per the , pt states that she just doesn't have an appetite, doesn't appear to be in any distress but she is weak Timing/Duration: day(s) Associated Symptoms: loss of appetite Allergies/Adverse Reactions: Penicillins Allergy (Severe, Verified 03/29/24 10:34) Hives Home Medications: Simvastatin 40 mg [Zocor 40 mg] 40 mg PO HS 10/04/14 [History] Spironolactone 25 mg PO DAILY 10/12/17 [History] Citalopram Hydrobromide [Celexa] 10 mg PO DAILY 03/20/18 [History] Clopidogrel Bisulfate [Clopidogrel] 75 mg PO DAILY 03/29/24 [History] Losartan Potassium 50 mg [Cozaar 50 MG] 50 mg PO DAILY 03/29/24 [History] Magnesium Oxide 400 mg [Mag-Ox 400] 400 mg PO DAILY 03/29/24 [History] Potassium Chloride 10 meq PO DAILY 03/29/24 [History] Hx Tetanus, Diphtheria Vaccination/Date Given: Yes Hx Influenza Vaccination/Date Given: Yes Hx Pneumococcal Vaccination/Date Given: Yes Travel Risk - International Travel Have you traveled outside of the country in past 3 weeks: No - Emerging Infectious Disease Are you exhibiting symptoms associated with any current EIDs: No Symptoms: Cough: New Onset, Shortness of Breath - Review of Systems Constitutional: Fatigue, Lethargy, Weakness, Weight Loss, No Fever, No Chills Eyes: No Symptoms Ears, Nose, & Throat: No Symptoms Respiratory: No Cough, No Dyspnea Cardiac: No Chest Pain, No Edema, No Syncope Abdominal/Gastrointestinal: Appetite Changes, No Abdominal Pain, No Nausea, No Vomiting, No Diarrhea Genitourinary Symptoms: No Dysuria Musculoskeletal: Back Pain, No Neck Pain Skin: No Rash Neurological: No Dizziness, No Focal Weakness, No Sensory Changes Psychological: No Symptoms Endocrine: No Symptoms All Other Systems: Reviewed and Negative - Past Medical History Pertinent Past Medical History: Yes Neurological History: Stroke ENT History: Cataracts Cardiac History: Arrhythmia, High Cholesterol, Hypertension, Myocardial Infarction ([place]), Other Respiratory History: Bronchitis, COPD, Sleep Apnea Endocrine Medical History: No Pertinent History Musculoskeletal History: No Pertinent History GI Medical History: GERD, Ulcer History: Renal Disease, Other Psycho-Social History: Anxiety, Depression Female Reproductive Disorders: Other Other Medical History: skin cancer face, [place] - Past Surgical History Past Surgical History: Yes Neuro Surgical History: No Pertinent History Cardiac: Angioplasty, Cardiac Catheterization, Cardiac Stent, Pacemaker, Valve Replacement Respiratory: No Pertinent History Gastrointestinal: No Pertinent History Genitourinary: No Pertinent History Musculoskeletal: Orthopedic Surgery Female Surgical History: Hysterectomy Other Surgical History: Inner ear sx, surgery to L1 & L7, Heart surgery 2020 - Social History Smoking Status: Former smoker Exposure to second hand smoke: No Drug Use: none Patient Lives Alone: No - Nursing Vital Signs Nursing Vital Signs: Initial Vital Signs Temperature 97.1 F 03/29/24 10:16 Pulse Rate 72 03/29/24 10:16 Respiratory Rate 22 03/29/24 10:16 Blood Pressure 166/89 03/29/24 10:16 O2 Sat by Pulse Oximetry 95 03/29/24 10:16 Pain Scale Pain Intensity [Right Medial 4 Back] Pain Intensity 4 - Physical Exam General Appearance: no apparent distress, alert Eye Exam: PERRL/EOMI, eyes nml inspection Ears, Nose, Throat Exam: normal ENT inspection, TMs normal, pharynx normal, moist mucous membranes Neck Exam: normal inspection, non-tender, supple, full range of motion Respiratory Exam: normal breath sounds, lungs clear, No respiratory distress Cardiovascular Exam: regular rate/rhythm, normal heart sounds, normal peripheral pulses Gastrointestinal/Abdomen Exam: soft, normal bowel sounds, No tenderness, No mass Back Exam: normal inspection, normal range of motion, No CVA tenderness, No vertebral tenderness Extremity Exam: normal inspection, normal range of motion, pelvis stable Neurologic Exam: alert, oriented x 3, cooperative, normal mood/affect, nml cerebellar function, nml station & gait, sensation nml, No motor deficits Skin Exam: normal color, warm, dry, No rash Lymphatic Exam: No adenopathy SpO2: 95 - Course Nursing assessment & vital signs reviewed: Yes Ordered Tests: Active Orders 24 hr Category Date Time Status CBC W DIFF Stat Lab 03/29/24 10:50 Completed CMP Stat Lab 03/29/24 10:50 Completed CULTURE,URINE Stat Lab 03/29/24 11:19 Received UA W/RFX UR CULTURE Stat Lab 03/29/24 11:19 Completed Medication Summary Discontinued Medications Generic Name Dose Route Start Last Admin Trade Name Rin PRN Reason Stop Dose Admin Ceftriaxone Sodium 1,000 mg 03/29/24 11:57 03/29/24 12:09 Ceftriaxone Sodium 1000 Mg Inj Vial IM 03/29/24 11:58 1,000 mg STAT ONE Administration Ceftriaxone Sodium Confirm 03/29/24 11:59 Ceftriaxone Sodium 1000 Mg Inj Vial Administered 03/29/24 12:00 Dose 1,000 mg .ROUTE .STK-MED ONE Lidocaine HCl Confirm 03/29/24 11:59 Lidocaine Hcl 1% 20 Ml Mdv 20 Ml Ml Administered 03/29/24 12:00 Dose 3 ml .ROUTE .STK-MED ONE Lab/Rad Data: Laboratory Result Diagrams 03/29/24 10:50 03/29/24 10:50 Laboratory Results 03/29/24 03/29/24 03/29/24 Range/Units 11:19 10:50 10:50 WBC 11.4 H (4.0-10.5) x10^3/uL RBC 4.34 (4.1-5.4) x10^6/uL Hgb 12.9 (12.0-16.0) g/dL Hct 41.0 (35-47) % MCV 94.5 (78-100) fL MCH 29.7 (26-32) pg MCHC 31.5 L (32-36) g/dL RDW 14.8 H (11.5-14.0) % Plt Count 239 (150-450) x10^3/uL MPV 10.7 (7.5-11.0) fL Gran % 75.9 H (36.0-66.0) % Immature Gran % (Auto) 0.4 (0.00-0.4) % Nucleat RBC Rel Count 0.0 (0.00-0.1) % Eos # (Auto) 0.14 (0-0.5) x10^3/uL Immature Gran # (Auto) 0.04 H (0.00-0.03) x10^3u/L Absolute Lymphs (auto) 1.05 (1.0-4.6) x10^3/uL Absolute Monos (auto) 1.44 H (0.0-1.3) x10^3/uL Absolute Nucleated RBC 0.00 (0.00-0.01) x10^3u/L Lymphocytes % 9.3 L (24.0-44.0) % Monocytes % 12.7 H (0.0-12.0) % Eosinophils % 1.2 (0.00-5.0) % Basophils % 0.5 (0.0-0.4) % Absolute Granulocytes 8.62 H (1.4-6.9) x10^3/uL Basophils # 0.06 (0-0.4) x10^3/uL Sodium 140 (135-145) mmol/L Potassium 4.7 (3.5-5.1) mmol/L Chloride 100 (98-107) mmol/L Carbon Dioxide 32 H (22-30) mmol/L Anion Gap 12.2 (5-15) MEQ/L BUN 31 H (7-17) mg/dL Creatinine 1.19 H (0.52-1.04) mg/dL Estimated GFR 44.0 ML/MIN Glucose 105 (74-106) mg/dL Calcium 9.9 (8.4-10.2) mg/dL Total Bilirubin 1.00 (0.2-1.3) mg/dL AST 36 (14-36) U/L ALT 27 (0-35) U/L Alkaline Phosphatase 115 (38-126) U/L Serum Total Protein 7.5 (6.3-8.2) g/dL Albumin 4.4 (3.5-5.0) g/dL Urine Color Yellow (Yellow) Urine Appearance Clear (Clear) Urine pH 6.0 (4.6-8.0) Ur Specific [place] 1.025 (1.005-1.030) Urine Protein Negative (Negative) Urine Glucose (UA) Negative (Negative) mg/dL Urine Ketones Trace A (Negative) Urine Blood Negative (Negative) Urine Nitrite Negative (Negative) Urine Bilirubin Negative (Negative) Urine Urobilinogen 1.0 A (0.2) mg/dL Ur Leukocyte Esterase Moderate A (Negative) U Hyaline Cast (Auto) NONE SEEN (0-2) /LPF Urine Microscopic RBC 0-2 (0-5) /HPF Urine Microscopic WBC 3-5 (0-5) /HPF Ur Epithelial Cells Rare (None Seen) /HPF Urine Bacteria None Seen (None Seen) /HPF Urine Culture Reflexed YES (NO) - Progress Progress: unchanged Counseled pt/family regarding: lab results, diagnosis, need for follow-up Medical Desision Making - Independent Historian Additional History obtained from: Spouse, Family - Diagnostic Testing Diagnostic test were ordered, analyzed, and reviewed by me: Yes Radiological Interpretation: Interpreted by me, Reviewed by me - Risk of complications Low Risk: Low risk of morbidity from additional dx testing or treatment - Departure Departure Disposition: Home Clinical Impression: Loss of appetite for more than 2 weeks Urinary tract infection Qualifiers: Urinary tract infection type: acute pyelonephritis Qualified Code(s): N10 - Acute pyelonephritis Condition: Stable Critical Care Time: No Referrals: DOCTOR,NO FAMILY [Primary Care Provider] - Follow Up with PCP/3 days Instructions: Urinary Tract Infection, Adult (DC), Kidney Infection (DC) Additional Instructions: Get Your PT/INR checked on Saturday. Discharge/Care Plan LEX DAVID was seen on 03/29/24 in the Emergency Room. The patient was counseled regarding Diagnosis,Lab results, Imaging studies, need for follow up and when to return to the Emergency Room. Prescriptions given: Discharge Note I have spoken with the patient and/or caregivers. I have explained the patient's condition, diagnosis and treatment plan based on the information available to me at this time. I have answered the patient's and/or caregiver's questions and addressed any concerns. The patient and/or caregivers have as good understanding of the patient's diagnosis, condition and treatment plan as can be expected at this point. The vital signs have been stable. The patient's condition is stable and appropriate for discharge from the emergency department. The patient will pursue further outpatient evaluation with the primary care physician or other designated or consulting physician as outlined in the discharge instructions. The patient and/or caregivers are agreeable to this plan of care and follow-up instructions have been explained in detail. The patient and/or caregivers have received these instruction. The patient/and or caregivers are aware that any significant change in condition or worsening of symptoms should prompt an immediate return to this or the closest emergency department or call 911. LEX DAVID was seen on 03/29/24 n the Emergency Room. At that time you were treated for an emergent condition, during your visit Laboratory, Radiology and/or other procedures may have been ordered. It is very important that you follow-up with your Primary Care Physician NO FAMILY DOCTOR within the next 24- 48 hours to review your Emergency Room visit and the final results of testing that was ordered. Some test results such as Urine Cultures, Blood Cultures, and other cultures if ordered will not be finalized for 24-48 hours. If you do not have a Primary Care Provider please call the medical records department at [phone] ext [phone] to obtain a copy of your results or you may sign into our patient portal to obtain these results by visiting us @ [email or web address] and completing the following steps: 1. Click on the Patient Portal link 2. Click the Patient Self Enrollment Link to complete the enrollment form and entering your 3. Once the enrollment form is completed you will receive an email with a temporary ID and password at the email address you provided. 4. Next choose a user name and password. Your user name must be at least 4 characters long and your password must be at least 4 characters long. 5. Choose a security question from the list and provide your answer to the question. If you already have signed into the Health Portal you may access your Health Care Information 10/06 by the following steps: 1. Login to our website @ [email or web address] 2. Enter your original user name and password. FAQS The [facility] Health Portal is an online tool that contains your Lab Results, Radiology Reports, Visit History, Discharge Instructions and Health Summary Lab and Radiology Results will not be available for 72 hours on the portal. The Portal is a secure site, passwords are encryted and URLs are re-written so they cannot be copied and pasted. You and authorized family members are the only ones who can access your Portal. Also there is a timeout feature that protects your information if you leave the Portal page open. If you have technical difficulty please use the Contact Us link on the page this will allow you to submit any questions you have regarding the Portal or you may contact the Medical Record Department at [phone] ext [phone]. Prescriptions: Ciprofloxacin [Cipro 500 MG] 500 mg PO BIDAC #10 tablet
[2024-03-29 11:10] LABS: Absolute Neutrophil Ct (ANC) 8.62 x10^3/uL (1.4-6.9); BASOPHIL % 0.5 % (0.0-0.4); Basophil (Absolute #) 0.06 x10^3/uL (0-0.4); Eosinophil % 1.2 % (0.00-5.0); Eosinophil (Absolute #) 0.14 x10^3/uL (0-0.5); Hemoglobin 12.9 g/dL (12.0-16.0); IMMATURE GRAN # 0.04 x10^3u/L (0.00-0.03); IMMATURE GRAN % 0.4 % (0.00-0.4); Lymphocyte (Absolute #) 1.05 x10^3/uL (1.0-4.6); Lymphocytes % 9.3 % (24.0-44.0); Mean Cell Volume 94.5 fL (78-100); Mean Corpuscular Hemoglobin 29.7 pg (26-32); Mean Corpuscular Hgb Concent. 31.5 g/dL (32-36); Mean Platelet Volume 10.7 fL (7.5-11.0); Monocyte (Absolute #) 1.44 x10^3/uL (0.0-1.3); Monocytes % 12.7 % (0.0-12.0); Neutrophil % 75.9 % (36.0-66.0); Platelet Count 239 x10^3/uL (150-450); Red Blood Count 4.34 x10^6/uL (4.1-5.4); Red Cell Distribution Width 14.8 % (11.5-14.0); White Blood Count 11.4 x10^3/uL (4.0-10.5)
[2024-03-29 11:24] LABS: ALBUMIN 4.4 g/dL (3.5-5.0); ANION GAP 12.2 MEQ/L (5-15); Calcium 9.9 mg/dL (8.4-10.2); Creatinine 1 1.19 mg/dL (0.52-1.04); Potassium 4.7 mmol/L (3.5-5.1); Total Protein 7.5 g/dL (6.3-8.2)
[2024-03-29 11:37] LABS: Appearance Clear (Clear); Bacteria None Seen /HPF (None Seen); Bilirubin Negative (Negative); Blood Negative (Negative); Epithelial Cells Rare /HPF (None Seen); Glucose, Urine Negative (Negative); Hyaline Casts NONE SEEN /LPF (0-2); Ketones Trace (Negative); Leukocyte Esterase Moderate (Negative); Nitrite Negative (Negative); Protein,Urine Dip Negative (Negative); RBC 0-2 /HPF (0-5); Specific Gravity 1.025 (1.005-1.030)
[2024-03-29 11:38] LABS: ADD URINE CULTURE? YES (NO)
[2024-03-29] MEDS ORDERED: XYLOCAINE 1% HCL 20 ML MDV ONE (11:59)
[2024-03-29] MEDS ORDERED: Rocephin 1000 MG INJ ONE (11:59)
[2024-03-29] MEDS: Rocephin 1000 MG INJ IM ONE (12:09)
[2024-03-29 12:40] VITALS: BP 178/77; PULSE 62; RESP 23; O2SAT 93
== END 2024-03-29 13:01 | disposition home or self-care (01) ==
LOC: ED 10:08
DX: N10 Acute pyelonephritis (principal); R63.0 Anorexia; E78.5 Hyperlipidemia, unspecified; I10 Essential (primary) hypertension; Z79.02 Long term (current) use of antithrombotics/antiplatelets; Z79.899 Other long term (current) drug therapy
CPT/HCPCS: 36415; 80053; 81001; 85025; 87086; 96372; 99283; J0696

== ENCOUNTER 2024-09-30 08:52 | Day surgery (SDC) | payer MEDICARE ==
[2024-09-30] MEDS ORDERED: Xylocaine-Mpf 2% 5 Ml Vial IJ ONE (08:53)
[2024-09-30 10:26] LABS: INR 0.94 (0.8-3.0); PROTIME 10.3 SECONDS (9.4-12.5)
[2024-09-30] MEDS ORDERED: DIPRIVAN 200 MG/20 ML IV ONE (11:27)
--- NOTE | 2024-09-30 13:20 | XRAY ---
Indication: Bilateral L2-L4 MBB. Intraoperative fluoroscopy provided for 18 seconds. Single digital spot image submitted for interpretation demonstrates posterior needle tips projecting over the expected left and right L2-L4 nerve roots. Correlate with intraoperative findings/report.
--- NOTE | 2024-09-30 14:04 | XRAY ---
18 seconds of fluoroscopy was used in surgery for a bilateral L2-L4 MBB.
== END 2024-09-30 12:04 | disposition home or self-care (01) ==
LOC: SDC-PAIN 08:52
PROVIDERS: ATTEND Psychiatry & Neurology Pain Medicine
DX: M47.816 Spondylosis without myelopathy or radiculopathy, lumbar region (principal); R73.03 Prediabetes; Z79.01 Long term (current) use of anticoagulants
CPT/HCPCS: 36415; 64493; 64494; 72020; 77002; 82947; 85610; J2704

== ENCOUNTER 2024-12-09 09:41 | Day surgery (SDC) | payer MEDICARE ==
[2024-12-09] MEDS ORDERED: BUPIVACAINE 0.5% VIAL IJ ONE (09:42)
[2024-12-09 10:43] LABS: INR 0.96 (0.8-3.0); PROTIME 10.5 SECONDS (9.4-12.5)
[2024-12-09] MEDS ORDERED: propofoL IV ONE (11:06)
--- NOTE | 2024-12-09 11:56 | XRAY ---
Indication: Bilateral L2-L4 MBB. Intraoperative fluoroscopy provided for 14 seconds. Single digital spot image submitted for interpretation demonstrates posterior needle tips projecting over the expected left and right L2-L4 nerve roots. Correlate with intraoperative findings/report.
--- NOTE | 2024-12-09 12:32 | XRAY ---
14 seconds of fluoroscopy was used in surgery for a bilateral L2-L4 MBB.
== END 2024-12-09 11:40 | disposition home or self-care (01) ==
LOC: SDC-PAIN 09:41
PROVIDERS: ATTEND Psychiatry & Neurology Pain Medicine
DX: M47.816 Spondylosis without myelopathy or radiculopathy, lumbar region (principal); Z79.01 Long term (current) use of anticoagulants
CPT/HCPCS: 36415; 64493; 64494; 72020; 77002; 85610; J2704

== ENCOUNTER 2025-01-14 08:55 | Day surgery (SDC) | payer MEDICARE ==
[2025-01-14] MEDS ORDERED: BUPIVACAINE 0.5% VIAL IJ ONE (08:56)
[2025-01-14] MEDS ORDERED: LIDOCAINE HCL 1% 50 MG/5 ML VL IJ ONE (08:56)
[2025-01-14] MEDS ORDERED: methylPREDNISolone acetate IM ONE (08:56)
[2025-01-14] MEDS ORDERED: Lactated Ringers 500 ML IV ONE (09:25)
[2025-01-14 10:09] LABS: PROTIME 10.9 SECONDS (9.4-12.5)
[2025-01-14] MEDS ORDERED: propofoL IV ONE (10:42)
--- NOTE | 2025-01-14 21:03 | XRAY ---
Indication: Right L2-L4 RFA. Intraoperative fluoroscopy provided for 23 seconds. 4 digital spot image submitted for interpretation demonstrates posterior needle tips projecting over expected right L2-L4 nerve roots. Correlate with intraoperative findings/report.
--- NOTE | 2025-01-14 21:52 | XRAY ---
23 seconds of fluoroscopy was used in surgery for a right L2-L4 RFA.
== END 2025-01-14 11:19 | disposition home or self-care (01) ==
LOC: SDC-PAIN 08:55
PROVIDERS: ATTEND Psychiatry & Neurology Pain Medicine
DX: M47.816 Spondylosis without myelopathy or radiculopathy, lumbar region (principal); R73.03 Prediabetes; Z79.01 Long term (current) use of anticoagulants
CPT/HCPCS: 36415; 64635; 64636; 72100; 77002; 82947; 85610; 99100; J1010; J2704

== ENCOUNTER 2025-03-10 09:32 | Day surgery (SDC) | payer MEDICARE ==
[2025-03-10] MEDS ORDERED: LIDOCAINE HCL 1% AMPUL 5 ML IJ ONE (09:33)
[2025-03-10] MEDS ORDERED: BUPIVACAINE 0.5% VIAL IJ ONE (09:33)
[2025-03-10] MEDS ORDERED: Depo-Medrol 40 MG/ML IM ONE (09:33)
[2025-03-10 10:13] LABS: INR 1.01 (0.8-3.0)
[2025-03-10] MEDS ORDERED: propofoL IV ONE (11:23)
[2025-03-10] MEDS ORDERED: Lactated Ringers 1,000 ML IV ONE (11:57)
--- NOTE | 2025-03-10 12:32 | XRAY ---
Indication: Left L4-S1 RFA. Intraoperative fluoroscopy provided for 24 seconds. 4 digital spot image submitted for interpretation demonstrates posterior needle tips projecting over expected left L4-S1 nerve roots. Correlate with intraoperative findings/report.
--- NOTE | 2025-03-10 12:52 | XRAY ---
24 seconds of fluoroscopy were used in surgery for a left L2-L4 RFA.
== END 2025-03-10 12:05 | disposition home or self-care (01) ==
LOC: SDC-PAIN 09:32
PROVIDERS: ATTEND Psychiatry & Neurology Pain Medicine
DX: M47.817 Spondylosis without myelopathy or radiculopathy, lumbosacral region (principal); Z79.01 Long term (current) use of anticoagulants; R73.03 Prediabetes
CPT/HCPCS: 36415; 64635; 64636; 72100; 82947; 85610; 99100; J2704

== ENCOUNTER 2025-08-21 16:48 | Emergency (ER) | payer MEDICARE ==
[2025-08-21 17:09] VITALS: TEMP 98
[2025-08-21] MEDS ORDERED: BABY ASPIRIN 81 MG CHEW ONE (17:32)
[2025-08-21 17:33] LABS: BASOPHIL % 0.6 % (0.1-1.2); Basophil (Absolute #) 0.05 x10^3/uL (0.01-0.08); Eosinophil (Absolute #) 0.18 x10^3/uL (0.04-0.36); Hematocrit 43.2 % (34.1-44.9); Hemoglobin 13.7 g/dL (11.2-15.7); IMMATURE GRAN # 0.02 x10^3u/L (0.001-0.031); IMMATURE GRAN % 0.2 % (0.001-0.429); Lymphocyte (Absolute #) 1.69 x10^3/uL (1.18-3.74); Mean Corpuscular Hemoglobin 31.5 pg (25.6-32.2); Mean Corpuscular Hgb Concent. 31.7 g/dL (32.2-35.5); Monocyte (Absolute #) 1.21 x10^3/uL (0.24-0.86); NUCLEATED RBC # 0.00 x10^3u/L (0.00-0.012); NUCLEATED RBC % 0.0 % (0.00-0.2); Platelet Count 201 x10^3/uL (182-369); Red Blood Count 4.35 x10^6/uL (3.93-5.22); White Blood Count 8.4 x10^3/uL (3.98-10.04)
[2025-08-21] MEDS: BABY ASPIRIN 81 MG CHEW PO ONE (17:33)
[2025-08-21 17:40] LABS: CK-Creatinine Phosphokinase 49.0 U/L (30-135); Calcium 10.0 mg/dL (8.4-10.2); Carbon Dioxide 32.0 mmol/L (22-30); Creatinine 1 1.0 mg/dL (0.52-1.04); EST GLOMERULAR FILTRATION RATE 53.9 ML/MIN; Glucose 93.0 mg/dL (74-106); Potassium 4.5 mmol/L (3.5-5.1); SGOT/AST 34.0 U/L (14-36); SGPT/ALT 27.0 U/L (0-35); Total Protein 7.0 g/dL (6.3-8.2)
[2025-08-21 17:42] LABS: INR 2.63 (0.8-3.0); PROTIME 28.4 SECONDS (9.4-12.5); PTT 35.5 SECONDS (25.1-36.5)
[2025-08-21] MEDS ORDERED: DUONEB 0.5-3 MG/3 ml Neb IH ONE (17:43)
[2025-08-21] MEDS: DUONEB 0.5-3 MG/3 ml Neb IH ONE (17:46)
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
[2025-08-21 17:57] LABS: NT PRO BNPII 1120 pg/mL (<300); TROPONIN < 0.012 ng/mL (0.000-0.033)
[2025-08-21] MEDS ORDERED: ROCEPHIN 1 GM / 100 ML NaCl 1 GM/100 ML IVPB IV ONE (18:47)
[2025-08-21] MEDS: ROCEPHIN 1 GM / 100 ML NaCl 1 GM/100 ML IVPB IV ONE (18:48)
[2025-08-21 19:07] VITALS: BP 162/63; PULSE 60; RESP 23; O2SAT 98
--- NOTE | 2025-08-21 20:33 | XRAY ---
Indication: Pneumonia. Comparison: April 02, 2024 Potable chest again hyperinflated and clear. Heart remains enlarged again with left pacemaker. Bony thorax intact again with osteopenia, degenerative changes, levoscoliosis, and T3 kyphoplasty. No new/acute findings.
== END 2025-08-21 19:28 | disposition home or self-care (01) ==
LOC: ED 16:48
DX: R06.02 Shortness of breath (principal); R91.8 Other nonspecific abnormal finding of lung field; Z79.02 Long term (current) use of antithrombotics/antiplatelets; Z79.899 Other long term (current) drug therapy

== ENCOUNTER 2025-10-19 09:11 | Observation (INO) | payer MEDICARE ==
[2025-10-19 09:52] LABS: Hematocrit 39.5 % (34.1-44.9); Hemoglobin 12.3 g/dL (11.2-15.7); Mean Corpuscular Hemoglobin 30.9 pg (25.6-32.2); Mean Corpuscular Hgb Concent. 31.1 g/dL (32.2-35.5); Platelet Count 203 x10^3/uL (182-369); Red Blood Count 3.98 x10^6/uL (3.93-5.22); White Blood Count 12.4 x10^3/uL (3.98-10.04)
[2025-10-19 10:08] LABS: INR 3.13 (0.8-3.0); PROTIME 33.5 SECONDS (9.4-12.5)
[2025-10-19] MEDS ORDERED: ZOFRAN ODT 4 MG PO PRN (10:14)
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
[2025-10-19 10:18] LABS: Calcium 10.2 mg/dL (8.4-10.2); Carbon Dioxide 29.0 mmol/L (22-30); Creatinine 1 1.04 mg/dL (0.52-1.04); EST GLOMERULAR FILTRATION RATE 51.4 ML/MIN; Glucose 129.0 mg/dL (74-106); Potassium 4.5 mmol/L (3.5-5.1); SGOT/AST 42.0 U/L (14-36); SGPT/ALT 30.0 U/L (0-35); Total Protein 8.0 g/dL (6.3-8.2)
[2025-10-19] MEDS ORDERED: VENTOLIN COMMON CANISTER IH PRN (10:56)
[2025-10-19] MEDS ORDERED: PROVENTIL 2.5 MG/3 ML NEB IH PRN (10:56)
[2025-10-19] MEDS ORDERED: ATARAX 25 MG PO PRN (10:56)
[2025-10-19] MEDS ORDERED: COUMADIN PO SCH (11:00)
[2025-10-19] MEDS ORDERED: Docusate Sodium 100 MG PO PRN (11:32)
[2025-10-19] MEDS ORDERED: MEDICATION INTERVENTION MC SCH (11:45)
[2025-10-19] MEDS: Miralax Powder 17GM PACKET PO SCH (11:51)
[2025-10-19] MEDS: PHARMACY DOSING REQUEST MC ONE (12:54)
[2025-10-19 14:16] LABS: Glucose, Urine Negative (Negative); Protein,Urine Dip 30 (Negative); RBC 0-2 /HPF (0-5); WBC 0-2 /HPF (0-5)
[2025-10-19] MEDS: COUMADIN PO ONE (18:38)
[2025-10-19] MEDS: ZOCOR 20MG PO SCH (21:01)
[2025-10-19] MEDS: NORCO 5/325 MG PO PRN (21:01)
[2025-10-19] MEDS: Lopressor 25MG Tab PO SCH (21:02)
[2025-10-20 05:50] LABS: Hematocrit 38.8 % (34.1-44.9); Hemoglobin 11.9 g/dL (11.2-15.7); Mean Corpuscular Hemoglobin 30.8 pg (25.6-32.2); Mean Corpuscular Hgb Concent. 30.7 g/dL (32.2-35.5); Platelet Count 217 x10^3/uL (182-369); Red Blood Count 3.86 x10^6/uL (3.93-5.22); White Blood Count 9.4 x10^3/uL (3.98-10.04)
[2025-10-20 06:25] LABS: INR 3.03 (0.8-3.0); PROTIME 32.5 SECONDS (9.4-12.5)
[2025-10-20 06:32] LABS: Calcium 9.8 mg/dL (8.4-10.2); Carbon Dioxide 34.0 mmol/L (22-30); Creatinine 1 0.98 mg/dL (0.52-1.04); EST GLOMERULAR FILTRATION RATE 55.2 ML/MIN; Glucose 107.0 mg/dL (74-106); Potassium 4.0 mmol/L (3.5-5.1); SGOT/AST 41.0 U/L (14-36); SGPT/ALT 30.0 U/L (0-35); Total Protein 7.1 g/dL (6.3-8.2)
[2025-10-20] MEDS: Aldactone 25 MG PO SCH (09:33)
[2025-10-20] MEDS: ceLEXa 20 MG PO SCH (09:33)
[2025-10-20] MEDS: PLAVIX Tablet PO SCH (09:33)
[2025-10-20] MEDS: Klor Con PO SCH (09:34)
[2025-10-20] MEDS: Protonix 40MG Tablet PO SCH (09:34)
[2025-10-20] MEDS ORDERED: Coumadin 2 MG PO SCH (10:00)
[2025-10-20] MEDS ORDERED: NON-FORMULARY ITEM (Omeprazole [Omeprazole] 20 MG Capsule.Dr) PO SCH (10:00)
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
[2025-10-20] MEDS: COUMADIN PO SCH (17:49)
[2025-10-20] MEDS: TYLENOL 325 MG PO PRN (17:53)
[2025-10-21 05:03] LABS: Hematocrit 40.9 % (34.1-44.9); Hemoglobin 12.2 g/dL (11.2-15.7); Mean Corpuscular Hemoglobin 29.9 pg (25.6-32.2); Mean Corpuscular Hgb Concent. 29.8 g/dL (32.2-35.5); Platelet Count 222 x10^3/uL (182-369); Red Blood Count 4.08 x10^6/uL (3.93-5.22); White Blood Count 10.3 x10^3/uL (3.98-10.04)
[2025-10-21 05:15] LABS: Calcium 9.9 mg/dL (8.4-10.2); Carbon Dioxide 34.0 mmol/L (22-30); Creatinine 1 0.97 mg/dL (0.52-1.04); EST GLOMERULAR FILTRATION RATE 55.9 ML/MIN; Glucose 116.0 mg/dL (74-106); Potassium 4.9 mmol/L (3.5-5.1); SGOT/AST 41.0 U/L (14-36); SGPT/ALT 32.0 U/L (0-35); Total Protein 7.1 g/dL (6.3-8.2)
[2025-10-21 05:23] LABS: INR 3.1 (0.8-3.0); PROTIME 33.2 SECONDS (9.4-12.5)
[2025-10-21 07:23] VITALS: BP 146/63; PULSE 60; RESP 16; TEMP 98.7
--- NOTE | 2025-10-21 07:34 | PCM.DS ---
Discharge Summary Date of Admission: 10/19/25 09:21 Date of Discharge: 10/21/25 Admitting Physician: APARNA PIERCE MD Primary Care Provider: ASHELY GUARDADO DO Allergies Allergies Penicillins Allergy (Severe, Verified 10/19/25 09:50) Hives hydrocodone Adverse Reaction (Verified 10/19/25 09:50) Hospital Summary - Hospital Course Hospital Course: 10/19/25 is a 89-year-old female with a significant past medical history including stroke, coronary artery disease, hyperlipidemia, hypertension, myocardial infarction, COPD, sleep apnea (managed with nocturnal oxygen as she declines CPAP), degenerative disc disease, osteoarthritis, GERD, peptic ulcer disease, chronic kidney disease, anxiety, and depression. She was admitted on 10/19 following a right humerus fracture sustained after a fall on , attributed to loose gravel and a wind citlaly. She denied additional injuries, though she noted a bruise on her right hip without associated pain. Initial imaging revealed no further acute findings. Pain management has been challenging given her chronic pain history; she was discharged from the emergency department with narcotics, later sought care at [facility], but was unable to obtain additional prescriptions due to recent fills. She has since managed her pain with Tylenol and narcotics, reporting tolerable pain at 5/10. Orthopedic evaluation determined she is not a surgical candidate. Due to her inability to perform ADLs with her arm in a sling and significant pain with movement, she requested rehabilitation placement. PT/OT evaluations were initiated, and case management assisted with placement. She also reported constipation related to [place] use, with no bowel movement since before despite stool softeners; MiraLAX was started. On 10/20, she remained stable, with her right arm elevated in a sling, pain controlled, INR at 3.03 managed by pharmacy, and improving liver function tests (bilirubin 1.40, AST 41). On 10/21, she was accepted for rehabilitation at [facility], with her daughter notified of transfer. At discharge, her pain was well controlled, her right arm remained in a sling, and she denied further concerns. She was discharged in stable condition to rehabilitation. - Vitals & Intake/Output Vital Signs: Vital Signs Temperature 98.7 F 10/21/25 07:21 Pulse Rate 60 10/21/25 07:21 Respiratory Rate 16 10/21/25 07:21 Blood Pressure 146/63 10/21/25 07:21 O2 Sat by Pulse Oximetry 98 10/21/25 07:21 Intake & Output: Intake & Output 10/18/25 10/19/25 10/20/25 10/21/25 11:59 11:59 11:59 11:59 Intake Total 720 240 Balance 720 240 Weight 49.8 kg 49.8 kg - Lab Result Diagrams: 10/21/25 04:19 10/21/25 04:19 Lab Results-Last 24 Hrs: Lab Results-Last 24 Hours 10/21/25 10/21/25 10/21/25 Range/Units 04:19 04:19 04:19 WBC 10.3 H (3.98-10.04) x10^3/uL RBC 4.08 (3.93-5.22) x10^6/uL Hgb 12.2 (11.2-15.7) g/dL Hct 40.9 (34.1-44.9) % MCV 100.2 H (79.4-94.8) fL MCH 29.9 (25.6-32.2) pg MCHC 29.8 L (32.2-35.5) g/dL RDW 14.1 (11.7-14.4) % Plt Count 222 (182-369) x10^3/uL MPV 10.4 (9.4-12.3) fL PT 33.2 H (9.4-12.5) SECONDS INR 3.10 H (0.8-3.0) Sodium 136 (135-145) mmol/L Potassium 4.9 D (3.5-5.1) mmol/L Chloride 98 (98-107) mmol/L Carbon Dioxide 34 H (22-30) mmol/L Anion Gap 8.5 (5-15) MEQ/L BUN 27 H (7-17) mg/dL Creatinine 0.97 (0.52-1.04) mg/dL Estimated GFR 55.9 ML/MIN Glucose 116 H (74-106) mg/dL Calcium 9.9 (8.4-10.2) mg/dL Total Bilirubin 1.30 (0.2-1.3) mg/dL AST 41 H (14-36) U/L ALT 32 (0-35) U/L Alkaline Phosphatase 104 (38-126) U/L Serum Total Protein 7.1 (6.3-8.2) g/dL Albumin 3.9 (3.5-5.0) g/dL - Procedures and Test Procedures and Tests throughout Hospitalization: Therapy Orders & Screens 10/19/25 10:27 OT Screen per Nursing Assess ONCE Comment: Protocol Order Physician Instructions: Greater than 3 points order OT Admission Screening Reason For Exam: Triggered on Admission Diagnosis: Right shoulder injury Open Wound/Cellutlitis/Pressure Ulcers: No Acute Fx/ORIF/Change in wt bearing status: Yes Severe MUSCULOSKELETAL pain: No ADL Dysfunction: Yes Acute CVA w/Hemiparesis/Hemiplegia: No Decreased Functional Mobility/Strength: Yes Sprain/Strain: No Acute Post-op Mobility Dysfunction: No Total Points: 9 PT Screen per Nursing Assess ONCE Comment: Protocol Order Physician Instructions: Greater than 3 points order PT Admission Screenin Reason For Exam: Triggered on Admission Diagnosis: Right shoulder injury Open Wound/Cellutlitis/Pressure Ulcers: No Acute Fx/ORIF/Change in wt bearing status: Yes Severe MUSCULOSKELETAL pain: No ADL Dysfunction: Yes Acute CVA w/Hemiparesis/Hemiplegia: No Decreased Functional Mobility/Strength: Yes Sprain/Strain: No Acute Post-op Mobility Dysfunction: No Total Points: 9 RT Screen per Nursing Assess ONCE Comment: Protocol Order Physician Instructions: Greater than 3 points order RT Admission Screen Reason For Exam: Triggered on Admission Diagnosis: Right shoulder injury Diagnosis: Right shoulder injury Pneumonia: No Home O2: Yes Asthma: No CHF: No Home CPAP/BIPAP: No Home Nebs/MDI: Yes Total Points: 10 10/19/25 10:43 PT Eval & Treat (MD Order) ONCE Reason for Eval:: eval for placement Diagnosis: Right shoulder injury OT Eval and Treat (MD Order) ONCE Comment: Physician Instructions: Reason For Exam: eval for placement Evaluate: Yes Treat: Yes Diagnosis: Right shoulder injury 10/19/25 14:55 Respiratory Therapy Assessment DAILY Comment: Diagnosis: Right shoulder injury 10/19/25 19:39 Oxygen Nasal Cannula 2 lpm Comment: Diagnosis: Right shoulder injury Discharge Exam General Appearance: no apparent distress, alert Neurologic Exam: alert, oriented x 3, cooperative, normal mood/affect, nml cerebellar function, sensation nml, No motor deficits Eye Exam: PERRL, EOMI, eyes nml inspection Ears, Nose, Throat Exam: normal ENT inspection, pharynx normal, moist mucous membranes Neck Exam: normal inspection, non-tender, supple, full range of motion Respiratory Exam: normal breath sounds, lungs clear, No respiratory distress Cardiovascular Exam: regular rate/rhythm, normal heart sounds Gastrointestinal/Abdomen Exam: soft, No tenderness, No mass Pelvic Exam: deferred Rectal Exam: deferred Back Exam: normal inspection, normal range of motion, No CVA tenderness, No vertebral tenderness Extremity Exam: normal inspection, normal range of motion, limited range of motion (Right arm in sling and elevated) Skin Exam: normal color, warm, dry Final Diagnosis/Problem List - Final Discharge Diagnosis/Problem (1) Right shoulder injury Current Visit: Yes Status: Acute Code(s): S49.91XA - UNSP INJURY OF RIGHT SHOULDER AND UPPER ARM, INIT ENCNTR (2) Fall Current Visit: Yes Status: Acute Code(s): W19.XXXA - UNSPECIFIED FALL, INITIAL ENCOUNTER (3) CHF (congestive heart failure) Current Visit: Yes Status: Chronic Code(s): I50.9 - HEART FAILURE, UNSPECIFIED (4) Constipation Current Visit: No Status: Acute Code(s): K59.00 - CONSTIPATION, UNSPECIFIED (5) Atrial fibrillation Current Visit: No Status: Chronic Code(s): I48.91 - UNSPECIFIED ATRIAL FIBRILLATION (6) HTN (hypertension) Current Visit: No Status: Chronic Code(s): I10 - ESSENTIAL (PRIMARY) HYPERTENSION (7) Warfarin anticoagulation Current Visit: No Status: Chronic Code(s): Z79.01 - DIRECTOR [employer] SALES (CURRENT) USE OF ANTICOAGULANTS (8) COPD (chronic obstructive pulmonary disease) Current Visit: Yes Status: Chronic (9) Elevated AST (SGOT) Current Visit: Yes Status: Acute Code(s): R74.01 - ELEVATION OF LEVELS OF LIVER TRANSAMINASE LEVELS (10) Elevated bilirubin Current Visit: Yes Status: Acute Assessment & Plan: (1) Right shoulder injury Current Visit: Yes Status: Acute Assessment & Plan: - Shoulder XR 10/14/25 3 view right shoulder demonstrates acute comminuted impacted humeral head/neck fracture and osteopenia already reported on CT right shoulder performed earlier in the day. 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 - Per pt she f/u with ortho OP yesterday and she is not a surgical canidate - Right arm Sling - Will obtain ortho records to review - RICE techniques - CBC, CMP reviewed - UA pending - PT/OT eval - Wanting placement at rehab - Decreased ADL function at home. - Increased pain with movement - Narcotic pain control - Tylenol PRN 10/20 - Awaiting ortho records - PT/OT eval - CBC, CMP reviewed - Awaiting placement 10/21 - CBC, CMP reviewed - WBC 10.3- may be reactive - D/C to rehab today Code(s): S49.91XA - UNSP INJURY OF RIGHT SHOULDER AND UPPER ARM, INIT ENCNTR (2) Fall Current Visit: Yes Status: Acute Assessment & Plan: - Fall on October 14, 2025 - Injury to right humerus - PT/OT eval - Radiology records reviewed - CBC, CMP reviewed Code(s): W19.XXXA - UNSPECIFIED FALL, INITIAL ENCOUNTER (3) CHF (congestive heart failure) Current Visit: Yes Status: Chronic Assessment & Plan: - Continue home meds Code(s): I50.9 - HEART FAILURE, UNSPECIFIED (4) Constipation Current Visit: No Status: Acute Assessment & Plan: - Continue stool softner - Miralax daily - Pt reports no BM since 10/14/2510/20 - + BM last night- resolved Code(s): K59.00 - CONSTIPATION, UNSPECIFIED (5) Atrial fibrillation Current Visit: No Status: Chronic Qualifiers: Assessment & Plan: - Resume warfarin- pharmacy to dose - Resume metoprolol - Tele Code(s): I48.91 - UNSPECIFIED ATRIAL FIBRILLATION (6) HTN (hypertension) Current Visit: No Status: Chronic Assessment & Plan: - Bp elevated on admission- trend - Resume home Bp meds Code(s): I10 - ESSENTIAL (PRIMARY) HYPERTENSION (7) Warfarin anticoagulation Current Visit: No Status: Chronic Assessment & Plan: - Pharmacy to manage - PT/INR ordered - PT 33.5/ INR 3.13- trend 10/20 PT 32.5/ INR 3.03 10/21 - PT 33.2/ INR 3.10 Code(s): Z79.01 - [employer]ES (CURRENT) USE OF ANTICOAGULANTS (8) COPD (chronic obstructive pulmonary disease) Current Visit: Yes Status: Chronic Assessment & Plan: - Not in acute exacerbation - Continue home meds (9) Elevated AST (SGOT) Current Visit: Yes Status: Acute Assessment & Plan: - AST 41- improved- trend 10/21 - AST 41- trend OP with PCP for further eval Code(s): R74.01 - ELEVATION OF LEVELS OF LIVER TRANSAMINASE LEVELS (10) Elevated bilirubin Current Visit: Yes Status: Acute Assessment & Plan: - Improved Bili 1.40 10/21 - Resolved Code(s): R17 - UNSPECIFIED JAUNDICE Code(s): R17 - UNSPECIFIED JAUNDICE - Discharge Discharge Date: 10/21/25 ([facility]) Disposition: XFER OTHER Condition: Stable Prescriptions: Continue Spironolactone 25 mg PO DAILY Citalopram Hydrobromide [Celexa] 10 mg PO DAILY Warfarin Sodium 2 mg PO DAILY 90 Days #90 tablet Potassium Chloride 10 meq PO DAILY Atorvastatin Calcium 40 mg PO HS Warfarin Sodium 1 mg PO UD #90 tablet Clopidogrel Bisulfate [Clopidogrel] 75 mg PO DAILY Hydrocodone/APAP 5/325 [[place] 5/325 mg] 1 tab PO Q4H PRN PRN Reason: Pain Hydroxyzine HCl 25 mg [Atarax 25 mg] 25 mg PO DAILY PRN PRN Reason: Anxiety Omeprazole 20 mg PO DAILY Albuterol 2.5 mg/3 ml Neb [Proventil 2.5 mg/3 ml Neb] 1 neb IH TID PRN PRN Reason: Shortness Of Breath Albuterol Sulfate [Albuterol Sulfate Hfa] 2 puff PO Q6H PRN PRN Reason: Shortness Of Breath/Wheezing Metoprolol Tartrate 25 mg [Lopressor 25MG Tab] 25 mg PO BID Ubidecarenone [Coenzyme Q10] 100 mg PO DAILY Docusate Sodium [Colace] 100 mg PO BID Outpatient Orders: PROTIME WITH INR Facility: [facility], Location[facility] Additional Instructions: HALFWAY ORDERS: ADMIT TO [facility] DIET SLING AND BRACE TO RIGHT SHOULDER AT ALL TIMES F/U SCHEDULED WITH [facility] ORTHO 2L/NC AT HS PT/OT EVAL AND TREAT SEE ATTACHED MED LIST Follow up with: ASHELY GUARDADO DO [Primary Care Provider, FAMILY [facility]ACTICE] FRANCO DAILEY, MEDICAL DEVICE ENGINEER [Non-Physician Practitioner, UNKNOWN] - 11/03/25 1:00 pm
[2025-10-21 07:50] VITALS: O2SAT 90
[2025-10-22] MEDS ORDERED: Coumadin 2 MG PO SCH (18:00)
== END 2025-10-21 11:21 ==
LOC: MED SURG 09:21
PROVIDERS: ADMIT Internal Medicine; ATTEND Internal Medicine
DX: S49.91XA Unspecified injury of right shoulder and upper arm, initial encounter (principal); W19.XXXA Unspecified fall, initial encounter; I12.9 Hypertensive chronic kidney disease with stage 1 through stage 4 chronic kidney disease, or unspecified chronic kidney disease; N18.9 Chronic kidney disease, unspecified; I50.9 Heart failure, unspecified; K59.00 Constipation, unspecified; I48.91 Unspecified atrial fibrillation; J44.9 Chronic obstructive pulmonary disease, unspecified; R74.01 Elevation of levels of liver transaminase levels; R17 Unspecified jaundice; Z86.73 Personal history of transient ischemic attack (TIA), and cerebral infarction without residual deficits; I25.10 Atherosclerotic heart disease of native coronary artery without angina pectoris; E78.5 Hyperlipidemia, unspecified; I25.2 Old myocardial infarction; G47.33 Obstructive sleep apnea (adult) (pediatric); Z79.01 Long term (current) use of anticoagulants; Z79.899 Other long term (current) drug therapy
CPT/HCPCS: 36415; 80053; 81001; 85027; 85610; 93268; 94760; 97161; 97165; 97530; 97535; G0378; G0379; Q3014